=== PATIENT | female | born 1950 | race Caucasian/White ===

== ENCOUNTER 2018-08-20 16:47 | Outpatient (REF) | payer MEDICARE, BC, SELFPAY ==
[2018-08-20 21:35] LABS: Anion Gap 8.8 mmol/L (3-11); BUN 20 mg/dL (7-18); CO2 26.2 mmol/L (21.0-32.0); CREATININE 0.78 mg/dL (0.55-1.02); Calcium 8.9 mg/dL (8.5-10.1); Chloride 103 mmol/L (98-107); Cholesterol 211 mg/dL (50-200); Glucose 95 mg/dL (70-100); HDL Cholesterol 52 mg/dL (40-60); LDL CHOLESTEROL 134 mg/dL (<100); Potassium 4.4 mmol/L (3.5-5.1); Sodium 138 mmol/L (136-145); Triglyceride 165 mg/dL (30-150)
== END 2018-08-20 17:07 ==
LOC: NCHCN 16:47
PROVIDERS: PCP Internal Medicine; Visit Provider Internal Medicine
DX: I10 Essential (primary) hypertension (principal); E78.5 Hyperlipidemia, unspecified
CPT/HCPCS: 80048; 80061; 83721

== ENCOUNTER 2018-09-06 01:15 | Outpatient (CLI) | payer MEDICARE, BC, SELFPAY ==
--- NOTE | 2018-09-06 11:46 | DI.MAMMO_ITS ---
SYMPTOM/DIAGNOSIS: SCREENING, Z12.31 MAMMOGRAM: 09/06 Mammograms were interpreted according to the usual protocol including computer analysis with CAD system, tomosynthesis and C view imaging. The breasts are of moderate density with fairly symmetrical distribution of fibroglandular tissue. No dominant mass or clumped microcalcification is identified in either breast. The current examination is compared with previous examinations including November 2013 and there is increased prominence of a focal area of asymmetric density with a vaguely nodular contour projected in the lateral central portion of the left breast on CC view. Additional mammographic views of this area are requested to include CC spot compression view of the left breast. CONCLUSION: Additional mammographic views of the left breast requested as described above. Breast ultrasound may be indicated as well depending on results of additional mammographic views. Category 0, breast density category B. MQSA ASSESSMENT OF FINDINGS: Incomplete: Needs additional imaging evaluation. Category 0. Patient will receive a letter notifying them of these results. BI-RADS category B. There are scattered areas of fibroglandular density.
== END 2018-09-06 01:35 ==
PROVIDERS: PCP Internal Medicine; Visit Provider Internal Medicine
DX: Z12.31 Encounter for screening mammogram for malignant neoplasm of breast (principal); R92.8 Other abnormal and inconclusive findings on diagnostic imaging of breast
CPT/HCPCS: 77063; 77067

== ENCOUNTER 2018-09-13 01:30 | Outpatient (CLI) | payer MEDICARE, BC, SELFPAY ==
--- NOTE | 2018-09-13 13:54 | DI.MAMMO_ITS ---
SYMPTOM/DIAGNOSIS: F/U MAMMO, ASYMMETRIC DENSITY LEFT BREAST ADDITIONAL VIEWS: Additional images are interpreted according to the usual protocol including tomosynthesis and 2D imaging. CC spot compression views with tomography were performed for a questioned lateral asymmetry. No persistent abnormality is seen on the additional views performed. The findings are consistent with overlying fibroglandular tissue. IMPRESSION: Category 1, negative mammogram. Yearly screening mammography is recommended. MQSA ASSESSMENT OF FINDINGS: Incomplete: Needs additional imaging evaluation. Category 0. Patient will receive a letter notifying them of these results. BI-RADS category B. There are scattered areas of fibroglandular density.
== END 2018-09-13 01:50 ==
PROVIDERS: PCP Internal Medicine; Visit Provider Internal Medicine
DX: Z12.31 Encounter for screening mammogram for malignant neoplasm of breast (principal); R92.8 Other abnormal and inconclusive findings on diagnostic imaging of breast; N64.59 Other signs and symptoms in breast
CPT/HCPCS: 77063; 77067

== ENCOUNTER 2019-04-25 18:26 | Outpatient (REF) | payer MEDICARE, BC, SELFPAY ==
[2019-04-25 21:43] LABS: HGB 12.2 g/dL (12.0-15.5); Mean Corpuscular Hemoglobin 30.8 pg (27.0-33.0); Mean Corpuscular Volume 93.4 fL (80-95); Mean Platelet Volume 9.9 fL (8.0-11.0); Platelet Count 337 x1000/uL (130-400); RBC 3.96 m/cumm (4.00-5.20); RBC Distribution Width 13.2 % (11.7-14.6); White Blood Cell Count 6.57 k/cumm (4.4-10.8)
[2019-04-25 22:05] LABS: TSH 1.25 uIU/mL (0.358-3.74)
== END 2019-04-25 18:46 ==
LOC: NCHCN 18:26
PROVIDERS: PCP Internal Medicine; Visit Provider Registered Nurse
DX: R53.83 Other fatigue (principal)
CPT/HCPCS: 85027; 84443

== ENCOUNTER 2019-10-28 09:00 | Outpatient (CLI) | payer MEDICARE, BC, SELFPAY ==
[2019-10-28 10:40] LABS: Anion Gap 8.9 mmol/L (3-11); BUN 23 mg/dL (7-18); CO2 29.1 mmol/L (21.0-32.0); CREATININE 0.78 mg/dL (0.55-1.02); Calcium 8.9 mg/dL (8.5-10.1); Calculated LDL 136 mg/dL; Chloride 101 mmol/L (98-107); Cholesterol 217 mg/dL (<200); Glucose 108 mg/dL (74-106); HDL Cholesterol 38 mg/dL (40-60); Potassium 4.2 mmol/L (3.5-5.1); Sodium 139 mmol/L (136-145); Triglyceride 218 mg/dL (<150)
== END 2019-10-28 09:20 ==
PROVIDERS: PCP Internal Medicine; Visit Provider Internal Medicine
DX: E78.5 Hyperlipidemia, unspecified (principal); I10 Essential (primary) hypertension
CPT/HCPCS: 36415; 80048; 80061

== ENCOUNTER 2020-02-20 00:39 | Outpatient (CLI) | payer MEDICARE, BC, SELFPAY ==
--- NOTE | 2020-02-20 | DI.DEXA_ITS ---
EXAM: XR DEXA BONE DENSITY W/WO KAMILLE CLINICAL HISTORY: OTHER SPECIFIC DISORDER OF BONE DENSITY AND STRUCTURE, M85.88 TECHNIQUE: COMPARISON: DX DEXA BONE DENSITY WITH KAMILLE from 11/19/2013 FINDINGS: DEXA scan was performed according to the usual protocol. Please see the accompanying data sheets. Findings for lumbar spine scanning are T-score -2.2, prior study of November 2013 showed lumbar T-sco re -2.0. Left hip scanning shows T-score -2.1 with left femoral neck T-score -2.6. Prior study of November 28 showed left hip T-score -1.7. Left forearm scanning shows T-score -0.1, prior study of 2013 showed T-score 0. There is minimal anterior wedging of T11 and T12 vertebral bodies which is probably developmental. N o change from 2013. IMPRESSION: Findings consistent with osteoporosis according to the WHO criteria.
== END 2020-02-20 00:59 ==
PROVIDERS: PCP Internal Medicine; Visit Provider Internal Medicine
DX: M85.88 Other specified disorders of bone density and structure, other site (principal); M81.0 Age-related osteoporosis without current pathological fracture
CPT/HCPCS: 77080

== ENCOUNTER 2020-03-26 03:04 | Outpatient (CLI) | payer MEDICARE, BC, SELFPAY ==
--- NOTE | 2020-03-26 10:50 | DI.MAMMO_ITS ---
EXAM: MAMMO SCREENING CLINICAL HISTORY: SCREENING, ADULT PREVENTATIVE CARE, Z00.00 TECHNIQUE: Mammograms were interpreted according to the usual protocol including computer analysis w [employer] CAD system, tomosynthesis and C-view imaging. COMPARISON: 2011 through 2017 FINDINGS: The breasts are composed of scattered fibroglandular densities, Breast Density category B. No suspicious masses or suspicious microcalcifications are seen. No skin thickening or abnormal axillary lymph nodes are seen. Vascular calcifications are incidental ly noted. There has been no significant change from prior exams. IMPRESSION: BI-RADS Category 1 - Negative Yearly screening mammography is recommended. Breast Density Category B, scattered fibroglandular densities.
== END 2020-03-26 03:24 ==
PROVIDERS: PCP Internal Medicine; Visit Provider Internal Medicine
DX: Z12.31 Encounter for screening mammogram for malignant neoplasm of breast (principal)
CPT/HCPCS: 77063; 77067

== ENCOUNTER → 2020-05-25 14:31 | Outpatient (BNVA) | payer MEDICARE, BC, SELFPAY | PROVIDERS: PCP Internal Medicine; Referring Provider Internal Medicine; Visit Provider Surgery | DX: K21.9 Gastro-esophageal reflux disease without esophagitis (principal); Z12.11 Encounter for screening for malignant neoplasm of colon; I10 Essential (primary) hypertension | CPT/HCPCS: 99203 ==

== ENCOUNTER 2020-06-09 07:10 | Outpatient (CLI) | payer MEDICARE, BC, SELFPAY ==
[2020-06-10 12:28] LABS: COVID-19 RT-PCR Result NEGATIVE (Negative)
== END 2020-06-09 07:30 ==
PROVIDERS: PCP Internal Medicine; Visit Provider Surgery
DX: Z11.51 Encounter for screening for human papillomavirus (HPV) (principal); Z01.818 Encounter for other preprocedural examination
CPT/HCPCS: U0003

== ENCOUNTER 2020-07-03 07:22 | Outpatient (CLI) | payer MEDICARE, BC, SELFPAY ==
[2020-07-04 23:22] LABS: COVID-19 RT-PCR Result NEGATIVE (Negative)
== END 2020-07-03 07:42 ==
PROVIDERS: Surgery; PCP Internal Medicine; Visit Provider Surgery
DX: Z11.59 Encounter for screening for other viral diseases (principal); Z01.818 Encounter for other preprocedural examination
CPT/HCPCS: U0003

== ENCOUNTER 2020-07-06 07:17 | Day surgery (SDC) | payer MEDICARE, BC, SELFPAY ==
--- NOTE | 2020-07-05 08:29 | STOM_PTH ---
PATIENT: Trista Boothe LOC: [facility] U#:[id number] AGE/SX: 70/F ROOM: RE07/06/[address]: Lise Espinoza MD : 1950 BED: DIS: 07/06/2020 SPEC #: [id number] RECD: 07/06/20 12:46 STATUS: BIJAN REQ #: [id number] EVELINA: 07/05/20 08:[address]: Lise Espinoza DEPT: Surgical Specimen RECD BY: Adela Shaw ENTERED: 07/06/20 12:47 SP TYPE: STOMACH OTHR DR: Gracy Wick Tissues: 1 - STOMACH BIOPSY 2 - ESOPHAGUS BIOPSY 3 - BIOPSY BOWEL Procedures: GROSS AND MICRO LEVEL 4 IMMUNOPEROXIDASE STAIN Comments: [id number]
--- NOTE | 2020-07-06 06:44 | W.PREOPHP ---
Date of service: 07/06/20 Time of Service: 08:13 Assessment and Plan Assessment and plan (1) Encounter for screening colonoscopy: Status: Acute Assessment and plan: A\\ 70 year old female seen for a screening colonoscopy as well as GERD symptoms despite PPI. Kamrar and EGD recommended P\\ Colonoscopy and EGD under sedation Risks, benefits and complications have been reviewed. Complications include but are not limited to bleeding, pain, perforation, missed small lesion/polyp, sore throat, aspiration and adverse reaction to the medications. Questions were entertained and answered to their satisfaction and they wished to proceed. No guarantees were given or implied. (2) GERD (gastroesophageal reflux disease): Status: Chronic Qualifiers: Esophagitis presence: esophagitis presence not specified Qualified Code(s): K21.9 - Gastro-esophageal reflux disease without esophagitis History of Present Illness Narrative: Presents to discuss EGD/colonoscopy. Colonoscopy in 2010 normal. Sigmoid resection for diverticular disease in 2008. Prior diagnosis of Barretts esophagus although EGD with biopsies in 2010 and 2012 showed only reflux changes. Has acid reflux that is partially controlled with PPI but still has some nighttime regurgitation. Does have some dysphonia and has seen ENT in the past. Bladder suspension in 2015. Has occasional rectal spasm at night, helps to pass gas. No FH colon cancer. No bowel complaints. No dysphagia. Dont eat late, elevate head. Patient was seen by Dr. Godinez in the office. Patient seen today. No changes in her symptoms or her health since she was seen in May Review of Systems Cardiovascular Cardiovascular: Denies chest pain, Denies chest pain at rest, Denies irregular heart rhythm, Denies dyspnea and Denies dyspnea on exertion Respiratory Respiratory: Reports cough, Denies dyspnea and Denies dyspnea on exertion Gastrointestinal Gastrointestinal: Reports as per HPI Genitourinary Genitourinary: Denies dysuria, Reports urinary incontinence and Denies urinary urgency Endocrine Endocrine: Reports system reviewed and no additional complaints, except as documented Hematologic/Lymphatic Hematologic/Lymphatic: Denies easy bruising and Denies lymphadenopathy [facility] Medical History Allergic rhinitis Anxiety Asthma Baer's esophagus determined by biopsy Cerumen impaction Dry eye syndrome Facial rhytids (01/15/18) Fatigue GERD (gastroesophageal reflux disease) Hormone replacement therapy (HRT) Hyperlipidemia Hypertension Impaired fasting glucose Obstructive sleep apnea Osteopenia on DEXA scan. Premature ventricular contractions (PVCs) (VPCs) Per pt. states this is due to anxiety Vaginal prolapse (03/29/16) s/p laparoscopic colpopexy, posterior repair. [facility] [place]. Vitamin D deficiency Surgical History Colonoscopy - IV Sedation with EGD for Barretts esophagitis History of open sigmoidectomy laparoscopic sacral colpopexy 03/29/16 with posterior colporrhaphy. [facility] [place]. Oophrectomy, Left (~2000) Repair of umbilical hernia Vaginal hysterectomy (~2002) for uterine prolapse, with oophorectomy Family History Mother Essential hypertension Heart disease Stroke Father Blood disorder required blood transfusions Brother Diabetes Grandfather , mouth cancer Diabetes Grandmother , breast cancer No problems noted. Son CD (Crohn's disease) Daughter CD (Crohn's disease) Social History Smoking/Tobacco Use Status: Never Alcohol Intake: current Alcohol Intake frequency: a few times a month Alcohol type: wine Drug use: Never Substance use type: does not use Do you feel safe at home: Yes Do you feel safe in your relationship?: Yes Meds Home Medications and Allergies Home Medications Medication Instructions Recorded Confirmed Type estradiol 0.5 mg PO DAILY 01/31/13 07/06/20 History fluticasone propion-salmeterol 1 puff INHALATION DAILY 01/31/13 07/06/20 History [Advair Diskus] lisinopril 10 mg PO DAILY 01/31/13 07/06/20 History mometasone [Nasonex] 1 spry NS DAILY 01/31/13 07/06/20 History omeprazole 20 mg PO DAILY 01/31/13 07/06/20 History albuterol sulfate [Ventolin HFA] 2 puff INHALATION PRN PRN 07/04/15 07/06/20 History cyclosporine 0.05 % eye drops in a 1 drp OP Q12H 11/14/19 07/06/20 History dropperette multivitamin 1 tab PO DAILY 11/14/19 07/06/20 History nebulizers #1 each 11/14/19 07/02/20 History simvastatin 20 mg tablet 20 mg PO QHS 11/14/19 07/06/20 History alendronate [Fosamax] 70 mg PO QWEEK 07/06/20 07/06/20 History Allergies Allergy/AdvReac Type Severity Reaction Status Date / Time mirtazapine [From Remeron] Allergy Intermediate Verified 07/06/20 07:33 venlafaxine HCl AdvReac Severe seizure Unverified 07/06/20 07:33 [From Effexor] meperidine HCl [From Demerol] AdvReac Intermediate vomit, Unverified 07/06/20 07:33 couldn't wake up oxycodone [Oxycodone] AdvReac Intermediate gi upset Unverified 07/06/20 07:33 Exam Const General: healthy appearing and comfortable Resp Effort & Inspection: normal respiratory effort Auscultation: clear to auscultation bilaterally Cardio Rate: regular rate Rhythm: regular rhythm Heart Sounds: no click, no gallops and no murmurs
--- NOTE | 2020-07-06 06:48 | W.PM.ENDDOP ---
Date of service: 07/06/20 Time of Service: 09:13 Endoscopy Report DATE OF PROCEDURE: 07/06/20 PRE-OP DIAGNOSIS: Colon Cancer Screening and GERD PROCEDURE: 1. EGD with biopsies 2. Colonoscopy with polypectomy SURGEON: Lise Espinoza ANESTHESIA: other (General/ASA 2/Davey Garcia, RAS) ESTIMATED BLOOD LOSS: 2 PATHOLOGY: other (Gastric polyps, GE junction bx, rectal polyps x4) COMPLICATIONS: None DISPOSITION: same day INDICATIONS: Presents to discuss EGD/colonoscopy. Colonoscopy in 2010 normal. Sigmoid resection for diverticular disease in 2008. Prior diagnosis of Barretts esophagus although EGD with biopsies in 2010 and 2012 showed only reflux changes. Has acid reflux that is partially controlled with PPI but still has some nighttime regurgitation. Does have some dysphonia and has seen ENT in the past. Bladder suspension in 2015. Has occasional rectal spasm at night, helps to pass gas. No FH colon cancer. No bowel complaints. No dysphagia. Dont eat late, elevate head. PREP: Miralax/Dulcolax PROCEDURE START TIME: 08:24 PROCEDURE END TIME: 08:57 COLONOSCOPY RETRACTION TIME: 13 minutes FINDINGS: Upper- small benign gastric polyps small hiatal hernia mild inflammation of the esophagus Colonoscopy- 4 benign appearing polyps in the rectum PROCEDURE DESCRIPTION: After informed consent was obtained the patient was take to the procedure room and placed in a supine position. Monitors were applied and a time out was done. The patients name, date of , procedure type, allergies to medications and metal in their body was reviewed. A bite block was placed and the patient was sedated. Once sedated and comfortable the gastroscope was advanced through the oropharynx. There was a small lesion noted on th left side next to the tonsillar pillar and a small red lesion on the left vocal cord. The scope was advanced into the esophagus. The proximal and mid-esophagus were normal. There was normal peristalsis observed. In the distal esophagus there was mild inflammation noted. The scope was advanced into the stomach and through the pylorus into the 3rd portion of the duodenum. The duodenum was noted to be normal. The scope was retracted back into the stomach scattered benign appearing gastric fundic polyps were identified. A few were biopsied. There were no ulcers. The scope was retroflexed. The cardia and fundus were noted to be normal. There was a small hiatal hernia noted. The scope was retracted back into the esophagus and biopsies were done of the GE junction to rule out Baer's. The Z line was slightly irregular at the 3 o'clock position. The GE junction was at 32 cm. While the patient was still sedated they were placed in a left decubitous position. A rectal exam was done. External exam showed external hemorrhoids and mild prolapse circumferentially. Internal exam revealed a normal sphincter tone and no palpable masses. The scope was then introduced and retro-flexed. No internal hemorrhoids were identified. The scope was then advanced to the cecum without difficulty. The ileocecal valve and appendiceal orifice were identified. The prep was good. The scope was then slowly retracted over 13 minutes back into the rectum. The side to side descending/rectal anastamosis was identified. The scope was advanced into the blind end. No polyps or masses were noted. There were 4 benign appearing polyps in the rectum. The scope was removed and the patient was woken up and taken back to Same day surgery in stable condition. The patient tolerated the procedure well and there were no immediate complications. Follow up: depends on final pathology
--- NOTE | 2020-07-06 06:50 | W.PM.DSUDISC ---
Discharge Plan Disposition Patient Disposition: HOME Condition: Stable Discharge Details Reason For Visit: EGD/Colonoscopy Attending Provider: Lise Espinoza Primary Care Provider: Gracy Wick Home Meds and New Rx's Prescriptions: Continued simvastatin 20 mg tablet 20 mg PO QHS RF: 0 multivitamin [Daily Multi-Vitamin] Tablet 1 tab PO DAILY RF: 0 Restasis 0.05 % dropperette 1 drp OP Q12H RF: 0 (DME) Compact Compressor Nebulizer Misc See Rx Instructions .ROUTE .MEDSUPPLY Qty: 1 RF: 0 omeprazole 20 MG capsule,delayed release(DR/EC) 20 mg PO DAILY RF: 0 lisinopril 5 MG tablet 10 mg PO DAILY RF: 0 estradiol 0.5 MG tablet 0.5 mg PO DAILY RF: 0 fluticasone propion-salmeterol [Advair Diskus] 1 EACH blister with device 1 puff Inhalation DAILY RF: 0 mometasone [Nasonex] 17 GM spray,non-aerosol 1 spry NS DAILY RF: 0 albuterol sulfate [Ventolin HFA] 60 PUFF HFA aerosol inhaler 2 puff Inhalation PRN PRNRF: 0 Discontinued bisacodyl [Dulcolax (bisacodyl)] 5 mg tablet,delayed release (DR/EC) 5 mg PO ONCE Qty: 4 RF: 0 polyethylene glycol 3350 17 gram/dose powder 17 g PO ONCE Qty: 238 RF: 0 No Action alendronate [Fosamax] 70 mg Tablet 70 mg PO QWEEK RF: 0 Discharge Instructions Instructions: Colorectal Polyps (DC), Esophagitis (DC), Hiatal Hernia (DC), Hemorrhoids (DC) Additional Instructions: Findings: 1. Mild inflammation of the stomach 2. Small Hiatal hernia 3. Gastric polyps (benign) 4. benign appearing rectal polyps 5. external hemorrhoids 6. Small red lesion on your vocal cord- not sure the significance. I recommend referal to ENT (Dr. Mclean or Dr. Lira) Follow up: will depend on final pathology Please call if you develop: fevers >101.5 Nausea or Vomiting Abdominal pain that is not transient DAY SURGERY UNIT POST ENDOSCOPY INSTRUCTIONS 1. Because there will be medication in your system for the next 24 hours, you may feel a little sleepy. Your coordination will be affected. Therefore: a. Do not drive or operate dangerous equipment for 24 hours. b. Do not drink alcohol beverages for 24 hours (not even beer). c. Plan to go home and rest for the day. 2. Generally there are no restrictions on your activity after a day or so has gone by, but you may feel a bit fatigued for a few days. 3 After you arrive home you may have a light meal and return to a normal diet as you can tolerate it without feeling sick to your stomach. 4. After surgery, you may feel pain or discomfort. This should be only transient, but if it persists please contact your doctor. 5. If there are any questions regarding the findings of your procedure, please feel free to contact your doctor. 6. If you are unable to contact your doctor with a problem, contact the hospital at [phone]. 7. Continue all your regular medications unless directed otherwise. I understand the above instructions and have no questions. Signature of Patient or Responsible Adult Escort Date/Time Name of Responsible Adult Escort Signature of Nurse Date/Time Stand Alone Forms: Gino LOZANO) Activity:: Activity as Tolerated Diet:: As Tolerated Discharge Orders Discharge Orders: Discharge Order (Routine); Ordered 07/06/20 Ordered By: Lise Espinoza DS: Diagnosis Discharge Diagnosis (1) Encounter for screening colonoscopy: Status: Acute (2) GERD (gastroesophageal reflux disease): Status: Chronic
[2020-07-06 07:25] VITALS: BP 128/80; PULSE 71; RESP 14; TEMP 36.5; O2SAT 99
[2020-07-06] MEDS: Lactated Ringers 1,000 ML 80 ML IV (07:59)
[2020-07-06 09:40] VITALS: BP 112/84; PULSE 63; RESP 16; TEMP 36.4; O2SAT 98
== END 2020-07-06 10:15 | disposition home or self-care (01) ==
LOC: SUR 07:18
PROVIDERS: PCP Internal Medicine; Visit Provider Surgery
PROC: (CPT 45380; principal; 2020-07-06 08:30)
DX: Z12.11 Encounter for screening for malignant neoplasm of colon (principal); D12.8 Benign neoplasm of rectum; K62.1 Rectal polyp; K21.9 Gastro-esophageal reflux disease without esophagitis; K31.7 Polyp of stomach and duodenum; K44.9 Diaphragmatic hernia without obstruction or gangrene; K20.9 Esophagitis, unspecified; Z98.0 Intestinal bypass and anastomosis status
CPT/HCPCS: 45380; 43239; 88305; NC; 88361; J2001

== ENCOUNTER 2020-09-19 08:37 | Inpatient (IN) | payer MEDICARE, BC, SELFPAY ==
[2020-09-19] VITALS (36 sets, daily range): BP systolic 113–204; BP diastolic 69–100; PULSE 60–83; RESP 9–22; TEMP 36.2–37.2; O2SAT 94–99
--- NOTE | 2020-09-19 08:30 | RT.EKG_ITS ---
APPROVED REPORT Exam: Resting ECG Patient Location: E HR:69 bpm ECG Measurements Heart Rate 69 AXIS CO 157 P 51 QRSd 90 QRS 76 QT 417 T 60 QTc 447 Conclusion Sinus rhythm...normal P axis, V-rate 60- 99
[2020-09-19 08:49] LABS: Abs Immature Grans 0.04 10^3/uL (0.0-0.06); Absolute Basophil Count 0.03 10^3/uL (0.0-0.2); Absolute Eosinophil Count 0.16 10^3/uL (0.0-0.7); Absolute Lymphocyte Count 1.23 10^3/uL (1.2-3.4); Absolute Neutrophil Count 2.77 10^3/uL (1.2-6.7); Basophils % 0.6; Eosinophils % 3.5; HCT 41.4 % (36.0-46.0); HGB 13.7 g/dL (11.2-15.7); Immature Grans % 0.9; Lymphocytes % 26.6; MCH 30.3 pg (27.0-33.0); MCHC 33.1 % (32.0-36.0); MCV 91.6 fL (80-95); MPV 9.3 fL (8.0-11.0); Monocytes % 8.6; Neutrophils % 59.8; Nucleated RBC 0 %; Platelet Count 330 10^3/uL (130-400); RBC 4.52 10^6/uL (3.93-5.22); RDW 12.9 % (11.7-14.6); RDW-SD 42.6 fL; WBC 4.63 10^3/uL (4.4-10.8)
[2020-09-19 08:58] LABS: Prothrombin Time 9.6 sec (9.3-11.0)
[2020-09-19 09:05] LABS: ALT 33 U/L (14-59); AST 17 U/L (15-37); Albumin 4.5 g/dL (3.4-5.0); Alkaline Phosphatase 101 U/L (46-116); Anion Gap 9.7 mmol/L (3-11); BUN 18 mg/dL (7-18); Bilirubin, Total 0.5 mg/dL (0.2-1.0); CO2 25.3 mmol/L (21.0-32.0); CREATININE 0.88 mg/dL (0.55-1.02); Calcium 8.8 mg/dL (8.5-10.1); Chloride 102 mmol/L (98-107); Glucose 139 mg/dL (74-106); Magnesium 1.9 mg/dL (1.8-2.4); Potassium 3.9 mmol/L (3.5-5.1); Sodium 137 mmol/L (136-145); Total Protein 8.2 g/dL (6.4-8.2)
--- NOTE | 2020-09-19 09:06 | ED.GENADUL_ITS ---
Discharge Plan Disposition Patient Disposition: [facility] INPATIENT Condition: Improving Discharge Details Clinical Impression: Hypertensive emergency, Altered mental status Primary Care Provider: Gracy Wick ED Provider: Benito Barber Home Meds and New Rx's Prescriptions: No Action simvastatin 20 mg tablet 20 mg PO QHS RF: 0 multivitamin [Daily Multi-Vitamin] Tablet 1 tab PO DAILY RF: 0 Restasis 0.05 % dropperette 1 drp OP Q12H RF: 0 (DME) Compact Compressor Nebulizer Misc See Rx Instructions .ROUTE .MEDSUPPLY Qty: 1 RF: 0 omeprazole 20 MG capsule,delayed release(DR/EC) 20 mg PO DAILY RF: 0 lisinopril 5 MG tablet 10 mg PO DAILY RF: 0 fluticasone propion-salmeterol [Advair Diskus] 1 EACH blister with device 1 puff Inhalation DAILY RF: 0 mometasone [Nasonex] 17 GM spray,non-aerosol 1 spry NS DAILY RF: 0 albuterol sulfate [Ventolin HFA] 60 PUFF HFA aerosol inhaler 2 puff Inhalation PRN PRNRF: 0 alendronate [Fosamax] 70 mg Tablet 70 mg PO QWEEK RF: 0 Medical Decision Making 920??70-year-old female with history of hypertension, hypercholesterolemia, anxiety, question remote seizure and question remote intracranial venous abnormality, here with sudden onset of altered mental status this morning, improving but still confused. No focal neurologic deficits. Patient has no pain and specifically has had no headache or chest pain. Patient is severely hypertensive on arrival with a systolic blood pressure in the 190s -this is despite compliance with antihypertensives. Concern for potential hypertensive emergency versus consideration for seizure disorder given prior history versus other. Blood pressure slightly improved now 170 on reassessment. Patient notes symptoms are improving and she feels more lucid. Nursing notes that she has better recall and now knows what she was planning to do today. Screening ECG was obtained to review for any arrhythmia -ECG was reviewed and interpreted by me. Please see report. Sinus rhythm noted. Plan will be to obtain a CT of the head as initial study to assess for any significant intracranial abnormality. Labs to assess for renal dysfunction or electrolyte abnormality. I think arrhythmia is low likelihood but will maintain cardiac monitoring. 10:49 --labs reviewed and nondiagnostic. CT of the head was reviewed and interpreted by radiology: No evidence of acute intracranial abnormality. No evidence of acute infarction, hemorrhage, or mass. Age-related atrophy and mild microvascular disease noted. Patient was reassessed and mentation has improved. She now has better recall of the events of last night. She still has poor recall regarding events this morning. Continues to have no focal neurologic deficits. Patient was given labetalol 20 mg IV for hypertension. Blood pressure did improve. I am concerned about hypertensive emergency and feel patient would benefit from inpatient treatment for further treatment of her hypertension and cardiac monitoring today. 1057??I discussed ED presentation and course with Dr. Eastman. He will admit the patient. Care transition to Dr. Eastman. HPI General Mode of arrival: EMS . Date/Time Provider Initiated Documentation: 09/19/20 09:05 . Limitations to Documentation: altered mental status . Information obtained by: EMS . HPI Narrative: 70-year-old female with history of hypertension, hypercholesterolemia, diverticulitis, GERD, asthma, anxiety, ? remote seizure, ? venous abnormality intracranial, presents with chief complaint of altered mental status. Per the patient's , patient was altered and did not respond to external stimuli. History is limited secondary to altered mental status. History obtained from patient's who notes that this morning she was exhibiting normal mentation until around 7:30 AM when he found h er standing in the kitchen with an odd smile staring blankly. He attempted to communicate with her and she was unable to respond. He assisted her ambulation to a couch and had her sit down. She did not lose consciousness but remained unable to respond for some time and then slowly became more lucid. She did remain confused and he called EMS. Patient now states that she has poor recollection of events this morning as well as yesterday. She states that she know she worked yesterday but does not recall any specifics. She does not know what she ate last night for dinner. Patient denies associated pain. No numbness or weakness. No visual changes. No headache. Patient denies fever or cough. Related Data Home Medications Medication Instructions Recorded Confirmed fluticasone propion-salmeterol 1 puff INHALATION DAILY 01/31/13 09/19/20 [Advair Diskus] lisinopril 10 mg PO DAILY 01/31/13 09/19/20 mometasone [Nasonex] 1 spry NS DAILY 01/31/13 09/19/20 omeprazole 20 mg PO DAILY 01/31/13 09/19/20 albuterol sulfate [Ventolin HFA] 2 puff INHALATION PRN PRN 07/04/15 09/19/20 cyclosporine 0.05 % eye drops in a 1 drp OP Q12H 11/14/19 09/19/20 dropperette multivitamin 1 tab PO DAILY 11/14/19 09/19/20 nebulizers #1 each 11/14/19 07/02/20 simvastatin 20 mg tablet 20 mg PO QHS 11/14/19 09/19/20 alendronate [Fosamax] 70 mg PO QWEEK 07/06/20 09/19/20 Allergies Allergy/AdvReac Type Severity Reaction Status Date / Time mirtazapine [From Remeron] Allergy Intermediate Verified 09/19/20 08:50 venlafaxine HCl AdvReac Severe seizure Unverified 09/19/20 08:50 [From Effexor] meperidine HCl [From Demerol] AdvReac Intermediate vomit, Unverified 09/19/20 08:50 couldn't wake up oxycodone [Oxycodone] AdvReac Intermediate gi upset Unverified 09/19/20 08:50 General Stated Complaint: AMS/LOC SIXTO: 2 Review of Systems All systems reviewed & are unremarkable except as noted in HPI and below Constitutional Constitutional: Denies fever(s) ENT Ears, Nose, Mouth, and Throat: Denies vertigo and Denies dizziness Cardiovascular Cardiovascular: Denies chest pain, Denies syncope and Denies dyspnea Respiratory Respiratory: Denies dyspnea Neurologic Neurologic: Denies vertigo, Denies dizziness and Denies syncope [facility] Medical History Allergic rhinitis Anxiety Asthma Baer's esophagus determined by biopsy Cerumen impaction Dry eye syndrome Facial rhytids (01/15/18) Fatigue GERD (gastroesophageal reflux disease) Hormone replacement therapy (HRT) Hyperlipidemia Hypertension Impaired fasting glucose Obstructive sleep apnea Osteopenia on DEXA scan. Premature ventricular contractions (PVCs) (VPCs) Per pt. states this is due to anxiety Vaginal prolapse (03/29/16) s/p laparoscopic colpopexy, posterior repair[place] [facility] D deficiency Surgical History Colonoscopy - IV Sedation with EGD for Barretts esophagitis History of open sigmoidectomy laparoscopic sacral colpopexy 03/29/16 with posterior colporrhaphy. [facility]. Oophrectomy, Left (~2000) Repair of umbilical hernia Vaginal hysterectomy (~2002) for uterine prolapse, with oophorectomy Family History Mother Essential hypertension Heart disease Stroke Father Blood disorder required blood transfusions Brother Diabetes Grandfather , mouth cancer Diabetes Grandmother , breast cancer No problems noted. Son CD (Crohn's disease) Daughter CD (Crohn's disease) Social History Smoking/Tobacco Use Status: Never Smoking risk assessment performed?: Yes Alcohol Intake: current Alcohol Intake frequency: a few times a month Alcohol type: wine Drug use: Never Substance use type: does not use Do you feel safe at home: Yes Do you feel safe in your relationship?: Yes Exam Const General: cooperative and no acute distress HENMT Head: normocephalic and atraumatic Mouth: moist mucous membranes Eyes Alignment and Position: alignment normal Conjunctivae: normal conjunctivae Sclera: normal sclerae Pupils: PERRL EOM: EOM intact bilaterally Neck Neck: trachea midline and supple Resp Auscultation: clear to auscultation bilaterally, no rales, no rhonchi and no wheezes Cardio Jugular venous pressure: no JVD Rate: regular rate and not tachycardic Rhythm: regular rhythm GI Palpation: soft, not firm, no guarding, no masses, not rigid and nontender Skin General skin exam: no rashes or lesions noted Neuro General: patient alert, patient awake, tone normal and patient confused Cognition: abnormal cognition Speech: speech normal Motor: strength 5/5 throughout Sensory Exam: no sensory deficits noted Extrem General: no edema Psych Appearance: grossly normal Mental Status: mental status grossly normal Speech and Movement: speech and movement normal Course Vital Signs Vital signs: Vital Signs Temperature 36.2 C L 09/19/20 08:38 Pulse 72 09/19/20 08:38 Respiratory Rate 12 09/19/20 08:38 Blood Pressure 193/99 H 09/19/20 08:38 Pulse Oximetry 98 12/12/20 08:38 Temperature 36.2 C L 09/19/20 08:38 Temperature Source Skin 09/19/20 08:38 Pulse 72 09/19/20 08:38 Respiratory Rate 12 09/19/20 08:38 Respiratory Effort Non-Labored 09/19/20 08:49 Blood Pressure 193/99 H 09/19/20 08:38 Blood Pressure Position Supine 09/19/20 08:38 Pulse Oximetry 98 09/19/20 08:38 Oxygen Delivery Method Room Air 09/19/20 08:38 Oxygen Flow Rate 0 09/19/20 08:38 Pain Level 0 09/19/20 08:38 Lab/Test Results Lab/Test Results: Laboratory Tests Range/Units 09/19/20 09/19/20 08:16 08:16 WBC (4.4-10.8) 10^3/uL 4.63 RBC (3.93-5.22) 10^6/uL 4.52 Hgb (11.2-15.7) g/dL 13.7 Hct (36.0-46.0) % 41.4 MCV (80-95) fL 91.6 MCH (27.0-33.0) pg 30.3 MCHC (32.0-36.0) % 33.1 RDW (11.7-14.6) % 12.9 Plt Count (130-400) 10^3/uL 330 MPV (8.0-11.0) fL 9.3 Immature Gran % 0.9 Neutrophils % 59.8 Lymphocytes % 26.6 Monocytes % 8.6 Eosinophils % 3.5 Basophils % 0.6 Nucleated RBC % % 0 Absolute Neutrophils (1.2-6.7) 10^3/uL 2.77 Absolute Lymphocytes (1.2-3.4) 10^3/uL 1.23 Absolute Monocytes (0.1-0.8) 10^3/uL 0.40 Absolute Eosinophils (0.0-0.7) 10^3/uL 0.16 Absolute Basophils (0.0-0.2) 10^3/uL 0.03 PT (9.3-11.0) sec 9.6 INR (0.9-1.1) 1.0
[2020-09-19 09:07] LABS: Troponin I < 0.05 ng/mL (<0.06)
--- NOTE | 2020-09-19 09:43 | DI.CT_ITS ---
EXAM: CT HEAD WO CLINICAL HISTORY: altered mentation, HTN. TECHNIQUE: Imaging Protocol: Axial computed tomography images with coronal and sagittal reformatted images were created and reviewed COMPARISON: No exams were available for comparison FINDINGS: Ventricles and Extra axial spaces: Normal in size and morphology for the patient's age. Hemorrhage: None. Cerebral parenchyma: There are areas of decreased attenuation in the white matter most consistent wit h microvascular ischemic disease. No acute territorial infarct. No mass effect. Midline shift: None. Brainstem/Cerebellum: Normal. Calvarium: Normal. Visualized Paranasal sinuses/Mastoids: Clear. Soft Tissues: Unremarkable. IMPRESSION: No acute intracranial process. RADIATION DOSE DELIVERED: 619.82mGy.cm Total DLP DATA REPOSITORY: All CT scans at this facility are submitted to the National Radiology Data Registry (NRDR) Dose Index Registry (DIR) with the [employer] (ACR). RADIATION OPTIMIZATION: All CT scans at this facility use at least one of these dose optimization te chniques: automated exposure control; mA and/or kV adjustment per patient size (includes targeted exa ms where dose is matched to clinical indication); or iterative reconstruction.
--- NOTE | 2020-09-19 09:46 | DI.VRAD_ITS ---
PROCEDURE INFORMATION: Exam: CT Head Without Contrast Exam date and time: 09/19/2020 9:33 AM Age: 70 years old Clinical indication: Other: Altered mentation, HTN TECHNIQUE: Imaging protocol: Computed tomography of the head without contrast. Radiation optimization: All CT scans at this facility use at least one of these dose optimization techniques: automated exposure control; mA and/or kV adjustment per patient size (includes targeted exams where dose is matched to clinical indication); or iterative reconstruction. COMPARISON: No relevant prior studies available. FINDINGS: Brain: There is no acute intracranial hemorrhage. There is mild lucency in the cerebral white matter, likely microvascular disease although non-specific. Coker white differentiation is intact. There are no extra-axial fluid collections. No evidence of mass. There is no mass effect or midline shift. Cerebral ventricles: The ventricles and sulci are enlarged, consistent with age related volume loss / atrophy. No hydrocephalus. Bones/joints: No acute fracture. Paranasal sinuses: Visualized sinuses are unremarkable. No fluid levels. Mastoid air cells: No significant mastoid effusion. Vasculature: There is vascular calcification. Soft tissues: Unremarkable as visualized. IMPRESSION: 1. No evidence of acute intracranial abnormality. No evidence of acute infarction, hemorrhage, or mass. 2. Age related atrophy and mild microvascular disease. Dictated and Authenticated by: Krista Loera MD. Ordering:ALBERTO Oliver MD
--- NOTE | 2020-09-19 09:49 | NUR.NOTE ---
Nursing Note: Patient continues to recall more and more details of last PM and this AM. States she is feeling better .
[2020-09-19 09:55] LABS: Bilirubin Negative (Negative); Blood Negative (Negative); Clarity Clear (Clear); Glucose Negative (Negative); Ketones Negative (Negative); Leukocyte Esterase Negative (Negative); Nitrite Negative (Negative); Specific Gravity 1.025 (1.005-1.025); Urobilinogen 0.2 EU/dL (Up TO 0.2); pH 7.5 (5-8)
[2020-09-19 10:05] LABS: *AMPHETAMINES SCREEN URINE Negative (Negative); *BARBITURATES SCREEN URINE Negative (Negative); *BENZODIAZEPINES SCREEN URINE Negative (Negative); Cannabinoids THC Negative (Negative); Cocaine Screen,Urine Negative (Negative); METHADONE URINE SCREEN Negative (Negative); OPIATES URINE SCREEN Negative (Negative)
[2020-09-19 10:09] LABS: Tricyclic Antidepressants Negative (Negative)
[2020-09-19] MEDS: Labetalol 100 MG/20 ML VIAL 10 MG IVP (10:14)
--- NOTE | 2020-09-19 15:49 | W.PM.HP.N ---
Date of service: 09/19/20 Time of Service: 13:49 Assessment and Plan Assessment and plan (1) Hypertensive emergency: Status: Acute Assessment and plan: Unclear if her BP elevated and caused a sense of panic or vice versa. She is on lisinopril 10mg po daily at home. Increase Lisinopril to 20mg daily starting tomorrow. PRN hydralazine IV for SBP > 180. Monitor on telemetry. BP responded well to a single dose of 20mg IV labetalol. (2) Anxiety: Status: Chronic Assessment and plan: No current meds. No ongoing anxiety per pt, though she did have a sense of doom and panic on AM of admission. This may have been related to elevated BP. Monitor. (3) Asthma: Status: Chronic Assessment and plan: She prefers to remain off Advair d/t to vocal cord nodule and hoarseness that could be related to the steroid component. PRN albuterol. History of Present Illness History of Present Illness Chief Complaint: Hypertensive emergency Narrative: This is a 70 year old female with a h/o HTN, HLD, asthma, GERD, anxiety, seizure x1 episode. She presented to the ED secondary to a change in her mental status. She remembers sitting in her kitchen on the morning of admission and had a sudden onset of what felt similar to a panic attack she had experienced years ago. She voiced this to her . He then noted that she did not respond to his verbal stimuli as she stood in the kitchn with an odd smile on her face. He assisted her to the couch to sit. No LOC/fall. She gradually became more lucid but not at her baseline. EMS was then called. In the ED she had a difficult time recollecting the events of the morning and thos of the day before. Once admitted she did recall the events as stated above. She had previously been on Clonazepam for a long standing period of time but starting this past October she slowly weaned off of it. She has also stop her Advair recently d/t vocal cord nodule being observed by ENT recently. 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 Her presenting SBP was 194. She was given an IV dose of Labetalol and her SBP improved to 134. CT of head was negative for any acute findings. She denied any CP, palpitations, [place], visual changes, vertigo, N/V, diaphoreses. Review of Systems All systems reviewed & are unremarkable except as noted in HPI and below PFSH Medical History Allergic rhinitis Anxiety Asthma Baer's esophagus determined by biopsy Cerumen impaction Dry eye syndrome Facial rhytids (01/15/18) Fatigue GERD (gastroesophageal reflux disease) Hormone replacement therapy (HRT) Hyperlipidemia Hypertension Impaired fasting glucose Obstructive sleep apnea Osteopenia on DEXA scan. Premature ventricular contractions (PVCs) (VPCs) Per pt. states this is due to anxiety Vaginal prolapse (03/29/16) s/p laparoscopic colpopexy, posterior repair[place] [facility] [place] Vitamin D deficiency Surgical History Colonoscopy - IV Sedation with EGD for Barretts esophagitis History of open sigmoidectomy laparoscopic sacral colpopexy 03/29/16 with posterior colporrhaphy. [facility] [place] [place] Oophrectomy, Left (~2000) Repair of umbilical hernia Vaginal hysterectomy (~2002) for uterine prolapse, with oophorectomy Family History Mother Essential hypertension Heart disease Stroke Father Blood disorder required blood transfusions Brother Diabetes Grandfather , mouth cancer Diabetes Grandmother , breast cancer No problems noted. Son CD (Crohn's disease) Daughter CD (Crohn's disease) Social History Smoking/Tobacco Use Status: Never Smoking risk assessment performed?: Yes Alcohol Intake: current Alcohol Intake frequency: a few times a month Alcohol type: wine Drug use: Never Substance use type: does not use Do you feel safe at home: Yes Do you feel safe in your relationship?: Yes Meds Home Medications and Allergies Home Medications Medication Instructions Recorded Confirmed Type fluticasone propion-salmeterol 1 puff INHALATION DAILY 01/31/13 09/19/20 History [Advair Diskus] lisinopril 10 mg PO DAILY 01/31/13 09/19/20 History mometasone [Nasonex] 1 spry NS DAILY 01/31/13 09/19/20 History omeprazole 20 mg PO BID 01/31/13 09/19/20 History albuterol sulfate [Ventolin HFA] 2 puff INHALATION PRN PRN 07/04/15 09/19/20 History cyclosporine 0.05 % eye drops in a 1 drp OP Q12H 11/14/19 09/19/20 History dropperette multivitamin 1 tab PO DAILY 11/14/19 09/19/20 History nebulizers #1 each 11/14/19 07/02/20 History simvastatin 20 mg tablet 20 mg PO QHS 11/14/19 09/19/20 History alendronate [Fosamax] 70 mg PO QWEEK 07/06/20 09/19/20 History Allergies Allergy/AdvReac Type Severity Reaction Status Date / Time mirtazapine [From Remeron] Allergy Intermediate Verified 09/19/20 08:50 venlafaxine HCl AdvReac Severe seizure Unverified 09/19/20 08:50 [From Effexor] meperidine HCl [From Demerol] AdvReac Intermediate vomit, Unverified 09/19/20 08:50 couldn't wake up oxycodone [Oxycodone] AdvReac Intermediate gi upset Unverified 09/19/20 08:50 Exam Const General: cooperative and no acute distress Nutritional Appearance: average body habitus Orientation: alert and oriented x3 Limitations: mental status not altered [facility] Head: normocephalic and atraumatic Eyes Sclera: sclerae normal Pupils: PERRL Resp Effort & Inspection: normal respiratory effort Auscultation: clear to auscultation bilaterally Cardio Jugular venous pressure: no JVD Rate: regular rate Rhythm: regular rhythm Heart Sounds: S1 normal and S2 normal GI Palpation: soft and nontender Auscultation: normal bowel sounds Skin General skin exam: no rashes or lesions noted Neuro General: moves all extremities and no focal motor deficits Cognition: normal cognition Speech: speech normal Extrem General: no pedal edema and no calf tenderness Results Labs Result diagrams: 09/19/20 08:16 09/19/20 08:16 Labs: Laboratory Results - last 24 hr 09/19/20 09/19/20 09/19/20 08:16 08:16 08:16 WBC 4.63 RBC 4.52 Hgb 13.7 Hct 41.4 MCV 91.6 MCH 30.3 MCHC 33.1 RDW 12.9 Plt Count 330 MPV 9.3 Immature Gran % 0.9 Neutrophils % 59.8 Lymphocytes % 26.6 Monocytes % 8.6 Eosinophils % 3.5 Basophils % 0.6 Nucleated RBC % 0 Absolute Neutrophils 2.77 Absolute Lymphocytes 1.23 Absolute Monocytes 0.40 Absolute Eosinophils 0.16 Absolute Basophils 0.03 PT 9.6 INR 1.0 Sodium 137 Potassium 3.9 Chloride 102 Carbon Dioxide 25.3 Anion Gap 9.7 BUN 18 Creatinine 0.88 Estimated GFR/1.73 m2 >= 60.00 Glucose 139 H Calcium 8.8 Magnesium 1.9 Total Bilirubin 0.5 AST 17 ALT 33 Alkaline Phosphatase 101 Troponin I < 0.05 Total Protein 8.2 Albumin 4.5 Urine Color Urine Clarity Urine pH Ur Specific [place] Urine Protein Urine Ketones Urine Blood Urine Nitrite Urine Bilirubin Urine Urobilinogen Ur Leukocyte Esterase Urine Glucose Urine Opiates Screen Urine Methadone Screen Ur Barbiturates Screen Ur Tricyclics Screen Ur Amphetamines Screen U Benzodiazepines Scrn Urine Cocaine Screen Ur THC Screen 09/19/20 09/19/20 09:10 09:10 WBC RBC Hgb Hct MCV MCH MCHC RDW Plt Count MPV Immature Gran % Neutrophils % Lymphocytes % Monocytes % Eosinophils % Basophils % Nucleated RBC % Absolute Neutrophils Absolute Lymphocytes Absolute Monocytes Absolute Eosinophils Absolute Basophils PT INR Sodium Potassium Chloride Carbon Dioxide Anion Gap BUN Creatinine Estimated GFR/1.73 m2 Glucose Calcium Magnesium Total Bilirubin AST ALT Alkaline Phosphatase Troponin I Total Protein Albumin Urine Color Yellow Urine Clarity Clear Urine pH 7.5 Ur Specific [place] 1.025 Urine Protein Negative Urine Ketones Negative Urine Blood Negative Urine Nitrite Negative Urine Bilirubin Negative Urine Urobilinogen 0.2 Ur Leukocyte Esterase Negative Urine Glucose Negative Urine Opiates Screen Negative Urine Methadone Screen Negative Ur Barbiturates Screen Negative Ur Tricyclics Screen Negative Ur Amphetamines Screen Negative U Benzodiazepines Scrn Negative Urine Cocaine Screen Negative Ur THC Screen Negative Last Vital Signs Temp 36.2 C L 09/19/20 14:12 Pulse 77 09/19/20 14:12 Resp 17 09/19/20 14:12 BP 135/74 09/19/20 14:12 Pulse Ox 94 09/19/20 14:12 COVID-19 Screening Have you, or household traveled for leisure in last 14 days?: No Had IN PERSON contact w/suspected or confirmed C-19 person: No
--- NOTE | 2020-09-19 16:54 | NUR.NOTE ---
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 Mentioned this to dr Eastman, and he orders an A1c
[2020-09-19 17:16] LABS: Hemoglobin A1C 6.1 % (<5.7)
[2020-09-19] MEDS: Omeprazole 20 MG CAPCR PO (19:58)
[2020-09-19] MEDS: Normal Saline Flush 10 ML SYR IVP (19:58)
[2020-09-19] MEDS: Simvastatin 20 MG TAB PO (22:01)
[2020-09-20 01:34] LABS: COVID-19 RT-PCR UVMMC Result Negative (Negative)
[2020-09-20 01:35] VITALS: BP 118/69; PULSE 74; RESP 18; TEMP 36.7; O2SAT 97
[2020-09-20] MEDS: Acetaminophen 325 MG TAB 650 MG PO ×2 (01:38→06:46)
[2020-09-20 03:17] VITALS: BP 150/88; PULSE 78; RESP 18; TEMP 36.7; O2SAT 96
[2020-09-20 06:18] VITALS: BP 156/97; PULSE 73; RESP 16; TEMP 35.9; O2SAT 96
[2020-09-20] MEDS: Omeprazole 20 MG CAPCR PO (06:46)
[2020-09-20 07:30] VITALS: PULSE 80
[2020-09-20 07:58] VITALS: BP 133/82; PULSE 69; RESP 18; TEMP 36.7; O2SAT 96
[2020-09-20 07:58] LABS: BUN 18 mg/dL (7-18); Chloride 102 mmol/L (98-107); Glucose 121 mg/dL (74-106); Potassium 3.8 mmol/L (3.5-5.1); Sodium 137 mmol/L (136-145)
[2020-09-20] MEDS: Lisinopril 10 MG TAB 20 MG PO (08:07)
[2020-09-20] MEDS: Multivitamin TAB 1 TAB PO (08:07)
[2020-09-20 10:05] VITALS: PULSE 81
--- NOTE | 2020-09-20 10:10 | W.PM.DS.N ---
Date of service: 09/20/20 Time of Service: 10:11 DS: Diagnosis Discharge Diagnosis (1) Hypertensive emergency: Status: Acute (2) Anxiety: Status: Chronic (3) Asthma: Status: Chronic Discharge Plan Disposition Patient Disposition: HOME Condition: Good Discharge Details Reason For Visit: HYPERTENSIVE EMERGENCY, ALTERED MENTATION Admit Date/Time: 09/19/20 10:58 Admit Provider: George Eastman Attending Provider: George Eastman Primary Care Provider: Gracy Wick Hospital Course Hospital Course: This is a 70 year old female with a h/o HTN, HLD, asthma, GERD, anxiety, seizure x1 episode. She presented to the ED secondary to a change in her mental status. She remembers sitting in her kitchen on the morning of admission and had a sudden onset of what felt similar to a panic attack she had experienced years ago. She voiced this to her . He then noted that she did not respond to his verbal stimuli as she stood in the kitchn with an odd smile on her face. He assisted her to the couch to sit. No LOC/fall. She gradually became more lucid but not at her baseline. EMS was then called. In the ED she had a difficult time recollecting the events of the morning and thos of the day before. Once admitted she did recall the events as stated above. She had previously been on Clonazepam for a long standing period of time but starting this past October she slowly weaned off of it. She has also stop her Advair recently d/t vocal cord nodule being observed by ENT recently. 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 Her presenting SBP was 194. She was given an IV dose of Labetalol and her SBP improved to 134. CT of head was negative for any acute findings. She denied any CP, palpitations, [place], visual changes, vertigo, N/V, diaphoreses. Her mental status remained normal throughout the hospitalization. Her lisinopril was increased to 20mg daily. She will monitor her BP twice daily at various times of the day and take those results with her to her PCP f/u in 1-2 weeks. Home Meds and New Rx's Prescriptions: New lisinopril 20 mg tablet 20 mg PO DAILY Qty: 30 RF: 0 Continued simvastatin 20 mg tablet 20 mg PO QHS RF: 0 multivitamin [Daily Multi-Vitamin] Tablet 1 tab PO DAILY RF: 0 Restasis 0.05 % dropperette 1 drp OP Q12H RF: 0 (DME) Compact Compressor Nebulizer Misc See Rx Instructions .ROUTE .MEDSUPPLY Qty: 1 RF: 0 omeprazole 20 MG capsule,delayed release(DR/EC) 20 mg PO BID RF: 0 fluticasone propion-salmeterol [Advair Diskus] 1 EACH blister with device 1 puff Inhalation DAILY RF: 0 mometasone [Nasonex] 17 GM spray,non-aerosol 1 spry NS DAILY RF: 0 albuterol sulfate [Ventolin HFA] 60 PUFF HFA aerosol inhaler 2 puff Inhalation PRN PRNRF: 0 alendronate [Fosamax] 70 mg Tablet 70 mg PO QWEEK RF: 0 Discontinued lisinopril 5 MG tablet 10 mg PO DAILY RF: 0 Discharge Instructions Instructions: Hypertensive Crisis (GEN) Stand Alone Forms: Nursing Discharge Form Referrals: Gracy Wick [Primary Care Provider] - (Please call Monday to make a follow up appointment for 1-2 weeks.) Activity:: Activity as Tolerated Equipment/Supplies:: No Equipment Needed Diet:: Low Sodium Discharge Orders Discharge Orders: Discharge Order (Routine); Ordered 09/20/20 Ordered By: George Eastman Discharge Data Discharge Date/Time-TO BE ENTERED AT DEPARTURE: 09/20/20 11:18 DS: Summary Status at Discharge Functional status at discharge: independent ambulation Overall status at discharge: patient is back to baseline Mental Status: mental status grossly normal Speech and Movement: speech and movement normal Mood: congruent mood Affect: normal affect Exam Const General: cooperative and no acute distress Nutritional Appearance: average body habitus Eyes Sclera: sclerae normal Pupils: other (pupils equal) Resp Effort & Inspection: normal respiratory effort Auscultation: clear to auscultation bilaterally Cardio Rate: regular rate Rhythm: regular rhythm Heart Sounds: S1 normal and S2 normal Extrem General: no pedal edema and no calf tenderness Psych Appearance: grossly normal Mental Status: mental status grossly normal Speech and Movement: speech and movement normal Mood: congruent mood Affect: normal affect DS: Data Vitals/I&O Vitals and I&O: Vital Signs Temperature 36.7 C 09/20/20 07:58 Temperature Source Temporal Artery Scan 09/20/20 07:58 Pulse 69 09/20/20 07:58 Pulse Rhythm Regular 09/20/20 07:42 Pulse 68 09/19/20 10:50 Respiratory Rate 18 09/20/20 07:58 Respiratory Effort Non-Labored 09/20/20 07:42 Respiratory Depth Normal 09/20/20 07:42 Respiratory Pattern Normal 09/20/20 07:42 Blood Pressure 133/82 09/20/20 07:58 Blood Pressure Mean 93 09/19/20 10:45 Blood Pressure Position Supine 09/19/20 08:38 Pulse Oximetry 96 09/20/20 07:58 Oxygen Delivery Method Room Air 09/20/20 07:58 Oxygen Flow Rate 0 09/20/20 07:58 Pain Level 2 09/20/20 07:58 Comment 09/20/20 06:18 Intake & Output 09/19/20 09/19/20 09/20/20 11:59 23:59 11:59 Intake Total 250 / 250 500 / 500 Balance 250 / 250 500 / 500 Weight 61 kg 56.3 kg Intake: IV Oral 240 / 240 500 / 500 Other: Urine Color Yellow Urine Appearance Clear Clear Urine Odor Normal Voiding Methods Toilet Data Completed and Pending Labs on day of discharge: Labs from last 24 hours 09/20/20 09/19/20 09/19/20 06:19 11:10 09:10 Sodium 137 Potassium 3.8 Chloride 102 Carbon Dioxide 24.0 Anion Gap 11.0 BUN 18 Creatinine 0.80 Estimated GFR/1.73 m2 >= 60.00 Glucose 121 H Hemoglobin A1c Calcium 9.0 Urine Opiates Screen Negative Urine Methadone Screen Negative Ur Barbiturates Screen Negative Ur Tricyclics Screen Negative Ur Amphetamines Screen Negative U Benzodiazepines Scrn Negative Urine Cocaine Screen Negative Ur THC Screen Negative SARS-CoV-2 (PCR) Negative Nasopharyn COVID-19 PCR Not Applicable Ref Test Perform Site [facility] 09/19/20 08:16 Sodium Potassium Chloride Carbon Dioxide Anion Gap BUN Creatinine Estimated GFR/1.73 m2 Glucose Hemoglobin A1c 6.1 H Calcium Urine Opiates Screen Urine Methadone Screen Ur Barbiturates Screen Ur Tricyclics Screen Ur Amphetamines Screen U Benzodiazepines Scrn Urine Cocaine Screen Ur THC Screen SARS-CoV-2 (PCR) Nasopharyn COVID-19 PCR Ref Test Perform Site [facility] Medical History (Updated 09/25/20 @ 10:14 by Venus Pérez) Allergic rhinitis Anxiety Asthma Baer's esophagus determined by biopsy Barretts esophagus Cerumen impaction Colon cancer screening Dry eye syndrome Encounter for preventive health examination Facial rhytids (01/15/18) Fatigue GERD (gastroesophageal reflux disease) History of prediabetes Hormone replacement therapy (HRT) Hyperlipidemia Hypertension Impaired fasting glucose Lesion of vocal cord Obstructive sleep apnea Osteopenia on DEXA scan. Osteoporosis Premature ventricular contractions (PVCs) (VPCs) Per pt. states this is due to anxiety Rash, skin Vaginal prolapse (03/29/16) s/p laparoscopic colpopexy, posterior repair. [facility] [place]. Vitamin D deficiency Surgical History Colonoscopy - IV Sedation with EGD for Barretts esophagitis History of open sigmoidectomy laparoscopic sacral colpopexy 03/29/[address] [facility] [place]. Oophrectomy, Left (~2000) Repair of umbilical hernia Vaginal hysterectomy (~2002) for uterine prolapse, with oophorectomy Family History Mother Essential hypertension Heart disease Stroke Father Blood disorder required blood transfusions Brother Diabetes Grandfather , mouth cancer Diabetes Grandmother , breast cancer No problems noted. Son CD (Crohn's disease) Daughter CD (Crohn's disease) Social History Smoking/Tobacco Use Status: Never Smoking risk assessment performed?: Yes Alcohol Intake: current Alcohol Intake frequency: a few times a month Alcohol type: wine Drug use: Never Substance use type: does not use Do you feel safe at home: Yes Do you feel safe in your relationship?: Yes
== END 2020-09-20 11:18 | disposition home or self-care (01) | DRG 305 ==
LOC: ER 11:22 → MS 11:55
PROVIDERS: Admitting Provider Family Medicine; Emergency Provider Student in an Organized Health Care Education/Training Program; PCP Internal Medicine; Visit Provider Family Medicine
DX: I16.1 Hypertensive emergency (principal); F41.9 Anxiety disorder, unspecified; J45.909 Unspecified asthma, uncomplicated; E78.5 Hyperlipidemia, unspecified; K21.9 Gastro-esophageal reflux disease without esophagitis; K22.70 Barrett's esophagus without dysplasia; H04.129 Dry eye syndrome of unspecified lacrimal gland; R73.01 Impaired fasting glucose; G47.33 Obstructive sleep apnea (adult) (pediatric); E55.9 Vitamin D deficiency, unspecified; I10 Essential (primary) hypertension; I49.3 Ventricular premature depolarization
CPT/HCPCS: 36415; 36416; 80048; 80053; 80307; 82962; 93005; 96374; 99219; 99239; 99285; U0003; 70450; 81003; 83036; 83735; 84484; 85025; 85610; 93010; 99222; 99238

== ENCOUNTER 2020-09-30 01:16 | Outpatient (CLI) | payer MEDICARE, BC, SELFPAY ==
--- NOTE | 2020-09-30 | DI.MRI_ITS ---
EXAM: MR BRAIN WO CLINICAL HISTORY: TRANSIENT ALTERED MENTAL STATUS,R40.4,DECREASED RESPONSIVENESS, ? CVA TECHNIQUE: Multiplanar multisequence MRI of the brain was performed. COMPARISON: CT CT HEAD WO from 09/19/2020 FINDINGS: VENTRICLES AND EXTRA AXIAL SPACES: There is global cerebral atrophy. MIDLINE SHIFT: None. CEREBRAL PARENCHYMA: No focus of restricted diffusion to suggest acute infarct. No space-occupying le meka identified. There are areas of hyperintense signal in the white matter consistent with small ves summer ischemic disease. HEMORRHAGE: None. BRAINSTEM/CEREBELLUM: Normal. CALVARIUM: Normal. VISUALIZED PARANASAL SINUSES/MASTOIDS:Clear. [place]: Normal flow void. PITUITARY GLAND: Unremarkable. OTHER FINDINGS: None. IMPRESSION: 1. Cerebral atrophy and small vessel ischemic disease. 2. No evidence of an acute infarct or intracranial mass. DATA REPOSITORY:
== END 2020-09-30 01:36 ==
PROVIDERS: PCP Internal Medicine; Visit Provider Internal Medicine
DX: G31.89 Other specified degenerative diseases of nervous system (principal); I67.89 Other cerebrovascular disease; R40.4 Transient alteration of awareness
CPT/HCPCS: 70551

== ENCOUNTER 2020-10-26 13:44 | Emergency (ER) | payer MEDICARE, BC, SELFPAY ==
[2020-10-26] VITALS (15 sets, daily range): BP systolic 132–169; BP diastolic 75–82; PULSE 69–87; RESP 12–25; TEMP 36.4; O2SAT 93–100
--- NOTE | 2020-10-26 13:45 | RT.EKG_ITS ---
APPROVED REPORT Exam: Resting ECG Patient Location: E HR:75 bpm ECG Measurements Heart Rate 75 AXIS RI 161 P 50 QRSd 87 QRS 55 QT 401 T 56 QTc 449 Conclusion Sinus rhythm...normal P axis, V-rate 60- 99 no major change from prior, no STEMI, non-diagnostic EKG I have reviewed and interpreted ECG and agree with software generated interpretation.
--- NOTE | 2020-10-26 14:05 | DI.RAD_ITS ---
EXAM: XR CHEST 1V IN DI DEPT CLINICAL HISTORY: ams TECHNIQUE: 2D digital imaging was performed. COMPARISON: CR CHEST 2 VIEWS PA,LAT from 04/06/2016 FINDINGS: MEDIASTINUM: Normal. HEART: Normal. PULMONARY VASCULATURE: Normal. LUNGS: Clear. PLEURAL SPACE: No pleural effusion or pneumothorax. BONE:Within normal limits for the patient's age. OTHER FINDINGS:Normal. IMPRESSION: No acute pulmonary findings. DATA REPOSITORY: RADIATION DOSE DELIVERED:
[2020-10-26 14:30] LABS: Abs Immature Grans 0.03 10^3/uL (0.0-0.06); Absolute Basophil Count 0.03 10^3/uL (0.0-0.2); Absolute Eosinophil Count 0.09 10^3/uL (0.0-0.7); Absolute Lymphocyte Count 1.36 10^3/uL (1.2-3.4); Absolute Monocyte Count 0.57 10^3/uL (0.1-0.8); Absolute Neutrophil Count 4.85 10^3/uL (1.2-6.7); Basophils % 0.4; Eosinophils % 1.3; HCT 36.3 % (36.0-46.0); HGB 12.3 g/dL (11.2-15.7); Immature Grans % 0.4; Lymphocytes % 19.6; MCH 31.2 pg (27.0-33.0); MCHC 33.9 % (32.0-36.0); MCV 92.1 fL (80-95); Monocytes % 8.2; Neutrophils % 70.1; Nucleated RBC 0 %; Platelet Count 325 10^3/uL (130-400); RBC 3.94 10^6/uL (3.93-5.22); RDW 12.8 % (11.7-14.6); RDW-SD 43.3 fL; WBC 6.93 10^3/uL (4.4-10.8)
[2020-10-26 14:40] LABS: ALT 41 U/L (14-59); AST 17 U/L (15-37); Albumin 4.3 g/dL (3.4-5.0); Alkaline Phosphatase 83 U/L (46-116); Anion Gap 10.4 mmol/L (3-11); BUN 19 mg/dL (7-18); Bilirubin, Total 0.4 mg/dL (0.2-1.0); CO2 25.6 mmol/L (21.0-32.0); CREATININE 0.91 mg/dL (0.55-1.02); Calcium 9.2 mg/dL (8.5-10.1); Chloride 102 mmol/L (98-107); Glucose 103 mg/dL (74-106); Potassium 3.5 mmol/L (3.5-5.1); Sodium 138 mmol/L (136-145); Total Protein 7.7 g/dL (6.4-8.2); Troponin I < 0.05 ng/mL (<0.06)
--- NOTE | 2020-10-26 14:40 | ED.GENADUL_ITS ---
Discharge Plan Disposition Patient Disposition: HOME Discharge Details Clinical Impression: Amnesia, global, transient Primary Care Provider: Gracy Wick ED Provider: Adela Jacobson Home Meds and New Rx's Prescriptions: No Action simvastatin 20 mg tablet 20 mg PO QHS RF: 0 multivitamin [Daily Multi-Vitamin] Tablet 1 tab PO DAILY RF: 0 Restasis 0.05 % dropperette 1 drp OP Q12H RF: 0 (DME) Compact Compressor Nebulizer Misc See Rx Instructions .ROUTE .MEDSUPPLY Qty: 1 RF: 0 betamethasone dipropionate 0.05 % lotion 1 applic topical BID RF: 0 ipratropium-albuterol 0.5 mg-3 mg(2.5 mg base)/3 mL solution for nebulization 3 ml inhalation .Q4-6H PRNRF: 0 omeprazole 20 MG capsule,delayed release(DR/EC) 20 mg PO BID RF: 0 fluticasone propion-salmeterol [Advair Diskus] 1 EACH blister with device 1 puff Inhalation DAILY RF: 0 mometasone [Nasonex] 17 GM spray,non-aerosol 1 spry NS DAILY RF: 0 albuterol sulfate [Ventolin HFA] 60 PUFF HFA aerosol inhaler 2 puff Inhalation PRN PRNRF: 0 alendronate [Fosamax] 70 mg Tablet 70 mg PO QWEEK RF: 0 rosuvastatin 20 mg Tablet 20 mg PO .QHS RF: 0 lisinopril 20 mg tablet 20 mg PO DAILY RF: 0 amlodipine 5 mg tablet 2.5 mg PO .QHS RF: 0 buspirone 10 mg tablet 10 mg PO PRNRF: 0 Discharge Instructions Additional Instructions: Take a baby aspirin, 81 mg daily Please follow-up with your doctor tomorrow Return earlier should you have new or worsening symptoms, or if any recurrence of your symptoms Continue on your prescribed medications Medical Decision Making Patient has a nonfocal neurological exam She is alert, oriented, of decisional capacity, her amnesia has resolved I did order MRI of patient's brain and that she did not have any focal findings, I did evaluate her for sharp components. Brody MRI was negative her doctor Ms., radiology Chest x-ray per Dr. Mejia was also negative for acute pathology abcd2 3 Case was discussed with Dr. Heck, neurologist at [facility] she believes patient symptoms are likely related to a transient global amnesia rather than TIA or CVA She is completely at baseline her mentation is alert, oriented, of decisional capacity with a nonfocal neurological exam Her EKG and diagnostics do not show acute pathology She is instructed to start a baby aspirin recommendation of neurology and will follow up with her primary care physician tomorrow Given this threshold to return should she have new or worsening+ Differential Diagnosis Differential Diagnosis: TKA, TIA, CVA, urinary tract infection Medical Records Medical records reviewed: Yes I reviewed the patient's medical records. Lab Data Lab results reviewed: Yes I reviewed the patient's lab results. HPI This 70-year-old female with past medical history of hypertension, hyperlipidemia, MS, anxiety, asthma, metabolic syndrome. Denies prior history of CVA or TIA. Presents with some amnesia this morning. She states that she had difficulty remembering recalling numbers of 40. She denies any symptoms such as headache, dizziness, speech or sensation change, weakness. She reportedly awoke with symptoms this morning. Approximately 2 hours ago her symptoms resolved and now she has feeling anxiety about the episode occurring. States she had a similar episode several weeks ago. She was ambulatory throughout the day and is otherwise asymptomatic. Denies nausea or vomiting. Denies any vision change. Denies any recent trauma. Denies any new medication. Denies history of known diabetes. General Date/Time Provider Initiated Documentation: 10/26/20 13:45 . Related Data Home Medications Medication Instructions Recorded Confirmed fluticasone propion-salmeterol 1 puff INHALATION DAILY 01/31/13 10/26/20 [Advair Diskus] mometasone [Nasonex] 1 spry NS DAILY 01/31/13 10/26/20 omeprazole 20 mg PO BID 01/31/13 10/26/20 albuterol sulfate [Ventolin HFA] 2 puff INHALATION PRN PRN 07/04/15 10/26/20 cyclosporine 0.05 % eye drops in a 1 drp OP Q12H 11/14/19 10/26/20 dropperette multivitamin 1 tab PO DAILY 11/14/19 10/26/20 nebulizers #1 each 11/14/19 07/02/20 simvastatin 20 mg tablet 20 mg PO QHS 11/14/19 10/26/20 alendronate [Fosamax] 70 mg PO QWEEK 07/06/20 10/26/20 betamethasone dipropionate 0.05 % 1 applic TOPICAL BID 09/28/20 10/26/20 lotion ipratropium 0.5 mg-albuterol 3 mg 3 ml INHALATION .Q4-6H PRN ml 09/28/20 (2.5 mg base)/3 mL nebulization soln amlodipine 2.5 mg PO .QHS 10/26/20 10/26/20 buspirone 10 mg PO PRN 10/26/20 lisinopril 20 mg PO DAILY 10/26/20 10/26/20 rosuvastatin 20 mg PO .QHS 10/26/20 10/26/20 Allergies Allergy/AdvReac Type Severity Reaction Status Date / Time mirtazapine [From Remeron] Allergy Intermediate Verified 10/26/20 14:03 animal dander Allergy Mild Verified 10/26/20 14:03 venlafaxine HCl AdvReac Severe seizure Verified 10/26/20 14:03 [From Effexor] meperidine HCl [From Demerol] AdvReac Intermediate vomit, Verified 10/26/20 14:03 couldn't wake up oxycodone [Oxycodone] AdvReac Intermediate gi upset Verified 10/26/20 14:03 General Stated Complaint: CVA/TIA SIXTO: 2 Review of Systems Narrative: Review of systems negative x7 aside from where indicated in HPI [facility] Medical History (Updated 10/26/20 @ 16:04 by JACKIE Ibrahim) Allergic rhinitis Anxiety Asthma Baer's esophagus determined by biopsy Barretts esophagus Cerumen impaction Colon cancer screening Dry eye syndrome Encounter for preventive health examination Facial rhytids (01/15/18) Fatigue GERD (gastroesophageal reflux disease) History of prediabetes Hormone replacement therapy (HRT) Hyperlipidemia Hypertension Impaired fasting glucose Lesion of vocal cord Obstructive sleep apnea Osteopenia on DEXA scan. Osteoporosis Premature ventricular contractions (PVCs) (VPCs) Per pt. states this is due to anxiety Rash, skin Vaginal prolapse (03/29/16) s/p laparoscopic colpopexy, posterior repair. [facility] [place]. Vitamin D deficiency Surgical History Colonoscopy - IV Sedation with EGD for Barretts esophagitis History of open sigmoidectomy laparoscopic sacral colpopexy 03/29/16 with posterior colporrhaphy. [facility] [place]. Oophrectomy, Left (~2000) Repair of umbilical hernia Vaginal hysterectomy (~2002) for uterine prolapse, with oophorectomy Family History Mother Essential hypertension Heart disease Stroke Father Blood disorder required blood transfusions Brother Diabetes Grandfather , mouth cancer Diabetes Grandmother , breast cancer No problems noted. Son CD (Crohn's disease) Daughter CD (Crohn's disease) Social History Smoking/Tobacco Use Status: Never Smoking risk assessment performed?: Yes Alcohol Intake: current Alcohol Intake frequency: a few times a week Alcohol type: wine Drug use: Never Substance use type: does not use Do you feel safe at home: Yes Do you feel safe in your relationship?: Yes Exam Narrative Exam Narrative: Constitutional: Well developed HEENT: No visible signs of trauma, no palpable Tenderness Eyes: Pupils equal round reactive to light and accommodation Neck: Nontender, no visible sign of trauma Musculoskeletal: No lumbar tenderness, no thoracic tenderness, no cervical spine from this, no hip tenderness bilaterally, no left knee tenderness, left ankle tenderness, over lateral malleolus, no papular no obvious deformity, Skin : No discoloration Neuro: Alert, oriented for age Const General: cooperative, healthy appearing and no acute distress Orientation: oriented x3 Eyes Conjunctivae: conjunctivae normal Pupils: PERRL EOM: EOM intact bilaterally Neck Other: No carotid bruits Resp Effort & Inspection: normal respiratory effort Auscultation: clear to auscultation bilaterally Cardio Rate: regular rate Rhythm: regular rhythm GI Palpation: soft and nontender Skin General skin exam: no rashes or lesions noted Neuro General: patient alert, patient oriented x3 and normal light touch, pain and propioception Cognition: normal cognition Speech: speech normal Gait: normal gait Other: Negative [id number], negative heel bonilla, negative pronator drift, DTRs intact symmetrical to bilateral upper and lower extremities, strength intact upper and lower extremities bilaterally Course Vital Signs Vital signs: Vital Signs Temperature 36.4 C L 10/26/20 13:55 Pulse 87 10/26/20 13:55 Respiratory Rate 10/26/20 13:55 Blood Pressure 169/82 H 10/26/20 13:55 Pulse Oximetry 100 10/26/20 13:55 Temperature 36.4 C L 10/26/20 13:55 Pulse 87 10/26/20 13:55 Respiratory Rate 23 10/26/20 13:55 Respiratory Effort 10/26/20 13:55 Blood Pressure 169/82 H 10/26/20 13:55 Blood Pressure Position Supine 10/26/20 13:55 Pulse Oximetry 10/26/20 13:55 Pain Level 0 10/26/20 13:55 Lab/Test Results Lab/Test Results: Laboratory Tests Range/Units 10/26/20 14:15 WBC (4.4-10.8) 10^3/uL 6.93 RBC (3.93-5.22) 10^6/uL 3.94 Hgb (11.2-15.7) g/dL 12.3 Hct (36.0-46.0) % 36.3 MCV (80-95) fL 92.1 MCH (27.0-33.0) pg 31.2 MCHC (32.0-36.0) % 33.9 RDW (11.7-14.6) % 12.8 Plt Count (130-400) 10^3/uL 325 MPV (8.0-11.0) fL 9.0 Immature Gran % 0.4 Neutrophils % 70.1 Lymphocytes % 19.6 Monocytes % 8.2 Eosinophils % 1.3 Basophils % 0.4 Nucleated RBC % % 0 Absolute Neutrophils (1.2-6.7) 10^3/uL 4.85 Absolute Lymphocytes (1.2-3.4) 10^3/uL 1.36 Absolute Monocytes (0.1-0.8) 10^3/uL 0.57 Absolute Eosinophils (0.0-0.7) 10^3/uL 0.09 Absolute Basophils (0.0-0.2) 10^3/uL 0.03
--- NOTE | 2020-10-26 15:30 | DI.MRI_ITS ---
EXAM: MR BRAIN WO CLINICAL HISTORY: transiet memory loss TECHNIQUE: Multiplanar multisequence MRI of the brain was performed. COMPARISON: MR MR BRAIN WO from 09/30/2020 FINDINGS: VENTRICLES AND EXTRA AXIAL SPACES: Normal in size and morphology for the patient's age. MIDLINE SHIFT: None. CEREBRAL PARENCHYMA: No focus of restricted diffusion to suggest acute infarct. No space-occupying le meka identified. There are multiple foci of hyperintense signal on the T2 and FLAIR images in the whi te matter most consistent with chronic microvascular ischemic disease. HEMORRHAGE: None. BRAINSTEM/CEREBELLUM: Normal. CALVARIUM: Normal. VISUALIZED PARANASAL SINUSES/MASTOIDS:Clear. [place]: Normal flow void. PITUITARY GLAND: Unremarkable. OTHER FINDINGS: None. IMPRESSION: No evidence of acute infarct. Findings were discussed with the emergency department on the date of the examination. DATA REPOSITORY:
== END 2020-10-26 16:35 | disposition home or self-care (01) ==
PROVIDERS: Emergency Provider Physician Assistant; PCP Internal Medicine
DX: G45.4 Transient global amnesia (principal); G35 Multiple sclerosis; I10 Essential (primary) hypertension
CPT/HCPCS: 36415; 80053; 93005; 99285; 70551; 71045; 81003; 84484; 85025; 93010; 99284

== ENCOUNTER → 2020-11-10 13:50 | Outpatient (BNVA) | payer MEDICARE, BC, SELFPAY | PROVIDERS: PCP Internal Medicine; Referring Provider Internal Medicine; Visit Provider Psychiatry & Neurology Neurology | DX: G45.4 Transient global amnesia (principal); I16.1 Hypertensive emergency; F41.9 Anxiety disorder, unspecified; G62.9 Polyneuropathy, unspecified | CPT/HCPCS: 99215; G2212 ==

== ENCOUNTER 2020-11-19 19:36 | Outpatient (REF) | payer MEDICARE, BC, SELFPAY ==
[2020-11-19 21:52] LABS: TSH 1.17 uIU/mL (0.36-3.74); Vitamin B12 535 pg/mL (193-986)
== END 2020-11-19 19:37 | disposition home or self-care (01) ==
LOC: NCHCN 19:36
PROVIDERS: PCP Internal Medicine; Visit Provider Internal Medicine
DX: F41.9 Anxiety disorder, unspecified (principal); G62.89 Other specified polyneuropathies
CPT/HCPCS: 82607; 84443

== ENCOUNTER 2021-01-14 13:31 | Outpatient (CLI) | payer MEDICARE, BC, SELFPAY ==
--- NOTE | 2021-01-14 12:00 | DI.RAD_ITS ---
EXAM: XR HIP RT COMPLETE AP PELVIS INDICATION: right hip pain. COMPARISON: CR XR DEXA BONE DENSITY W/WO K[place] from 02/20/2020 TECHNIQUE: 2D digital imaging was performed. FINDINGS: The hip joint spaces are well maintained. Mild enthesophytes is seen at the iliac wings and greater trochanters. SI joints are unremarkable. Suture material is noted in the pelvis. IMPRESSION: No acute abnormality. DATA REPOSITORY: RADIATION DOSE DELIVERED:
== END 2021-01-14 13:32 | disposition home or self-care (01) ==
LOC: DIORS 13:32
PROVIDERS: PCP Internal Medicine; Referring Provider Internal Medicine; Visit Provider Student in an Organized Health Care Education/Training Program
DX: M25.551 Pain in right hip (principal); M70.71 Other bursitis of hip, right hip
CPT/HCPCS: 20610; 99213; 73502; J1040

== ENCOUNTER 2021-02-11 03:18 | Outpatient (CLI) | payer MEDICARE, BC, SELFPAY ==
[2021-02-11 10:22] LABS: Hemoglobin A1C 5.9 % (<5.7)
[2021-02-11 11:58] LABS: Calculated LDL 88 mg/dL (<100); Cholesterol 160 mg/dL (<200); HDL Cholesterol 53 mg/dL (40-60); Triglyceride 97 mg/dL (<150)
[2021-02-11 12:21] LABS: Ferritin 110 ng/mL (8-252)
[2021-02-11 12:23] LABS: TSH (W/Ref FT4) 0.71 uIU/mL (0.36-3.74); Vitamin B12 400 pg/mL (193-986)
== END 2021-02-11 03:19 | disposition home or self-care (01) ==
LOC: LBO 03:18
PROVIDERS: Nurse Practitioner; Psychiatry & Neurology Neurology; PCP Internal Medicine; Visit Provider Internal Medicine
DX: M25.562 Pain in left knee (principal); R73.03 Prediabetes; E78.5 Hyperlipidemia, unspecified
CPT/HCPCS: 36415; 80061; 82607; 82728; 83036; 84443

== ENCOUNTER 2021-03-21 09:31 | Emergency (ER) | payer MEDICARE, BC, SELFPAY ==
[2021-03-21 09:34] VITALS: BP 158/92; PULSE 60; RESP 20; TEMP 36.3; O2SAT 99
--- NOTE | 2021-03-21 09:48 | W.ED.GENAD ---
Discharge Plan Disposition Patient Disposition: HOME Condition: Good Discharge Details Clinical Impression: Tick bite Primary Care Provider: Gracy Wick ED Provider: Medina Silver Home Meds and New Rx's Prescriptions: New doxycycline hyclate 100 mg capsule 200 mg PO ONCE Qty: 2 RF: 0 Continued multivitamin [Daily Multi-Vitamin] Tablet 1 tab PO DAILY RF: 0 Restasis 0.05 % dropperette 1 drp OP Q12H RF: 0 (DME) Compact Compressor Nebulizer Misc See Rx Instructions .ROUTE .MEDSUPPLY Qty: 1 RF: 0 ipratropium-albuterol 0.5 mg-3 mg(2.5 mg base)/3 mL solution for nebulization 3 ml inhalation .Q4-6H PRNRF: 0 omeprazole 20 MG capsule,delayed release(DR/EC) 20 mg PO BID RF: 0 fluticasone propion-salmeterol [Advair Diskus] 1 EACH blister with device 1 puff Inhalation DAILY RF: 0 mometasone [Nasonex] 17 GM spray,non-aerosol 1 spry NS DAILY RF: 0 albuterol sulfate [Ventolin HFA] 60 PUFF HFA aerosol inhaler 2 puff Inhalation PRN PRNRF: 0 alendronate [Fosamax] 70 mg Tablet 70 mg PO QWEEK RF: 0 rosuvastatin 20 mg Tablet 20 mg PO .QHS RF: 0 lisinopril 20 mg tablet 20 mg PO DAILY RF: 0 amlodipine 5 mg tablet 2.5 mg PO .QHS RF: 0 Discharge Instructions Instructions: Tick Bite (ED) Additional Instructions: Your story sounds like you are likely bit by dog tick. Please discuss this further with your . In the event he confirms it was infected dog tick, no prophylaxis needs to be taken and this is not the type of tick that will pass along with tickborne illnesses. However, if there is concern that this was infected deer tick please take a one-time dose of doxycycline as prescribed. This prescription has been sent to your pharmacy. Please monitor area for increased redness, warmth, drainage, fever/chills. If you develop any of these or other new/worsening symptoms please seek care urgently once again. Otherwise, please follow-up with your primary care as needed. Please continue with your daily tick checks. Keep the tick card with you so you can easily identify any future bites you may have. Referrals: Gracy Wick [Primary Care Provider] - Medical Decision Making Patient is a pleasant 70 year-old female presenting today with chief complaint of tick bite. She reports that she felt she had a pimple in the left ear for the past few days but that her actually tick from the ear this morning. She states that she stayed on the past 3 to 4 days. On exam, patient does have a area of erythema to the left ear. Bite is identified. No evidence suggest abscess. Does not appear cellulitic, more consistent with a local reaction from bite. Patient and I discussed the type of tick. She believes it was a dog tick but states that her looked at it and quickly got rid of it. She will discuss the type of tick further with her . A card with the types of cake was given to the patient. In the event is unclear what type of tick it was or it is identified to be a deer tick, 200 mg Doxy x1 was sent to her pharmacy of choice. Of advised that she should take this daily if needed. We did discuss the side effects of the doxycycline. Return precautions were discussed. Advise follow-up with primary care as needed. All of her questions and concerns were addressed and she is in agreement with this plan. HPI General Mode of arrival: ambulatory. Date/Time Provider Initiated Documentation: 03/21/21 09:32. Limitations to Documentation: no limitations. Information obtained by: patient and RN notes reviewed. History of Present Illness 70 year old F presents to the emergency department with the chief complaint of tick bite left ear, described as mild, with intensity rated at 2. Quality is described as aching, and is localized to the face. Patient reports no radiation. Patient started experiencing this hour(s) (removed tick this AM, believes on for 3 days) and it has been constant. No relieving factors improve symptom(s), No exacerbating factors reported . Patient notes no other symptoms.. Patient did receive the following treatments prior to arrival, none Related Data Home Medications Medication Instructions Recorded Confirmed fluticasone propion-salmeterol 1 puff INHALATION DAILY 01/31/13 03/21/21 [Advair Diskus] mometasone [Nasonex] 1 spry NS DAILY 01/31/13 03/21/21 omeprazole 20 mg PO BID 01/31/13 03/21/21 albuterol sulfate [Ventolin HFA] 2 puff INHALATION PRN PRN 07/04/15 03/21/21 cyclosporine 0.05 % eye drops in a 1 drp OP Q12H 11/14/19 03/21/21 dropperette multivitamin 1 tab PO DAILY 11/14/19 03/21/21 nebulizers #1 each 11/14/19 11/10/20 alendronate [Fosamax] 70 mg PO QWEEK 07/06/20 03/21/21 ipratropium 0.5 mg-albuterol 3 mg 3 ml INHALATION .Q4-6H PRN ml 09/28/20 03/21/21 (2.5 mg base)/3 mL nebulization soln amlodipine 2.5 mg PO .QHS 10/26/20 03/21/21 lisinopril 20 mg PO DAILY 10/26/20 03/21/21 rosuvastatin 20 mg PO .QHS 10/26/20 03/21/21 doxycycline hyclate 200 mg PO ONCE #2 cap 03/21/21 Previous Rx's Medication Instructions Recorded doxycycline hyclate 200 mg PO ONCE #2 cap 03/21/21 Allergies Allergy/AdvReac Type Severity Reaction Status Date / Time mirtazapine [From Remeron] Allergy Intermediate Verified 03/21/21 09:37 animal dander Allergy Mild Verified 03/21/21 09:37 venlafaxine HCl AdvReac Severe seizure Verified 03/21/21 09:37 [From Effexor] meperidine HCl [From Demerol] AdvReac Intermediate vomit, Verified 03/21/21 09:37 couldn't wake up oxycodone [Oxycodone] AdvReac Intermediate gi upset Verified 03/21/21 09:37 General Stated Complaint: EarProblem SIXTO: 5 Review of Systems Constitutional Constitutional: Reports as per HPI, Denies chills and Denies fever(s) ENT Ears, Nose, Mouth, and Throat: Reports as per HPI Musculoskeletal Musculoskeletal: Reports as per HPI Integumentary/Breasts Skin/Breast: Reports as per HPI Neurologic Neurologic: Reports as per HPI, Denies sensory deficit and Denies paresthesias [facility] Medical History (Updated 03/21/21 @ 09:48 by JACKIE Arvizu) Allergic rhinitis Anxiety Asthma Barretts esophagus Dry eye syndrome Facial rhytids (01/15/18) Fatigue GERD (gastroesophageal reflux disease) Hormone replacement therapy (HRT) Hyperlipidemia Hypertension Impaired fasting glucose Ischial bursitis Ischial bursitis of right side Depo-Medrol injection: 01/14/2021 (Dr. Drummond); previous injections on 06/12/2014, 02/12/2014, 11/14/2013 (Dr. Bear) Lesion of vocal cord Osteoporosis Premature ventricular contractions (PVCs) (VPCs) Per pt. states this is due to anxiety Rash, skin Vaginal prolapse (03/29/16) s/p laparoscopic colpopexy, posterior repair. [facility]. Vitamin D deficiency Surgical History Colonoscopy - IV Sedation with EGD for Barretts esophagitis History of open sigmoidectomy laparoscopic sacral colpopexy 03/29/16 with posterior colporrhaphy. [facility] [place]. Oophrectomy, Left (~2000) Repair of umbilical hernia Vaginal hysterectomy (~2002) for uterine prolapse, with oophorectomy Family History Mother Essential hypertension Heart disease Stroke Father Blood disorder required blood transfusions Brother Diabetes Grandfather , mouth cancer Diabetes Grandmother , breast cancer No problems noted. 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 [employer] Pets and animals: Yes Pets and animals: cat(s) What is your relationship status?: Panel score (0-1 are the most socially isolated patients): 1 What type of physical activity do you participate in: walking Seatbelt use: always Do you feel safe at home: Yes Do you feel safe in your relationship?: Yes Exam Const General: cooperative, healthy appearing, comfortable, no acute distress and well developed Nutritional Appearance: average body habitus and well nourished Orientation: alert and awake [facility] Head: normal to inspection Ears: hearing grossly normal bilaterally, TM normal on the left and mastoids normal Outer ear/TM images: 1. area of erythema. Area of bite in the triangular fossa. No discharge, swelling or pain with palpation. No lymphadenopathy Face and sinus: normal facial exam Neck Neck: normal visual inspection and no lymphadenopathy Resp Effort & Inspection: normal respiratory effort, able to speak in complete sentences and no respiratory distress Cardio Rate: regular rate Rhythm: regular rhythm Neuro General: patient alert and patient awake Cognition: normal cognition Speech: speech normal Gait: normal gait Sensory Exam: no sensory deficits noted Psych Appearance: grossly normal and well kempt Mental Status: mental status grossly normal Speech and Movement: speech and movement normal Course Vital Signs Vital signs: Vital Signs Temperature 36.3 C L 03/21/21 09:34 Pulse 60 03/21/21 09:34 Respiratory Rate 20 03/21/21 09:34 Blood Pressure 158/92 H 03/21/21 09:34 Pulse Oximetry 99 03/21/21 09:34 Temperature 36.3 C L 03/21/21 09:34 Temperature Source Skin 03/21/21 09:34 Pulse 60 03/21/21 09:34 Respiratory Rate 20 03/21/21 09:34 Respiratory Effort Non-Labored 03/21/21 09:36 Blood Pressure 158/92 H 03/21/21 09:34 Blood Pressure Position Sitting 03/21/21 09:34 Pulse Oximetry 99 03/21/21 09:34 Oxygen Delivery Method Room Air 03/21/21 09:34 Oxygen Flow Rate 0 03/21/21 09:34 Pain Level 2 03/21/21 09:34
== END 2021-03-21 09:55 | disposition home or self-care (01) ==
PROVIDERS: Emergency Provider Physician Assistant; PCP Internal Medicine
DX: S00.462A Insect bite (nonvenomous) of left ear, initial encounter (principal); W57.XXXA Bitten or stung by nonvenomous insect and other nonvenomous arthropods, initial encounter
CPT/HCPCS: 99283

== ENCOUNTER 2022-03-02 18:53 | Outpatient (REF) | payer MEDICARE, BC, SELFPAY ==
[2022-03-02 21:21] LABS: Hemoglobin A1C 6.1 % (<5.7)
[2022-03-02 21:22] LABS: Anion Gap 9.8 mmol/L (3-11); BUN 16 mg/dL (7-18); CO2 26.2 mmol/L (21.0-32.0); Calcium 8.7 mg/dL (8.5-10.1); Calculated LDL 90 mg/dL (<100); Chloride 103 mmol/L (98-107); Cholesterol 194 mg/dL (<200); Estimated GFR 54.66 (mL/min/1.73m2); Glucose 105 mg/dL (74-106); HDL Cholesterol 52 mg/dL (40-60); Potassium 4.1 mmol/L (3.5-5.1); Sodium 139 mmol/L (136-145); Triglyceride 262 mg/dL (<150)
== END 2022-03-02 18:54 | disposition home or self-care (01) ==
LOC: NCHCN 18:53
PROVIDERS: PCP Internal Medicine; Visit Provider Internal Medicine
DX: E78.5 Hyperlipidemia, unspecified (principal); E55.9 Vitamin D deficiency, unspecified; R73.03 Prediabetes; M81.0 Age-related osteoporosis without current pathological fracture; I10 Essential (primary) hypertension
CPT/HCPCS: 80048; 80061; 82306; 83036

== ENCOUNTER 2022-03-12 18:04 | Observation (INO) | payer MEDICARE, BC, SELFPAY ==
[2022-03-12 18:08] VITALS: BP 141/89; PULSE 80; RESP 18; TEMP 36.9; O2SAT 99
--- OUTSIDE RECORDS SUMMARY | 2022-03-12 18:13 | XMS_ITS | Encounter Summary ---
:1950 Author Organization [facility] Address [address] [place] [address] Care Team Providers Name Role Phone Unavailable Primary Care Provider Unavailable Encounter Details Date Type Department Care Team Description 02/23/2001 Results Only [facility] - Yaron Oleary MD conversion [address] [place] [id number] Social History Tobacco Use Types Packs/Day Years Used Date Never Assessed Sex Assigned at Date Recorded Not on file documented as of this encounter Plan of Treatment Not on filedocumented as of this encounter Procedures Procedure Name Priority Date/Time Associated Diagnosis Comme nts SURGICAL PATHOLOGY Routine 02/23/2001 0:00 EDT Re sults for this procedure are i n the results section. documented in this encounter Results SURGICAL PATHOLOGY (02/23/2001 0:00 EDT) Pathology Report: SURGICAL PATHOLOGY REPORT [facility] Reports generated via electronic interface contain leobardo ginal data; LAB however they are lacking the format of the original re port. Caution should be taken when reading/interpreting unfo rmatted reports. Name: ? TRISTA CHAN ? Accession #: ? [id number] ? : ? 1950 (Age: 50) ??F ? N #: ? [id number] ? Collect Date: ? 02/23/2001 ? Location: ? [facility] ? Receive Date: ? 001 ? Provider: YARON SALDAÑA MD Copy to: GWEN RENE MD ? Final Pathologic Diagnosis: A. ?Cervix, polyp, biopsy: 1. ?Acute and c hronic cervicitis with microglandular hyperplasia and extensive squamous metaplasia, consistent with benign endocervical polyp. B. ?Endometrium, biopsy: 1. ?Secretory e ndometrium with areas of stromal overgrowth with small glands. ??See comment. 2. ?Single fragment consistent with endom etrial polyp. Comment: ? The section of specim en (B) shows areas of stromal overgrowth with small glandular elements, suggestive of control pill e ffect, but the history reports no hormones. ??This case has been revi ewed at the intradepartmental consultation conference. ??T his case has been reviewed in consultation with Dr. Kia Centeno. ??(Dr. Ivan)/riya Document reviewed and electronically signed by: Jr Perdue MD Report ??Date: 02/28/2001 15:35 By the signature above, the attending physician certif ies that he/she has personally conducted a gross and/or microscopic examin ation of the described specimens and rendered or confirmed the above diagnosi s. Specimen(s) Received: A. ?Cx polyp (#1) B. ?EMBx (#2) Clinical History: ? Perimenopausal bleeding; no hormone Gross Description: ? Received in formalin labelled Hurst and polyp are multiple fragments of pink-brown, focally red pieces of soft, mucinous tissu e which measure in aggregate 0.9 x 0.6 x 0.5 cm . The specimen is submitted in its entirety as (A). Received in formalin alejandro d Hurst and endo bx are multiple newton-brown soft tissue fragments which measu re in aggregate 3.2 x 2.4 x 0.7 cm. ??The specimen is divided and submitted entirely as (B1) t hrtrini (B3). ??(Dr. Garner-)/[facility] End of Report Specimen Performing Organization Address City/State/ZIP Code Phon e Number [facility] [address] [phone] SERVICES [facility] [address] [phone] documented in this encounter Visit Diagnoses Not on filedocumented in this encounter
--- OUTSIDE RECORDS SUMMARY | 2022-03-12 18:13 | XMS_ITS | Encounter Summary ---
:1950 Author Organization [facility] Address [address] [place] [address] Care Team Providers Name Role Phone Unavailable Primary Care Provider Unavailable Encounter Details Date Type Department Care Team Description 02/19/2002 Results Only [facility] - Yaron Oleary MD conversion [address] [place] [id number] Social History Tobacco Use Types Packs/Day Years Used Date Never Assessed Sex Assigned at Date Recorded Not on file documented as of this encounter Plan of Treatment Not on filedocumented as of this encounter Procedures Procedure Name Priority Date/Time Associated Diagnosis Comme nts CYTOPATHOLOGY Routine 02/19/2002 0:00 EDT Results for this procedure are i n the results section . documented in this encounter Results CYTOPATHOLOGY (02/19/2002 0:00 EDT) Pathology Report: CYTOPATHOLOGY REPORT [facility] Reports generated via electronic interface contain leobardo ginal data; however they are lacking the format of the original re port. Caution should be taken when reading/interpreting unfo rmatted reports. Name: ? TRISTA CHAN ? Accession #: ? [id number] : ? 1950 (Age: 51) ??F ?Collect Date: ? 02/06 Location: ? [facility] ? Receive Date : ? 02/21/2002 Provider: ?YARON SALDAÑA MD Copy to: ? Specimen/Source: ?ThinPrep Pap Test, Cervix/ Endocervix Last Menstrual Period: ? 02/11/02 Hormonal/Contraceptive Status: ? Yes ? SPECIMEN ADEQUACY ? Satisfactory for Evaluation - transformation zone component present - scant squamous epithelial component GENERAL CATEGORIZATION ? Negative for Intraepithelial Lesion or Malignan cy ? Document reviewed and electronically signed by: ? SUNDAY Lopez(ASCP) ? Report Date: ??02/25/2002 10:09 End of Report Specimen Performing Organization Address City/State/ZIP Code Phon e Number [facility] [address] [place] [address] SERVICES [facility] [address] [place] [address] documented in this encounter Visit Diagnoses Not on filedocumented in this encounter
--- OUTSIDE RECORDS SUMMARY | 2022-03-12 18:13 | XMS_ITS | Encounter Summary ---
:[address] [facility] Address [address] [place] [address] Care Team Providers Name Role Phone Unavailable Primary Care Provider Unavailable Encounter Details Date Type Department Care Team Description 03/19/2001 Results Only [facility] - Yaron Oleary MD conversion [address] [place] [id number] Social History Tobacco Use Types Packs/Day Years Used Date Never Assessed Sex Assigned at Date Recorded Not on file documented as of this encounter Plan of Treatment Not on filedocumented as of this encounter Procedures Procedure Name Priority Date/Time Associated Diagnosis Comme nts SURGICAL PATHOLOGY Routine 03/19/2001 0:00 EDT Re sults for this procedure are i n the results section. documented in this encounter Results SURGICAL PATHOLOGY (03/19/2001 0:00 EDT) Pathology Report: SURGICAL PATHOLOGY REPORT [facility] Reports generated via electronic interface contain leobardo ginal data; LAB however they are lacking the format of the original re port. Caution should be taken when reading/interpreting unfo rmatted reports. Name: ? TRISTA CHAN ? Accession #: ? [id number] ? : ? 1950 (Age: 50) ??F ? N #: ? [id number] ? Collect Date: ? 03/19/2001 ? Location: ? [facility] ? Receive Date: ? 001 ? Provider: YARON SALDAÑA MD Copy to: LALITA BLACKMON MD ? Final Pathologic Diagnosis: A. ?Endometrium, curettage: 1. ?Mid secretory endometrium with no pat hologic features. B. ?Ovary, left, oophorectomy: 1. 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 2. ?Fallopian tube with no pathologic fea tures. Document reviewed and electronically signed by: Anahy Stafford MD Report ??Date: 03/26/2001 17:15 By the signature above, the attending physician certif ies that he/she has personally conducted a gross and/or microscopic examin ation of the described specimens and rendered or confirmed the above diagnosi s. Specimen(s) Received: A. ?Endometrial curettings (#1) B. ?Left ovary sent for frozen (#2) Clinical History: ? Pelvic mass Intraoperative Interpretation: ? Ovary, left, oophorectomy: Mature teratoma, no immature elements identified, favor mature ter atoma (one technical support representative section). ?? Dr. Star Coley; 03/19/01 Gross Description: ? Received in formalin labelled Hurst and endometrial curettings are 1.0 x 0.6 x 0.2 cm of newton-red slightly mucoid hemorrhagic soft tissue fragments. The specimen is entirely submitted as (A). Received fresh labelled Marisa st and 2 left ovary is a newton-white multilobulated focally cystic ovary which weighs 20.5 grams and measures 5.0 x 2.8 x 1.1 cm. Upon sectioning, the ovary contains a moderate amount of friable hairbearing sebaceous material. The cut surfaces of the ovary are newton-white to yellow, focally nodular, focally ro cified, but with no excrescences grossly identified. Also received in the same container is a fimbri ated end segment of fallopian tube which measures 4.2 cm in length, 0.5 cm in diameter and upon sectioning, the cut surfaces are newton-whi te with a central pinpoint lumen. ??A technical support representative section of the ovary is submitted for frozen section w ith the interpretation rendered as above. ??Healthcare Consultant sections are submi tted as follows: BLOCK CORONA B1 ?Frozen section control B2-B4 ?Healthcare Consultant ovary to include th e cystic portion B5 ?Healthcare Consultant ovary to include the f ocally calcified area (submitted upon decalcification) B6 ?Healthcare Consultant fallopian tube (Wyatt Mccormick)/[facility] End of Report Specimen Performing Organization Address City/State/ZIP Code Phon e Number [facility] [address] [place] [address] SERVICES [facility] [address] [place] [address] documented in this encounter Visit Diagnoses Not on filedocumented in this encounter
--- OUTSIDE RECORDS SUMMARY | 2022-03-12 18:13 | XMS_ITS | Encounter Summary ---
:1950 Author Organization [facility] Address [address] [place] [address] Care Team Providers Name Role Phone Unavailable Primary Care Provider Unavailable Encounter Details Date Type Department Care Team Description 04/01/2008 Results Only [facility] - Yue Vargas, Chr istopher, conversion DO [address] [place], [place] [id number] [place] [phone] (Wo rk) Social History Tobacco Use Types Packs/Day Years Used Date Never Assessed Sex Assigned at Date Recorded Not on file documented as of this encounter Plan of Treatment Not on filedocumented as of this encounter Procedures Procedure Name Priority Date/Time Associated Diagnosis Comme nts SURGICAL PATHOLOGY Routine 04/01/2008 0:00 EDT Re sults for this procedure are i n the results section. documented in this encounter Results SURGICAL PATHOLOGY (04/01/2008 0:00 EDT) Pathology Report: SURGICAL PATHOLOGY REPORT [facility] Reports generated via electronic interface contain leobardo ginal data; LAB however they are lacking the format of the original re port. Caution should be taken when reading/interpreting unfo rmatted reports. Name: ? TRISTA CHAN ? Accession #: ? [id number] ? : ? 1950 (Age: 57) ??F ? Collect Date: ? 04/01/2008 ? Location: ? [facility] ? Receive Date: ? 008 ? Provider: WILFREDO VARGAS DO Copy to: GWEN BLACKMON MD ? Final Pathologic Diagnosis: ? Colon, sigmoid, partial resection: 1. ?Diverticulosis with chronic diverticu litis. 2. ? Associated chronic serositis. 3. ? Resection margins viable and without active i nflammation. Document reviewed and electronically signed by: Trista Mayo MD Report ??Date: 04/04/2008 15:46 By the signature above, the attending physician certif ies that he/she has personally conducted a gross and/or microscopic examin ation of the described specimens and rendered or confirmed the above diagnosi s. Specimen(s) Received: ? Sigmoid colon Clinical History: ? Sigmoid colon diverticula with multiple attacks diverticulitis Gross Description: ? Received in formalin labelled HurstBrinkerhoff and sigmoid colon is a 12.0 cm in length segment of colon recei sebastián previously opened with two stapled ends; the luminal circumference averages 2.5 cm. ??Newton -pink, the serosa is smooth, glistening and devoi d of exudate. ??The cut surfaces are remarkable for numerous intact diverticula which traverse the t hickened (up to 1.1 cm) wall. The diverticula are surrounded by fibrous tissue ; a discrete communication is not identified. ??The remainder of the mucosa is newton-p ink with unremarkable folds. ??Hotel General Manager sections are submitted as foll ows: BLOCK CORONA A1 ?Representat melanie sections of proximal and distal ends (inked and en face) A2-A4 ?Hotel General Manager intact diverticula (Pablo Mcnair)/mpl ?? End of Report Specimen Performing Organization Address City/State/ZIP Code Phon e Number [facility] [address] [place] [address] SERVICES [facility] [address] [place] [address] documented in this encounter Visit Diagnoses Not on filedocumented in this encounter
--- OUTSIDE RECORDS SUMMARY | 2022-03-12 18:13 | XMS_ITS | Encounter Summary ---
:1950 Author Organization [facility] Address [address] [place] [address] Care Team Providers Name Role Phone Gracy Wick Primary Care Provider Hemal Amaro MD Unavailable Encounter Details Date Type Department Care Team Description 09/19/2020 Lab Requisition [facility] Outr Resulting Lab, Pathology & Laboratory Provider [facility] [address] [place] [address] Social History Tobacco Use Types Packs/Day Years Used Date Never Assessed Sex Assigned at Date Recorded Not on file documented as of this encounter Plan of Treatment Not on filedocumented as of this encounter Procedures Procedure Name Priority Date/Time Associated Diagnosis Comme nts COVID-19 TEST [facility] Today 09/19/2020 11:10 LAB PCR EST COVID-19 TESTING Routine 09/19/2020 11:10 Results for this EST procedure are i n the results section. documented in this encounter Results COVID-19 TEST [facility] LAB PCR (09/19/2020 11:10 EST) Specimen Swab - Entire nasopharynx (body structur e) Performing Organization Address City/State/ZIP Code Phon e Number [facility] [address] [place] [address] SERVICES COVID-19 TESTING (09/19/2020 11:10 EST) COVID-19 rt-PCR Negative Negative [facility] Result Comment: [facility]ENTER [facility]ATORY This test has not been FDA c leared or approved. This test has been authorized by FDA under an EUA for use by authorized laboratories. This test has been authorized only for detection of nucleic acid fro SERVICES m 2019-nCoV, not for any oth er viruses or pathogens. This test is only authorized for the duration of the declaration that circumstances exist justifying the authorization of emergency use of in vitro d iagnostic tests for detectio n and/or diagnosis of 2019-nCoV under section 564(b)(1) of Act, 21 U.S.C ?? 360bbb-3(b) (1), unless the authorization is terminated or revoked sooner. Negative results do not prec lude 2019-nCoV infection and should not be used as the sole basis for treatment or other patient management decisions. Negative results must be combined with clinical observa tions, patient history, and epidemiological informatio n. 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
--- OUTSIDE RECORDS SUMMARY | 2022-03-12 18:13 | XMS_ITS | Encounter Summary ---
:1950 Author Organization [facility] Address [address] [place] [address] Care Team Providers Name Role Phone Unavailable Primary Care Provider Unavailable Encounter Details Date Type Department Care Team Description 04/26/2011 Results Only [facility] Alvino Guido , Laboratory Services - [address] JENNIFER KRUGER [address] [place], [place] [id number] [place] [id number] [phone] Social History Tobacco Use Types Packs/Day Years Used Date Never Assessed Sex Assigned at Date Recorded Not on file documented as of this encounter Plan of Treatment Not on filedocumented as of this encounter Procedures Procedure Name Priority Date/Time Associated Diagnosis Comme [facility] SURGICAL PATHOLOGY Routine 04/26/2011 0:00 EDT Re sults for this procedure are i n the results section. documented in this encounter Results SURGICAL PATHOLOGY (04/26/2011 0:00 EDT) Pathology Report: SURGICAL PATHOLOGY REPORT ? [facility] Reports generated via electr Convercent interface contain original data; ? LAB however they are lacking the format of the original report. ? Caution should be taken when reading/interpreting unformatted reports. ? Name: ? HURSTBRINKERHOFF , TRISTA B ? Accession #: ? [id number] ? : ? 1950 (Age: 60) ??F ? Collec t Date: ? 04/26/2011 ? Location: ? [facility] ? R eceive Date: ? 04/27/2011 ? Provider: ALVINO PRADO SON DO ? Copy to: GWEN N NEYMAR Hawkins D ? Final Pathologic Diagnosis: ? A. ?Esophagus, distal, biopsies: ? 1. ?Squamous an d columnar mucosa with acute and chronic inflammation and reactive epithelial changes. ? 2. ? No intestinal metap lasia or dysplasia identified. ? B. ?Esophagus, mid, biopsies: ? 1. ?Squamous mu cosa with no specific pathologic features. ? C. ?Esophagus, proximal, biopsies: ? 1. ?Squamous mu cosa with no specific pathologic features. ? Document reviewed and electr onically signed by: ? TRISTA ALMANZAR MD ? Report ??Date: 04/28/2011 22 :14 ? By the signature above, the attending physician certifies that he/she has ? personally conducted a gross and/or microscopic examination of the described ? specimens and rendered or co nfirmed the above diagnosis. ? Specimen(s) Received: ? A. ?Bx distal e sophagus ? B. ? Bx mid esophagus ? C. ? Bx proximal esophag us ? Clinical History: ? Hx of Baer's esoph flower ? Gross Description: ? Received in formalin labelled [place], Trista and #1 distal ? esophagus are four newton-whit e biopsies which vary in size from 0.3 x 0.2 x 0.1 ?? cm up to 0.6 x 0.3 x 0.2 cm. ??The specimens are submitted intact as (A1) and ? (A2). ? Received in formalin alejandro Trista Shultz and #2 mid esophagus are two newton-white biopsies m easuring 0.2 x 0.2 x 0.1 cm, each. ??The specimens ?? are submitted intact as (B). ? Received in formalin alejandro Trista Shultz and #3 proximal ? esophagus are three newton-whi te biopsies which vary in size from 0.1 x 0.1 x 0.1 cm up to 0.3 x 0.3 x 0.1 cm. ??The specimens are submitted intact as (C). ??(SANDEE ?? Tessitore)/vicentan ? End of Report ? Specimen Performing Organization Address City/State/ZIP Code Phon e Number [facility] [address] [place] [address] SERVICES [facility] [address] [place] [address] documented in this encounter Visit Diagnoses Not on filedocumented in this encounter
--- OUTSIDE RECORDS SUMMARY | 2022-03-12 18:13 | XMS_ITS | Encounter Summary ---
:1950 Author Organization [facility] Address [address] [place] [address] Care Team Providers Name Role Phone Unavailable Primary Care Provider Unavailable Encounter Details Date Type Department Care Team Description 02/25/2003 Results Only [facility] - Yaron Oleary MD conversion [address] [place] [phone] Social History Tobacco Use Types Packs/Day Years Used Date Never Assessed Sex Assigned at Date Recorded Not on file documented as of this encounter Plan of Treatment Not on filedocumented as of this encounter Procedures Procedure Name Priority Date/Time Associated Diagnosis Comme nts CYTOPATHOLOGY Routine 02/25/2003 0:00 EDT Results for this procedure are i n the results section . documented in this encounter Results CYTOPATHOLOGY (02/25/2003 0:00 EDT) Pathology Report: CYTOPATHOLOGY REPORT [facility] Reports generated via electronic interface contain leobardo ginal data; however they are lacking the format of the original re port. Caution should be taken when reading/interpreting unfo rmatted reports. Name: ? TRISTA CHAN ? Accession #: ? [id number] : ? 1950 (Age: 52) ??F ?Collect Date: ? 02/07 Location: ? [facility] ? Receive Date : ? 02/26/2003 Provider: ?YARON ASLDAÑA MD Copy to: ? Specimen/Source: ?ThinPrep Pap Test, Cervix/ Endocervix Last Menstrual Period: ? 02/12/03 ? SPECIMEN ADEQUACY ? Satisfactory for Evaluation - transformation zone component present GENERAL CATEGORIZATION ? Negative for Intraepithelial Lesion or Malignan cy ? Document reviewed and electronically signed by: ? SUNDAY Canales(ASCP) ? Report Date: ??03/05/2003 14:22 End of Report Specimen Performing Organization Address City/State/ZIP Code Phon e Number [facility] [address] [place] [address] SERVICES [facility] [address] [place] [address] documented in this encounter Visit Diagnoses Not on filedocumented in this encounter
--- OUTSIDE RECORDS SUMMARY | 2022-03-12 18:13 | XMS_ITS | Encounter Summary ---
:1950 Author Organization [facility] Address [address] [place] [address] Care Team Providers Name Role Phone Gracy Wick Primary Care Provider Hemal Amaro MD Unavailable Encounter Details Date Type Department Care Team Description 07/03/2020 Lab Requisition [facility] Outr Resulting Lab, Pathology & Laboratory Provider [facility] [address] [place] [address] Social History Tobacco Use Types Packs/Day Years Used Date Never Assessed Sex Assigned at Date Recorded Not on file documented as of this encounter Plan of Treatment Not on filedocumented as of this encounter Procedures Procedure Name Priority Date/Time Associated Comments Diagnosis DO NOT ORDER Today 07/03/2020 8:58 EDT Results for this STANDALONE - [facility] procedure are in COVID TEST the results section. COVID-19 TESTING Routine 07/03/2020 8:58 EDT Resu lts for this procedure are i n the results section. documented in this encounter Results DO NOT ORDER STANDALONE - BROAD COVID TEST (07/03/2020 8:58 EDT) COVID-19 rt-PCR NEGATIVE Negative [facility] Result Comment: LABORATORY 2019-novel Coronavirus (2019 -nCoV) not detected by the qRT-PCR assay. Consider testing for other respiratory viruses or re-collecting for 2019-nCoV testing. Note: Optimum timing for peak viral levels du ring infections caused by 20 19-nCoV have not been determined. Collection of multiple specimens from the same patient may be necessary to detect the virus. Limitations Positive results are indicat melanie of active infection with SARS-CoV-2 but do not rule out bacterial infection or co-infection with other viruses. The agent detected may not be the definite cause of diseas e. In addition, detection of viral RNA may not indicate the presence of infectious virus or that SARS-CoV-2 is the causative agent for clinical symptoms. Negative results do not prec lude SARS-CoV-2 infection and should not be used as the sole basis for patient management decisions. Negative results must be combined with clinical observations, patient his tory, and epidemiological in formation. False negative results may also occur if amplification inhibitors are present in the specimen or if inadequate numbers of organisms are present in the specimen. Op timum specimen types and ange ing for peak viral levels during infections caused by SARS-CoV-2 have not been fully determined. Collection of multiple specimens (types and time points) from the same patient may be necessary to detect the virus. The test was validated for u se with upper respiratory specimens obtained via nasopharyngeal or oropharyngeal swabs in VTM, UTM, M4, M5, M6, saline, and MTM media. The performance of this test has not be en established for other spe cimens. Specimens collected using other FDA recommended Specimen Collection Materials listed in the FDA COVID-19 [employer] communication (January 02, 2020) are pr ocessed with the caveat that they were not all validated for use with this test and the result must be interpreted in this context. Furthermore, a false negative results may occur if a specimen is improperly collected, transported or handled. If the virus mutates in the RT-PCR target region, SARS-CoV-2 may not be detected or may be detected less predictably. Inhibitors or other types of interference may produce a false negative result. An interference study evaluating the effect of common cold medications was not performed. This test is not FDA-cleared but its performance characteristics were established by our CLIA-certified, CAP-accredited, high complexity laboratory in accordance with CLIA regulations, College of [employer] an [employer]ologists (CAP) guidel jac (Dec 26, 2019), and FDA guidance (Dec 07, 2019). This test is only for use un sylvia the Food and Drug Administration's Emergency Use Authorization. Specimen Swab - Entire nasopharynx (body structur e) Performing Organization Address City/State/ZIP Code Phon e Number [facility] [place] [place] COVID-19 TESTING (07/03/2020 8:58 EDT) COVID-19 rt-PCR NEGATIVE Negative [facility] Result Comment: LABORATORY 2019-novel Coronavirus (2019 -nCoV) not detected by the qRT-PCR assay. Consider testing for other respiratory viruses or re-collecting for 2019-nCoV testing. Note: Optimum timing for peak viral levels du ring infections caused by 20 -nCoV have not been determined. Collection of multiple specimens from the same patient may be necessary to detect the virus. Limitations Positive results are indicat melanie of active infection with SARS-CoV-2 but do not rule out bacterial infection or co-infection with other viruses. The agent detected may not be the definite cause of diseas e. In addition, detection of viral RNA may not indicate the presence of infectious virus or that SARS-CoV-2 is the causative agent for clinical symptoms. Negative results do not prec lude SARS-CoV-2 infection and should not be used as the sole basis for patient management decisions. Negative results must be combined with clinical observations, patient his tory, and epidemiological in formation. False negative results may also occur if amplification inhibitors are present in the specimen or if inadequate numbers of organisms are present in the specimen. Op timum specimen types and ange ing for peak viral levels during infections caused by SARS-CoV-2 have not been fully determined. Collection of multiple specimens (types and time points) from the same patient may be necessary to detect the virus. The test was validated for u se with upper respiratory specimens obtained via nasopharyngeal or oropharyngeal swabs in VTM, UTM, M4, M5, M6, saline, and MTM media. The performance of this test has not be en established for other spe cimens. Specimens collected using other FDA recommended Specimen Collection Materials listed in the FDA COVID-19 [employer] communication (January 02, 2020) are pr ocessed with the caveat that they were not all validated for use with this test and the result must be interpreted in this context. Furthermore, a false negative results may occur if a specimen is improperly collected, transported or handled. If the virus mutates in the RT-PCR target region, SARS-CoV-2 may not be detected or may be detected less predictably. Inhibitors or other types of interference may produce a false negative result. An interference study evaluating the effect of common cold medications was not performed. This test is not FDA-cleared but its performance characteristics were established by our CLIA-certified, CAP-accredited, high complexity laboratory in accordance with CLIA regulations, College of [employer] an Pathologists (CAP) guidel jac (Dec 26, 2019), and FDA guidance (Dec 07, 2019). This test is only for use un sylvia the Food and Drug Administration's Emergency Use Authorization. 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
--- OUTSIDE RECORDS SUMMARY | 2022-03-12 18:13 | XMS_ITS | Encounter Summary ---
:1950 Author Organization [facility] Address [address] [place] [address] Care Team Providers Name Role Phone Gracy Wick Primary Care Provider Hemal Amaro MD Unavailable Encounter Details Date Type Department Care Team Description 07/06/2020 Lab Requisition [facility] Kranthi Espinoza for screening for malignant neoplasm of colon; Pathology & MD Dania Gastro-esophageal reflux disease without esophagitis Laboratory Medicine [id number] [place] [id number] Social History Tobacco Use Types Packs/Day Years Used Date Never Assessed Sex Assigned at Date Recorded Not on file documented as of this encounter Plan of Treatment Not on filedocumented as of this encounter Procedures Procedure Name Priority Date/Time Associated Diagnosis Comme nts SURGICAL PATHOLOGY Today 07/06/2020 8:29 EDT Encounter for R esults for this screening for procedure are in malignant neoplasm the resul ts of colon section. Gastro-esophageal reflux disease without esophagitis documented in this encounter Results SURGICAL PATHOLOGY (07/06/2020 8:29 EDT) Amendment Comment Amended to report the [facility] stains, inadvertently LABORATORY omitted in the original SERVICES report. Diagnosis remains unchanged. Final Diagnosis A. STOMACH, ANTRUM, BIOPSY: [facility] L - Fundic gland polyp [facility]ENTER LAB[facility]ATORY B. GASTROESOPHAGEAL JUNCTION, BIOPSY: [facility] - Squamocolumnar mucosa with erosive esophagitis - Negative for intestinal metaplasia C. RECTUM, BIOPSY: - One (1) tubular adenoma - Three (3) hyperplastic polyps Diagnosis Comment Immunoperoxidase stains were performed on this case to further characterize the lesion. [facility] ANTIBODY(CLONE)(BLOCK):RESULT LABORATORY Herpes 1 (10A3, Cell Charles) (B): Negative SERVICES Herpes II (polyclonal, Cell Charles) (B): Negative NOTE: One or more of the re agents used in immunoperoxidase testing in this case may not have been cleared or approved by the U.S. Food and Drug Administration (FDA). The FDA has determined that such cl earance or approval is not n ecessary. These tests are used for clinical purposes. They should not be regarded as investigational or for research. These reagents' performance characteristics have been de termined by [facility] and/or by the referring laboratory. The positive and negative controls worked appropriately. If immunoperoxidase staining has been performed on alcoh ol fixed cytology specimens, which has not been fully validated, the assays should be interpreted with caution and correlated with clinical data. This laboratory is certified under the Clinical Laborato ry Improvement Amendments of 1988 (CLIA-88) as qualified to perform high complexity clinical laboratory testing. Attestation By the signature below, [facility] dment the attending physician CENTER elec tronically certifies that they have LABORATORY sig leonardo by Stas, 1) personally conducted SERVICES Stella Corrigan MD on a gross and/or 07/23/2020 at 1233 microscopic examination Elec tronically of the described signed by Anoop harvey, specimen(s), and/or Stella Corrigan MD on personally interpreted 2019 at 1339 the results of laboratory testing of the described specimen(s), and 2) personally rendered or confirmed the above diagnosis. Clinical History Hx Baer's [facility] LABORATORY SERVICES Gross Description A. [facility] Received in formalin alejandro d with proper patient identification (initials B, P) and 1. Antrum polyp are 2 newton-brown tissue fragments (0.3 x 0.1 x 0.1 cm and 0.3 x 0.3 x 0.2 cm). Submitted in toto in A1. CENTER LABORATORY B. SERVICES Received in formalin alejandro d with proper patient identification (initials B, P) and 2. GE junction are 3 newton-white tissues (0.3 x 0.3 x 0.1 cm and 0.4 x 0.3 x 0.1 cm). Submitted in toto in B1. C. Received in formalin alejandro d with proper patient identification (initials B, P) and 3. Rectal Bxs x4 are 4 newton-brown tissues (0.2 x 0.2 x 0.1 cm to 0.3 x 0.2 x 0.1 cm). Submitted in toto in C1 and C2. LEROY MAIRA 07/06/2020 16:46 Performing Lab [facility] LABORATORY SERVICES Scanned Images [facility] LABORATORY SERVICES Specimen Tissue - Specimen from rectum (specimen) Tissue specimen (specimen) - Entire esop hago-gastric mucosal junction (body structure) Tissue specimen (specimen) - Specimen fr om rectum (specimen) Performing Organization Address City/State/ZIP Code Phon e Number [facility] [address] [place] [id number] SERVICES documented in this encounter Visit Diagnoses Diagnosis Encounter for screening for malignant ne oplasm of colon Special screening for malignant neoplasm s, colon Gastro-esophageal reflux disease without esophagitis Esophageal reflux documented in this encounter Care Teams [place] Commissioner Relationship Specialty Start Date End Date Gracy Wick PCP - General Internal Medicine - 10/09/[address] Primary Care [place], [place] [phone] Hemal Amaro MD 10/09/[address] [place], [place] [phone] documented as of this encounter
--- OUTSIDE RECORDS SUMMARY | 2022-03-12 18:13 | XMS_ITS | Encounter Summary ---
:1950 Author Organization [facility] Address [address] [place] [address] Care Team Providers Name Role Phone Unavailable Primary Care Provider Unavailable Encounter Details Date Type Department Care Team Description 09/18/2001 Results Only [facility] - Yue Vargas, Chr istopher, conversion DO [address] [place], [place] [id number] [place] [id number] (Wo rk) Social History Tobacco Use Types Packs/Day Years Used Date Never Assessed Sex Assigned at Date Recorded Not on file documented as of this encounter Plan of Treatment Not on filedocumented as of this encounter Procedures Procedure Name Priority Date/Time Associated Diagnosis Comme nts SURGICAL PATHOLOGY Routine 09/18/2001 0:00 EST Re sults for this procedure are i n the results section. documented in this encounter Results SURGICAL PATHOLOGY (09/18/2001 0:00 EST) Pathology Report: SURGICAL PATHOLOGY REPORT KIMBERLY CORNEJO Reports generated via electronic interface contain leobardo ginal data; LAB however they are lacking the format of the original re port. Caution should be taken when reading/interpreting unfo rmatted reports. Name: ? TRISTA CHAN ? Accession #: ? [id number] ? : ? 1950 (Age: 51) ??F ? Collect Date: ? 09/18/2001 ? Location: ? [facility] ? Receive Date: ? 001 ? Provider: WILFREDO VARGAS DO Copy to: LALITA BLACKMON MD ? Final Pathologic Diagnosis: A. ?Stomach, antrum, biopsies: 1. ?Mild chronic gastritis. 2. ?Daksha sta in negative for Helicobacter pylori-like microorganisms. B. ?Esophagus, distal, biopsies: 1. 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 2. ?No dysplasia identified. Document reviewed and electronically signed by: Trista Mayo MD Report ??Date: 09/22/2001 08:26 By the signature above, the attending physician certif ies that he/she has personally conducted a gross and/or microscopic examin ation of the described specimens and rendered or confirmed the above diagnosi s. Specimen(s) Received: A. ?Bx antrum B. ?Bx distal esophagus Clinical History: ? Hx epigastric pain, on Proton pump inhibitor Gross Description: ? Received in Hollande' s fixative labelled Hurst and bx antrum are two chavira-white irregular 0.3 x 0 .2 x 0.2 cm soft tissue fragment. ??The specimen is entirely submitted as (A). Received in Hollande' s fixa tive labelled Hurst and #2 bx esophagus ??distal are two newton-chavira friable 0.2 x 0.2 x 0.1 cm soft tissue fragments. ??The specimen is entirely submitted as (B). ??(Wyatt Chowdary)/lashaun ? ? End of Report Specimen Performing Organization Address City/State/ZIP Code Phon e Number [facility] [address] [place] [address] SERVICES [facility] [address] [place] [address] documented in this encounter Visit Diagnoses Not on filedocumented in this encounter
--- OUTSIDE RECORDS SUMMARY | 2022-03-12 18:13 | XMS_ITS | Clinical Summary ---
:1950 Author Organization [facility] Address [address] [place] [address] Care Team Providers Name Role Phone Gracy Wick Primary Care Provider Hemal Amaro MD Unavailable Social History Tobacco Use Types Packs/Day Years Used Date Never Assessed Sex Assigned at Date Recorded Not on file Plan of Treatment Health Maintenance Due Date Last Done Comments Fall Risk Screening 2015 Insurance Payer Benefit Plan / Subscriber ID Effective Dates Phone Addre ss Type Group MEDICARE MEDICARE A/B [id number] 2015-Presen [id number] Medicare [place] [place] [phone] [place] [id number] 2019-Presen [address] [place] [address] [place] [address] 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
--- OUTSIDE RECORDS SUMMARY | 2022-03-12 18:13 | XMS_ITS | CCD ---
:1950 Author Care Team Providers Name Role Phone LARISA MENDIETA Attending Physician Unavailable LARISA MENDIETA Rounding (Secondary) Physician Unavailab le Vital Signs Unknown or Not Available. Allergies Unknown or Not Available. Procedures Unknown or Not Available. History of Immunizations Unknown or Not Available. Problems Unknown or Not Available. Results Unknown or Not Available. Active Medications Unknown or Not Available. Medications Administered During Visit Unknown or Not Available. Encounters Encounter Diagnosis Diagnosis Code Start Date Trigger thumb, right thumb [id number] 11/25/2021 Social History Smoking Status Code Start Date End Date Never smoker [id number] Patient Decision Aids Unknown or Not Available. Discharge Instructions You were admitted to [facility] on 11/25/2021 09:50 with a principal diagnosis of Trigger thumb, right thumb You were discharged from [facility] on 11/25/2021 00:00 Should you have any questions prior to d ischarge, please contact a member of your healthcare team. If you have left the spital and have any questions, please contact your primary care physician. Chief Complaint and Reason For Visit Unknown or Not Available. Function Status Unknown or Not Available. Plan of Care Unknown or Not Available. Referral/Transition of Care Unknown or Not Available.
--- OUTSIDE RECORDS SUMMARY | 2022-03-12 18:13 | XMS_ITS | Encounter Summary ---
:1950 Author Organization [facility] Address [address] [place] [address] Care Team Providers Name Role Phone Gracy Wick Primary Care Provider Hemal Amaro MD Unavailable Encounter Details Date Type Department Care Team Description 06/09/2020 Lab Requisition [facility] Outr Resulting Lab, Pathology & Laboratory Provider [facility] [address] [place], [place] [phone] Social History Tobacco Use Types Packs/Day Years Used Date Never Assessed Sex Assigned at Date Recorded Not on file documented as of this encounter Plan of Treatment Not on filedocumented as of this encounter Procedures Procedure Name Priority Date/Time Associated Comments Diagnosis DO NOT ORDER Today 06/09/2020 11:22 Results for this STANDALONE - BROAD EDT procedure are in COVID TEST the results section. COVID-19 TESTING Routine 06/09/2020 11:22 Results for this EDT procedure are i n the results section. documented in this encounter Results DO NOT ORDER STANDALONE - BROAD COVID TEST (06/09/2020 11:22 EDT) COVID-19 rt-PCR NEGATIVE Negative [facility] [...] Organization Address City/State/ZIP Code Phon e Number [facility] [place], [place] COVID-19 TESTING (06/09/2020 11:22 EDT) COVID-19 rt-PCR NEGATIVE Negative [facility] Result Comment: LABORATORY 2019-novel Coronavirus (2019 -nCoV) [...] Administration's Emergency Use Authorization. 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
--- OUTSIDE RECORDS SUMMARY | 2022-03-12 18:13 | XMS_ITS | Encounter Summary ---
:1950 Author Organization [facility] Address [address] [place] [address] Care Team Providers Name Role Phone Unavailable Primary Care Provider Unavailable Encounter Details Date Type Department Care Team Description 11/20/2007 Results Only [facility] - Yue Vargas, Chr istopher, conversion DO [address] [place], [place] [id number] [place] [phone] (Wo rk) Social History Tobacco Use Types Packs/Day Years Used Date Never Assessed Sex Assigned at Date Recorded Not on file documented as of this encounter Plan of Treatment Not on filedocumented as of this encounter Procedures Procedure Name Priority Date/Time Associated Diagnosis Comme nts SURGICAL PATHOLOGY Routine 11/20/2007 0:00 EST Re sults for this procedure are i n the results section. documented in this encounter Results SURGICAL PATHOLOGY (11/20/2007 0:00 EST) Pathology Report: SURGICAL PATHOLOGY REPORT KIMBERLY CORNEJO Reports generated via electronic interface contain leobardo ginal data; LAB however they are lacking the format of the original re port. Caution should be taken when reading/interpreting unfo rmatted reports. Name: ? TRISTA CHAN ? Accession #: ? [id number] ? : ? 1950 (Age: 57) ??F ? Collect Date: ? 11/20/2007 ? Location: ? [facility] ? Receive Date: ? 008 ? Provider: WILFREDO VARGAS DO Copy to: GWEN BLACKMON MD ? Final Pathologic Diagnosis: A. ?Esophagus, distal, biopsy: 1. ?Squamocolum manjeet junctional mucosa with chronic inflammation, reactive epithelial changes and intestinal metaplasia (Baer' s esophagus). 2. ? No dysplasia identified. B. ?Esophagus, mid, biopsy: 1. ?Squamous mucosa with no specific path ologic features. 2. ? No intestinal metaplasia or dysplasia identif ied. Document reviewed and electronically signed by: Emily Castillo MD Report ??Date: 11/22/2007 16:40 By the signature above, the attending physician certif ies that he/she has personally conducted a gross and/or microscopic examin ation of the described specimens and rendered or confirmed the above diagnosi s. Specimen(s) Received: A. ?Distal esophagus B. ? Mid esophagus Clinical History: ? Baer's esophagus Gross Description: ? Received in Hollande' s fixative labelled HurstBrinkerhoff and bx distal esophagus are five pieces o f tissue which range from 0.3 x 0.2 x 0.2 cm to 0.1 x 0.1 x 0.1 cm with three submitted as (A1) and the re maining two as (A2). Received in Hollande's fixat melanie labelled HurstBrinkerhoff and mid esophagus are two pieces of tissue whi ch measure 0.4 x 0.2 x 0.1 cm and 0.2 x 0.2 x 0.1 cm and are submitted intact as (B). (David Hutton/[facility] End of Report Specimen Performing Organization Address City/State/ZIP Code Phon e Number [facility] [address] [place] [address] SERVICES [facility] [address] [place] [address] documented in this encounter Visit Diagnoses Not on filedocumented in this encounter
--- OUTSIDE RECORDS SUMMARY | 2022-03-12 18:13 | XMS_ITS | Encounter Summary ---
:1950 Author Organization [facility] Address [address] [place] [address] Care Team Providers Name Role Phone Hemal Amaro MD Primary Care Provider Encounter Details Date Type Department Care Team Description 06/25/2013 Results Only [facility] Alvino Vargas , Laboratory Services - [address] [place] [address] [place], [place] [address] [phone] Social History Tobacco Use Types Packs/Day Years Used Date Never Assessed Sex Assigned at Date Recorded Not on file documented as of this encounter Plan of Treatment Not on filedocumented as of this encounter Procedures Procedure Name Priority Date/Time Associated Diagnosis Comme nts SURGICAL PATHOLOGY Routine 06/25/2013 9:51 EDT Re sults for this procedure are i n the results section. documented in this encounter Results SURGICAL PATHOLOGY (06/25/2013 9:51 EDT) Pathology Report: SURGICAL PATHOLOGY REPORT KIMBERLY CORNEJO Reports generated via electronic interface contain leobardo ginal data; LAB however they are lacking the format of the original re port. Caution should be taken when reading/interpreting unfo rmatted reports. Name: ? TRISTA CHAN ? Accession #: ? [id number] ? : ? 1950 (Age: 63) ??F ? Collect Date: ? 06/25/2013 ? Location: ? [facility] ? Receive Date: ? 013 ? Provider: ALVINO VARGAS DO Copy to: KALEB FRANK SPLUNK CONSULTANT ? Final Pathologic Diagnosis: A. ESOPHAGUS, DISTAL, BIOPSY: - ??Squamocolumnar junctional mucosa with acute and ch ronic inflammation. - ??Negative for intestinal metaplasia and dysplasia. B. ESOPHAGUS, MID, BIOPSY: - ??Squamous mucosa with mild reactive epithelial armstrong ges. Document reviewed and electronically signed by: MARJ LOGAN MD Report ??Date: 06/28/2013 14:45 By the signature above, the attending physician certif ies that he/she has personally conducted a gross and/or microscopic examin ation of the described specimens and rendered or confirmed the above diagnosi s. Specimen(s) Received: A. ??Distal esophagus bxs B. ??Mid esophagus bxs Clinical History: Baer's esophagus Gross Description: A. ? Received in formalin labelled with proper pat ient identification (initials H, P) and #1 distal esophagus bxs are six light newton and white tissues (0.6 x 0.3 x 0.2 cm to 0.3 x 0.2 x 0.1 cm). Entirely submitted in A1 and A2 B. ? Received in formalin labelled with proper pat ient identification (initials H, P) and #2 mid esophagus bxs are two whi te, focally light newton tissues (0.4 x 0.1 x less than 0.1 cm and 0.2 x 0.1 x 0.1 cm). Entirely submitted in B1. Stuart Pearson 06/26/2013 01:14 PM End of Report Specimen Performing Organization Address City/State/ZIP Code Phon e Number [facility] [address] [place] [address] SERVICES [facility] [address] [place] [address] documented in this encounter Visit Diagnoses Not on filedocumented in this encounter Care Teams Equipment Monitor Phototypesetting Relationship Specialty Start Date End Date Hemal Amaro MD PCP - General 04/28/11 10/08/19 [address] [place] [address] documented as of this encounter
--- OUTSIDE RECORDS SUMMARY | 2022-03-12 18:14 | XMS_ITS | CCD ---
[...] Code Start Date Trigger thumb, right thumb [id number] 01/05/2022 Social History Smoking Status Code Start Date End Date Never smoker [id number] Patient Decision Aids Unknown or Not Available. Discharge Instructions You were admitted to [facility] on 01/05/2022 14:36 with a principal diagnosis of Bilateral trigger thumbs You were discharged from [facility] on 01/06/2022 00:00 Should you have any questions prior [...]
--- NOTE | 2022-03-12 18:45 | DI.CT_ITS ---
Exam(s) CT ABDOMEN PELVIS WO EXAM: CT ABDOMEN PELVIS WO CLINICAL HISTORY: RLQ pain. TECHNIQUE: Imaging Protocol: Axial computed tomography images with coronal and sagittal reformatted images were created and reviewed CONTRAST MATERIAL: Intravenous: none Oral: None COMPARISON: No exams were available for comparison FINDINGS: VISUALIZED LUNG BASES: No nodules nor pleural effusions evident. ABDOMEN: Is no ascites. LIVER: There are no obvious focal hepatic lesions evident of this noninfused study. GALLBLADDER/BILIARY: No obvious gallbladder pathology. CBD is not dilated. PANCREAS: No evidence of pancreatic mass nor dilatation of the pancreatic duct. SPLEEN: Spleen is not enlarged. No obvious intrasplenic lesions. ADRENALS: There are no significant adrenal masses. KIDNEYS:No cysts evident. No solid renal masses. No calculi nor hydronephrosis. . ABDOMINAL AORTA: Abdominal aorta is not enlarged. LYMPH NODES: There is no retroperitoneal nor paraaortic adenopathy. ABDOMINAL WALL: No evidence of significant anterior abdominal wall nor inguinal hernia. GI: There is no evidence of bowel obstruction, free air, nor abscess. PELVIS: LYMPH NODES: There is no intrapelvic nor inguinal adenopathy. GI: No evidence of appendicitis.No evidence of sigmoid diverticulitis. URINARY BLADDER: No calculi nor obvious masses evident REPRODUCTIVE: Unremarkable OSSEOUS: No significant osseous lesions. IMPRESSION: 1. 2. 3. RADIATION DOSE DELIVERED: 563.95mGy.cm Total DLP DATA REPOSITORY: All CT scans at this facility are submitted to the National Radiology Data Registry (NRDR) Dose Index Registry (DIR) with the [employer] (ACR). RADIATION OPTIMIZATION: All CT scans at this facility use at least one of these dose optimization te chniques: automated exposure control; mA and/or kV adjustment per patient size (includes targeted exa ms where dose is matched to clinical indication); or iterative reconstruction.
[2022-03-12 18:51] VITALS: RESP 18
--- NOTE | 2022-03-12 19:11 | ED.GENADUL_ITS ---
Discharge Plan Disposition Patient Disposition: [facility] INPATIENT Condition: Stable Discharge Details Clinical Impression: Abdominal pain in female Admit Date/Time: 03/12/22 22:48 Admit Provider: Naren Doyle Attending Provider: Naren Doyle Primary Care Provider: Gracy Wick ED Provider: Jr Dominguez Discharge Data Discharge Date/Time-TO BE ENTERED AT DEPARTURE: 03/12/22 23:59 Medical Decision Making Patient presenting to the emergency department for chief complaint of right lower abdominal pain. She states that this started this morning when she woke up and has progressively worsened throughout the day. Patient denies any injury or trauma, states no change of bowel pattern, no urinary symptoms, no flank or back pain or chest pain. Physical exam shows significant tenderness and guarding to the right lower quadrant with otherwise normal active bowel sounds, normal cardiac respiratory exam, no CVA tenderness. Patient does have significant history of diverticulitis with colon resection due to severity and has had hysterectomy and oophorectomy. We will plan on treating patient's pain, hydrating patient due to loss of appetite and fluid intake today, and performing CT imaging with oral contrast. Review of labs show a significant leukocytosis with shift, nondiagnostic CMP, and unremarkable UA. Patient reassessed and states improvement of symptoms but pain still remains. Review of CT imaging and radiologist interpretation shows partially obstructed appendix but what is visualized by radiologist is noted to be normal. There is an abnormality in the sigmoid colon with question of possible cancerous origin but difficult to determine. Radiologist recommends further investigation. I called general surgery due to patient continuing to have pain and discomfort with abnormal CT findings and left shift. After discussion of case plan of care was established to admit patient for observation status, start Zosyn, provide maintenance fluids and pain relief overnight with reassessment in the morning. Patient is in agreement with this plan of care and bridge orders were placed.. Imaging Data Radiologic Study: Radiologist's impression: IMPRESSION: 1. Abnormal asymmetric mural thickening along the lateral margin of the cecum with trace adjacent hazy fat stranding. Further evaluation is strongly recommended to exclude a primary colon cancer. An artifactual appearance created by adherent fecal material could perhaps simulate this appearance; however, a colon cancer should be definitively excluded. 2. Otherwise, no acute bowel pathology is demonstrated. 3. Small hiatal hernia Lab Data Lab results reviewed: Yes I reviewed the patient's lab results. HPI General Mode of arrival: ambulatory . Date/Time Provider Initiated Documentation: 03/12/22 18:08 . Limitations to Documentation: no limitations . Information obtained by: patient . History of Present Illness 71 year old F presents to the emergency department with the chief complaint of Abd pain, described as moderate, with intensity rated at 5. Quality is described as aching and dull, and is localized to the abdomen and right. Patient reports no radiation. Patient started experiencing this hour(s) and it has been constant. No relieving factors improve symptom(s), No exacerbating factors reported . Patient notes loss of appetite; denies chest pain, fever/chills and shortness of breath. Patient did receive the following treatments prior to ar rival, none Related Data Home Medications Medication Instructions Recorded Confirmed fluticasone 100 mcg-salmeterol 50 1 puff inhalation DAILY 01/31/13 03/12/22 mcg/dose blistr powdr for inhalation (Advair Diskus) mometasone 50 mcg/actuation nasal 1 spry NS DAILY 01/31/13 03/12/22 spray (Nasonex) omeprazole 20 mg capsule,delayed 20 mg PO BID 01/31/13 03/12/22 release albuterol sulfate 90 mcg/actuation 2 puff inhalation PRN PRN 07/04/15 03/12/22 aerosol inhaler (Ventolin HFA) cyclosporine 0.05 % eye drops in a 1 drp ophthalmic (eye) Q12H 11/14/19 03/12/22 dropperette (Restasis) multivitamin (Daily Multi-Vitamin 1 tab PO DAILY 11/14/19 03/12/22 tablet) nebulizers (Compact Compressor #1 ea 11/14/19 11/10/20 Nebulizer) alendronate 70 mg tablet (Fosamax) 70 mg PO QWEEK 07/06/20 03/12/22 ipratropium 0.5 mg-albuterol 3 mg 3 ml inhalation .Q4-6H PRN 09/28/20 03/12/22 (2.5 mg base)/3 mL nebulization soln amlodipine 5 mg tablet 2.5 mg PO .QHS 10/26/20 03/12/22 lisinopril 20 mg tablet 20 mg PO DAILY 10/26/20 03/12/22 rosuvastatin 20 mg tablet 20 mg PO .QHS 10/26/20 03/12/22 doxycycline hyclate 100 mg capsule 200 mg PO ONCE #2 caps 03/21/21 03/12/22 Previous Rx's Medication Instructions Recorded doxycycline hyclate 100 mg capsule 200 mg PO ONCE #2 caps 03/21/21 Allergies Allergy/AdvReac Type Severity Reaction Status Date / Time mirtazapine [From Remeron] Allergy Intermediate Verified 03/12/22 18:12 animal dander Allergy Mild Verified 03/12/22 18:12 venlafaxine HCl AdvReac Severe seizure Verified 03/12/22 18:12 [From Effexor] meperidine HCl [From Demerol] AdvReac Intermediate vomit, Verified 03/12/22 18:12 couldn't wake up oxycodone [Oxycodone] AdvReac Intermediate gi upset Verified 03/12/22 18:12 General Stated Complaint: GenMedical SIXTO: 3 Review of Systems Constitutional Constitutional: Denies chills, Denies fever(s) and Reports poor appetite Cardiovascular Cardiovascular: Denies chest pain and Denies dyspnea Respiratory Respiratory: Denies cough and Denies dyspnea Gastrointestinal Gastrointestinal: Reports as per HPI, Reports abdominal pain, Denies melena, Denies change in bowel habits, Denies constipation, Denies diarrhea, Reports nausea and Denies vomiting Genitourinary Genitourinary: Denies hematuria, Denies urinary incontinence, Denies urinary hesitancy and Denies urinary urgency Integumentary/Breasts Skin/Breast: Denies rash PFSH All Active Problems (Updated 03/13/22 @ 09:54 by Naren Doyle MD) Crohn's colitis (Acute) Tick bite (Acute) Abdominal pain in female (Acute) Ischial bursitis of right side (Acute) Depo-Medrol injection: 01/14/2021 (Dr. Drummond); previous injections on 06/12/2014, 02/12/2014, 11/14/2013 (Dr. Bear) Ischial bursitis (Acute) Anxiety (Chronic) Asthma (Chronic) Hypertensive emergency (Acute) Altered mental status (Acute) Hyperplastic colon polyp (Acute) Tubular adenoma of colon (Acute) Encounter for screening colonoscopy (Acute) GERD (gastroesophageal reflux disease) (Chronic) Medical History (Updated 03/13/22 @ 09:54 by Naren Doyle MD) Allergic rhinitis Barretts esophagus Dry eye syndrome Facial rhytids (01/15/18) Fatigue Hormone replacement therapy (HRT) Hyperlipidemia Hypertension Impaired fasting glucose Lesion of vocal cord Osteoporosis Premature ventricular contractions (PVCs) (VPCs) Per pt. states this is due to anxiety Rash, skin Vaginal prolapse (03/29/16) s/p laparoscopic colpopexy, posterior [place] [facility] D [place] Surgical History Colonoscopy - IV Sedation with EGD for Barretts esophagitis History of open sigmoidectomy laparoscopic sacral colpopexy 03/29/16 with posterior colporrhaphy[place] [facility] [place] Oophrectomy, Left (~2000) Repair of umbilical hernia Vaginal hysterectomy (~2002) for uterine prolapse, with oophorectomy Family History Mother Essential hypertension Heart disease Stroke Father Blood disorder required blood transfusions Brother Diabetes Grandfather , mouth cancer Diabetes Grandmother , breast cancer No problems noted. 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 [employer] Pets and animals: Yes Pets and animals: cat(s) What is your relationship status?: Panel score (0-1 are the most socially isolated patients): 1 What type of physical activity do you participate in: walking Seatbelt use: always Do you feel safe at home: Yes Do you feel safe in your relationship?: Yes Exam Const General: cooperative Orientation: alert, awake and oriented x3 Resp Effort & Inspection: normal respiratory effort and able to speak in complete sentences Auscultation: clear to auscultation bilaterally Cardio Rate: regular rate Rhythm: regular rhythm Heart Sounds: S1 normal and S2 normal GI Inspection: normal to inspection Palpation: soft, no hepatosplenomegaly, not firm, guarding in the RLQ, no masses, no pulsatile masses, not rigid, no splenomegaly and tender in the RLQ and at McBurney's point Auscultation: normal bowel sounds Back/Spine/Pelvis Back: no CVA tenderness Neuro General: patient alert, patient awake, patient oriented x3, gait normal and moves all extremities Course Vital Signs Vital signs: Vital Signs Temperature 36.9 C 03/12/22 18:08 Pulse 80 03/12/22 18:08 Respiratory Rate 18 03/12/22 18:08 Blood Pressure 141/89 H 03/12/22 18:08 Pulse Oximetry 99 03/12/22 18:08 Temperature 36.9 C 03/12/22 18:08 Temperature Source Tympanic 03/12/22 18:08 Pulse 80 03/12/22 18:08 Respiratory Rate 18 03/12/22 18:51 Respiratory Effort Non-Labored 03/12/22 18:51 Respiratory Depth Normal 03/12/22 18:51 Respiratory Pattern Normal 03/12/22 18:51 Blood Pressure 141/89 H 03/12/22 18:08 Blood Pressure Position Supine 03/12/22 18:08 Pulse Oximetry 99 03/12/22 18:08 Oxygen Delivery Method Room Air 03/12/22 18:08 Oxygen Flow Rate 0 03/12/22 18:08 Pain Level 5 03/12/22 18:08
[2022-03-12] MEDS: HYDROmorphone 2 MG/ML VIAL 0.5 MG IVP (19:14)
[2022-03-12] MEDS: Normal Saline 500 ML IV (19:14)
[2022-03-12] MEDS: Ondansetron 4 MG/2 ML VIAL IVP (19:14)
[2022-03-12 19:21] LABS: Abs Immature Grans 0.08 10^3/uL (0.0-0.06); Absolute Basophil Count 0.06 10^3/uL (0.0-0.2); Absolute Eosinophil Count 0.18 10^3/uL (0.0-0.7); Absolute Lymphocyte Count 1.05 10^3/uL (1.2-3.4); Absolute Monocyte Count 1.05 10^3/uL (0.1-0.8); Absolute Neutrophil Count 11.73 10^3/uL (1.2-6.7); Basophils % 0.4; Eosinophils % 1.3; HGB 11.7 g/dL (11.2-15.7); Immature Grans % 0.6; Lymphocytes % 7.4; MCH 30.7 pg (27.0-33.0); MCHC 33.4 % (32.0-36.0); MCV 92 fL (80-95); MPV 9.1 fL (8.0-11.0); Monocytes % 7.4; Neutrophils % 82.9; Platelet Count 332 10^3/uL (130-400); RBC 3.81 10^6/uL (3.93-5.22); RDW 12.9 % (11.7-14.6); RDW-SD 43.4 fL; WBC 14.15 10^3/uL (4.4-10.8)
[2022-03-12 19:24] LABS: Bilirubin Negative (Negative); Blood Negative (Negative); Clarity Clear (Clear); Glucose Negative (Negative); Ketones Negative (Negative); Leukocyte Esterase Negative (Negative); Nitrite Negative (Negative); Urobilinogen 0.2 EU/dL (Up TO 0.2); pH 6.5 (5-8)
[2022-03-12 19:39] LABS: ALT 34 U/L (14-59); AST 20 U/L (15-37); Albumin 4.3 g/dL (3.4-5.0); Alkaline Phosphatase 94 U/L (46-116); BUN 20 mg/dL (7-18); Bilirubin, Total 0.6 mg/dL (0.2-1.0); CREATININE 0.9 mg/dL (0.55-1.02); Calcium 8.8 mg/dL (8.5-10.1); Chloride 99 mmol/L (98-107); Glucose 97 mg/dL (74-106); Lipase 75 U/L (73-393); Magnesium 1.5 mg/dL (1.8-2.4); Potassium 3.9 mmol/L (3.5-5.1); Sodium 134 mmol/L (136-145); Total Protein 7.5 g/dL (6.4-8.2)
[2022-03-12] MEDS: Breeza Beverage 473 ML BTL PO ×2 (21:00→21:01)
[2022-03-12 21:05] VITALS: BP 132/80; PULSE 75; RESP 18; TEMP 37; O2SAT 99
--- NOTE | 2022-03-12 21:28 | DI.VRAD_ITS ---
PROCEDURE INFORMATION: Exam: CT Abdomen And Pelvis Without Contrast Exam date and time: 03/12/2022 9:00 PM Age: 71 years old Clinical indication: Abdominal pain; Generalized; Prior surgery; Surgery date: 6+ months TECHNIQUE: Imaging protocol: Computed tomography of the abdomen and pelvis without contrast. COMPARISON: CR XR HIP RT COMPLETE AP PELVIS 01/14/2021 12:11 PM FINDINGS: Lungs: Streaky atelectasis at the lung bases. Diaphragm: Small hiatal hernia. Liver: Grossly unremarkable unenhanced liver. Gallbladder and bile ducts: Normal appearing gallbladder. No calcified gallstones. No biliary dilatation. Pancreas: Grossly unremarkable unenhanced pancreas. Spleen: Calcified splenic granuloma. Adrenal glands: Normal appearing adrenal glands. Kidneys and ureters: Grossly unremarkable unenhanced kidneys. No radiopaque renal calculi or hydronephrosis. Ureters partially obscured. No obstructing ureteral stones. Stomach and bowel: Stomach largely decompressed. Duodenal diverticula incidentally noted. No small bowel dilatation to suggest obstruction. Abnormal asymmetric plaque-like mural thickening along the lateral margin of the cecum with trace adjacent hazy fat stranding, images 50-59 of series 2. Prior sigmoid resection with a distal colorectal anastomosis. No evidence of diverticulitis or colitis. Appendix: Appendix partially obscured but normal in caliber and appearance through its visualized portion. Intraperitoneal space: No gross ascites or free air. Vasculature: Normal caliber abdominal aorta. Lymph nodes: Scattered shotty mesenteric lymph nodes, nonspecific. Urinary bladder: Urinary bladder partially collapsed but grossly unremarkable, as seen. Reproductive: Prior hysterectomy. Possible small normal ovary along the right pelvic sidewall, uncertain finding. Left ovary not confidently identified, obscured if present. Correlation with surgical history recommended. Bones/joints: No acute fracture seen among the bones of the abdomen or pelvis. Moderate discogenic degeneration at T10-T11 and T11-T12. Soft tissues: Diastasis recti. Suggestion of an old ventral incision scar. IMPRESSION: 1. Abnormal asymmetric mural thickening along the lateral margin of the cecum with trace adjacent hazy fat stranding. Further evaluation is strongly recommended to exclude a primary colon cancer. An artifactual appearance created by adherent fecal material could perhaps simulate this appearance; however, a colon cancer should be definitively excluded. 2. Otherwise, no acute bowel pathology is demonstrated. 3. Small hiatal hernia. Dictated and Authenticated by: Isac Mcdonald MD. Ordering:ROXI Norris MD
[2022-03-12 23:10] LABS: Source Nasal/Nares
[2022-03-12] MEDS: PIPERACILLIN/TAZO 3.375 GM in Normal Saline 50 ML IVPB (23:14)
[2022-03-12 23:37] VITALS: BP 122/78; PULSE 88; RESP 18; O2SAT 96
--- OUTSIDE RECORDS SUMMARY | 2022-03-13 00:04 | XMS_ITS | Encounter Summary ---
:1950 Author Organization [facility] Address [address] [place] [address] Care Team Providers Name Role Phone Gracy Wick Primary Care Provider Hemal Amaro MD Unavailable Encounter Details Date Type Department Care Team Description 07/06/2020 Lab Requisition [facility] Kranthi Espinoza for screening for malignant neoplasm of colon; Pathology & MD Dania Gastro-esophageal reflux disease without esophagitis Laboratory Medicine [id number] [place] [address] [id number] Social History Tobacco Use Types Packs/Day Years [...] EDT) Amendment Comment Amended to report the [facility] stains, inadvertently LABORATORY omitted in the original SERVICES report. Diagnosis remains unchanged. Final Diagnosis A. STOMACH, ANTRUM, BIOPSY: [facility] - Fundic gland polyp CENTER LABORATORY B. GASTROESOPHAGEAL JUNCTION, BIOPSY: [facility] - Squamocolumnar mucosa with erosive esophagitis - Negative for intestinal metaplasia C. RECTUM, BIOPSY: - One (1) tubular adenoma - Three (3) hyperplastic polyps Diagnosis Comment Immunoperoxidase stains were performed on this case to further characterize the lesion. [facility] ANTIBODY(CLONE)(BLOCK):RESULT LABORATORY Herpes 1 (10A3, Cell Charles) [...] characteristics have been de termined by [facility] and/or by the referring laboratory. The positive [...] laboratory testing. Attestation By the signature below, [facility] dment the attending physician CENTER elec tronically [...] the above diagnosis. Clinical History Hx Baer's [facility] LABORATORY SERVICES Gross Description A. [facility] Received in formalin alejandro d with proper [...] C2. LEROY MAIRA 07/06/2020 16:46 Performing Lab [facility] LAB [facility] LABORATORY SERVICES Scanned Images [facility] LABORATORY SERVICES Specimen Tissue - Specimen from rectum (specimen) Tissue specimen (specimen) - Entire esop hago-gastric mucosal junction (body structure) Tissue specimen (specimen) - Specimen fr om rectum (specimen) Performing Organization Address City/State/ZIP Code Phon e Number [facility] LABORATORY [address] [place] [phone] SERVICES documented in this encounter Visit Diagnoses Diagnosis Encounter for screening for malignant ne oplasm of colon Special screening for malignant neoplasm s, colon Gastro-esophageal reflux disease without esophagitis Esophageal reflux documented in this encounter Care Teams Spa Concierge Relationship Specialty Start Date End Date Gracy Wick PCP - General Internal Medicine - 10/09/[address] Primary Care [place], [place] [id number] Hemal Amaro MD 10/09/[address] [place], [place] [phone] documented as of this encounter
--- OUTSIDE RECORDS SUMMARY | 2022-03-13 00:04 | XMS_ITS | Encounter Summary ---
:1950 Author Organization [facility] Address [address] [place] [address] Care Team Providers Name Role Phone Hemal Amaro MD Primary Care Provider Encounter Details Date Type Department Care Team Description 06/25/2013 Results Only [facility] Alvino Vargas , Laboratory Services - [address]ER [address] [place] [address] [place], [place] [address] [phone] Social History Tobacco Use Types Packs/Day Years [...] ? TRISTA CHAN ? Accession #: ? [id number] ? : ? 1950 (Age: 63) ??F ? Collect Date: ? 06/25/2013 ? Location: ? [facility] ? Receive Date: ? 013 ? Provider: ALVINO VARGAS DO Copy to: KALEB FRANK CREDIT UNION FIELD EXAMINER ? Final Pathologic Diagnosis: A. ESOPHAGUS, DISTAL, [...] Organization Address City/State/ZIP Code Phon e Number [facility] LABORATORY [address] [place] [address] SERVICES [facility] [address] [place] [address] documented in this encounter Visit Diagnoses Not on filedocumented in this encounter Care Teams Supervisor Slashing Department Relationship Specialty Start Date End Date Hemal Amaro MD PCP - General 04/28/11 10/08/19 [address] [place] [address] documented as of this encounter
--- OUTSIDE RECORDS SUMMARY | 2022-03-13 00:04 | XMS_ITS | Encounter Summary ---
:1950 Author Organization [facility] Address [address] [place] [address] Care Team Providers Name Role Phone Unavailable Primary Care Provider Unavailable Encounter Details Date Type Department Care Team Description 04/01/2008 Results Only [facility] - Yue Vargas, Chr istopher, conversion DO [address] [place], [place] [id number] [place] [phone] (Wo rk) Social History Tobacco Use Types [...] ? TRISTA CHAN ? Accession #: ? [id number] ? : ? 1950 (Age: 57) ??F [...] mucosa is newton-p ink with unremarkable folds. ??Instant Potato Processor sections are submitted as foll ows: BLOCK CORONA A1 ?Representat melanie sections of proximal and distal ends (inked and en face) A2-A4 ?Instant Potato Processor intact diverticula (Pablo Mcnair)/mpl ?? End of Report Specimen Performing Organization Address City/State/ZIP Code Phon e Number [facility] [address] [place] [address] SERVICES [facility] [address] [place] [address] documented in this encounter Visit Diagnoses Not on filedocumented in this encounter
--- OUTSIDE RECORDS SUMMARY | 2022-03-13 00:04 | XMS_ITS | Encounter Summary ---
:1950 Author Organization [facility] Address [address] [place] [address] Care Team Providers Name Role Phone Unavailable Primary Care Provider Unavailable Encounter Details Date Type Department Care Team Description 11/20/2007 Results Only [facility] - Yue Vargas, Chr istopher, conversion DO [address] [place], [place] [phone] [place] [phone] (Wo rk) Social History Tobacco Use Types [...] ? TRISTA CHAN ? Accession #: ? [id number] ? : ? 1950 (Age: 57) ??F [...] and are submitted intact as (B). (David Hutton/[facility] End of Report Specimen Performing Organization Address City/State/ZIP Code Phon e Number [facility] [address] [place] [address] SERVICES [facility] [address] [place] [address] documented in this encounter Visit Diagnoses Not on filedocumented in this encounter
--- OUTSIDE RECORDS SUMMARY | 2022-03-13 00:04 | XMS_ITS | Encounter Summary ---
:1950 Author Organization [facility] Address [address] [place] [address] Care Team Providers Name Role Phone Unavailable Primary Care Provider Unavailable Encounter Details Date Type Department Care Team Description 09/18/2001 Results Only [facility] - Yue Vargas, Chr istopher, conversion DO [address] [place], [place] [id number] [place] [address] (Wo rk) Social History Tobacco Use Types [...] ? TRISTA CHAN ? Accession #: ? [id number] ? : ? 1950 (Age: 51) ??F [...] Organization Address City/State/ZIP Code Phon e Number [facility] [address] [place] [address] SERVICES [facility] [address] [place] [address] documented in this encounter Visit Diagnoses Not on filedocumented in this encounter
--- OUTSIDE RECORDS SUMMARY | 2022-03-13 00:04 | XMS_ITS | Encounter Summary ---
:1950 Author Organization [facility] Address [address] [place] [address] Care Team Providers Name Role Phone Hemal Amaro MD Primary Care Provider Gracy Wick Primary Care Provider Hemal Amaro MD Unavailable Encounter Details Date Type Department Care Team Description 05/16/2001 Hospital Encounter [facility] - S Dee Alvarez MD [place] [address] [place], [place] [phone] Social History Tobacco Use Types Packs/Day Years Used Date Never Assessed Sex Assigned at Date Recorded Not on file documented as of this encounter Plan of Treatment Not on filedocumented as of this encounter Visit Diagnoses Not on filedocumented in this encounter Care Teams Waste Disposal Plant Operator Relationship Specialty Start Date End Date Hemal Amaro MD PCP - General 04/28/11 10/08/19 [address] [place], [place] [phone] Gracy Wick PCP - General Internal Medicine - 10/09/19 [facility] Primary [facility] [place], [place] [phone] Hemal Amaro MD 10/09/19 [address] [place] [address] documented as of this encounter
--- OUTSIDE RECORDS SUMMARY | 2022-03-13 00:04 | XMS_ITS | CCD ---
[...] Code Start Date Trigger thumb, right thumb [id number] 11/25/2021 Social History Smoking Status Code Start Date End Date Never smoker [id number] Patient Decision Aids Unknown or Not Available. Discharge Instructions You were admitted to [facility] on 11/25/2021 09:50 with a principal diagnosis of Trigger thumb, right thumb You were discharged from [facility] on 11/25/2021 00:00 Should you have any [...]
--- OUTSIDE RECORDS SUMMARY | 2022-03-13 00:04 | XMS_ITS | Encounter Summary ---
:1950 Author Organization [facility] Address [address] [place] [address] Care Team Providers Name Role Phone Unavailable Primary Care Provider Unavailable Encounter Details Date Type Department Care Team Description 03/19/2001 Results Only [facility] - Yaron Oleary MD conversion [address] [place] [id number] Social History Tobacco Use Types Packs/Day Years [...] ? TRISTA CHAN ? Accession #: ? [id number] ? : ? 1950 (Age: 50) ??F ? N #: ? [id number] ? Collect Date: ? 03/19/2001 ? Location: [...] elements identified, favor mature ter atoma (one international account representative section). ?? Dr. Star Coley; 03/19/01 [...] te with a central pinpoint lumen. ??A international account representative section of the ovary is submitted for frozen section w ith the interpretation rendered as above. ??Special Weapons Unit Officer sections are submi tted as follows: BLOCK CORONA B1 ?Frozen section control B2-B4 ?Special Weapons Unit Officer ovary to include th e cystic portion B5 ?Special Weapons Unit Officer ovary to include the f ocally calcified area (submitted upon decalcification) B6 ?Special Weapons Unit Officer fallopian tube (Wyatt Mccormick)/[facility] End of Report Specimen Performing Organization Address City/State/ZIP Code Phon e Number [facility] [address] [place] [address] SERVICES [facility] [address] [place] [address] documented in this encounter Visit Diagnoses Not on filedocumented in this encounter
--- OUTSIDE RECORDS SUMMARY | 2022-03-13 00:04 | XMS_ITS | Encounter Summary ---
:1950 Author Organization [facility] Address [address] [place] [address] Care Team Providers Name Role Phone Gracy Wick Primary Care Provider Hemal Amaro MD Unavailable Encounter Details Date Type Department Care Team Description 07/03/2020 Lab Requisition [facility] Outr Resulting Lab, Pathology & Laboratory Provider [facility] [address] [place] [address] Social History Tobacco Use Types [...] Organization Address City/State/ZIP Code Phon e Number [facility] [place], [place] COVID-19 TESTING (07/03/2020 8:58 EDT) COVID-19 rt-PCR NEGATIVE Negative [facility] Result Comment: LABORATORY 2019-novel Coronavirus (2019 [...] Emergency Use Authorization. Performing Lab [facility] LABORATORY SERVICES Specimen Swab Performing Organization Address City/State/ZIP Code Phon e Number [facility] [address] [place] [address] SERVICES [facility] [place], [place] documented in this encounter Visit Diagnoses Not on filedocumented in this encounter Care Teams Barrel Drum Cutter Relationship Specialty Start Date End Date Gracy Wick PCP - General Internal Medicine - 10/09/[address] Primary Care [place], [place] [id number] Hemal Amaro MD 10/09/[address] [place], [place] [phone] documented as of this encounter
--- OUTSIDE RECORDS SUMMARY | 2022-03-13 00:04 | XMS_ITS | Clinical Summary ---
:1950 Author Organization [facility] Address [address] [place] [address] Care Team Providers Name Role Phone Gracy [...] Addre ss Type Group MEDICARE MEDICARE A/B [id number] 2015-Presen P O [id number] [facility] [place] [address] [place] [id number] 2019-Presen [address] [place] [address] [place] [phone] Care Teams Pottery Decorator Relationship Specialty Start Date End Date Gracy Wick PCP - General Internal Medicine - 10/09/19 [address] [place] [address] Hemal Amaro MD 10/09/[address] [place] [address]
--- OUTSIDE RECORDS SUMMARY | 2022-03-13 00:04 | XMS_ITS | Encounter Summary ---
:1950 Author Organization [facility] Address [address] [place] [address] Care Team Providers Name Role Phone Gracy Wick Primary Care Provider Hemal Amaro MD Unavailable Encounter Details Date Type Department Care Team Description 06/09/2020 Lab Requisition [facility] Outr Resulting Lab, Pathology & Laboratory Provider [facility] [address] [place], [place] [phone] Social History Tobacco Use Types Packs/Day Years [...] Organization Address City/State/ZIP Code Phon e Number [facility] [address], [place] COVID-19 TESTING (06/09/2020 11:22 EDT) COVID-19 rt-PCR NEGATIVE Negative [facility] Result Comment: LABORATORY 2019-novel Coronavirus (2019 [...] Administration's Emergency Use Authorization. Performing Lab [facility] LABORATORY SERVICES Specimen Swab Performing Organization Address City/State/[facility] Code Phon e Number [facility] [address] [place] [address] SERVICES [facility] [place], [place] documented in this encounter Visit Diagnoses Not on filedocumented in this encounter Care Teams Pumper Head Relationship Specialty Start Date End Date Gracy Wick PCP - General Internal Medicine - 10/09/[address] Primary Care [place], [place] [phone] Hemal Amaro MD 10/09/[address] [place], [place] [phone] documented as of this encounter
--- OUTSIDE RECORDS SUMMARY | 2022-03-13 00:04 | XMS_ITS | Encounter Summary ---
:1950 Author Organization [facility] Address [address] [place] [address] Care Team Providers Name Role Phone Unavailable Primary Care Provider Unavailable Encounter Details Date Type Department Care Team Description 04/26/2011 Results Only [facility] Alvino Guido , Laboratory Services - [address] JENNIFER KRUGER [address] [place], [place] [id number] [place] [phone] Social History Tobacco Use Types Packs/Day Years Used Date Never Assessed Sex Assigned at Date Recorded Not on file documented as of this encounter Plan of Treatment Not on filedocumented as of this encounter Procedures Procedure Name Priority Date/Time Associated Diagnosis Comme [facility] SURGICAL PATHOLOGY Routine 04/26/2011 0:00 EDT Re sults for this procedure are i n the results section. documented in this encounter Results SURGICAL PATHOLOGY (04/26/2011 0:00 EDT) Pathology Report: SURGICAL PATHOLOGY REPORT ? [facility] Reports generated via electr SoundFocus interface contain original data; ? LAB however they are lacking the format of the original report. ? Caution should be taken when reading/interpreting unformatted reports. ? Name: ? HURSTBRINKERHOFF , TRISTA B ? Accession #: ? [id number] ? : ? 1950 (Age: 60) ??F [...] (B). ? Received in formalin alejandro Trista Shulzt and #3 proximal ? esophagus are three newton-whi te biopsies which vary in size from 0.1 x 0.1 x 0.1 cm up to 0.3 x 0.3 x 0.1 cm. ??The specimens are submitted intact as (C). ??(SANDEE ?? Tessitore)/vicentan ? End of Report ? Specimen Performing Organization Address City/State/ZIP Code Phon e Number [facility] [address] [place] [address] SERVICES [facility] [address] [place] [address] documented in this encounter Visit Diagnoses Not on filedocumented in this encounter
--- OUTSIDE RECORDS SUMMARY | 2022-03-13 00:04 | XMS_ITS | CCD ---
[...] Code Start Date Trigger thumb, right thumb [id number] 01/05/2022 Social History Smoking Status Code Start Date End Date Never smoker [id number] Patient Decision Aids Unknown or Not Available. Discharge Instructions You were admitted to [facility] on 01/05/2022 14:36 with a principal diagnosis of Bilateral trigger thumbs You were discharged from [facility] on 01/06/2022 00:00 Should you [...]
--- OUTSIDE RECORDS SUMMARY | 2022-03-13 00:04 | XMS_ITS | Encounter Summary ---
:1950 Author Organization [facility] Address [address] [place] [address] Care Team Providers Name Role Phone Unavailable Primary Care Provider Unavailable Encounter Details Date Type Department Care Team Description 02/23/2001 Results Only [facility] - Yaron Oleary MD conversion [address] [place] [phone] Social History Tobacco Use Types Packs/Day Years [...] ? TRISTA CHAN ? Accession #: ? [id number] ? : ? 1950 (Age: 50) ??F ? N #: ? [id number] ? Collect Date: ? 02/23/2001 ? Location: [...] entirely as (B1) t hrtrini (B3). ??(Dr. Garner-)/[facility] End of Report Specimen Performing Organization Address City/State/ZIP Code Phon e Number [facility] [address] [place] [phone] SERVICES [facility] [address] [place] [phone] documented in this encounter Visit Diagnoses Not on filedocumented in this encounter
--- OUTSIDE RECORDS SUMMARY | 2022-03-13 00:04 | XMS_ITS | Encounter Summary ---
:1950 Author Organization [facility] Address [address] [place] [address] Care Team Providers Name Role Phone Unavailable Primary Care Provider Unavailable Encounter Details Date Type Department Care Team Description 02/25/2003 Results Only [facility] - Yaron Oleary MD conversion [address] [place] [address] Social History Tobacco Use Types Packs/Day Years [...] ? TRISTA CHAN ? Accession #: ? [id number] : ? 1950 (Age: 52) ??F ?Collect Date: ? 02/07 Location: ? [facility] ? Receive Date : ? 02/26/2003 Provider: ?YARON SALDAÑA MD Copy to: ? [...] Organization Address City/State/ZIP Code Phon e Number [facility] [address] [place] [address] SERVICES [facility] [address] [place] [address] documented in this encounter Visit Diagnoses Not on filedocumented in this encounter
--- OUTSIDE RECORDS SUMMARY | 2022-03-13 00:04 | XMS_ITS | Encounter Summary ---
:[address] [facility] Address [address] [place] [address] Care Team Providers Name Role Phone Unavailable Primary Care Provider Unavailable Encounter Details Date Type Department Care Team Description 02/19/2002 Results Only [facility] - Yaron Oleary MD conversion [address] [place] [phone] Social History Tobacco Use Types Packs/Day Years [...] ? TRISTA CHAN ? Accession #: ? [id number] : ? 1950 (Age: 51) ??F ?Collect [...] Organization Address City/State/ZIP Code Phon e Number [facility] [address] [place] [address] SERVICES [facility] [address] [place] [address] documented in this encounter Visit Diagnoses Not on filedocumented in this encounter
--- OUTSIDE RECORDS SUMMARY | 2022-03-13 00:04 | XMS_ITS | Encounter Summary ---
:1950 Author Organization [facility] Address [address] [place] [address] Care Team Providers Name Role Phone Unavailable Primary Care Provider Unavailable Encounter Details Date Type Department Care Team Description 03/31/2003 Results Only [facility] - Yaron Oleary MD conversion [address] [place] [address] Social History Tobacco Use Types Packs/Day Years Used Date Never Assessed Sex Assigned at Date Recorded Not on file documented as of this encounter Plan of Treatment Not on filedocumented as of this encounter Procedures Procedure Name Priority Date/Time Associated Diagnosis Comme nts SURGICAL PATHOLOGY Routine 03/31/2003 0:00 EDT Re sults for this procedure are i n the results section. documented in this encounter Results SURGICAL PATHOLOGY (03/31/2003 0:00 EDT) Pathology Report: SURGICAL PATHOLOGY REPORT [facility] Reports generated via electronic interface contain leobardo ginal data; LAB however they are lacking the format of the original re port. Caution should be taken when reading/interpreting unfo rmatted reports. Name: ? TRISTA CHAN ? Accession #: ? [id number] ? : ? 1950 (Age: 52) ??F ? N #: ? [id number] ? Collect Date: ? 03/31/2003 ? Location: ? [facility] ? Receive Date: ? 003 ? Provider: YARON SALDAÑA MD Copy to: LALITA BLACKMON MD ? Final Pathologic Diagnosis: A. ?Uterus, simple hysterectomy: 1. ?Endometrium: ? - Late secretory. 2. ?Myometrium: ? - Leiomyomata, intramural (0.[address]). - Adenomyosis. 3. ?Cervix: ? - Parakeratosis. - Squamous metaplasia. - Chronic cervicitis. 4. ?Serosa: ? - No pathologic features. B. ?Ovary and f allopian tube, right, unilateral salpingo-oophorectomy: 1. ?Ovary and f allopian tube with no significant pathologic features. Document reviewed and electronically signed by: MIKA JUAREZ MD Report ??Date: 04/02/2003 15:15 By the signature above, the attending physician certif ies that he/she has personally conducted a gross and/or microscopic examin ation of the described specimens and rendered or confirmed the above diagnosi s. Specimen(s) Received: A. ?Uterus and cervix (#1) B. ?R ovary (#2) Clinical History: ? Symptomatic uterine prolapse, hx L teratoma, ma ture Gross Description: ? Received in formalin labeled Femilli and #1 uterus and cervix is a corpus uterus and cervix which weighs 110 grams f ollowing formalin fixation. ??The uterus and c ervix measure 9.5 cm fundus to cervix, 5.8 cm cornu to cornu, and 4.4 cm anterio r to posterior. ??The uterus and serosa are partially fragmented and, where intact, are wfj-sooy-njzl and sm ooth and shiny. ??The uterus is bivalved into anterior and posterior halves, revealing a newton-pink, focally hemorrhagic endometrium with an average thickn ess of 0.5 cm. ??The underlying myometrium is newton -pink and has an average thickness of 1.3 cm. ??The cervix is unremarkable. ??Serial section ing of the myometrium reveals multiple intramural leiomyomata which range in measurement from 0.2 cm in greatest dimension to 0.8 cm in greatest dimension. BLOCK CORONA A1 ?Anterior superior endomyometrium A2 ?Anterior mid endomyometrium A3 ?Anterior inferior endomyometrium A4 ?Anterior cervix, perpendicular sectio n A5 ?Posterior s uperior endomyometrium, including a myomatous nodule A6 ?Posterior mid endomyometrium includin g a myomatous nodule A7 ?Posterior inferior endomyometrium A8 ?Posterior cervix, financial representative sect ion Received in formalin labeled Shania and #2 R ovary is the product of a salpingo-oophorectomy. ??The ovary measures 3.2 x 1.5 x 1.5 cm and has a qxz-ogct-owtad, convoluted exterior surface. ??Serial sectioning reveals an unremarkable cut surface. ?? The fallopian tube measures 4.0 cm length by 0.6 cm in diameter. ??A fimbriated end is identified. ??The exterior surface is newton-chavira and smooth and shiny. ??Serial sectioning reveal s an unremarkable cut surface with a wall thickness of 0.2 cm. BLOCK CORONA B ?Representati ve section ovary and two financial representative sections of fallopian tube (Dr. Meneses)/[facility] ?? End of Report Specimen Performing Organization Address City/State/ZIP Code Phon e Number [facility] [address] [place] [address] SERVICES [facility] [address] [place] [address] documented in this encounter Visit Diagnoses Not on filedocumented in this encounter
--- OUTSIDE RECORDS SUMMARY | 2022-03-13 00:04 | XMS_ITS | Encounter Summary ---
:1950 Author Organization [facility] Address [address] [place] [address] Care Team Providers Name Role Phone Gracy Wick Primary Care Provider Hemal Amaro MD Unavailable Encounter Details Date Type Department Care Team Description 09/19/2020 Lab Requisition [facility] Outr Resulting Lab, Pathology & Laboratory Provider [facility] [address] [place] [address] Social History Tobacco Use Types Packs/Day Years Used Date Never Assessed Sex Assigned at Date Recorded Not on file documented as of this encounter Plan of Treatment Not on filedocumented as of this encounter Procedures Procedure Name Priority Date/Time Associated Diagnosis Comme nts COVID-19 TEST [facility] Today 09/19/2020 11:10 LAB PCR EST COVID-19 TESTING Routine 09/19/2020 11:10 Results for this EST procedure are i n the results section. documented in this encounter Results COVID-19 TEST [facility] LAB PCR (09/19/2020 11:10 EST) Specimen Swab - Entire nasopharynx (body structur e) Performing Organization Address City/State/ZIP Code Phon e Number [facility] [address] [place] [address] SERVICES COVID-19 TESTING (09/19/2020 11:10 EST) COVID-19 rt-PCR Negative Negative [facility] Result Comment: CENTER LABORATORY This [...] and epidemiological informatio n. Performed on the LeapSky Wireless Fusion instrument Performing Lab [place] [facility] Lab [facility] SERVICES Specimen Swab Performing Organization Address City/State/[facility] Code Phon e Number [facility] [address] [place] [address] SERVICES documented in this encounter Visit Diagnoses Not on filedocumented in this encounter Care Teams Wagon Winder Relationship Specialty Start Date End Date Gracy Wick PCP - General Internal Medicine - 10/09/[address] Primary Care [place], [place] [phone] Hemal Amaro MD 10/09/[address] [place], [place] [phone] documented as of this encounter
[2022-03-13 00:05] VITALS: BP 92/50; TEMP 36.8
[2022-03-13 00:05] LABS: COVID-19 PCR Negative (Negative)
[2022-03-13] MEDS: Albuterol HFA 8 GM 60 PUFF INH IH (00:30)
[2022-03-13] MEDS: HYDROmorphone 2 MG/ML VIAL 0.5 MG IVP (02:13)
[2022-03-13 06:31] LABS: Abs Immature Grans 0.04 10^3/uL (0.0-0.06); Absolute Basophil Count 0.04 10^3/uL (0.0-0.2); Absolute Eosinophil Count 0.26 10^3/uL (0.0-0.7); Absolute Lymphocyte Count 1.38 10^3/uL (1.2-3.4); Absolute Monocyte Count 0.87 10^3/uL (0.1-0.8); Absolute Neutrophil Count 6.68 10^3/uL (1.2-6.7); Basophils % 0.4; Eosinophils % 2.8; HGB 10.5 g/dL (11.2-15.7); Immature Grans % 0.4; Lymphocytes % 14.9; MCH 30.8 pg (27.0-33.0); MCHC 32.8 % (32.0-36.0); MCV 94 fL (80-95); MPV 8.9 fL (8.0-11.0); Monocytes % 9.4; Neutrophils % 72.1; Platelet Count 278 10^3/uL (130-400); RBC 3.41 10^6/uL (3.93-5.22); RDW 13.2 % (11.7-14.6); RDW-SD 44.9 fL; WBC 9.27 10^3/uL (4.4-10.8)
[2022-03-13] MEDS: PIPERACILLIN/TAZO 3.375 GM in Normal Saline 50 ML IVPB ×3 (08:13→23:37)
[2022-03-13 08:29] VITALS: BP 109/66; PULSE 71; RESP 18; TEMP 37; O2SAT 91
[2022-03-13 08:33] VITALS: BP 109/66; PULSE 71; RESP 18; TEMP 37; O2SAT 91
--- NOTE | 2022-03-13 08:41 | PDOC.CMIN ---
- If Service Date Differs Date of service: 03/13/22 Time of Service: 08:41 Care Management Initial Assess REASON FOR HOSPITALIZATION:: Abdominal pain PAST MEDICAL HISTORY/PAST SURGICAL HISTORY:: All Active Problems (Updated 03/12/22 @ 22:54 by Jr Dominguez NP). Tick bite (Acute). Abdominal pain in female (Acute). Ischial bursitis of right side (Acute). Depo-Medrol injection: 01/14/2021 (Dr. [place]); previous injections on 06/12/2014, 02/12/2014, 11/14/2013 (Dr. Bear). Ischial bursitis (Acute). Anxiety (Chronic). Asthma (Chronic). Hypertensive emergency (Acute). Altered mental status (Acute). Hyperplastic colon polyp (Acute). Tubular adenoma of colon (Acute). Encounter for screening colonoscopy (Acute). GERD (gastroesophageal reflux disease) (Chronic). Medical History (Updated 03/12/22 @ 22:54 by Jr Dominguez NP). Allergic rhinitis. Barretts esophagus. Dry eye syndrome. Facial rhytids (01/15/18). Fatigue. Hormone replacement therapy (HRT). Hyperlipidemia. Hypertension. Impaired fasting glucose. Lesion of vocal cord. Osteoporosis. Premature ventricular contractions (PVCs) (VPCs). Per pt. states this is due to anxiety. Rash, skin. Vaginal prolapse (03/29/16). s/p laparoscopic colpopexy, posterior repair. [facility] [place]. Vitamin D deficiency. Surgical History . Colonoscopy - IV Sedation. with EGD for Barretts esophagitis. History of open sigmoidectomy. laparoscopic sacral colpopexy. 03/29/16 with posterior colporrhaphy. [facility] [place]. Oophrectomy, Left (~2000). Repair of umbilical hernia. Vaginal hysterectomy (~2002). for uterine prolapse, with oophorectomy PREVIOUS FUNCTIONAL STATUS/SOCIAL/FAMILY SUPPORTS:: Anahy lives in [place] in a single family home with her Laron. They have 3 children and 4 grand daughters and all of them live locally except for one granddaughter who lives in [place]. 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 Anahy is independent at baseline and does not receive any community services. CURRENT FUNCTIONAL STATUS:: Anahy was sititng up in bed when CM met with her. She was in the ICU but as a Med-surg overflow patient. She was very pleasant and engaged easily in conversation. Anahy described herself as being very independent and active. She also talked about her job as a SUPERVIS[employer] and how rewarding she finds the work. ADVANCE DIRECTIVES:: none on file Has patient been provided with info about the portal/API?: Yes Did the patient sign up for the portal?: No CODE STATUS:: Full Code INSURANCE COVERAGE / FINANCIAL ISSUES:: Medicare. BC BS CURRENT HOME/COMMUNITY SERVICES/EQUIPMENT:: none PRIMARY CARE PHYSICIAN:: Gracy Fox POTENTIAL DISCHARGE NEEDS:: Follow up with PCP and plan of care PATIENT/FAMILY EDUCATION NEEDS:: review of discharge instructions, medications, limitations, activity; discuss Ask Me Three TRANSPORTATION:: via private vehicle with family PLAN:: Anahy will likley return home with no new services when medically stable. She will follow up with her community providers and plan of care and transport with family. CM will support Anahy and her discharge needs.
--- NOTE | 2022-03-13 09:44 | W.PM.HP.N ---
Date of service: 03/12/22 Time of Service: 22:00 Assessment and Plan Assessment and plan (1) Crohn's colitis: Status: Acute Assessment and plan: 71 yo woman with RLQ pain that is acute from unknown etiology. She is hemodynamically stable and her abdominal exam is concerning but localized and can be monitored for the time-being. The CT scan shows wall thickening in her cecum. This is limited by having no IV contrast. There is no free air or free fluid. The appendix does not appear inflamed, but again, limited by no IV contrast. Her WBC count has normalized and the shift is going away with IV Abx . . . subjectively, she is reporting clinical improvement over 12 hours, though some residual symptoms remain. I don't think this is appendicitis, though it certainly could be. If it is, Abx is an acceptable way to treat this. My top diagnosis considering the history and presentation and CT scan findings is that this could represent Crohn's disease for the first time. This would explain the week of mucous in the stools and also the more diffuse and broad pain in the RLQ rather than just a point. I dount this is diverticulitis on the right or appendagitis, though these are both possible. Highly unlikley to be a colon cancer with normal cecum on colonoscopy less than 2 years ago. PLAN: NPO for today and continue IV Abx. Probably advance diet tomorrow with hopeful DC tomorrow if she continues to feel better. DVT ppx Serial abdominal exams. If she worsens, we will consider diagnostic laparoscopy. If she improves, oral Abx and close-f/u repeat c-scope to possibl;y diagnose crohn's. I don't think steroids are needed at this point for presumed IBD, but could be considered if more medical therapy becomes necessary. History of Present Illness History of Present Illness Chief Complaint: RLQ abd pain Narrative: 71 yo woman notes about 1 week of bowel habit changes. Mucous noted in her stools and also with passing gas. No diarrhea, no blood, but the mucous was notable and she had never seen that before. Over the last 24 hours she has developed RLQ pain. It comes and goes in intensity but is constantly present. It has not moved at all. No vomiting. No fevers. She has never had pain like this and it has slowly worsened though today at bedside she says it is a little bit improved now. In ER her pain she says was 8 but now it is down to 5 . . . it still hurts, but definitely improved since yesterday. No weight loss, no chills or sweats. She has no family history of colon cancer. She had an EGD and a colonoscopy routinely about 1.5 years ago. Other than some small rectal polyps, nothing else is reported. There were no findings in the cecum at that time. There is no mention in the c-scope note about diverticular disease on the right side of the colon. Her surgical history is significant for BSO/KYREE, pelvic recon/lift, segmental colectomy(sigmoid) for diverticulitis. Other pertinent history is that she has TWO children who both were diagnosed with Crohn's disease in their teenage years. Their disease is controlled with medication. Her other child does not have Crohn's. FOR[facility]LY [facility], [facility] All Active Problems (Updated 03/13/22 @ 09:54 by Naren Doyle MD) Crohn's colitis (Acute) Tick bite (Acute) Abdominal pain in female (Acute) Ischial bursitis of right side (Acute) Depo-Medrol injection: 01/14/2021 (Dr. Drummond); previous injections on 06/12/2014, 02/12/2014, 11/14/2013 (Dr. Bear) Ischial bursitis (Acute) Anxiety (Chronic) Asthma (Chronic) Hypertensive emergency (Acute) Altered mental status (Acute) Hyperplastic colon polyp (Acute) Tubular adenoma of colon (Acute) Encounter for screening colonoscopy (Acute) GERD (gastroesophageal reflux disease) (Chronic) Medical History (Updated 03/13/22 @ 09:54 by Naren Doyle MD) Allergic rhinitis Barretts esophagus Dry eye syndrome Facial rhytids (01/15/18) Fatigue Hormone replacement therapy (HRT) Hyperlipidemia Hypertension Impaired fasting glucose Lesion of vocal cord Osteoporosis Premature ventricular contractions (PVCs) (VPCs) Per pt. states this is due to anxiety Rash, skin Vaginal prolapse (03/29/16) s/p laparoscopic col[place]ope[place], [place] [facility] [place] Surgical History Colonoscopy - IV Sedation with EGD for Barretts esophagitis History of open sigmoidectomy laparoscopic sacral colpopexy 03/29/16 with [place] [facility] [place], Left (~2000) Repair of umbilical hernia Vaginal hysterectomy (~2002) for uterine prolapse, with oophorectomy Family History Mother Essential hypertension Heart disease Stroke Father Blood disorder required blood transfusions Brother Diabetes Grandfather , mouth cancer Diabetes Grandmother , breast cancer No problems noted. 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 [employer] Pets and animals: Yes Pets and animals: cat(s) What is your relationship status?: Panel score (0-1 are the most socially isolated patients): 1 What type of physical activity do you participate in: walking Seatbelt use: always Do you feel safe at home: Yes Do you feel safe in your relationship?: Yes Meds Allergies and Home Medications Allergies Allergy/AdvReac Type Severity Reaction Status Date / Time mirtazapine [From Remeron] Allergy Intermediate Verified 03/12/22 18:12 animal dander Allergy Mild Verified 03/12/22 18:12 venlafaxine HCl AdvReac Severe seizure Verified 03/12/22 18:12 [From Effexor] meperidine HCl [From Demerol] AdvReac Intermediate vomit, Verified 03/12/22 18:12 couldn't wake up oxycodone [Oxycodone] AdvReac Intermediate gi upset Verified 03/12/22 18:12 Home Medications Medication Instructions Recorded Confirmed Type fluticasone 100 mcg-salmeterol 50 1 puff inhalation DAILY 01/31/13 03/12/22 History mcg/dose blistr powdr for inhalation (Advair Diskus) mometasone 50 mcg/actuation nasal 1 spry NS DAILY 01/31/13 03/12/22 History spray (Nasonex) omeprazole 20 mg capsule,delayed 20 mg PO BID 01/31/13 03/12/22 History release albuterol sulfate 90 mcg/actuation 2 puff inhalation PRN PRN 07/04/15 03/12/22 History aerosol inhaler (Ventolin HFA) cyclosporine 0.05 % eye drops in a 1 drp ophthalmic (eye) Q12H 11/14/19 03/12/22 History dropperette (Restasis) multivitamin (Daily Multi-Vitamin 1 tab PO DAILY 11/14/19 03/12/22 History tablet) nebulizers (Compact Compressor #1 ea 11/14/19 11/10/20 History Nebulizer) alendronate 70 mg tablet (Fosamax) 70 mg PO QWEEK 07/06/20 03/12/22 History ipratropium 0.5 mg-albuterol 3 mg 3 ml inhalation .Q4-6H PRN 09/28/20 03/12/22 History (2.5 mg base)/3 mL nebulization soln amlodipine 5 mg tablet 2.5 mg PO .QHS 10/26/20 03/12/22 History lisinopril 20 mg tablet 20 mg PO DAILY 10/26/20 03/12/22 History rosuvastatin 20 mg tablet 20 mg PO .QHS 10/26/20 03/12/22 History doxycycline hyclate 100 mg capsule 200 mg PO ONCE #2 caps 03/21/21 03/12/22 Rx Exam Narrative Exam Narrative: Gen: Nontoxic and interactive Vitals: WAL Neuro: AxOx3 Psych: Appropriate mood and affect Abdomen: Soft, mildly/minimally distended. RLQ is diffusely tender without a specific point. There is tap tenderness present. The other 3Qs are not tender. Results Labs Result diagrams: 03/13/22 06:00 03/12/22 18:59 Labs: Laboratory Results - last 24 hr 03/12/22 03/12/22 03/12/22 18:59 18:59 18:59 WBC 14.15 H RBC 3.81 L Hgb 11.7 Hct 35.0 L MCV 92 MCH 30.7 MCHC 33.4 RDW 12.9 Plt Count 332 MPV 9.1 Immature Gran % 0.6 Neutrophils % 82.9 Lymphocytes % 7.4 Monocytes % 7.4 Eosinophils % 1.3 Basophils % 0.4 Nucleated RBC % 0.0 Absolute Neutrophils 11.73 H Absolute Lymphocytes 1.05 L Absolute Monocytes 1.05 H Absolute Eosinophils 0.18 Absolute Basophils 0.06 Sodium 134 L Potassium 3.9 Chloride 99 Carbon Dioxide 25.0 Anion Gap 10.0 BUN 20 H Creatinine 0.9 Estimated GFR/1.73 m2 >= 60.00 Glucose 97 Calcium 8.8 Magnesium 1.5 L Total Bilirubin 0.6 AST 20 ALT 34 Alkaline Phosphatase 94 Total Protein 7.5 Albumin 4.3 Lipase 75 Urine Color Yellow Urine Clarity Clear Urine pH 6.5 Ur Specific [place] 1.020 Urine Protein Negative Urine Ketones Negative Urine Blood Negative Urine Nitrite Negative Urine Bilirubin Negative Urine Urobilinogen 0.2 Ur Leukocyte Esterase Negative Urine Glucose Negative COVID-19 Source SARS-CoV-2 (PCR) 03/12/22 03/13/22 23:08 06:00 WBC 9.27 RBC 3.41 L Hgb 10.5 L Hct 32.0 L MCV 94 MCH 30.8 MCHC 32.8 RDW 13.2 Plt Count 278 MPV 8.9 Immature Gran % 0.4 Neutrophils % 72.1 Lymphocytes % 14.9 Monocytes % 9.4 Eosinophils % 2.8 Basophils % 0.4 Nucleated RBC % 0.0 Absolute Neutrophils 6.68 Absolute Lymphocytes 1.38 Absolute Monocytes 0.87 H Absolute Eosinophils 0.26 Absolute Basophils 0.04 Sodium Potassium Chloride Carbon Dioxide Anion Gap BUN Creatinine Estimated GFR/1.73 m2 Glucose Calcium Magnesium Total Bilirubin AST ALT Alkaline Phosphatase Total Protein Albumin Lipase Urine Color Urine Clarity Urine pH Ur Specific [place] Urine Protein Urine Ketones Urine Blood Urine Nitrite Urine Bilirubin Urine Urobilinogen Ur Leukocyte Esterase Urine Glucose COVID-19 Source Nasal/Nares SARS-CoV-2 (PCR) Negative Last Vital Signs Temp 98.6 F 03/13/22 08:33 Pulse 71 03/13/22 08:33 Resp 18 03/13/22 08:33 BP 109/66 03/13/22 08:33 Pulse Ox 91 L 03/13/22 08:33
[2022-03-13 11:04] LABS: C-Reactive Protein 6.12 mg/dL (0.0-0.3)
[2022-03-13] MEDS: Acetaminophen 500 MG TAB 1000 MG PO ×3 (11:31→23:37)
[2022-03-13 11:33] LABS: Procalcitonin < 0.1 ng/mL
--- NOTE | 2022-03-13 14:13 | NUR.NOTE ---
Patient is visited by her at [facility].Nursing Note:
--- NOTE | 2022-03-13 14:14 | NUR.NOTE ---
Patient receives saba from a friend.Nursing Note:
[2022-03-13] MEDS: Docusate Sodium 100 MG CAP PO ×2 (14:26→20:56)
--- NOTE | 2022-03-13 14:33 | NUR.NOTE ---
Patient's pain is much improved. Pain level is a 2.5 more tender than painful.Nursing Note:
[2022-03-13] MEDS: Lactated Ringers 1,000 ML 100 ML IV ×2 (15:00→20:56)
[2022-03-13 15:22] VITALS: BP 121/73; RESP 16; TEMP 37; O2SAT 98
[2022-03-13 18:29] VITALS: TEMP 37.4
[2022-03-13 23:46] VITALS: BP 122/72; PULSE 66; RESP 18; TEMP 36.4; O2SAT 94
[2022-03-14] MEDS: Acetaminophen 500 MG TAB 1000 MG PO (05:57)
[2022-03-14 06:15] LABS: Abs Immature Grans 0.01 10^3/uL (0.0-0.06); Absolute Basophil Count 0.03 10^3/uL (0.0-0.2); Absolute Eosinophil Count 0.26 10^3/uL (0.0-0.7); Absolute Lymphocyte Count 0.96 10^3/uL (1.2-3.4); Absolute Monocyte Count 0.42 10^3/uL (0.1-0.8); Absolute Neutrophil Count 3.43 10^3/uL (1.2-6.7); Basophils % 0.6; Eosinophils % 5.1; HGB 10.8 g/dL (11.2-15.7); Immature Grans % 0.2; Lymphocytes % 18.8; MCHC 33.8 % (32.0-36.0); MCV 95 fL (80-95); Monocytes % 8.2; Neutrophils % 67.1; Platelet Count 280 10^3/uL (130-400); RBC 3.38 10^6/uL (3.93-5.22); RDW 13.3 % (11.7-14.6); RDW-SD 46.2 fL; WBC 5.11 10^3/uL (4.4-10.8)
[2022-03-14 06:30] LABS: Anion Gap 8.8 mmol/L (3-11); BUN 8 mg/dL (7-18); CO2 27.2 mmol/L (21.0-32.0); CREATININE 0.7 mg/dL (0.55-1.02); Calcium 8.5 mg/dL (8.5-10.1); Chloride 104 mmol/L (98-107); Glucose 113 mg/dL (74-106); Potassium 3.7 mmol/L (3.5-5.1); Sodium 140 mmol/L (136-145)
[2022-03-14 08:00] VITALS: BP 122/72; PULSE 59
[2022-03-14] MEDS: PIPERACILLIN/TAZO 3.375 GM in Normal Saline 50 ML IVPB (08:17)
--- NOTE | 2022-03-14 08:21 | W.PM.PROGNOT ---
Date of Service Date of service: 03/14/22 Time of Service: 07:21 Assessment and Plan Assessment and plan (1) Crohn's colitis: Status: Acute Assessment and plan: Patient is feeling much better today. Will continue IV antibiotics Trial clear liquid diet Encouraged ambulation as tolerated and sitting in the chair Pain is well controlled Will monitor diarrhea Discussed with patient, that follwoing D/C she will require follow up with surgical office for Colonoscopy. Subjective Subjective Interval history since last seen: Patient reports feeling much improved, she states she continues to feel tired and has some soreness but this is much better. She states she does not have much of an appetite. Exam Const General: cooperative, healthy appearing and comfortable Orientation: alert and oriented x3 GI Inspection: normal to inspection and non-distended Palpation: soft, no guarding and tender in the RLQ Objective Last Vital Signs Temp 36.4 C L 03/13/22 23:46 Pulse 66 03/13/22 23:46 Resp 18 03/13/22 23:46 BP 122/72 03/13/22 23:46 Pulse Ox 94 03/13/22 23:46 Laboratory Results - last 24 hr 03/13/22 03/13/22 03/14/22 10:25 10:25 05:58 WBC RBC Hgb Hct MCV MCH MCHC RDW Plt Count MPV Immature Gran % Neutrophils % Lymphocytes % Monocytes % Eosinophils % Basophils % Nucleated RBC % Absolute Neutrophils Absolute Lymphocytes Absolute Monocytes Absolute Eosinophils Absolute Basophils Sodium 140 Potassium 3.7 Chloride 104 Carbon Dioxide 27.2 Anion Gap 8.8 BUN 8 Creatinine 0.7 Estimated GFR/1.73 m2 >= 60.00 Glucose 113 H Calcium 8.5 C-Reactive Protein 6.12 H Procalcitonin < 0.1 03/14/22 05:58 WBC 5.11 RBC 3.38 L Hgb 10.8 L Hct 32.0 L MCV 95 MCH 32.0 MCHC 33.8 D RDW 13.3 Plt Count 280 MPV 9.0 Immature Gran % 0.2 Neutrophils % 67.1 Lymphocytes % 18.8 Monocytes % 8.2 Eosinophils % 5.1 Basophils % 0.6 Nucleated RBC % 0.0 Absolute Neutrophils 3.43 Absolute Lymphocytes 0.96 L Absolute Monocytes 0.42 Absolute Eosinophils 0.26 Absolute Basophils 0.03 Sodium Potassium Chloride Carbon Dioxide Anion Gap BUN Creatinine Estimated GFR/1.73 m2 Glucose Calcium C-Reactive Protein Procalcitonin
--- NOTE | 2022-03-14 08:50 | CMPROGNOTE_ITS ---
- If Service Date Differs Date of service: 03/14/22 Time of Service: 08:50 Care Management Progress Note S/O: Trista requires hospitalization for close monitoring, pain management and IV antibiotics. Trista is alert and oriented, and easy to engage in conversation. Pt is doing much better, her pain is well controlled and she is ambulating frequently. Anticipate, she will need an out patient colonoscopy following discharge. A: 71 year old female admitted to [facility] on 03/12/22 for Acute Crohn's colitis P: Anahy will likely return home with no new services when medically stable. She will follow up with her community providers and plan of care and transport with family. CM will support Anahy and her discharge needs.
[2022-03-14 13:01] VITALS: BP 132/70; PULSE 70; O2SAT 97
[2022-03-14 13:50] VITALS: TEMP 36.2
--- NOTE | 2022-03-14 15:39 | W.PM.DS.N ---
Date of service: 03/14/22 Time of Service: 14:39 DS: Diagnosis Discharge Diagnosis (1) Crohn's colitis: Status: Acute Discharge Plan Disposition Patient Disposition: HOME Condition: Stable Discharge Details Reason For Visit: Abdominal Pain Admit Date/Time: 03/12/22 22:48 Admit Provider: Naren Doyle Attending Provider: Naren Doyle [facility] Hospital Course: 71 y/o female whom presented to the ER with complaints of RLQ pain. CT scan showed wall thickening in her cecum. Family history is remarkable for her two daughters having Crohn's disease. She was started on IV antibiotics and had improvement in her abdominal pain. She was then started on a clear liquid diet and progressed slowly over the day, which she tolerated well. Will c/d home today, on PO antibiotics She will need to follow up with the Surgical office in 2 weeks, she will require a Colonoscopy Home Meds and New Rx's Prescriptions: New amoxicillin-pot clavulanate [Augmentin] 500-125 mg tablet 1 tab PO BID 6 Days Qty: 12 0RF Continued multivitamin [Daily Multi-Vitamin] Tablet 1 tab PO DAILY cyclosporine [Restasis] 0.05 % dropperette 1 drp OP Q12H (DME) Compact Compressor Nebulizer Misc See Rx Instructions .ROUTE .MEDSUPPLY Qty: 1 Rx Instructions: As directed ipratropium-albuterol 0.5 mg-3 mg(2.5 mg base)/3 mL solution for nebulization 3 ml inhalation .Q4-6H PRN omeprazole 20 MG capsule,delayed release(DR/EC) 20 mg PO BID fluticasone propion-salmeterol [Advair Diskus] 1 EACH blister with device 1 puff Inhalation DAILY mometasone [Nasonex] 17 GM spray,non-aerosol 1 spry NS DAILY albuterol sulfate [Ventolin HFA] 60 PUFF HFA aerosol inhaler 2 puff Inhalation PRN PRN alendronate [Fosamax] 70 mg Tablet 70 mg PO QWEEK doxycycline hyclate 100 mg capsule 200 mg PO ONCE Qty: 2 0RF rosuvastatin 20 mg Tablet 20 mg PO .QHS lisinopril 20 mg tablet 20 mg PO DAILY amlodipine 5 mg tablet 2.5 mg PO .QHS Label Comments: TAKE 1 TABLET BY MOUTH DAILY Discharge Instructions Instructions: Crohn Disease (DC), Low Fiber Diet (DC) Additional Instructions: Activity at Home after surgery: 1. As tolerated Diet, Nutrition, & wound healin. low fiber diet 2. OK to have a glass or 2 of wine Pain Medications: 1. Tylenol 650mg every 6 hours as needed For Constipation: 1. Take Milk of Magnesia or MiraLax as needed for constipation Please call our office if you develop: 1. Fevers >101.5 2. Nausea or Vomiting 3. Worsening pain 4. diarrhea or blood in the stool If after hours please call the Hospital at and ask to speak to the on-call surgeon Referrals: Lise Espinoza MD [ [facility] STAFF PHYSICIAN] - (2 weeks) Activity:: Activity as Tolerated Equipment/Supplies:: No Equipment Needed Diet:: low fiber diet Discharge Orders Discharge Orders: Discharge Order (Routine); Ordered 03/14/22 Ordered By: Lise Espinoza DS: Summary Time Spent with Patient providing and/or coordinating discharge services: Less than 30 minutes Status at Discharge Functional status at discharge: independent ambulation Overall status at discharge: patient is back to baseline Mental Status: mental status grossly normal Speech and Movement: speech and movement normal Mood: congruent mood Affect: normal affect Exam Const General: healthy appearing, comfortable and no acute distress Orientation: alert and oriented x3 HENMT Head: normocephalic and atraumatic Resp Effort & Inspection: normal respiratory effort Psych Mental Status: mental status grossly normal Speech and Movement: speech and movement normal Mood: congruent mood Affect: normal affect DS: Data Vitals/I&O Vitals and I&O: Vital Signs Temperature 36.2 C L 03/14/22 13:50 Temperature Source Temporal Artery Scan 03/14/22 13:50 Pulse 70 03/14/22 13:01 Pulse Rhythm Regular 03/14/22 09:06 Respiratory Rate 18 03/13/22 23:46 Respiratory Effort Non-Labored 03/14/22 09:06 Respiratory Depth Normal 03/14/22 09:06 Respiratory Pattern Normal 03/14/22 09:06 Blood Pressure 132/70 03/14/22 13:01 Blood Pressure Mean 84 03/14/22 13:01 Blood Pressure Position Supine 03/13/22 08:33 Pulse Oximetry 97 03/14/22 13:01 Oxygen Delivery Method Room Air 03/14/22 13:50 Oxygen Flow Rate 0 03/14/22 13:50 Pain Level 2 03/14/22 00:37 Intake & Output 03/13/22 03/14/22 03/14/22 18:59 06:59 18:59 Intake Total 1050 / 2600 550 / 2600 1780 / 1780 Output Total 1375 / 2225 850 / 2225 850 / 850 Balance -325 / 375 -300 / 375 930 / 930 Weight 57.5 kg Intake: IV 650 / 2200 550 / 2200 1050 / 1050 Oral 400 / 400 730 / 730 Output: Urine 1375 / 2225 850 / 2225 850 / 850 Other: Urine Color Yellow Yellow Pale Urine Appearance Clear Clear Clear Urine Odor Normal Normal Normal Comment mixed with stool Stool Occult Blood Negative Stool Size Small Moderate Stool Characteristics Soft Brown Voiding Methods Bedside Commode Bedside Commode Data Completed and Pending Labs on day of discharge: Labs from last 24 hours 03/14/22 03/14/22 05:58 05:58 WBC 5.11 RBC 3.38 L Hgb 10.8 L Hct 32.0 L MCV 95 MCH 32.0 MCHC 33.8 D RDW 13.3 Plt Count 280 MPV 9.0 Immature Gran % 0.2 Neutrophils % 67.1 Lymphocytes % 18.8 Monocytes % 8.2 Eosinophils % 5.1 Basophils % 0.6 Nucleated RBC % 0.0 Absolute Neutrophils 3.43 Absolute Lymphocytes 0.96 L Absolute Monocytes 0.42 Absolute Eosinophils 0.26 Absolute Basophils 0.03 Sodium 140 Potassium 3.7 Chloride 104 Carbon Dioxide 27.2 Anion Gap 8.8 BUN 8 Creatinine 0.7 Estimated GFR/1.73 m2 >= 60.00 Glucose 113 H Calcium 8.5 PFSH All Active Problems (Updated 03/13/22 @ 09:54 by Naren Doyle MD) Crohn's colitis (Acute) Tick bite (Acute) Abdominal pain in female (Acute) Ischial bursitis of right side (Acute) Depo-Medrol injection: 01/14/2021 (Dr. Drummond); previous injections on 06/12/2014, 02/12/2014, 11/14/2013 (Dr. Bear) Ischial bursitis (Acute) Anxiety (Chronic) Asthma (Chronic) Hypertensive emergency (Acute) Altered mental status (Acute) Hyperplastic colon polyp (Acute) Tubular adenoma of colon (Acute) Encounter for screening colonoscopy (Acute) GERD (gastroesophageal reflux disease) (Chronic) Medical History (Updated 03/13/22 @ 09:54 by Naren Doyle MD) Allergic rhinitis Barretts esophagus Dry eye syndrome Facial rhytids (01/15/18) Fatigue Hormone replacement therapy (HRT) Hyperlipidemia Hypertension Impaired fasting glucose Lesion of vocal cord Osteoporosis Premature ventricular contractions (PVCs) (VPCs) Per pt. states this is due to anxiety Rash, skin Vaginal prolapse (03/29/16) s/p laparoscopic colpopexy, posterior [place] [facility] [place] Surgical History Colonoscopy - IV Sedation with EGD for Barretts esophagitis History of open sigmoidectomy laparoscopic sacral colpopexy 03/29/16 with [place] [facility] [place], Left (~2000) Repair of umbilical hernia Vaginal hysterectomy (~2002) for uterine prolapse, with oophorectomy Family History Mother Essential hypertension Heart disease Stroke Father Blood disorder required blood transfusions Brother Diabetes Grandfather , mouth cancer Diabetes Grandmother , breast cancer No problems noted. 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
== END 2022-03-14 16:45 | disposition home or self-care (01) ==
LOC: ER 22:54 → ICU 03-13 00:03
PROVIDERS: Admitting Provider Student in an Organized Health Care Education/Training Program; Emergency Provider Nurse Practitioner Family; PCP Internal Medicine; Visit Provider Student in an Organized Health Care Education/Training Program
DX: K50.10 Crohn's disease of large intestine without complications (principal); M70.71 Other bursitis of hip, right hip; J45.909 Unspecified asthma, uncomplicated; F41.9 Anxiety disorder, unspecified; Z86.010 Personal history of colon polyps; K21.9 Gastro-esophageal reflux disease without esophagitis; I10 Essential (primary) hypertension; E78.5 Hyperlipidemia, unspecified; M81.0 Age-related osteoporosis without current pathological fracture; E55.9 Vitamin D deficiency, unspecified; Z98.0 Intestinal bypass and anastomosis status; Z83.79 Family history of other diseases of the digestive system; Z20.822 Contact with and (suspected) exposure to COVID-19
CPT/HCPCS: 36415; 80048; 80053; 83690; 84145; 87635; 96365; 96366; 96375; 99217; 99220; 99284; 99285; 74176; 81003; 83735; 85025; 86140; G0378; J2405; J2543; J3490

== ENCOUNTER → 2022-03-31 09:28 | Outpatient (BNVA) | payer MEDICARE, BC, SELFPAY | PROVIDERS: PCP Internal Medicine; Referring Provider Internal Medicine; Visit Provider Physical Therapy Assistant | DX: Z83.79 Family history of other diseases of the digestive system (principal); R10.9 Unspecified abdominal pain | CPT/HCPCS: 99213 ==

== ENCOUNTER → 2022-04-28 11:18 | Outpatient (BNVA) | payer MEDICARE, BC, SELFPAY | PROVIDERS: PCP Internal Medicine; Referring Provider Internal Medicine; Visit Provider Physical Therapy Assistant | DX: K21.9 Gastro-esophageal reflux disease without esophagitis (principal); Z86.010 Personal history of colon polyps | CPT/HCPCS: 99214 ==

== ENCOUNTER → 2022-05-09 12:44 | Outpatient (BNVA) | payer MEDICARE, BC, SELFPAY | PROVIDERS: PCP Internal Medicine; Referring Provider Internal Medicine; Visit Provider Physician Assistant | DX: M70.62 Trochanteric bursitis, left hip (principal) | CPT/HCPCS: 20610; J1040 ==

== ENCOUNTER 2022-05-31 02:55 | Outpatient (CLI) | payer MEDICARE, BC, SELFPAY ==
[2022-05-31 12:19] LABS: Source Nasal/Nares
[2022-05-31 15:41] LABS: COVID-19 PCR Negative (Negative)
== END 2022-05-31 02:56 | disposition home or self-care (01) ==
PROVIDERS: PCP Internal Medicine; Visit Provider Surgery
DX: Z01.818 Encounter for other preprocedural examination (principal); Z20.822 Contact with and (suspected) exposure to COVID-19
CPT/HCPCS: 87635

== ENCOUNTER 2022-06-02 06:13 | Day surgery (SDC) | payer MEDICARE, BC, SELFPAY ==
--- NOTE | 2022-06-02 05:47 | W.PM.DSUDISC ---
Discharge Plan Disposition Patient Disposition: HOME Condition: Good Discharge Details Reason For Visit: EGD and Colonoscopy Attending Provider: Juan Vasquez Primary Care Provider: Gracy Wikc Home Meds and New Rx's Prescriptions: Continued multivitamin [Daily Multi-Vitamin] Tablet 1 tab PO DAILY cyclosporine [Restasis] 0.05 % dropperette 1 drp OP Q12H (DME) Compact Compressor Nebulizer Misc See Rx Instructions .ROUTE .MEDSUPPLY Qty: 1 Rx Instructions: As directed ipratropium-albuterol 0.5 mg-3 mg(2.5 mg base)/3 mL solution for nebulization 3 ml inhalation .Q4-6H PRN omeprazole 20 MG capsule,delayed release(DR/EC) 20 mg PO BID fluticasone propion-salmeterol [Advair Diskus] 1 EACH blister with device 1 puff Inhalation DAILY mometasone [Nasonex] 17 GM spray,non-aerosol 1 spry NS DAILY albuterol sulfate [Ventolin HFA] 60 PUFF HFA aerosol inhaler 2 puff Inhalation PRN PRN alendronate [Fosamax] 70 mg Tablet 70 mg PO QWEEK rosuvastatin 20 mg Tablet 20 mg PO .QHS lisinopril 20 mg tablet 20 mg PO DAILY amlodipine 5 mg tablet 2.5 mg PO .QHS Label Comments: TAKE 1 TABLET BY MOUTH DAILY Discontinued bisacodyl [Dulcolax (bisacodyl)] 5 mg tablet,delayed release (DR/EC) 5 mg PO ONCE Qty: 4 0RF Rx Instructions: Take according to provider's instructions for colonoscopy prep. polyethylene glycol 3350 17 gram/dose powder 17 g PO ONCE Qty: 238 0RF Rx Instructions: To be taken as directed by prescriber's office for colonoscopy prep. No Action ibuprofen 400 mg Tablet 400 mg PO PRN Discharge Instructions Instructions: Upper Endoscopy (DC), Colonoscopy (DC), Colorectal Polyps (DC) Additional Instructions: 1. If tolerated, consume a soft, low fiber diet for 1-2 days. 2[address] Do not drive, drink alcohol, operate machinery, make critical decisions, or do activities that require coordination or balance for 24 hours. 3. Because air was put into your colon during the procedure, expelling air from your rectum (passing gas or farting) is normal. 4. You may not have a bowel movement for 1-3 days because of the colonoscopy prep. This is normal. 5. You may experience a sore throat for 24 to 48 hours. You may use throat lozenges or gargle with warm salt water to relieve the discomfort. 6. Because air was put into your stomach during the procedure, you may experience some belching. 7. Go directly to the emergency room if you notice any of the following: Develop chills (warm to touch), or if you have a thermometer and your temperature is above 101 Difficulty breathing or difficultly swallowing Persistent vomiting Severe abdominal pain, other than gas cramps Severe chest pain Black, tarry stools Any bleeding ? exceeding one tablespoon 8. Call your physician if the site where your intravenous was started becomes red, swollen, painful, and warm to touch. 9. Your physician has reviewed your pre-procedure medications. Please continue to take those medications as previously ordered. You will be given specific information/education regarding any changes to your medications before leaving. Referrals: Gracy Wick [Primary Care Provider] - Activity:: Activity as Tolerated Shower/Bathe:: 24 hours Diet:: As Tolerated Discharge Orders Discharge Orders: Discharge Order (Routine); Ordered 06/02/22 Ordered By: Juan Vasquez
--- NOTE | 2022-06-02 05:50 | ENDO_ITS ---
Date of service: 06/02/22 Time of Service: 08:21 Endoscopy Report DATE OF PROCEDURE: 06/02/22 PRE-OP DIAGNOSIS: GERD and colonmass on CT colonography POST-OP DIAGNOSIS: other (rectal polyp around 20 cm) PROCEDURE: EGD and diagnostic colonoscopy SURGEON: Juan Vasquez ANESTHESIA TYPE: General:No Airway ESTIMATED BLOOD LOSS: 15 PATHOLOGY: other (rectal polyp) COMPLICATIONS: None DISPOSITION: same day INDICATIONS: Trista is a 72-year-old woman with longstanding gastroesophageal reflux disease, and a distant history of Baer's esophagus. Additionally, she recently underwent CT colonography that suggested the possibility of a colon mass. PREP: Miralax/Dulcolax PROCEDURE START TIME: 07:34 PROCEDURE END TIME: 08:03 COLONOSCOPY RETRACTION TIME: 19 FINDINGS: No evidence normal-appearing GE junction around 27 cm. Colorectal polyps at 27 PROCEDURE DESCRIPTION: After the initiation of monitored anesthetic care, and with the assistance of a bite block, I advanced a standard gastroscope through the mouth past the hypopharynx and into the esophagus.? Under the direct vision of the scope, I advanced down the esophagus into the stomach.? Once I entered the stomach, I performed a brief inspection, followed by retroflexion towards the gastric cardia.? This appeared normal.? After that, I gently advanced the scope around the incisura angularis and examined the pylorus.? This also appeared normal.? Next, I advanced the scope through the pylorus into the duodenum.? The mucosa was pink and healthy appearing.? There were no abnormalities.? I was able to visualize bile draining into the duodenum through the ampulla Vater. ?Next, I began retracting the endoscope.? Again, I returned to the stomach which was carefully examined once again.? I then gently desufflated some of the stomach, and withdrew the endoscope into the distal esophagus. The GE junction was normal-appearing around 27 m. Similarly, the Z-line was located in the same position. ?Finally, I withdrew the scope along the length of the esophagus taking great care to examine the entirety of the mucosa.? I did not appreciate any abnormalities. Next, I moved the patient left lateral decubitus position, I began by performing an external anorectal exam.? Perineum and skin were normal, as was the anal verge.? There was no evidence of external hemorrhoids.? Next, I performed a digital rectal exam.? I did not appreciate any abnormal findings.? Next, I adva nced a colonoscope into the rectal vault.? I performed retroflexion.? I did not see signs of pathologic internal hemorrhoids.? Using insufflation, I then advanced the colonoscope beyond the rectal folds and into the sigmoid colon before advancing towards the cecum.? The quality of the prep was adequate.? The scope was noted to be in the cecum by identification of the ileocecal valve and appendiceal orifice.? I then began withdrawing the colonoscope using repeated irrigation as necessary for full evaluation of the colonic mucosa. ?Once the scope was withdrawn to the level of the rectum, great care was taken to examine portions of the rectal folds.?Around 20 from the anal verge I identified a single 1 cm polyp. ?It appeared flat in character. ?I was able to remove this with a cold biopsy forceps. ?I examined the site, and there was minimal bleeding. ?Once this was completed, I continued to withdraw the scope and examine the remainder of the colonic mucosa. Finally, the scope was withdrawn and the patient was brought to the same-day surgery recovery unit as the anesthetic wore off. ?The findings and instructions were shared with the patient prior to discharge.
[2022-06-02 06:31] VITALS: BP 136/78; PULSE 66; RESP 17; TEMP 37.1; O2SAT 96
--- NOTE | 2022-06-02 06:49 | W.ANESPRE ---
General Info Date of Service Date Performed: 06/02/22 Height: 5 ft 1 in Weight: 57.5 kg Body Mass Index (BMI): 23.9 Surgical Procedure: Operation Date: 06/02/22 07:35 Proposed Procedure Side Surgeon p Colonoscopy/Gastroscopy Juan Vasquez MD Meds Allergies and Home Medications Allergies Allergy/AdvReac Type Severity Reaction Status Date / Time latex Allergy Intermediate Skin Rash Verified 06/02/22 06:41 mirtazapine [From Remeron] Allergy Intermediate unknown Verified 06/02/22 06:41 animal dander Allergy Mild Verified 06/02/22 06:41 venlafaxine HCl AdvReac Severe seizure Verified 06/02/22 06:41 [From Effexor] meperidine HCl [From Demerol] AdvReac Intermediate vomit, Verified 06/02/22 06:41 couldn't wake up oxycodone [Oxycodone] AdvReac Intermediate gi upset Verified 06/02/22 06:41 Home Medication Medication Instructions Recorded fluticasone 100 mcg-salmeterol 50 1 puff inhalation DAILY 01/31/13 mcg/dose blistr powdr for inhalation (Advair Diskus) mometasone 50 mcg/actuation nasal 1 spry NS DAILY 01/31/13 spray (Nasonex) omeprazole 20 mg capsule,delayed 20 mg PO BID 01/31/13 release albuterol sulfate 90 mcg/actuation 2 puff inhalation PRN PRN 07/04/15 aerosol inhaler (Ventolin HFA) cyclosporine 0.05 % eye drops in a 1 drp ophthalmic (eye) Q12H 11/14/19 dropperette (Restasis) multivitamin (Daily Multi-Vitamin 1 tab PO DAILY 11/14/19 tablet) nebulizers (Compact Compressor #1 ea 11/14/19 Nebulizer) alendronate 70 mg tablet (Fosamax) 70 mg PO QWEEK 07/06/20 ipratropium 0.5 mg-albuterol 3 mg 3 ml inhalation .Q4-6H PRN 09/28/20 (2.5 mg base)/3 mL nebulization soln amlodipine 5 mg tablet 2.5 mg PO .QHS 10/26/20 lisinopril 20 mg tablet 20 mg PO DAILY 10/26/20 rosuvastatin 20 mg tablet 20 mg PO .QHS 10/26/20 ibuprofen 400 mg tablet 400 mg PO PRN 06/02/22 Current Visit Medications: Current Medications Generic Name Dose Route Start Last Admin Trade Name Ayaz PRN Reason Stop Dose Admin Ringer's Solution 1,000 mls @ 80 mls/hr 06/02/22 06:00 IV 07/01/22 23:59 INFUSION VIKTORIYA IV Miscellaneous Supplies 1 each 06/02/22 06:00 Iv Access IV 07/01/22 23:59 DIRECTED VIKTORIYA Sodium Chloride 0 ml 06/02/22 06:00 Normal Saline Flush 10 Ml Syr IV 07/01/22 23:59 PRN PRN Sodium Chloride 0 ml 06/02/22 06:00 Normal Saline 10 Ml Vial IJ 07/01/22 23:59 DIRECTED PRN Sterile Water 0 ml 06/02/22 06:00 Water,Injection,Sterile 10 Ml Vial IJ 07/01/22 23:59 DIRECTED PRN PFSH Active Problems Active Problems: Problem Status Onset Code Trochanteric bursitis, left hip M70.62 Barretts esophagus K22.70 Crohn's colitis K50.10 Abdominal pain in female R10.9 Asthma J45.909 Hypertensive emergency I16.1 Altered mental status R41.82 Hyperplastic colon polyp K63.5 Tubular adenoma of colon D12.6 GERD (gastroesophageal reflux disease) K21.9 Medical History Medical History Allergic rhinitis Anxiety Dry eye syndrome Encounter for screening colonoscopy Facial rhytids (01/15/18) Fatigue Hormone replacement therapy (HRT) Hyperlipidemia Hypertension Impaired fasting glucose Ischial bursitis of right side Depo-Medrol injection: 01/14/2021 (Dr. Drummond); previous injections on 06/12/2014, 02/12/2014, 11/14/2013 (Dr. Bear) Lesion of vocal cord Osteoporosis Premature ventricular contractions (PVCs) (VPCs) Per pt. states this is due to anxiety Rash, skin Tick bite Vaginal prolapse (03/29/16) s/p laparoscopic colpopexy, posterior repair. [facility] [place]. Vitamin D deficiency Surgical History Surgical History Colonoscopy - IV Sedation with EGD for Barretts esophagitis History of open sigmoidectomy laparoscopic sacral colpopexy 03/29/16 with posterior colporrhaphy. [facility] [place]. Oophrectomy, Left (~2000) Repair of umbilical hernia Vaginal hysterectomy (~2002) for uterine prolapse, with oophorectomy Tobacco Smoking/Tobacco Use Status: Never Alcohol Alcohol Intake: current Alcohol intake frequency: a few times a week Alcohol type: wine Substance Use Substance use: Never Substance use type: does not use Vital Signs and Lab Results Vital Signs Most Recent Vital Signs in EMR: Most Recent Vital Signs Temp Pulse Resp BP Pulse Ox 37.1 C 66 17 136/78 96 06/02/22 06:31 06/02/22 06:31 06/02/22 06:31 06/02/22 06:31 06/02/22 06:31 Lab Results Blood Type / Crossmatch: No Data to Display Complete Blood Count: No Data to Display Complete Metabolic Panel: No Data to Display Liver Function Panel: No Data to Display Coagulation Panel: No Data to Display Cardiac Panel: No Data to Display Arterial Blood Gas: No Data to Display Venous Blood Gas: No Data to Display Pancreas Panel: No Data to Display Thyroid Panel: No Data to Display Infectious Disease: Coronavirus (COVID-19)(PCR) Negative (Negative) 05/31/22 12:00 Coronavirus 2019 Source Nasal/Nares 05/31/22 12:00 Blood Cultures: No Data to Display Toxicology Panel: No Data to Display Anesthesia Assessment and Plan Anesthesia History Personal History: No History of Anesthesia Complications Family History: No Family History of Anesthesia Complications Exercise Tolerance Exercise Tolerance: Metabolic Equivalents>4 Pertinent Negatives Pertinent Negatives: No Symptoms of GERD (Well cont) Cardiac & Pulmonary Exam Cardiac Exam: Normal S1/S2 Heart Sounds Pulmonary Exam: Clear Bilateral Breath Sounds Implantable Cardiac Device Does patient have a Pacemaker or an ICD?: No Airway Exam Known Difficult Airway: No Mallampati Class: 2 Mouth Opening: Normal (> 3cm) Thyromental Distance: Greater than 3 cm Neck Range of Motion: Full ROM Neck Circumference: Normal Teeth Condition: Normal Dentition ASA Classification ASA Score: ASA 2 Emergency Case?: No NPO Status NPO Status: NPO Clears >2 hours, Solids >8 hours Anesthesia Plan Resuscitation Status: Full Code Anesthesia Technique: General Anesthesia Airway Planned: Natural Airway Monitors Used: Standard Monitors
[2022-06-02] MEDS: Lactated Ringers 1,000 ML 80 ML IV (06:54)
[2022-06-02 07:06] VITALS: BMI 23.9
--- NOTE | 2022-06-02 07:21 | W.PM.HP.N ---
Date of service: 06/02/22 Time of Service: 07:21 Assessment and Plan Assessment and plan (1) Barretts esophagus: Status: Acute Assessment and plan: EGD today for surveillance (2) Tubular adenoma of colon: Status: Acute Assessment and plan: repeat screening colonoscopy today History of Present Illness History of Present Illness Chief Complaint: screening colonoscopy and EGD for routine health maintenance Narrative: 71 y/o female with history of asthma, GERD, HTN? and Barretts esophagus presents in follow up and to discuss proceeding with colonoscopy pre-op. Her last screening was in 2019, which was remarkable for a tubular adenomatous polyp and 3 hyperplastic polyps. Patient under went a sigmoid rescection in 2008, for diverticular disease. She denies a family history of colon cancer. She reports that her two children (daughter and son) both have Chron's Disease. Patient was recently admitted over night for IV antibiotics following an ER visit for RLQ pain. CT scan showed wall thickening within the cecum.? She reports that she feels she is back to normal. She states she is having regular bowel movements. She denies any bloody or black tarry stools, abdominal pain, diarrhea or constipation. She denies constitutional symptoms. Denies use of marijuana or any other recreational or illegal drugs. She denies chest pain, palpitations, dyspnea or dyspnea with exertion. She denies prior history or family history of adverse reactions or complications with anesthesia. The patient denies any history of stroke, SC, bleeding or clotting disorders. patient states that in 2002 she had seziures from an allergic reaction to Remeron. She denies having any implanted metal in her body. Review of Systems Constitutional Constitutional: Reports as per HPI, Denies fatigue, Denies malaise and Denies night sweats Eyes Eyes: Denies blurry vision and Denies change in vision ENT Ears, Nose, Mouth, and Throat: Denies abnormal hearing Cardiovascular Cardiovascular: Denies chest pain and Denies dyspnea Respiratory Respiratory: Denies chest congestion, Denies cough and Denies dyspnea Gastrointestinal Gastrointestinal: Denies abdominal pain, Denies bloating, Reports heartburn and Denies diarrhea Genitourinary Genitourinary: Reports system reviewed and no additional complaints, except as documented Musculoskeletal Musculoskeletal: Denies abnormal gait and Denies back pain Neurologic Neurologic: Denies abnormal hearing, Denies abnormal gait and Denies behavioral changes Psychiatric Psychiatric: Denies behavioral changes Endocrine Endocrine: Denies fatigue Hematologic/Lymphatic Hematologic/Lymphatic: Denies easy bleeding and Denies easy bruising PFSH All Active Problems Trochanteric bursitis, left hip (Acute) Depo-Medrol injection: 05/09/2022 Barretts esophagus (Acute) Crohn's colitis (Acute) Abdominal pain in female (Acute) Asthma (Chronic) Hypertensive emergency (Acute) Altered mental status (Acute) Hyperplastic colon polyp (Acute) Tubular adenoma of colon (Acute) GERD (gastroesophageal reflux disease) (Chronic) Medical History Allergic rhinitis Anxiety Dry eye syndrome Encounter for screening colonoscopy Facial rhytids (01/15/18) Fatigue Hormone replacement therapy (HRT) Hyperlipidemia Hypertension Impaired fasting glucose Ischial bursitis of right side Depo-Medrol injection: 01/14/2021 (Dr. Drummond); previous injections on 06/12/2014, 02/12/2014, 11/14/2013 (Dr. Bear) Lesion of vocal cord Osteoporosis Premature ventricular contractions (PVCs) (VPCs) Per pt. states this is due to anxiety Rash, skin Tick bite Vaginal prolapse (03/29/16) s/p laparoscopic colpopexy, posterior repair. [facility] [place]. Vitamin D deficiency Surgical History Colonoscopy - IV Sedation with EGD for Barretts esophagitis History of open sigmoidectomy laparoscopic sacral colpopexy 03/29/16 with posterior colporrhaphy. [facility] [place]. Oophrectomy, Left (~2000) Repair of umbilical hernia Vaginal hysterectomy (~2002) for uterine prolapse, with oophorectomy Family History Mother Essential hypertension Heart disease Stroke Father Blood disorder required blood transfusions Brother Diabetes Grandfather , mouth cancer Diabetes Grandmother , breast cancer No problems noted. 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 [employer] Pets and animals: Yes Pets and animals: cat(s) What is your relationship status?: Panel score (0-1 are the most socially isolated patients): 1 What type of physical activity do you participate in: walking Seatbelt use: always Do you feel safe at home: Yes Do you feel safe in your relationship?: Yes Meds Allergies and Home Medications Allergies Allergy/AdvReac Type Severity Reaction Status Date / Time latex Allergy Intermediate Skin Rash Verified 06/02/22 06:41 mirtazapine [From Remeron] Allergy Intermediate unknown Verified 06/02/22 06:41 animal dander Allergy Mild Verified 06/02/22 06:41 venlafaxine HCl AdvReac Severe seizure Verified 06/02/22 06:41 [From Effexor] meperidine HCl [From Demerol] AdvReac Intermediate vomit, Verified 06/02/22 06:41 couldn't wake up oxycodone [Oxycodone] AdvReac Intermediate gi upset Verified 06/02/22 06:41 Home Medications Medication Instructions Recorded Confirmed Type fluticasone 100 mcg-salmeterol 50 1 puff inhalation DAILY 01/31/13 06/02/22 History mcg/dose blistr powdr for inhalation (Advair Diskus) mometasone 50 mcg/actuation nasal 1 spry NS DAILY 01/31/13 06/02/22 History spray (Nasonex) omeprazole 20 mg capsule,delayed 20 mg PO BID 01/31/13 06/02/22 History release albuterol sulfate 90 mcg/actuation 2 puff inhalation PRN PRN 07/04/15 06/02/22 History aerosol inhaler (Ventolin HFA) cyclosporine 0.05 % eye drops in a 1 drp ophthalmic (eye) Q12H 11/14/19 06/02/22 History dropperette (Restasis) multivitamin (Daily Multi-Vitamin 1 tab PO DAILY 11/14/19 06/02/22 History tablet) nebulizers (Compact Compressor #1 ea 11/14/19 06/01/22 History Nebulizer) alendronate 70 mg tablet (Fosamax) 70 mg PO QWEEK 07/06/20 06/02/22 History ipratropium 0.5 mg-albuterol 3 mg 3 ml inhalation .Q4-6H PRN 09/28/20 06/02/22 History (2.5 mg base)/3 mL nebulization soln amlodipine 5 mg tablet 2.5 mg PO .QHS 10/26/20 06/02/22 History lisinopril 20 mg tablet 20 mg PO DAILY 10/26/20 06/02/22 History rosuvastatin 20 mg tablet 20 mg PO .QHS 10/26/20 06/02/22 History ibuprofen 400 mg tablet 400 mg PO PRN 06/02/22 History Exam Const General: cooperative, healthy appearing and comfortable Orientation: awake and oriented x3 Eyes General: appearance normal, both eyes and all related structures Conjunctivae: conjunctivae normal Sclera: sclerae normal Resp Effort & Inspection: normal respiratory effort and able to speak in complete sentences Cardio Jugular venous pressure: no JVD Rate: regular rate GI Inspection: non-distended Palpation: soft, no guarding, no hernias and nontender Auscultation: normal bowel sounds Skin General skin exam: normal turgor Neuro General: patient alert, patient awake and patient oriented x3 Cognition: normal cognition Extrem Right lower extremity: no edema Left lower extremity: no edema Results Last Vital Signs Temp 98.8 F 06/02/22 06:31 Pulse 66 06/02/22 06:31 Resp 17 06/02/22 06:31 BP 136/78 06/02/22 06:31 Pulse Ox 96 06/02/22 06:31
--- NOTE | 2022-06-02 08:00 | BOWEL_PTH ---
PATIENT: Trista Boothe LOC: [facility] U#:[id number] AGE/SX: 72/F ROOM: RE06/02/[address]: Juan Vasquez MD : 1950 BED: DIS: 06/02/2022 SPEC #: [id number] RECD: 06/02/22 12:50 STATUS: BIJAN REQ #: [id number] EVELINA: 06/02/22 08:[address]: Juan Vasquez DEPT: Surgical Specimen RECD BY: Adela Shaw ENTERED: 06/02/22 12:51 SP TYPE: Bowel OTHR DR: Gracy Wick Tissues: 1 - BIOPSY BOWEL Procedures: GROSS AND MICRO LEVEL 4 Comments: [id number]
[2022-06-02 08:10] VITALS: BP 142/76; PULSE 66; RESP 16; TEMP 36.6; O2SAT 99
[2022-06-02 08:39] VITALS: BP 140/82; PULSE 63; RESP 16; TEMP 36.8; O2SAT 97
--- NOTE | 2022-06-02 15:34 | W.ANESPOSTOP ---
Postoperative Evaluation Date, Time and Location Date Performed: 06/02/22 Time Performed: 15:35 Patient Location: Day Surgery Unit Vital Signs Most Recent Imported Vital Signs: Most Recent Vital Signs Temp Pulse Resp BP Pulse Ox 36.8 C 63 16 140/82 97 06/02/22 08:39 06/02/22 08:39 06/02/22 08:39 06/02/22 08:39 06/02/22 08:39 Pain Score Most Recent Pain Score: Most Recent Pain Score Pain Level 0 06/02/22 08:39 Assessment Mental Status: Awake (Alert & Oriented to Patient Baseline) Airway and Respiratory Function: Patent airway with normal (patient baseline) respiratory exam Cardiovascular Function: Hemodynamically Stable Hydration Status: Adequately Hydrated Nausea & Vomiting: No Nausea or Vomiting Pain: Pt. Denies Any Pain Peripheral Nerve Block: Patient did not receive a nerve block
== END 2022-06-02 09:45 | disposition home or self-care (01) ==
PROVIDERS: PCP Internal Medicine; Visit Provider Surgery
PROC: (CPT 45380; principal; 2022-06-02 07:30)
DX: K22.70 Barrett's esophagus without dysplasia (principal); Z12.11 Encounter for screening for malignant neoplasm of colon; Z86.010 Personal history of colon polyps; K62.1 Rectal polyp; K21.9 Gastro-esophageal reflux disease without esophagitis
CPT/HCPCS: 45380; 43235; 88305

== ENCOUNTER → 2022-06-30 02:28 | Outpatient (CLI) | payer MEDICARE, BC, SELFPAY ==
--- NOTE | 2022-06-30 13:00 | DI.MAMMO_ITS ---
Exam(s) MAMMO SCREENING EXAM: MAMMO SCREENING CLINICAL HISTORY: SCREENING, Z12.39 TECHNIQUE: Mammograms were interpreted according to the usual protocol including computer analysis w [email or web address] CAD system, tomosynthesis and C-view imaging. COMPARISON: 2013 through 2019 FINDINGS: The breasts are composed of scattered fibroglandular densities, Breast Density category B. No suspicious masses or suspicious microcalcifications are seen. No skin thickening or abnormal axillary lymph nodes are seen. There has been no significant change from prior exams. IMPRESSION: BI-RADS Category 1, Negative mammogram Yearly screening mammography is recommended. Breast Density - Category B, scattered fibroglandular densities. A negative radiographic report should not delay biopsy if a dominant or clinically suspicious mass is present. Up to ten percent of cancers are not identified on mammography. A negative report may reinforce clinical impression. Adenosis and dense breasts may obscure an underlying neoplasm. False positive reports average 6 to 10%. Patient will receive a letter notifying them of these results.
--- NOTE | 2022-06-30 13:44 | DI.DEXA_ITS ---
Exam(s) XR DEXA BONE DENSITY W/WO [place] EXAM: XR DEXA BONE DENSITY W/WO [place]LE CLINICAL HISTORY: OSTEOPOROSIS, M81.0 TECHNIQUE: [email or web address] Horizon C densitometer analysis of left hip, lumbar spine and left forearm. COMPARISON: 2006 through 2019 FINDINGS: Lateral view of the thoracic and lumbar spine shows no evidence of compression fractures. Bone mineral density measurements of the lumbar spine correspond to a total T-score of -2.2, in the o steopenic range. This is not significantly changed from prior exams. Bone mineral density measurements of the left hip correspond to a total T-score of -2.0. The femora l neck T-score is -2.7, in the osteoporotic range. This is not significantly changed from 2020 but represents a 4.2 percent decrease compared with 2006. The left forearm bone mineral density measurements correspond to a T-score of the distal 3rd of 0.0 , not significantly changed over time.. IMPRESSION: Osteopenia of the lumbar spine. Osteoporosis of the left hip. Normal bone mineral density of the fo rearm.
== END ==
PROVIDERS: PCP Internal Medicine; Visit Provider Internal Medicine
DX: M81.0 Age-related osteoporosis without current pathological fracture (principal); Z13.820 Encounter for screening for osteoporosis; Z12.31 Encounter for screening mammogram for malignant neoplasm of breast
CPT/HCPCS: 77063; 77067; 77080

== ENCOUNTER 2022-08-23 09:40 | Emergency (ER) | payer MEDICARE, BC, SELFPAY ==
[2022-08-23 10:02] VITALS: BP 167/76; PULSE 101; RESP 18; TEMP 37.3; O2SAT 98
--- NOTE | 2022-08-23 10:21 | ED.GENADUL_ITS ---
Discharge Plan Disposition Patient Disposition: HOME Condition: Stable Discharge Details Chief Complaint: GenMedical Clinical Impression: Tick-borne disease Primary Care Provider: Gracy Wick ED Provider: Jr Dominguez Home Meds and New Rx's Prescriptions: New doxycycline hyclate 100 mg capsule 100 mg PO BID 10 Days Qty: 20 0RF Continued multivitamin [Daily Multi-Vitamin] Tablet 1 tab PO DAILY cyclosporine [Restasis] 0.05 % dropperette 1 drp OP Q12H (DME) Compact Compressor Nebulizer Misc See Rx Instructions .ROUTE .MEDSUPPLY Qty: 1 Rx Instructions: As directed ipratropium-albuterol 0.5 mg-3 mg(2.5 mg base)/3 mL solution for nebulization 3 ml inhalation .Q4-6H PRN omeprazole 20 MG capsule,delayed release(DR/EC) 20 mg PO BID fluticasone propion-salmeterol [Advair Diskus] 1 EACH blister with device 1 puff Inhalation DAILY mometasone [Nasonex] 17 GM spray,non-aerosol 1 spry NS DAILY albuterol sulfate [Ventolin HFA] 60 PUFF HFA aerosol inhaler 2 puff Inhalation PRN PRN alendronate [Fosamax] 70 mg Tablet 70 mg PO QWEEK ibuprofen 400 mg Tablet 400 mg PO Q8H PRN PRN rosuvastatin 20 mg Tablet 20 mg PO .QHS lisinopril 20 mg tablet 20 mg PO DAILY amlodipine 5 mg tablet 2.5 mg PO .QHS Label Comments: TAKE 1 TABLET BY MOUTH DAILY Discharge Instructions Instructions: Tick Bite (ED) Additional Instructions: You may continue use of [id number] medication as needed for body aches and fevers. Please stay well-hydrated and get plenty of rest. 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 Your primary care office should be contacting you for a phone follow-up and please keep your scheduled appointment for next week. If you have any further concerns or worsening of your condition please return to the emergency department for reassessment. Referrals: Gracy Wick [Primary Care Provider] - 08/29/22 (Please keep your appointment as scheduled) Discharge Data Discharge Date/Time-TO BE ENTERED AT DEPARTURE: 11/15/22 14:18 Medical Decision Making Patient presenting to the emergency department for chief complaint of not feeling well for the past 4 days. She reports that she started having some bloating and mild stomach discomfort on Monday along with fever, body aches, and some nausea. Patient denies any other cough or cold symptoms runny nose sore throat. Does state a strange smell in her nose but no full loss of taste and smell. Patient does states she has been hiking recently and also questions possible tick bite but denies any known rash, swollen joints or erythema. Physical exam shows acutely ill-appearing patient but has generalized shaking due to her stating she feels cold. HEENT pulmonary and cardiac exam is unremarkable along with exam of extremities. Patient does have acute tenderness mainly to the right side of her abdomen with her reporting more tenderness to the right lower quadrant. No CVA tenderness is noted. We will plan on checking patient's labs and performing CT imaging. Differential diagnosis to include infectious abdominal processes such as diverticulitis versus appendicitis, tickborne illness, viral illness. Will give patient fluids and acetaminophen pending results. Reviewed patient's labs that show a low white count, platelet count is low at 65, lymphocytes are also noted as well. Patient has sodium of 129, low potassium at 3.1, chloride of 94, glucose is 200, mag is 1.4, and a transaminase with AST elevated to 63, ALT of 76, and alk phos of 58. Lipase is within normal range. I am concerned given that patient has a transaminase and low platelet count of potential tickborne illness. We will still continue with CT imaging but we will plan on starting patient on doxycycline pending results. Reviewed CT imaging along with radiologist interpretation which shows no acute worrisome findings. Reassessed patient and she still states fever and chills type feeling with no improvement. Will give 15 mg of IV Toradol to see if that helps. We will also plan on touching base with patient's primary care provider for close follow up. Spoke with primary care provider's office who did state that they would be able to check in with patient over the phone in the next couple days and will have patient follow-up the following week for appointment which she already has scheduled. After discussion of diagnosis and plan of care patient has no further needs, questions, or concerns and states clear understanding to return to the emergency department for any worsening symptoms. This documentation was generated using [employer] system, please disregard any oddities of phrase or misspellings. HPI General Mode of arrival: ambulatory . Date/Time Provider Initiated Documentation: 08/23/22 09:53 . Limitations to Documentation: no limitations . Information obtained by: patient and RN notes reviewed . History of Present Illness 72 year old F presents to the emergency department with the chief complaint of fever chills body aches, described as moderate, with intensity rated at 8. Quality is described as aching (generalized ), Patient started experiencing this day(s) (4) and it has been constant. No relieving factors improve symptom(s), No exacerbating factors reported . Patient did receive the following treatments prior to arrival, NSAID Related Data Home Medications Medication Instructions Recorded Confirmed fluticasone 100 mcg-salmeterol 50 1 puff inhalation DAILY 01/31/13 08/23/22 mcg/dose blistr powdr for inhalation (Advair Diskus) mometasone 50 mcg/actuation nasal 1 spry NS DAILY 01/31/13 08/23/22 spray (Nasonex) omeprazole 20 mg capsule,delayed 20 mg PO BID 01/31/13 08/23/22 release albuterol sulfate 90 mcg/actuation 2 puff inhalation PRN PRN 07/04/15 08/23/22 aerosol inhaler (Ventolin HFA) cyclosporine 0.05 % eye drops in a 1 drp ophthalmic (eye) Q12H 11/14/19 08/23/22 dropperette (Restasis) multivitamin (Daily Multi-Vitamin 1 tab PO DAILY 11/14/19 08/23/22 tablet) nebulizers (Compact Compressor #1 ea 11/14/19 06/01/22 Nebulizer) alendronate 70 mg tablet (Fosamax) 70 mg PO QWEEK 07/06/20 08/23/22 ipratropium 0.5 mg-albuterol 3 mg 3 ml inhalation .Q4-6H PRN 09/28/20 08/23/22 (2.5 mg base)/3 mL nebulization soln amlodipine 5 mg tablet 2.5 mg PO .QHS 10/26/20 08/23/22 lisinopril 20 mg tablet 20 mg PO DAILY 10/26/20 08/23/22 rosuvastatin 20 mg tablet 20 mg PO .QHS 10/26/20 08/23/22 ibuprofen 400 mg tablet 400 mg PO Q8H PRN PRN 06/02/22 08/23/22 doxycycline hyclate 100 mg capsule 100 mg PO BID 10 days #20 caps 08/23/22 Previous Rx's Medication Instructions Recorded doxycycline hyclate 100 mg capsule 100 mg PO BID 10 days #20 caps 08/23/22 Allergies Allergy/AdvReac Type Severity Reaction Status Date / Time latex Allergy Intermediate Skin Rash Verified 08/23/22 10:05 mirtazapine [From Remeron] Allergy Intermediate unknown Verified 08/23/22 10:05 animal dander Allergy Mild Verified 08/23/22 10:05 venlafaxine HCl AdvReac Severe seizure Verified 08/23/22 10:05 [From Effexor] meperidine HCl [From Demerol] AdvReac Intermediate vomit, Verified 08/23/22 10:05 couldn't wake up oxycodone [Oxycodone] AdvReac Intermediate gi upset Verified 08/23/22 10:05 General Stated Complaint: GenMedical SIXTO: 3 Review of Systems Constitutional Constitutional: Reports chills, Reports fatigue, Reports fever(s), Reports headache(s), Reports lethargy, Reports malaise and Reports poor appetite ENT Ears, Nose, Mouth, and Throat: Reports headache(s), Denies nasal congestion and Denies sore throat Cardiovascular Cardiovascular: Denies chest pain, Denies syncope and Denies dyspnea Respiratory Respiratory: Denies cough and Denies dyspnea Gastrointestinal Gastrointestinal: Reports abdominal pain, Reports diarrhea, Reports nausea and Denies vomiting Genitourinary Genitourinary: Reports system reviewed and no additional complaints, except as documented Musculoskeletal Musculoskeletal: Reports myalgias, Reports arthralgias and Denies joint swelling Integumentary/Breasts Skin/Breast: Denies rash Neurologic Neurologic: Denies syncope, Reports headache(s), Denies localized weakness and Denies paresthesias Endocrine Endocrine: Reports fatigue Hematologic/Lymphatic Hematologic/Lymphatic: Denies lymphadenopathy Allergic/Immunologic Allergic/Immunologic: Denies urticaria PFSH All Active Problems (Updated 08/23/22 @ 13:46 by Jr Dominguez NP) Tick-borne disease (Acute) GERD (gastroesophageal reflux disease) (Chronic) Asthma (Chronic) Tubular adenoma of colon (Acute) Hyperplastic colon polyp (Acute) Hypertensive emergency (Acute) Altered mental status (Acute) Barretts esophagus (Acute) Abdominal pain in female (Acute) Crohn's colitis (Acute) Trochanteric bursitis, left hip (Acute) Depo-Medrol injection: 05/09/2022 Medical History Allergic rhinitis Anxiety Dry eye syndrome Encounter for screening colonoscopy Facial rhytids (01/15/18) Fatigue Hormone replacement therapy (HRT) Hyperlipidemia Hypertension Impaired fasting glucose Ischial bursitis of right side Depo-Medrol injection: 01/14/2021 (Dr. Drummond); previous injections on 06/12/2014, 02/12/2014, 11/14/2013 (Dr. Bear) Lesion of vocal cord Osteoporosis Premature ventricular contractions (PVCs) (VPCs) Per pt. states this is due to anxiety Rash, skin Sleep apnea Tick bite Vaginal prolapse (03/29/16) s/p laparoscopic colpopexy, [place] [facility] [place] D [place] Surgical History Colonoscopy - IV Sedation with EGD for Barretts esophagitis History of colonoscopy (~05/2022) History of open sigmoidectomy laparoscopic sacral colpopexy 03/29/16 with [place]rh[place] [facility] [place]ophrectomy, Left (~[place]) Repair of umbilical hernia Vaginal hysterectomy (~2002) for uterine prolapse, with oophorectomy Family History Mother Essential hypertension Heart disease Stroke Father Blood disorder required blood transfusions Brother Diabetes Grandfather , mouth cancer Diabetes Grandmother , breast cancer No problems noted. 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 [employer] Pets and animals: Yes Pets and animals: cat(s) What is your relationship status?: Panel score (0-1 are the most socially isolated patients): 1 What type of physical activity do you participate in: walking Seatbelt use: always Do you feel safe at home: Yes Do you feel safe in your relationship?: Yes Exam Const General: cooperative and no acute distress Orientation: alert and awake [facility] Head: normal to inspection, normocephalic and atraumatic Ears: hearing grossly normal bilaterally and TM's normal bilaterally General nose exam: external nose normal Face and sinus: no erythema Mouth: oral mucosae normal, no drooling, no muffled voice and no trismus Throat: posterior oropharynx normal Neck Neck: normal visual inspection, full ROM, no lymphadenopathy, no meningeal signs, trachea midline and supple Resp Effort & Inspection: normal respiratory effort and able to speak in complete sentences Auscultation: clear to auscultation bilaterally Cardio Rate: regular rate Rhythm: regular rhythm Heart Sounds: S1 normal, S2 normal, normal S1 and S2, no click, no gallops, no murmurs and no rubs GI Inspection: normal to inspection Palpation: soft, no hepatosplenomegaly, not firm, guarding in the RLQ, no masses, no pulsatile masses, not rigid, no splenomegaly and tender in the RLQ, in the RUQ and at McBurney's point Auscultation: normal bowel sounds Back/Spine/Pelvis Back: no CVA tenderness Skin General skin exam: no rashes or lesions noted and dry skin (warm) Neuro General: patient alert, patient awake, patient oriented x3, gait normal, moves all extremities and no focal motor deficits Cognition: normal cognition Speech: speech normal Extrem General: normal to inspection, full ROM, capillary refill normal and no joint enlargement Course Vital Signs Vital signs: Vital Signs Temperature 37.3 C 08/23/22 10:02 Pulse 101 H 08/23/22 10:02 Respiratory Rate 18 08/23/22 10:02 Blood Pressure 167/76 H 08/23/22 10:02 Pulse Oximetry 98 08/23/22 10:02 Temperature 37.3 C 08/23/22 10:02 Temperature Source Oral 08/23/22 10:02 Pulse 101 H 08/23/22 10:02 Respiratory Rate 18 08/23/22 10:02 Respiratory Effort Non-Labored 08/23/22 10:04 Blood Pressure 167/76 H 08/23/22 10:02 Blood Pressure Position Sitting 08/23/22 10:02 Pulse Oximetry 98 08/23/22 10:02 Oxygen Delivery Method Room Air 08/23/22 10:02 Oxygen Flow Rate 0 08/23/22 10:02 Pain Level 2 08/23/22 10:02 PAWSS Have you Been Recently Intoxicated or Drunk Within the Last 30 days?: No Have you Ever Experienced Previous Episodes of Alcohol Withdrawal?: No Have you ever Experienced Withdrawal Seizures?: No Have you ever Experienced Delirium Tremens(DT)s?: No Have you ever undergone Alcohol Rehabilitation Treatment (i.e, inpt ot outpatient treatment programs)?: No Have you ever Experienced Blackouts?: No Have you ever Combined Alcohol with other Downers within the last 90 days?: No Have you ever Combined Alcohol with any other Substance of Abuse during the last 90 days?: No Positive Blood Alcohol level on Presentation? [PCS.BAL]: No Evidence of Increased Autonomic Activity (i.e. HR>120, tremor, sweating, agitation, nausea)?: No Result: 0
[2022-08-23] MEDS: Normal Saline 1,000 ML 1000 ML IV (10:45)
[2022-08-23] MEDS: Ondansetron 4 MG/2 ML VIAL IVP (10:49)
[2022-08-23 11:11] LABS: HCT 35.8 % (36.0-46.0); HGB 12.2 g/dL (11.2-15.7); MCH 30.9 pg (27.0-33.0); MCHC 34.1 % (32.0-36.0); MCV 91 fL (80-95); RBC 3.95 10^6/uL (3.93-5.22); RDW 12.6 % (11.7-14.6); RDW-SD 42.3 fL; WBC 4.22 10^3/uL (4.4-10.8)
[2022-08-23 11:26] LABS: Lipase 46 U/L (73-393)
[2022-08-23 11:29] LABS: ALT 76 U/L (14-59); AST 63 U/L (15-37); Albumin 3.6 g/dL (3.4-5.0); Alkaline Phosphatase 158 U/L (46-116); Anion Gap 9.9 mmol/L (3-11); BUN 9 mg/dL (7-18); Bilirubin, Total 0.7 mg/dL (0.2-1.0); CO2 25.1 mmol/L (21.0-32.0); CREATININE 0.9 mg/dL (0.55-1.02); Calcium 8.6 mg/dL (8.5-10.1); Chloride 94 mmol/L (98-107); Estimated GFR 67.92 (mL/min/1.73m2); Glucose 200 mg/dL (74-106); Magnesium 1.4 mg/dL (1.8-2.4); Potassium 3.1 mmol/L (3.5-5.1); Sodium 129 mmol/L (136-145); Total Protein 7.4 g/dL (6.4-8.2)
[2022-08-23 11:45] LABS: COVID-19 PCR Negative (Negative); Influenza A PCR Negative (Negative); Influenza B PCR Negative (Negative); RSV PCR Negative (Negative)
[2022-08-23] MEDS: Potassium Chloride Liquid 20 MEQ PKT 40 MEQ PO (11:46)
[2022-08-23] MEDS: Magnesium Oxide 400 MG TAB PO (11:46)
[2022-08-23 11:47] LABS: Absolute Lymphocyte Count 0.17 10^3/uL (1.2-3.4); Absolute Monocyte Count 0.13 10^3/uL (0.1-0.8); Absolute Neutrophil Count 3.92 10^3/uL (1.2-6.7); Bands % 18; Platelet Count 65 10^3/uL (130-400)
[2022-08-23 11:48] LABS: Diff Comment Manual Differential; RBC Morphology Normal
[2022-08-23 11:53] LABS: Source Nasopharynx
--- NOTE | 2022-08-23 11:57 | DI.CT_ITS ---
Exam(s) CT ABDOMEN PELVIS W EXAM: CT ABDOMEN PELVIS W CLINICAL HISTORY: RLQ pain. Ovoid TECHNIQUE: Imaging Protocol: Axial computed tomography images with coronal and sagittal reformatted images were created and reviewed CONTRAST MATERIAL: Intravenous: Omnipaque 100cc Oral: None COMPARISON: CT CT ABDOMEN PELVIS WO from 03/12/2022 FINDINGS: VISUALIZED LUNG BASES: There is increasing pleural based infiltrate in the posterior basal segment of the right lower lobe. Also in the posterior basal segment of the left lower lobe. There are no pleur al effusions. The mild increased markings in the lingular segment of the left lung are again noted.. ABDOMEN: There is no ascites. Small hiatal hernia noted. LIVER: There are no focal hepatic lesions evident. GALLBLADDER/BILIARY: No obvious gallbladder pathology. CBD is not dilated. PANCREAS: No evidence of pancreatic mass nor dilatation of the pancreatic duct. SPLEEN: Spleen is not enlarged. No obvious intrasplenic lesions. Splenic and portal veins are paten t. ADRENALS: There are no significant adrenal masses. KIDNEYS:There is a cyst in the inferior pole of the right kidney measuring 2 cm x 2 cm., unchanged. N o solid renal masses. No calculi nor hydronephrosis.. ABDOMINAL AORTA: Calcified but not enlarged. LYMPH NODES:There is no retroperitoneal nor paraaortic adenopathy. ABDOMINAL WALL: Postoperative changes in the anterior abdominal wall are again noted. GI: There is no evidence of bowel obstruction, free air, nor abscess. PELVIS: GI: No evidence of appendicitis.Again noted is low partial sigmoid resection. No abnormal findings at the level of the anastomosis. No free fluid LYMPH NODES: There is no intrapelvic nor inguinal adenopathy. REPRODUCTIVE: Uterus is surgically absent. No abnormal adnexal masses. URINARY BLADDER: No calculi nor obvious masses evident OSSEOUS: No significant osseous lesions. IMPRESSION: 1. Compared to the prior CT scan of 03/12/2022 there is again noted evidence of hysterectomy and part ial sigmoid resection. 2. No evidence of appendicitis nor diverticulitis. 3. No abnormal adnexal masses. 4. Benign 2 cm cyst in the inferior pole right kidney. Requires no further workup. RADIATION DOSE DELIVERED: 609.84mGy.cm Total DLP DATA REPOSITORY: All CT scans at this facility are submitted to the National Radiology Data Registry (NRDR) Dose Index Registry (DIR) with the [employer] (ACR). RADIATION OPTIMIZATION: All CT scans at this facility use at least one of these dose optimization te chniques: automated exposure control; mA and/or kV adjustment per patient size (includes targeted exa ms where dose is matched to clinical indication); or iterative reconstruction.
[2022-08-23] MEDS: DOXYCYCLINE 100 MG in Normal Saline 100 ML IVPB (12:04)
[2022-08-23] MEDS: Normal Saline - Diluent 50 ML VIAL IV (12:09)
[2022-08-23] MEDS: Omnipaque 350 MG/ML 500 ML BTL-Imaging package 100 ML IJ (12:12)
[2022-08-23 12:43] LABS: Bilirubin Negative (Negative); Blood Trace-lysed (Negative); Clarity Clear (Clear); Glucose Negative (Negative); Ketones Trace mg/dL (Negative); Leukocyte Esterase Negative (Negative); Nitrite Negative (Negative); Specific Gravity 1.015 (1.005-1.025); Urobilinogen 0.2 EU/dL (Up TO 0.2)
[2022-08-23 12:57] LABS: Bacteria Negative HPF (Negative); C & S Indicated? No/Sq. Contamination; Casts 3-5 Coarse Granular LPF (Negative); Crystals Negative HPF (Negative); Epithelial Cells Moderate HPF (Negative); Mucus Negative (Negative); WBC 0-2 HPF (0-5)
[2022-08-23 13:28] VITALS: BP 132/66; PULSE 99; RESP 18; O2SAT 96
[2022-08-23] MEDS: Ketorolac 15 MG/ML VIAL IVP (13:37)
[2022-08-23] MEDS: Ondansetron O.D.T. 4 MG TABEF, 3 TABS/BTL PO (14:14)
[2022-08-23 14:16] VITALS: RESP 18
[2022-08-24 10:44] LABS: Lyme Ab w Rflx to Lyme Confirm Negative (Negative)
[2022-08-26 23:00] LABS: B. miyamotoi PCR Negative (Negative); Babesia divergens/MO-1 Negative (Negative); Babesia duncani Negative (Negative); Babesia microti Negative (Negative); Ehrlichia chaffeensis Negative (Negative); Ehrlichia ewingii/canis Negative (Negative); Ehrlichia muris eauclairensis Negative (Negative)
[2022-08-27 08:20] LABS: Anaplasma phagocytophilum Positive (Negative)
--- NOTE | 2022-08-27 09:36 | W.EDPROG ---
Date of service: 08/27/22 Time of Service: 09:36 Medical Decision Making Patient is positive for anaplasmosis, results were relayed to patient via the phone, patient is currently taking a 10-day course of doxycycline appropriately and feeling much better. Is following up with her primary care physician on Monday. Given return precautions and care instructions. Sign Out No Discharge Plan Disposition Patient Disposition: HOME Condition: Stable Discharge Details Chief Complaint: GenMedical Clinical Impression: Tick-borne disease Primary Care Provider: Gracy Wick ED Provider: Jr Dominguez Home Meds and New Rx's Prescriptions: New doxycycline hyclate 100 mg capsule 100 mg PO BID 10 Days Qty: 20 0RF Continued multivitamin [Daily Multi-Vitamin] Tablet 1 tab PO DAILY cyclosporine [Restasis] 0.05 % dropperette 1 drp OP Q12H (DME) Compact Compressor Nebulizer Misc See Rx Instructions .ROUTE .MEDSUPPLY Qty: 1 Rx Instructions: As directed ipratropium-albuterol 0.5 mg-3 mg(2.5 mg base)/3 mL solution for nebulization 3 ml inhalation .Q4-6H PRN omeprazole 20 MG capsule,delayed release(DR/EC) 20 mg PO BID fluticasone propion-salmeterol [Advair Diskus] 1 EACH blister with device 1 puff Inhalation DAILY mometasone [Nasonex] 17 GM spray,non-aerosol 1 spry NS DAILY albuterol sulfate [Ventolin HFA] 60 PUFF HFA aerosol inhaler 2 puff Inhalation PRN PRN alendronate [Fosamax] 70 mg Tablet 70 mg PO QWEEK ibuprofen 400 mg Tablet 400 mg PO Q8H PRN PRN rosuvastatin 20 mg Tablet 20 mg PO .QHS lisinopril 20 mg tablet 20 mg PO DAILY amlodipine 5 mg tablet 2.5 mg PO .QHS Label Comments: TAKE 1 TABLET BY MOUTH DAILY Discharge Instructions Instructions: Tick Bite (ED) Additional Instructions: You may continue use of [id number] medication as needed for body aches and fevers. Please stay well-hydrated and get plenty of rest. 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 Your primary care office should be contacting you for a phone follow-up and please keep your scheduled appointment for next week. If you have any further concerns or worsening of your condition please return to the emergency department for reassessment. Referrals: Gracy Wick [Primary Care Provider] - 08/29/22 (Please keep your appointment as scheduled) Discharge Data Discharge Date/Time-TO BE ENTERED AT DEPARTURE: 08/23/22 14:18
== END 2022-08-23 14:18 | disposition home or self-care (01) ==
PROVIDERS: Emergency Provider Nurse Practitioner Family; PCP Internal Medicine
DX: A84.9 Tick-borne viral encephalitis, unspecified (principal); E87.6 Hypokalemia; I10 Essential (primary) hypertension; E78.5 Hyperlipidemia, unspecified; R74.01 Elevation of levels of liver transaminase levels; Z20.822 Contact with and (suspected) exposure to COVID-19
CPT/HCPCS: 80053; 83690; 87637; 87798; 96361; 96365; 96375; 99284; 99285; 74177; 81003; 81015; 83735; 85025; 86618; J0131; J1885; J2405

== ENCOUNTER 2022-09-29 02:14 | Outpatient (CLI) | payer MEDICARE, BC, SELFPAY ==
[2022-09-29 09:56] LABS: Abs Immature Grans 0.04 10^3/uL (0.0-0.06); Absolute Basophil Count 0.05 10^3/uL (0.0-0.2); Absolute Eosinophil Count 0.28 10^3/uL (0.0-0.7); Absolute Lymphocyte Count 1.33 10^3/uL (1.2-3.4); Absolute Monocyte Count 0.65 10^3/uL (0.1-0.8); Absolute Neutrophil Count 3.45 10^3/uL (1.2-6.7); Basophils % 0.9; Eosinophils % 4.8; HCT 36.3 % (36.0-46.0); HGB 11.9 g/dL (11.2-15.7); Immature Grans % 0.7; Lymphocytes % 22.9; MCH 31.2 pg (27.0-33.0); MCHC 32.8 % (32.0-36.0); MCV 95 fL (80-95); MPV 8.9 fL (8.0-11.0); Monocytes % 11.2; Neutrophils % 59.5; Platelet Count 323 10^3/uL (130-400); RBC 3.82 10^6/uL (3.93-5.22); RDW 13.2 % (11.7-14.6)
[2022-09-29 10:33] LABS: ALT 40 U/L (14-59); AST 21 U/L (15-37); Alkaline Phosphatase 100 U/L (46-116); BUN 17 mg/dL (7-18); Bilirubin, Total 0.4 mg/dL (0.2-1.0); CREATININE 0.9 mg/dL (0.55-1.02); Calcium 8.8 mg/dL (8.5-10.1); Chloride 105 mmol/L (98-107); Estimated GFR 67.92 (mL/min/1.73m2); Glucose 113 mg/dL (74-106); Potassium 3.8 mmol/L (3.5-5.1); Sodium 140 mmol/L (136-145); Total Protein 7.2 g/dL (6.4-8.2)
== END 2022-09-29 02:15 | disposition home or self-care (01) ==
LOC: LBO 02:14
PROVIDERS: PCP Internal Medicine; Visit Provider Internal Medicine
DX: A79.82 Anaplasmosis [A. phagocytophilum] (principal)
CPT/HCPCS: 36415; 80053; 85025

== ENCOUNTER 2022-11-29 02:05 | Outpatient (CLI) | payer MEDICARE, BC, SELFPAY ==
[2022-11-29 13:26] LABS: Abs Immature Grans 0.04 10^3/uL (0.0-0.06); Absolute Basophil Count 0.04 10^3/uL (0.0-0.2); Absolute Eosinophil Count 0.31 10^3/uL (0.0-0.7); Absolute Lymphocyte Count 1.36 10^3/uL (1.2-3.4); Absolute Neutrophil Count 4.45 10^3/uL (1.2-6.7); Basophils % 0.6; Eosinophils % 4.6; HCT 35.8 % (36.0-46.0); HGB 11.7 g/dL (11.2-15.7); Immature Grans % 0.6; Lymphocytes % 20.3; MCH 30.2 pg (27.0-33.0); MCHC 32.7 % (32.0-36.0); MCV 93 fL (80-95); MPV 8.7 fL (8.0-11.0); Monocytes % 7.5; Neutrophils % 66.4; Platelet Count 318 10^3/uL (130-400); RBC 3.87 10^6/uL (3.93-5.22); RDW 13.2 % (11.7-14.6); RDW-SD 45.2 fL
[2022-11-29 13:36] LABS: ESR 2 mm/hr (0-30)
[2022-11-29 14:04] LABS: ALT 32 U/L (14-59); AST 16 U/L (15-37); Albumin 4.3 g/dL (3.4-5.0); Alkaline Phosphatase 91 U/L (46-116); Anion Gap 11.8 mmol/L (3-11); BUN 24 mg/dL (7-18); Bilirubin, Total 0.4 mg/dL (0.2-1.0); CO2 24.2 mmol/L (21.0-32.0); CREATININE 1.4 mg/dL (0.55-1.02); Calcium 8.7 mg/dL (8.5-10.1); Chloride 102 mmol/L (98-107); Creatine Kinase 95 U/L (26-192); Estimated GFR 39.97 (mL/min/1.73m2); FREE T4 0.95 ng/dL (0.76-1.46); Glucose 189 mg/dL (74-106); Magnesium 1.5 mg/dL (1.8-2.4); Sodium 138 mmol/L (136-145); TSH 1.51 uIU/mL (0.36-3.74); Total Protein 7.3 g/dL (6.4-8.2)
[2022-11-29 14:12] LABS: Iron 87 ug/dL (50-170); Total Iron Binding Capacity 456 ug/dL (250-450); Transferrin Sat 19 % (15-50)
[2022-11-29 14:41] LABS: Vitamin D 25 Total 28.7 ng/mL (30-100)
[2022-11-29 14:43] LABS: Ferritin 80 ng/mL (8-252); Folate 14.7 ng/mL (8.6-20.0); Vitamin B12 513 pg/mL (193-986)
[2022-11-29 22:05] LABS: Rheumatoid Factor <8.6 IU/mL (<12.0)
[2022-11-29 22:25] LABS: T3,Free 3.5 pg/mL (2.8-5.3)
[2022-11-30 12:20] LABS: Hepatitis C Ab w Rflx HCV PCR Negative (Negative)
[2022-11-30 12:33] LABS: ANA Interpretation Positive (Negative); ANA Titer Pattern 1:160 Homogeneous
== END 2022-11-29 02:06 | disposition home or self-care (01) ==
LOC: LBO 02:05
PROVIDERS: PCP Internal Medicine; Visit Provider Physical Medicine & Rehabilitation
DX: E61.1 Iron deficiency (principal); M79.10 Myalgia, unspecified site; E55.9 Vitamin D deficiency, unspecified; R53.83 Other fatigue; G47.9 Sleep disorder, unspecified; E53.8 Deficiency of other specified B group vitamins; D64.9 Anemia, unspecified; M89.9 Disorder of bone, unspecified
CPT/HCPCS: 36415; 80053; 82306; 82550; 85652; 86803; 82607; 82728; 82746; 83540; 83550; 83735; 84439; 84443; 84481; 85025; 86038; 86431

== ENCOUNTER 2023-03-27 13:52 | Outpatient (REF) | payer MEDICARE, BC, SELFPAY ==
[2023-03-27 21:48] LABS: MCH 31.1 pg (27.0-33.0); MCHC 33.3 % (32.0-36.0); MCV 93 fL (80-95); MPV 9.5 fL (8.0-11.0); Platelet Count 334 10^3/uL (130-400); RBC 3.86 10^6/uL (3.93-5.22); RDW 13.1 % (11.7-14.6); RDW-SD 44.9 fL
[2023-03-27 22:09] LABS: ALT 42 U/L (14-59); AST 24 U/L (15-37); Albumin 4.3 g/dL (3.4-5.0); Alkaline Phosphatase 83 U/L (46-116); BUN 21 mg/dL (7-18); Bilirubin, Total 0.4 mg/dL (0.2-1.0); CREATININE 1.2 mg/dL (0.55-1.02); Calcium 8.7 mg/dL (8.5-10.1); Chloride 100 mmol/L (98-107); Estimated GFR 48.09 (mL/min/1.73m2); Glucose 94 mg/dL (74-106); Sodium 135 mmol/L (136-145); TSH 1.57 uIU/mL (0.36-3.74); Total Protein 7.5 g/dL (6.4-8.2)
== END 2023-03-27 13:53 | disposition home or self-care (01) ==
LOC: NCHCN 13:52
PROVIDERS: PCP Internal Medicine; Visit Provider Internal Medicine
DX: R53.83 Other fatigue (principal); E55.9 Vitamin D deficiency, unspecified; M81.0 Age-related osteoporosis without current pathological fracture; F10.11 Alcohol abuse, in remission
CPT/HCPCS: 80053; 85027; 84443

== ENCOUNTER 2023-08-02 10:05 | Emergency (ER) | payer MEDICARE, BC, SELFPAY ==
[2023-08-02 10:16] VITALS: BP 157/67; PULSE 77; RESP 20; TEMP 36.8; O2SAT 99
[2023-08-02] MEDS: Ketorolac 30 MG/ML VIAL IM (11:18)
[2023-08-02] MEDS: Acetaminophen 325 MG TAB 650 MG PO (11:18)
--- NOTE | 2023-08-02 11:29 | ED.GENADUL_ITS ---
Discharge Plan Disposition Patient Disposition: Home Condition: Stable Discharge Details Clinical Impression: Acute pain of left shoulder Primary Care Provider: Gracy Wick ED Provider: Benito Barber Home Meds and New Rx's Prescriptions: Continued multivitamin [Daily Multi-Vitamin] Tablet 1 tab PO DAILY cyclosporine [Restasis] 0.05 % dropperette 1 drp OP Q12H (DME) Compact Compressor Nebulizer Misc See Rx Instructions .ROUTE .MEDSUPPLY Qty: 1 Rx Instructions: As directed ipratropium-albuterol 0.5 mg-3 mg(2.5 mg base)/3 mL solution for nebulization 3 ml inhalation .Q4-6H PRN omeprazole 20 MG capsule,delayed release(DR/EC) 20 mg PO BID fluticasone propion-salmeterol [Advair Diskus] 1 EACH blister with device 1 puff Inhalation DAILY mometasone [Nasonex] 17 GM spray,non-aerosol 1 spry NS DAILY albuterol sulfate [Ventolin HFA] 60 PUFF HFA aerosol inhaler 2 puff Inhalation PRN PRN alendronate [Fosamax] 70 mg Tablet 70 mg PO QWEEK ibuprofen 400 mg Tablet 400 mg PO Q8H PRN PRN rosuvastatin 20 mg Tablet 20 mg PO .QHS lisinopril 20 mg tablet 20 mg PO DAILY amlodipine 5 mg tablet 2.5 mg PO .QHS Patient Comments: TAKE 1 TABLET BY MOUTH DAILY Discharge Instructions Instructions: Shoulder Pain (ED) Additional Instructions: Use shoulder sling for the next 1 to 2 weeks. Take your shoulder out of sling and perform pendulum exercises as reviewed a couple times a day. Please take ibuprofen over the counter. Take 600mg by mouth every 6 hours as needed for pain. Please contact your primary care physician to arrange follow-up. Follow-up with orthopedics if pain does not improve as expected over the next 1 to 2 weeks. Return to the ER immediately for any worsening or new concerning symptoms. Stand Alone Forms: Work Release Referrals: [facility] [Provider Group] Gracy Wick [Primary Care Provider] - Medical Decision Making 0066 -- 73-year-old female here with severe pain in her right shoulder 5 days after injury that occurred while rotating her steering well. Patient is neurovascular intact distally. Concern for rotator cuff injury versus arthritis. Plan to treat with Toradol IM as well as acetaminophen p.o. I will place patient in sling. 1235 --patient reassessed and pain improved. Plan for discharge with outpatient follow-up. HPI General Mode of arrival: ambulatory . Date/Time Provider Initiated Documentation: 08/02/23 10:31 . Limitations to Documentation: no limitations . Information obtained by: patient . HPI Narrative: 73-year-old female presents with chief complaint of right shoulder pain. Patient notes 4 days ago she was turning the steering wheel of her car rapidly and she felt sudden onset of pain in her right shoulder. Initially her shoulder mildly sore. She notes she splinted it and rested it for a couple days. She notes that yesterday she was doing housework and thinks she exacerbated the inflammation. Pain is now severe and worse with any movement. Patient denies direct trauma to the shoulder. Related Data Home Medications Medication Instructions Recorded Confirmed fluticasone 100 mcg-salmeterol 50 1 puff inhalation DAILY 01/31/13 08/02/23 mcg/dose blistr powdr for inhalation (Advair Diskus) mometasone 50 mcg/actuation nasal 1 spry NS DAILY 01/31/13 08/02/23 spray (Nasonex) omeprazole 20 mg capsule,delayed 20 mg PO BID 01/31/13 08/02/23 release albuterol sulfate 90 mcg/actuation 2 puff inhalation PRN PRN 07/04/15 08/02/23 aerosol inhaler (Ventolin HFA) cyclosporine 0.05 % eye drops in a 1 drp ophthalmic (eye) Q12H 11/14/19 08/02/23 dropperette (Restasis) multivitamin (Daily Multi-Vitamin 1 tab PO DAILY 11/14/19 08/02/23 tablet) nebulizers (Compact Compressor #1 ea 11/14/19 06/01/22 Nebulizer) alendronate 70 mg tablet (Fosamax) 70 mg PO QWEEK 07/06/20 08/02/23 ipratropium 0.5 mg-albuterol 3 mg 3 ml inhalation .Q4-6H PRN 09/28/20 08/02/23 (2.5 mg base)/3 mL nebulization soln amlodipine 5 mg tablet 2.5 mg PO .QHS 10/26/20 08/02/23 lisinopril 20 mg tablet 20 mg PO DAILY 10/26/20 08/02/23 rosuvastatin 20 mg tablet 20 mg PO .QHS 10/26/20 08/02/23 ibuprofen 400 mg tablet 400 mg PO Q8H PRN PRN 06/02/22 08/02/23 Allergies Allergy/AdvReac Type Severity Reaction Status Date / Time latex Allergy Intermediate Skin Rash Verified 08/02/23 10:20 mirtazapine [From Remeron] Allergy Intermediate unknown Verified 08/02/23 10:20 animal dander Allergy Mild Verified 08/02/23 10:20 venlafaxine HCl AdvReac Severe seizure Verified 08/02/23 10:20 [From Effexor] meperidine HCl [From Demerol] AdvReac Intermediate vomit, Verified 08/02/23 10:20 couldn't wake up oxycodone [Oxycodone] AdvReac Intermediate gi upset Verified 08/02/23 10:20 General Stated Complaint: Orthopedic SIXTO: 4 Review of Systems Constitutional Constitutional: Denies fever(s) Musculoskeletal Musculoskeletal: Reports as per HPI PFSH All Active Problems (Updated 08/02/23 @ 12:36 by Benito Barber MD) Acute pain of left shoulder (Acute) GERD (gastroesophageal reflux disease) (Chronic) Asthma (Chronic) Tubular adenoma of colon (Acute) Hyperplastic colon polyp (Acute) Hypertensive emergency (Acute) Altered mental status (Acute) Barretts esophagus (Acute) Abdominal pain in female (Acute) Crohn's colitis (Acute) Trochanteric bursitis, left hip (Acute) Depo-Medrol injection: 05/09/2022 Medical History Sleep apnea Tick bite Ischial bursitis of right side Depo-Medrol injection: 01/14/2021 (Dr. Drummond); previous injections on 06/12/2014, 02/12/2014, 11/14/2013 (Dr. Bear) Osteoporosis Lesion of vocal cord Rash, skin Facial rhytids (01/15/18) Encounter for screening colonoscopy Hypertension Anxiety Hormone replacement therapy (HRT) Allergic rhinitis Hyperlipidemia Premature ventricular contractions (PVCs) (VPCs) Per pt. states this is due to anxiety Dry eye syndrome Vitamin D deficiency Fatigue Impaired fasting glucose Vaginal prolapse (03/29/16) s/p laparoscopic colpopexy, posterior repair. [facility] [place]. Surgical History History of colonoscopy (~05/2022) History of open sigmoidectomy laparoscopic sacral colpopexy 03/29/[address] [facility] [place]. Oophrectomy, Left (~2000) Vaginal hysterectomy (~2002) for uterine prolapse, with oophorectomy Repair of umbilical hernia Colonoscopy - IV Sedation with EGD for Barretts esophagitis Family History Mother Essential hypertension Heart disease Stroke Father Blood disorder required blood transfusions Brother Diabetes Grandfather , mouth cancer Diabetes Grandmother , breast cancer No problems noted. 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 [employer] Pets and animals: Yes Pets and animals: cat(s) What is your relationship status?: Panel score (0-1 are the most socially isolated patients): 1 What type of physical activity do you participate in: walking Seatbelt use: always Do you feel safe at home: Yes Do you feel safe in your relationship?: Yes Exam Extrem Right upper extremity: shoulder/upper arm Details: tenderness Location: other (Anterior shoulder), axillary nerve sensory function normal and abnormal ROM Details: held in an abnormal fashion Details: in ADduction; no ecchymosis and no unusual warmth Other: 2+ radial pulse, distal sensation and motor intact Course Vital Signs Vital signs: Vital Signs Temperature 36.8 C 08/02/23 10:16 Pulse 77 08/02/23 10:16 Respiratory Rate 20 08/02/23 10:16 Blood Pressure 157/67 H 08/02/23 10:16 Pulse Oximetry 99 08/02/23 10:16 Temperature 36.8 C 08/02/23 10:16 Temperature Source Oral 08/02/23 10:16 Pulse 77 08/02/23 10:16 Respiratory Rate 20 08/02/23 10:16 Respiratory Effort Normal 08/02/23 10:23 Blood Pressure 157/67 H 08/02/23 10:16 Blood Pressure Position Sitting 08/02/23 10:16 Pulse Oximetry 99 08/02/23 10:16 Oxygen Delivery Method Room Air 08/02/23 10:16 Oxygen Flow Rate 0 08/02/23 10:16 Pain Level 9 08/02/23 10:16
[2023-08-02 12:48] VITALS: BP 122/72; PULSE 72; RESP 16; O2SAT 99
== END 2023-08-02 12:49 | disposition home or self-care (01) ==
PROVIDERS: Emergency Provider Student in an Organized Health Care Education/Training Program; PCP Internal Medicine
DX: M25.511 Pain in right shoulder (principal); I10 Essential (primary) hypertension; X50.1XXA Overexertion from prolonged static or awkward postures, initial encounter; Z79.899 Other long term (current) drug therapy
CPT/HCPCS: 96372; 99284; 99283; J1885

== ENCOUNTER 2023-10-05 19:24 | Emergency (ER) | payer MEDICARE, BC, SELFPAY ==
[2023-10-05 19:31] VITALS: BP 170/93; PULSE 105; RESP 16; TEMP 37.9; O2SAT 94
--- NOTE | 2023-10-05 20:06 | ED.GENADUL_ITS ---
Discharge Plan Disposition Patient Disposition: Home Condition: Stable Discharge Details Clinical Impression: COVID-19 Primary Care Provider: Gracy Wick ED Provider: Starr Valentin Home Meds and New Rx's Prescriptions: New Paxlovid 300 mg (150 mg x 2)-100 mg Tablets,Dose Pack See Rx Instructions .ROUTE .COMPLEX Qty: 0 0RF Rx Instructions: follow package instructions, take twice daily for 5 days Continued multivitamin [Daily Multi-Vitamin] Tablet 1 tab PO DAILY cyclosporine [Restasis] 0.05 % dropperette 1 drp OP Q12H (DME) nebulizers [Compact Compressor Nebulizer] [facility] [place] See Rx Instructions .ROUTE .MEDSUPPLY Qty: 1 Rx Instructions: As directed ipratropium-albuterol 0.5 mg-3 mg(2.5 mg base)/3 mL solution for nebulization 3 ml inhalation .Q4-6H PRN omeprazole 20 MG capsule,delayed release(DR/EC) 20 mg PO BID mometasone [Nasonex] 17 GM spray,non-aerosol 1 spry NS DAILY albuterol sulfate [Ventolin HFA] 60 PUFF HFA aerosol inhaler 2 puff Inhalation PRN PRN alendronate [Fosamax] 70 mg Tablet 70 mg PO QWEEK ibuprofen 400 mg Tablet 400 mg PO Q8H PRN PRN lisinopril 20 mg tablet 20 mg PO DAILY amlodipine 5 mg tablet 2.5 mg PO .QHS Patient Comments: TAKE 1 TABLET BY MOUTH DAILY Held fluticasone propion-salmeterol [Advair Diskus] 1 EACH blister with device 1 puff Inhalation DAILY Hold Instructions: Resume on 10/12/23. until completed paxlovid rosuvastatin 20 mg Tablet 20 mg PO .QHS Hold Instructions: Resume on 10/12/23. until completed paxlovid Discharge Instructions Instructions: Viral Syndrome (ED) Additional Instructions: Your vital signs are stable and you are oxygenating in the mid 90s on room air. You can monitor your O2 sats outpatient return if sustained below 92. Take Paxlovid as prescribed even if you feel better. You should hold your Advair and your rosuvastatin until your course is completed. You can continue [id number] medication for symptom management. Return sooner for new or worsening symptoms or concerns Referrals: Gracy Wick [Primary Care Provider] - Medical Decision Making This is a 73-year-old female patient with history of asthma presents after testing positive for COVID today symptoms started last night. Vital signs are stable she is oxygenating in the mid 90s on room air. She is tolerating good fluids. Did discuss treatment with Paxlovid which she is interested in pursuing. Her medications are reviewed and she was advised to hold her Advair and rosuvastatin until course of Paxlovid completed. Will dispense Paxlovid pack as directed. She has no history of renal disease Medical Records Medical records reviewed: Yes I reviewed the patient's medical records. HPI General Mode of arrival: ambulatory . Date/Time Provider Initiated Documentation: 10/05/23 20:00 . Limitations to Documentation: no limitations . Information obtained by: patient . HPI Narrative: This is a 73-year-old female patient with past medical history significant for asthma Crohn's hypertension who presents to the emergency department after starting with cold-like symptoms last night including stuffy nose cough body aches malaise. 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 She did take a home test and was positive. She presents here for evaluation and further recommendations. She has been eating and drinking bowels and bladder functioning. She has had no chest pain or shortness of breath. Related Data Home Medications Medication Instructions Recorded Confirmed fluticasone 100 mcg-salmeterol 50 1 puff inhalation DAILY 01/31/13 10/05/23 mcg/dose blistr powdr for inhalation (Advair Diskus) mometasone 50 mcg/actuation nasal 1 spry NS DAILY 01/31/13 10/05/23 spray (Nasonex) omeprazole 20 mg capsule,delayed 20 mg PO BID 01/31/13 10/05/23 release albuterol sulfate 90 mcg/actuation 2 puff inhalation PRN PRN 07/04/15 10/05/23 aerosol inhaler (Ventolin HFA) cyclosporine 0.05 % eye drops in a 1 drp ophthalmic (eye) Q12H 11/14/19 10/05/23 dropperette (Restasis) multivitamin (Daily Multi-Vitamin 1 tab PO DAILY 11/14/19 10/05/23 tablet) nebulizers (Compact Compressor #1 ea 11/14/19 10/05/23 Nebulizer) alendronate 70 mg tablet (Fosamax) 70 mg PO QWEEK 07/06/20 10/05/23 ipratropium 0.5 mg-albuterol 3 mg 3 ml inhalation .Q4-6H PRN 09/28/20 10/05/23 (2.5 mg base)/3 mL nebulization soln amlodipine 5 mg tablet 2.5 mg PO .QHS 10/26/20 10/05/23 lisinopril 20 mg tablet 20 mg PO DAILY 10/26/20 10/05/23 rosuvastatin 20 mg tablet 20 mg PO .QHS 10/26/20 10/05/23 ibuprofen 400 mg tablet 400 mg PO Q8H PRN PRN 06/02/22 10/05/23 nirmatrelvir 300 mg (150 mg See Rx Instructions .Route 10/05/23 x2)-ritonavir 100 mg tablet,dose .COMPLEX ##0 pack (Paxlovid) Previous Rx's Medication Instructions Recorded nirmatrelvir 300 mg (150 mg See Rx Instructions .Route 10/05/23 x2)-ritonavir 100 mg tablet,dose .COMPLEX ##0 pack (Paxlovid) Allergies Allergy/AdvReac Type Severity Reaction Status Date / Time latex Allergy Intermediate Skin Rash Verified 10/05/23 19:35 mirtazapine [From Remeron] Allergy Intermediate unknown Verified 10/05/23 19:35 animal dander Allergy Mild Verified 10/05/23 19:35 venlafaxine HCl AdvReac Severe seizure Verified 10/05/23 19:35 [From Effexor] meperidine HCl [From Demerol] AdvReac Intermediate vomit, Verified 10/05/23 19:35 couldn't wake up oxycodone [Oxycodone] AdvReac Intermediate gi upset Verified 10/05/23 19:35 General Stated Complaint: RespSymp SIXTO: 3 Review of Systems All systems reviewed & are unremarkable except as noted in HPI and below PFSH All Active Problems (Updated 10/05/23 @ 20:37 by Starr Valentin NP) COVID-19 (Acute) GERD (gastroesophageal reflux disease) (Chronic) Asthma (Chronic) Tubular adenoma of colon (Acute) Hyperplastic colon polyp (Acute) Hypertensive emergency (Acute) Altered mental status (Acute) Barretts esophagus (Acute) Abdominal pain in female (Acute) Crohn's colitis (Acute) Trochanteric bursitis, left hip (Acute) Depo-Medrol injection: 05/09/2022 Medical History Sleep apnea Tick bite Ischial bursitis of right side Depo-Medrol injection: 01/14/2021 (Dr. Drummond); previous injections on 06/12/2014, 02/12/2014, 11/14/2013 (Dr. Bear) Osteoporosis Lesion of vocal cord Rash, skin Facial rhytids (01/15/18) Encounter for screening colonoscopy Hypertension Anxiety Hormone replacement therapy (HRT) Allergic rhinitis Hyperlipidemia Premature ventricular contractions (PVCs) (VPCs) Per pt. states this is due to anxiety Dry eye syndrome Vitamin D deficiency Fatigue Impaired fasting glucose Vaginal prolapse (03/29/16) s/p laparoscopic colpopexy, posterior repair. [facility] [place]. Surgical History History of colonoscopy (~05/2022) History of open sigmoidectomy laparoscopic sacral colpopexy 03/29/16 with posterior colporrhaphy. [facility] [place]. Oophrectomy, Left (~2000) Vaginal hysterectomy (~2002) for uterine prolapse, with oophorectomy Repair of umbilical hernia Colonoscopy - IV Sedation with EGD for Barretts esophagitis Family History Mother Essential hypertension Heart disease Stroke Father Blood disorder required blood transfusions Brother Diabetes Grandfather , mouth cancer Diabetes Grandmother , breast cancer No problems noted. 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 Respirations are even and unlabored diminished throughout audible upper airway expiratory wheeze no wheezing or rhonchi noted on auscultation. Cardiovascular regular rate and rhythm no murmurs abdomen benign extremities are without edema moves all extremities skin is pink warm and dry well-perfused with no rashes or lesions noted Course Vital Signs Vital signs: Vital Signs Temperature 37.9 C H 10/05/23 19:31 Pulse 105 H 10/05/23 19:31 Respiratory Rate 16 10/05/23 19:31 Blood Pressure 170/93 H 10/05/23 19:31 Pulse Oximetry 94 10/05/23 19:31 Temperature 37.9 C H 10/05/23 19:31 Temperature Source Temporal Artery Scan 10/05/23 19:31 Pulse 105 H 10/05/23 19:31 Respiratory Rate 16 10/05/23 19:31 Respiratory Effort Normal 10/05/23 19:38 Blood Pressure 170/93 H 10/05/23 19:31 Blood Pressure Position Sitting 10/05/23 19:31 Pulse Oximetry 94 10/05/23 19:31 Oxygen Delivery Method Room Air 10/05/23 19:31 Oxygen Flow Rate 0 10/05/23 19:31 Pain Level 9 10/05/23 19:31
== END 2023-10-05 21:20 | disposition home or self-care (01) ==
PROVIDERS: Emergency Provider Nurse Practitioner Acute Care; PCP Internal Medicine
DX: U07.1 COVID-19 (principal); J45.909 Unspecified asthma, uncomplicated
CPT/HCPCS: 99283

== ENCOUNTER 2023-12-07 16:13 | Emergency (ER) | payer MEDICARE, BC, SELFPAY ==
[2023-12-07 16:18] VITALS: BP 147/81; PULSE 73; RESP 16; TEMP 36.7; O2SAT 99
--- NOTE | 2023-12-07 16:22 | W.ED.GENAD ---
Discharge Plan Disposition Patient Disposition: Home Discharge Details Clinical Impression: Back pain Primary Care Provider: Gracy Wick ED Provider: Aime Harris Home Meds and New Rx's Prescriptions: Continued multivitamin [Daily Multi-Vitamin] Tablet 1 tab PO DAILY cyclosporine [Restasis] 0.05 % dropperette 1 drp OP Q12H (DME) nebulizers [Compact Compressor Nebulizer] Misc See Rx Instructions .ROUTE .MEDSUPPLY Qty: 1 Rx Instructions: As directed ipratropium-albuterol 0.5 mg-3 mg(2.5 mg base)/3 mL solution for nebulization 3 ml inhalation .Q4-6H PRN omeprazole 20 MG capsule,delayed release(DR/EC) 20 mg PO BID fluticasone propion-salmeterol [Advair Diskus] 1 EACH blister with device 1 puff Inhalation DAILY Hold Instructions: Resume on 10/12/23. until completed paxlovid mometasone [Nasonex] 17 GM spray,non-aerosol 1 spry NS DAILY albuterol sulfate [Ventolin HFA] 60 PUFF HFA aerosol inhaler 2 puff Inhalation PRN PRN alendronate [Fosamax] 70 mg Tablet 70 mg PO QWEEK ibuprofen 400 mg Tablet 400 mg PO Q8H PRN PRN rosuvastatin 20 mg Tablet 20 mg PO .QHS Hold Instructions: Resume on 10/12/23. until completed paxlovid lisinopril 20 mg tablet 20 mg PO DAILY amlodipine 5 mg tablet 2.5 mg PO .QHS Patient Comments: TAKE 1 TABLET BY MOUTH DAILY Discharge Instructions Instructions: Back Pain (ED) Additional Instructions: You were seen in the emergency department for your back pain. Your x-ray showed no sign of any fractures. No signs of any dangerous processes in your lungs. Your blood work shows no sign of a heart attack. Your kidneys are working well. For your pain please take medications as follows: 1. Take acetaminophen (Tylenol), 1,000 mg (two 500 mg tabs) every 6 hours [2. Take ibuprofen (Advil), 200 mg every 6 hours.] HPI General Date/Time Provider Initiated Documentation: 12/07/23 16:20. HPI Narrative: [facility] This is an overall very well-appearing normothermic and not tachycardic 73-year-old female with left-sided paraspinal back pain worse when taking a deep breath concerning for the possibility of PE for which patient will undergo D-dimer as she is low risk for PE. No pain out of proportion to suggest necrotizing soft tissue infection. Based on the patient's age she also could have ACS though she only has risk factors of hypertension but not diabetes nor hyperlipidemia. Based on the duration of time since her symptoms began greater than 24 hours ago will obtain a single troponin and will be reassured against ACS as her ECG is nonischemic. No rash to back to suggest zoster. In the setting of back pain I considered pathological fracture however the patient has not had any trauma and has no history of malignancy. Furthermore she had no midline back pain. She has not had any saddle anesthesia to suggest cauda equina syndrome. 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 She is not anticoagulated to suggest increased risk for spinal epidural hematoma. She denies any IV drug use and has not had any fevers so my suspicion is low for any spinal epidural abscess. She is not having any referred pain as she has a soft nontender abdomen so my suspicion is low for appendicitis. She has no history of ureterolithiasis so my suspicion is low for ureterolithiasis in the absence of any persistent flank pain. No nausea no vomiting to suggest intra-abdominal infection. No dysuria no frequency so doubt UTI. No cough nor fever so doubt pneumonia. Will reassess following labs and imaging and treat with Lidoderm patch. Patient did have a tick bite approximately 1 year ago but has no neurological complaints or deficits to suggest tertiary Lyme. No swollen joints to suggest Lyme arthritis. Will obtain ECG to assess for prolonged NC interval which could indicate Lyme carditis. Given no recent tick bites no indication for doxycycline. Patient nontoxic so my suspicion is low for anaplasmosis, [place] spotted spotted fever, and babesiosis. 5:15 PM CBC lacks anemia thrombocytopenia and leukocytosis. 5:45 PM Negative troponin. Basic metabolic panel with mild hyperglycemia but no anion gap and normal bicarbonate??not consistent with DKA. No KAREN. No acute electrolyte abnormalities. Negative D-dimer. I met with patient and explained her reassuring evaluation. I advised ED return if she developed any worsening back pain any nausea or vomiting or any chest pain. She understood her return indications and was discharged with empiric trial of expectant outpatient management. Chronic conditions affecting the care of the patient: N/A History obtained from an outside historian: N/A External record review: [facility] [place] [facility] EMR [Diagnostic interpretations performed by me: Per my independent interpretation chest x-ray shows: Per my independent interpretation EKG shows: Narrow complex normal sinus rhythm at a rate of 63. Intervals within normal limits. No ST segment abnormalities. T wave flattening in aVL. Compared to prior dated 3 years ago T wave flattening in aVL appears new. No acute injury pattern. Medications: Lidoderm acetaminophen ibuprofen Social determinants of health affecting disposition: N/A Management discussed with: N/A Treatment/interventions considered: N/A Response to therapies provided: N/A HPI This is a 73-year-old female arrived to the emergency department via private vehicle in the setting of intermittent left sided upper back pain. Patient reports that for the past several days she has had an intermittent grabbing sensation in her back. It feels improved when she presses on it. It is worse when she takes a deep breath. She reports concern that she may have chronic Lyme disease. She has received antibiotics in the past in the setting of anaplasmosis infection. She has not recently had any tick bites. She denies any trauma to her back. 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 She has not had any loss of bowel or bladder control. She denies saddle anesthesia. She denies shortness of breath and prior history of PE and DVT. She has had no rash to her back. She has no history of malignancy no recent spinal procedures. No history of ureterolithiasis. She occasionally drinks ethanol but denies routine tobacco and illicits. She denies dysuria and frequency. Exam General: Well-appearing in no acute distress speaking in complete sentences. Head: Normocephalic, atraumatic. Eye: Extraocular eye movements intact. No conjunctival injection. No scleral icterus. Ear, nose, mouth, throat: Grossly normal inspection. Normal voice, handling secretions normally. Neck: Trachea midline. Cardiovascular: Well-perfused distal extremities. Regular rate and rhythm Respiratory: Nonlabored respiration. Clear lungs bilaterally. Gastrointestinal: Nondistended abdomen.Soft nontender.No rebound. No guarding. Musculoskeletal: No edema. Moving all 4 extremities spontaneously. Back: No rash to back. No step-offs no deformities. No midline thoracic spinal tenderness. Patient does have mild left-sided paraspinal thoracic tenderness. Skin: Normal for age and race, grossly normal temperature and turgor. No acute rash. Neurologic: Alert and appropriate, no apparent acute deficits. GCS 15. Psychiatric: Mood and manner are appropriate. Grooming and personal hygiene are appropriate. Related Data Home Medications Medication Instructions Recorded Confirmed fluticasone 100 mcg-salmeterol 50 1 puff inhalation DAILY 01/31/13 12/07/23 mcg/dose blistr powdr for inhalation (Advair Diskus) mometasone 50 mcg/actuation nasal 1 spry NS DAILY 01/31/13 12/07/23 spray (Nasonex) omeprazole 20 mg capsule,delayed 20 mg PO BID 01/31/13 12/07/23 release albuterol sulfate 90 mcg/actuation 2 puff inhalation PRN PRN 07/04/15 12/07/23 aerosol inhaler (Ventolin HFA) cyclosporine 0.05 % eye drops in a 1 drp ophthalmic (eye) Q12H 11/14/19 12/07/23 dropperette (Restasis) multivitamin (Daily Multi-Vitamin 1 tab PO DAILY 11/14/19 12/07/23 tablet) nebulizers (Compact Compressor #1 ea 11/14/19 12/07/23 Nebulizer) alendronate 70 mg tablet (Fosamax) 70 mg PO QWEEK 07/06/20 12/07/23 ipratropium 0.5 mg-albuterol 3 mg 3 ml inhalation .Q4-6H PRN 09/28/20 12/07/23 (2.5 mg base)/3 mL nebulization soln amlodipine 5 mg tablet 2.5 mg PO .QHS 10/26/20 12/07/23 lisinopril 20 mg tablet 20 mg PO DAILY 10/26/20 12/07/23 rosuvastatin 20 mg tablet 20 mg PO .QHS 10/26/20 12/07/23 ibuprofen 400 mg tablet 400 mg PO Q8H PRN PRN 06/02/22 12/07/23 Allergies Allergy/AdvReac Type Severity Reaction Status Date / Time latex Allergy Intermediate Skin Rash Verified 12/07/23 16:16 mirtazapine [From Remeron] Allergy Intermediate unknown Verified 12/07/23 16:16 animal dander Allergy Mild Itching Verified 12/07/23 16:16 venlafaxine HCl AdvReac Severe seizure Verified 12/07/23 16:16 [From Effexor] meperidine HCl [From Demerol] AdvReac Intermediate vomit, Verified 12/07/23 16:16 couldn't wake up oxycodone [Oxycodone] AdvReac Intermediate gi upset Verified 12/07/23 16:16 General Stated Complaint: Chest/Rib SIXTO: 4 Course Vital Signs Vital signs: Vital Signs Temperature 36.7 C 12/07/23 16:18 Pulse 73 12/07/23 16:18 Respiratory Rate 16 12/07/23 16:18 Blood Pressure 147/81 H 12/07/23 16:18 Pulse Oximetry 99 12/07/23 16:18 Temperature 36.7 C 12/07/23 16:18 Temperature Source Temporal Artery Scan 12/07/23 16:18 Pulse 73 12/07/23 16:18 Respiratory Rate 16 12/07/23 16:18 Respiratory Effort Normal, Non-Labored 12/07/23 16:20 Blood Pressure 147/81 H 12/07/23 16:18 Blood Pressure Position Sitting 12/07/23 16:18 Pulse Oximetry 99 12/07/23 16:18 Oxygen Delivery Method Room Air 12/07/23 16:18 Oxygen Flow Rate 0 12/07/23 16:18 Pain Level 10 12/07/23 16:18 Comment 6-7/10 at rest 12/07/23 16:18 Medical Decision Making Quality:SDOH Health Related Social Needs: No Data to Display PFSH All Active Problems (Updated 12/07/23 @ 17:55 by Aime Harris MD) Back pain (Acute) COVID-19 (Acute) GERD (gastroesophageal reflux disease) (Chronic) Asthma (Chronic) Tubular adenoma of colon (Acute) Hyperplastic colon polyp (Acute) Hypertensive emergency (Acute) Altered mental status (Acute) Barretts esophagus (Acute) Abdominal pain in female (Acute) Crohn's colitis (Acute) Trochanteric bursitis, left hip (Acute) Depo-Medrol injection: 05/09/2022 Medical History Sleep apnea Tick bite Ischial bursitis of right side Depo-Medrol injection: 01/14/2021 (Dr. Prohaska); previous injections on 06/12/2014, 02/12/2014, 11/14/2013 (Dr. Bear) Osteoporosis Lesion of vocal cord Rash, skin Facial rhytids (01/15/18) Encounter for screening colonoscopy Hypertension Anxiety Hormone replacement therapy (HRT) Allergic rhinitis Hyperlipidemia Premature ventricular contractions (PVCs) (VPCs) Per pt. states this is due to anxiety Dry eye syndrome Vitamin D deficiency Fatigue Impaired fasting glucose Vaginal prolapse (03/29/16) s/p laparoscopic colpopexy, posterior repair. [facility] [place] [facility]. Surgical History History of colonoscopy (~05/2022) History of open sigmoidectomy laparoscopic sacral colpopexy 03/29/16 with posterior colporrhaphy. [facility] [place]. Oophrectomy, Left (~2000) Vaginal hysterectomy (~2002) for uterine prolapse, with oophorectomy Repair of umbilical hernia Colonoscopy - IV Sedation with EGD for Barretts esophagitis Family History Mother Essential hypertension Heart disease Stroke Father Blood disorder required blood transfusions Brother Diabetes Grandfather , mouth cancer Diabetes Grandmother , breast cancer No problems noted. 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
--- NOTE | 2023-12-07 17:00 | DI.RAD_ITS ---
Exam(s) XR CHEST 2V PA LATERAL EXAM: XR CHEST 2V PA LATERAL CLINICAL HISTORY: Back pain TECHNIQUE: 2D digital imaging was performed of the chest. Two images were obtained. PA and lateral views were obtained. COMPARISON: CR XR CHEST 1V IN DI DEPT from 10/26/2020 FINDINGS: MEDIASTINUM: Normal. HEART: Normal. PULMONARY VASCULATURE: Normal. LUNGS: Clear. PLEURAL SPACE: No pleural effusion or pneumothorax. BONE:Within normal limits for the patient's age. OTHER FINDINGS:Normal. IMPRESSION: No acute pulmonary findings. DATA REPOSITORY: RADIATION DOSE DELIVERED:
[2023-12-07 17:12] LABS: Abs Immature Grans 0.03 10^3/uL (0.0-0.06); Absolute Basophil Count 0.03 10^3/uL (0.0-0.2); Absolute Eosinophil Count 0.12 10^3/uL (0.0-0.7); Absolute Lymphocyte Count 1.13 10^3/uL (1.2-3.4); Absolute Monocyte Count 0.61 10^3/uL (0.1-0.8); Absolute Neutrophil Count 3.59 10^3/uL (1.2-6.7); Basophils % 0.5; Eosinophils % 2.2; HGB 11.7 g/dL (11.2-15.7); Immature Grans % 0.5; Lymphocytes % 20.5; MCH 30.6 pg (27.0-33.0); MCHC 33.4 % (32.0-36.0); MCV 92 fL (80-95); MPV 8.8 fL (8.0-11.0); Monocytes % 11.1; Neutrophils % 65.2; Platelet Count 285 10^3/uL (130-400); RBC 3.82 10^6/uL (3.93-5.22); RDW 13.5 % (11.7-14.6); RDW-SD 45.8 fL; WBC 5.51 10^3/uL (4.4-10.8)
[2023-12-07] MEDS: Lidocaine 5% Patch 1 PATCH TP (17:12)
--- NOTE | 2023-12-07 17:30 | RT.EKG_ITS ---
APPROVED REPORT Exam: Resting ECG Reason for Exam: back pain Patient Location: E HR:63 bpm ECG Measurements Heart Rate 63 AXIS WY 170 P 49 QRSd 87 QRS 58 QT 444 T 58 QTc 453 Conclusion Sinus rhythm...normal P axis, V-rate 60- 99 Narrow complex normal sinus rhythm at a rate of 63. Intervals within normal limits. No ST segment a bnormalities. T wave flattening in aVL. Compared to prior dated 3 years ago T wave flattening in aV L appears new. No acute injury pattern.
[2023-12-07 17:35] LABS: Anion Gap 9.2 mmol/L (3-11); BUN 18 mg/dL (7-18); CO2 25.8 mmol/L (21.0-32.0); CREATININE 0.9 mg/dL (0.55-1.02); Calcium 8.8 mg/dL (8.5-10.1); Chloride 102 mmol/L (98-107); Glucose 128 mg/dL (74-106); Potassium 4.2 mmol/L (3.5-5.1); Sodium 137 mmol/L (136-145); Troponin I < 50 ng/L (< or =60)
[2023-12-07 17:46] LABS: D-Dimer 275 ng/mlFEU (<500)
[2023-12-07] MEDS: Acetaminophen 500 MG TAB 1000 MG PO (18:13)
[2023-12-07] MEDS: Ibuprofen 200 MG TAB PO (18:14)
== END 2023-12-07 18:20 | disposition home or self-care (01) ==
PROVIDERS: Emergency Provider Emergency Medicine; PCP Internal Medicine
DX: M54.9 Dorsalgia, unspecified (principal); I10 Essential (primary) hypertension
CPT/HCPCS: 36415; 80048; 93005; 99283; 71046; 84484; 85025; 85379; 93010

== ENCOUNTER → 2023-12-13 01:07 | Outpatient (CLI) | payer MEDICARE, BC, SELFPAY ==
--- NOTE | 2023-12-13 | DI.RAD_ITS ---
Exam(s) RF BARIUM SWALLOW EXAM: RF BARIUM SWALLOW CLINICAL HISTORY: DYSPHAGIA TO SOLIDS,R13.10 TECHNIQUE: 2D and realtime digital imaging was performed. CONTRAST MATERIAL: Thick and thin barium and barium tablet were administered. COMPARISON: CR XR CHEST 2V PA LATERAL from 12/07/2023 FINDINGS: The PA chest film shows normal heart size and clear lung machuca. The lateral paleontological helper view of the neck is shows degenerative changes in the cervical spine. Esophagus: The patient swallowed barium without difficulty. No laryngeal penetration or aspiration. Noevidence for mucosal erosions. Nofold thickening. No mass is visible. Nostricture. Motility: There is a normal primary stripping wave. No tertiary contractions were noted. There is a small to moderate-sized hiatal hernia. Gastroesophageal reflux was observed during the exam. IMPRESSION: Small to moderate size hiatal hernia with gastroesophageal reflux. RADIATION DOSE DELIVERED: monica Martinez=9.09 mGy
[2023-12-13] MEDS: Barium Sulfate 98% W/W 140 ML BTL PO (09:45)
[2023-12-13] MEDS: Barium Sulfate 700 MG TAB PO (09:45)
[2023-12-13] MEDS: Barium Sulfate 60% W/V 355 ML BTL PO (09:46)
[2023-12-13] MEDS: Simethicone/Sod Bicarb/Cit Ac, 4 gram PACKET 1 PACKET PO (09:47)
== END ==
PROVIDERS: PCP Internal Medicine; Visit Provider Otolaryngology
DX: K44.9 Diaphragmatic hernia without obstruction or gangrene
CPT/HCPCS: 74221; J3490

== ENCOUNTER 2023-12-15 07:06 | Day surgery (SDC) | payer MEDICARE, BC, SELFPAY ==
[2023-12-15 07:40] VITALS: BP 144/79; PULSE 68; RESP 18; TEMP 36.7; O2SAT 98
--- NOTE | 2023-12-15 08:09 | ANES.PREOP_ITS ---
General Info Date of Service Date Performed: 12/15/23 Height: 5 ft 1 in Weight: 60.9 kg Body Mass Index (BMI): 25.3 Surgical Procedure: Operation Date: 12/15/23 09:10 Proposed Procedure Side Surgeon p Cataract Extraction with IOL Implant Right George Menchaca MD Meds Allergies and Home Medications Allergies Allergy/AdvReac Type Severity Reaction Status Date / Time mirtazapine [From Remeron] Allergy Severe Seizure Verified 12/15/23 07:35 latex Allergy Intermediate Skin Rash Verified 12/15/23 07:35 animal dander Allergy Mild Itching Verified 12/15/23 07:35 venlafaxine HCl AdvReac Severe seizure Verified 12/15/23 07:35 [From Effexor] meperidine HCl [From Demerol] AdvReac Intermediate vomit, Verified 12/15/23 07:35 couldn't wake up oxycodone [Oxycodone] AdvReac Intermediate gi upset Verified 12/15/23 07:35 Home Medication Medication Instructions Recorded fluticasone 100 mcg-salmeterol 50 1 puff inhalation DAILY 01/31/13 mcg/dose blistr powdr for inhalation (Advair Diskus) mometasone 50 mcg/actuation nasal 1 spry NS DAILY 01/31/13 spray (Nasonex) omeprazole 20 mg capsule,delayed 20 mg PO BID 01/31/13 release albuterol sulfate 90 mcg/actuation 2 puff inhalation PRN PRN 07/04/15 aerosol inhaler (Ventolin HFA) cyclosporine 0.05 % eye drops in a 1 drp ophthalmic (eye) BID 11/14/19 dropperette (Restasis) multivitamin (Daily Multi-Vitamin 1 tab PO DAILY 11/14/19 tablet) nebulizers (Compact Compressor #1 ea 11/14/19 Nebulizer) alendronate 70 mg tablet (Fosamax) 70 mg PO QWEEK 07/06/20 ipratropium 0.5 mg-albuterol 3 mg 3 ml inhalation .Q4-6H PRN 09/28/20 (2.5 mg base)/3 mL nebulization soln amlodipine 5 mg tablet 2.5 mg PO .QHS 10/26/20 lisinopril 20 mg tablet 20 mg PO DAILY 01/18/21 rosuvastatin 20 mg tablet 20 mg PO .QHS 10/26/20 ibuprofen 400 mg tablet 400 mg PO Q8H PRN PRN 06/02/22 escitalopram oxalate 20 mg tablet 20 mg PO DAILY 12/13/23 (Lexapro) methocarbamol 500 mg tablet 500 mg PO Q6H 12/13/23 Current Visit Medications: Current Medications Generic Name Dose Route Start Last Admin Trade Name Freq PRN Reason Stop Dose Admin Acetaminophen 1,000 mg 12/15/23 06:00 Acetaminophen 500 Mg Tab PO 01/14/24 05:59 Q4H PRN PRN Balanced Salt Solution 500 ml 12/15/23 06:00 Balanced Salt Soln.-Plus 500 Ml Bag OP 01/14/24 05:59 DIRECTED VIKTORIYA Miscellaneous Medication 0 ml 12/15/23 06:00 Prednisolone 1%, Moxifloxacin 0.5%, Bromfenac 0.09% 5ml Btl OD 01/14/24 05:59 DIRECTED VIKTORIYA Miscellaneous Medication 0 ml 12/15/23 06:00 12/15/23 07:57 Tropicam./Phenyleph. (1/2.5%) 10 Ml Btl OD 01/14/24 05:59 1 drp DIRECTED VIKTORIYA Administration Tetracaine HCl 0 ml 12/15/23 06:00 Tetracaine 0.5% 4 Ml Btl OD 01/14/24 05:59 DIRECTED VIKTORIYA PFSH Active Problems Active Problems: Problem Status Onset Code Nuclear age-related cataract, right eye H25.11 Back pain M54.9 COVID-19 U07.1 GERD (gastroesophageal reflux disease) K21.9 Asthma J45.909 Tubular adenoma of colon D12.6 Hyperplastic colon polyp K63.5 Hypertensive emergency I16.1 Altered mental status R41.82 Barretts esophagus K22.70 Abdominal pain in female R10.9 Crohn's colitis K50.10 Trochanteric bursitis, left hip M70.62 Medical History Medical History Bilateral hand pain History of back pain Pain, joint, shoulder, right History of psychiatric disorder Dysphonia Dysphasia Altered awareness, transient Amnesia Disorder of vocal cord Sleep apnea Tick bite Ischial bursitis of right side Depo-Medrol injection: 01/14/2021 (Dr. Drummond); previous injections on 06/12/2014, 02/12/2014, 11/14/2013 (Dr. Bear) Osteoporosis Lesion of vocal cord Rash, skin Facial rhytids (01/15/18) Encounter for screening colonoscopy Hypertension Anxiety Hormone replacement therapy (HRT) Allergic rhinitis Hyperlipidemia Premature ventricular contractions (PVCs) (VPCs) Per pt. states this is due to anxiety Dry eye syndrome Vitamin D deficiency Fatigue Impaired fasting glucose Vaginal prolapse (03/29/16) s/p laparoscopic colpopexy, posterior repair. [facility] [place]. Surgical History Surgical History History of colonoscopy (~05/2022) History of open sigmoidectomy laparoscopic sacral colpopexy 03/29/16 with posterior colporrhaphy. [facility] [place]. Oophrectomy, Left (~2000) Vaginal hysterectomy (~2002) for uterine prolapse, with oophorectomy Repair of umbilical hernia Colonoscopy - IV Sedation with EGD for Barretts esophagitis Tobacco Smoking/Tobacco Use Status: Never Alcohol Alcohol Intake: former Substance Use Substance use: Never Substance use type: does not use Vital Signs and Lab Results Vital Signs Most Recent Vital Signs in EMR: Most Recent Vital Signs Temp Pulse Resp BP Pulse Ox 36.7 C 68 18 144/79 H 98 12/15/23 07:40 12/15/23 07:40 12/15/23 07:40 12/15/23 07:40 12/15/23 07:40 Lab Results Blood Type / Crossmatch: No Data to Display Complete Blood Count: White Blood Count 5.51 10^3/uL (4.4-10.8) 12/07/23 17:05 Red Blood Count 3.82 10^6/uL (3.93-5.22) L 12/07/23 17:05 Hemoglobin 11.7 g/dL (11.2-15.7) 12/07/23 17:05 Hematocrit 35.0 % (36.0-46.0) L 12/07/23 17:05 Platelet Count 285 10^3/uL (130-400) 12/07/23 17:05 Complete Metabolic Panel: Sodium 137 mmol/L (136-145) 12/07/23 17:05 Potassium 4.2 mmol/L (3.5-5.1) 12/07/23 17:05 Chloride 102 mmol/L (98-107) 12/07/23 17:05 Carbon Dioxide 25.8 mmol/L (21.0-32.0) 12/07/23 17:05 BUN 18 mg/dL (7-18) 12/07/23 17:05 Creatinine 0.9 mg/dL (0.55-1.02) 12/07/23 17:05 Est GFR (CKD-EPI 2020) 67.50 (mL/min/1.73m2) 12/07/23 17:05 Calcium 8.8 mg/dL (8.5-10.1) 12/07/23 17:05 Glucose 128 mg/dL (74-106) H 12/07/23 17:05 Liver Function Panel: No Data to Display Coagulation Panel: D-Dimer 275 ng/mlFEU (<500) 12/07/23 17:05 Cardiac Panel: Troponin I < 50 ng/L (< or =60) 12/07/23 Arterial Blood Gas: No Data to Display Venous Blood Gas: No Data to Display Pancreas Panel: No Data to Display Thyroid Panel: No Data to Display Infectious Disease: No Data to Display Blood Cultures: No Data to Display Toxicology Panel: No Data to Display Anesthesia Assessment and Plan Anesthesia History Personal History: No History of Anesthesia Complications Family History: No Family History of Anesthesia Complications Exercise Tolerance Exercise Tolerance: Metabolic Equivalents>4 Pertinent Negatives Pertinent Negatives: No Symptoms of GERD and No Major Cardiovascular Symptoms or Complaints Cardiac & Pulmonary Exam Cardiac Exam: Normal S1/S2 Heart Sounds Pulmonary Exam: Clear Bilateral Breath Sounds Implantable Cardiac Device Does patient have a Pacemaker or an ICD?: No Airway Exam Known Difficult Airway: No Mallampati Class: 2 Mouth Opening: Normal (> 3cm) Thyromental Distance: Greater than 3 cm Neck Range of Motion: Full ROM Neck Circumference: Normal Teeth Condition: Normal Dentition ASA Classification ASA Score: ASA 3 Emergency Case?: No NPO Status NPO Status: NPO Clears >2 hours, Solids >8 hours Anesthesia Plan Resuscitation Status: Full Code Anesthesia Technique: MAC Anesthesia Airway Planned: Natural Airway Monitors Used: Standard Monitors
[2023-12-15 08:12] VITALS: BMI 25.3
--- NOTE | 2023-12-15 08:53 | W.PREOPHP ---
Assessment and Plan Assessment and plan (1) Nuclear age-related cataract, right eye: Status: Acute Assessment and plan: Assessment: Visually significant cataract of the right eye. Plan: Cataract extraction with lens implantation of the right eye. (2) Nuclear age-related cataract, left eye: Status: Acute Assessment and plan: Assessment: Visually significant cataract of the left eye. Plan: Cataract extraction with lens implantation of the left eye. History of Present Illness History of Present Illness Chief Complaint: Decreased vision both eyes Narrative: The patient is a 73-year-old lady with history of progressive decreased vision in both eyes at both distance and near. She uses [id number] reading glasses, and has difficulty reading medicine bottles. She has significant glare when driving at night and avoids it. 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 On examination she was noted to have significant bilateral nuclear cataract. The option of cataract surgery was offered to the patient and she wished to proceed. See office notes for detailed information. Review of Systems All systems reviewed & are unremarkable except as noted in HPI and below PFSH All Active Problems (Updated 12/15/23 @ 08:56 by George Menchaca MD) Nuclear age-related cataract, left eye (Acute) Nuclear age-related cataract, right eye (Acute) Back pain (Acute) COVID-19 (Acute) GERD (gastroesophageal reflux disease) (Chronic) Baer's Esophagus Asthma (Chronic) Tubular adenoma of colon (Acute) Hyperplastic colon polyp (Acute) Hypertensive emergency (Acute) Altered mental status (Acute) Barretts esophagus (Acute) Abdominal pain in female (Acute) Crohn's colitis (Acute) Trochanteric bursitis, left hip (Acute) Depo-Medrol injection: 05/09/2022 Medical History Bilateral hand pain History of back pain Pain, joint, shoulder, right History of psychiatric disorder Dysphonia Dysphasia Altered awareness, transient Amnesia Disorder of vocal cord Sleep apnea Tick bite Ischial bursitis of right side Depo-Medrol injection: 01/14/2021 (Dr. Drummond); previous injections on 06/12/2014, 02/12/2014, 11/14/2013 (Dr. Bear) Osteoporosis Lesion of vocal cord Rash, skin Facial rhytids (04/09/18) Encounter for screening colonoscopy Hypertension Anxiety Hormone replacement therapy (HRT) Allergic rhinitis Hyperlipidemia Premature ventricular contractions (PVCs) (VPCs) Per pt. states this is due to anxiety Dry eye syndrome Vitamin D deficiency Fatigue Impaired fasting glucose Vaginal prolapse (03/29/16) s/p laparoscopic colpopexy, posterior [place] [facility] [place] History History of colonoscopy (~05/2022) History of open sigmoidectomy laparoscopic sacral colpopexy 03/29/16 with posterior [place]porrhaphy[place] [facility] [place]oph[place], Left (~2000) Vaginal hysterectomy (~2002) for uterine prolapse, with oophorectomy Repair of umbilical hernia Colonoscopy - IV Sedation with EGD for Barretts esophagitis Family History Mother Essential hypertension Heart disease Stroke Father Blood disorder required blood transfusions Brother Diabetes Grandfather , mouth cancer Diabetes Grandmother , breast cancer No problems noted. 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[employer] [employer] Pets and animals: Yes Pets and animals: cat(s) What is your relationship status?: Panel score (0-1 are the most socially isolated patients): 1 What type of physical activity do you participate in: walking Seatbelt use: always Do you feel safe at home: Yes Do you feel safe in your relationship?: Yes Meds Allergies and Home Medications Allergies Allergy/AdvReac Type Severity Reaction Status Date / Time mirtazapine [From Remeron] Allergy Severe Seizure Verified 12/15/23 07:35 latex Allergy Intermediate Skin Rash Verified 12/15/23 07:35 animal dander Allergy Mild Itching Verified 12/15/23 07:35 venlafaxine HCl AdvReac Severe seizure Verified 12/15/23 07:35 [From Effexor] meperidine HCl [From Demerol] AdvReac Intermediate vomit, Verified 12/15/23 07:35 couldn't wake up oxycodone [Oxycodone] AdvReac Intermediate gi upset Verified 12/15/23 07:35 Home Medications Medication Instructions Recorded Confirmed Type fluticasone 100 mcg-salmeterol 50 1 puff inhalation DAILY 01/31/13 12/15/23 History mcg/dose blistr powdr for inhalation (Advair Diskus) mometasone 50 mcg/actuation nasal 1 spry NS DAILY 01/31/13 12/15/23 History spray (Nasonex) omeprazole 20 mg capsule,delayed 20 mg PO BID 01/31/13 12/15/23 History release albuterol sulfate 90 mcg/actuation 2 puff inhalation PRN PRN 07/04/15 12/15/23 History aerosol inhaler (Ventolin HFA) cyclosporine 0.05 % eye drops in a 1 drp ophthalmic (eye) BID 11/14/19 12/15/23 History dropperette (Restasis) multivitamin (Daily Multi-Vitamin 1 tab PO DAILY 11/14/19 12/15/23 History tablet) nebulizers (Compact Compressor #1 ea 11/14/19 12/07/23 History Nebulizer) alendronate 70 mg tablet (Fosamax) 70 mg PO QWEEK 07/06/20 12/15/23 History ipratropium 0.5 mg-albuterol 3 mg 3 ml inhalation .Q4-6H PRN 09/28/20 12/15/23 History (2.5 mg base)/3 mL nebulization soln amlodipine 5 mg tablet 2.5 mg PO .QHS 10/26/20 12/15/23 History lisinopril 20 mg tablet 20 mg PO DAILY 10/26/20 12/15/23 History rosuvastatin 20 mg tablet 20 mg PO .QHS 10/26/20 12/15/23 History ibuprofen 400 mg tablet 400 mg PO Q8H PRN PRN 06/02/22 12/15/23 History escitalopram oxalate 20 mg tablet 20 mg PO DAILY 12/13/23 12/15/23 History (Lexapro) methocarbamol 500 mg tablet 500 mg PO Q6H 12/13/23 12/15/23 History Exam Eyes Other: Most recent ocular examination reveals uncorrected visual acuity of 20/40 OD, 20/30 OS. Corrected visual acuity is 20/30 in each eye. Extract motility is normal. Intraocular pressure is 20 OD, 22 OS. Slit-lamp examination is significant for moderate bilateral nuclear cataracts with significant brunescent's. Funduscopic examination shows disc cupping of 0.55 OD, 0.60 OS. The vessels, macula, peripheral retina and vitreous are all normal. Resp Auscultation: clear to auscultation bilaterally Cardio Rate: regular rate Rhythm: regular rhythm Results Last Vital Signs Temp 36.7 C 12/15/23 07:40 Pulse 68 12/15/23 07:40 Resp 18 12/15/23 07:40 BP 144/79 H 12/15/23 07:40 Pulse Ox 98 12/15/23 07:40
[2023-12-15] MEDS: Tetracaine 0.5% 4 ML BTL OD (09:04)
[2023-12-15] MEDS: Balanced Salt Soln.-PLUS 500 ML BAG OP (09:10)
[2023-12-15] MEDS: Duovisc Viscoelastic System EACH 1 EACH (09:10)
[2023-12-15] MEDS: Povidone-Iodine Ophth 30 ML BTL (09:10)
[2023-12-15] MEDS: Lidocaine 1% Pres-Free 5 ML VIAL (09:12)
[2023-12-15 09:36] VITALS: BP 120/76; PULSE 71; RESP 16; TEMP 36.5; O2SAT 97
--- NOTE | 2023-12-15 09:36 | W.PM.DSUDISC ---
Date of service: 12/15/23 Time of Service: 09:36 Discharge Plan Disposition Patient Disposition: Home Discharge Details Attending Provider: George Menchaca Primary Care Provider: Gracy Wick Home Meds and New Rx's Prescriptions: No Action multivitamin [Daily Multi-Vitamin] Tablet 1 tab PO DAILY cyclosporine [Restasis] 0.05 % dropperette 1 drp OP BID (DME) nebulizers [Compact Compressor Nebulizer] Misc See Rx Instructions .ROUTE .MEDSUPPLY Qty: 1 Rx Instructions: As directed ipratropium-albuterol 0.5 mg-3 mg(2.5 mg base)/3 mL solution for nebulization 3 ml inhalation .Q4-6H PRN omeprazole 20 MG capsule,delayed release(DR/EC) 20 mg PO BID fluticasone propion-salmeterol [Advair Diskus] 1 EACH blister with device 1 puff Inhalation DAILY Hold Instructions: Resume on 10/12/23. until completed paxlovid mometasone [Nasonex] 17 GM spray,non-aerosol 1 spry NS DAILY albuterol sulfate [Ventolin HFA] 60 PUFF HFA aerosol inhaler 2 puff Inhalation PRN PRN alendronate [Fosamax] 70 mg Tablet 70 mg PO QWEEK ibuprofen 400 mg Tablet 400 mg PO Q8H PRN PRN rosuvastatin 20 mg Tablet 20 mg PO .QHS Hold Instructions: Resume on 10/12/23. until completed paxlovid lisinopril 20 mg tablet 20 mg PO DAILY amlodipine 5 mg tablet 2.5 mg PO .QHS Patient Comments: TAKE 1 TABLET BY MOUTH DAILY escitalopram oxalate [Lexapro] 20 mg tablet 20 mg PO DAILY Patient Comments: Take 1 tablet by mouth once a day methocarbamol 500 mg tablet 500 mg PO Q6H Rx Instructions: 1-2 tablets Q6H PRN Discharge Instructions Stand Alone Forms: DSU Post-Op Gino Hernández (DSU) Discharge Orders Discharge Orders: Discharge Order (Routine); Ordered 12/15/23 Ordered By: George Menchaca DS: Diagnosis Discharge Diagnosis (1) Nuclear age-related cataract, right eye: Status: Resolved (2) Nuclear age-related cataract, left eye: Status: Resolved
--- NOTE | 2023-12-15 09:37 | W.PM.OP ---
Date of service: 12/15/23 Time of Service: 09:37 Operative Note Operative Note DATE OF PROCEDURE: 12/15/23 PRE-OP DIAGNOSIS: Dense nuclear cataract, right eye POST-OP DIAGNOSIS: same PROCEDURE: Cataract extraction using phacoemulsification with intraocular lens implant, right eye SURGEON: George Menchaca ANESTHESIA TYPE: Local By Surgeon and MAC Refer to Anesthesia Record ESTIMATED BLOOD LOSS: 0 PATHOLOGY: none sent COMPLICATIONS: None Patient was transported to: same day Patient's condition: stable Implants: Enzo Clareon [id number] Indications: Progressive decreased vision due to cataract, right eye Procedure Description: CATARACT SURGERY OPERATIVE REPORT PREOPERATIVE DIAGNOSIS: Dense nuclear cataract, right eye POSTOPERATIVE DIAGNOSIS: Same OPERATION: Cataract extraction using phacoemulsification with posterior chamber intraocular lens implant, right eye. IOL: IOL Nurse Aide Evaluator/Model: Enzo Clareon [id number] IOL Power: + 21.5 diopters IOL Serial Number: [id number] Optic Diameter: 6.0mm Haptic/Overall Diameter: 13.0mm PHACO INFO: Enzo SweetSlapurion Vision System with OZil and Active Fluidics Cumulative Dispersed Energy (CDE): 32.3 to seconds SURGEON: George Menchaca MD, SOL ANESTHESIA: Monitored Anesthesia Care (MAC), with local sub-tenon's anesthetic infiltration COMPLICATIONS: None SPECIMENS: None INDICATIONS FOR PROCEDURE: The patient is a 73-year-old lady with history of diminished visual acuity in her right eye secondary to the development of dense nuclear cataract. She is significantly symptomatic that she desires cataract surgery and attempt to improve and maximize her vision. See office notes for detailed information. PROCEDURE: The correct surgical eye was identified and marked as the right eye and the pupil was dilated in the preoperative area using mydriatics and cycloplegics. The dilated pupil size was 6.0 mm. Oral sedation was administered in the form of an Imprimis MKO Melt (midazolam 3mg/ketamine 25mg/ondansetron 2mg). The patient was brought to the operating room where cardiopulmonary monitoring was instituted and surgical time-out was performed, confirming the correct operative eye and IOL power. Topical anesthesia was administered and ophthalmic povidone-iodine 5% was instilled into the conjunctival fornices. The arturo-ocular area was prepped with Betadine 10% solution and draped in the usual sterile fashion for intraocular surgery, including an aperture drape. A Tegaderm transparent film dressing was cut in half and used to cover the lashes and lid margins. Care was taken to sequester the lashes and lid margins under the Tegaderm dressing. A lid speculum was placed between the lids of the operative eye and the Chava-Molly operating microscope was maneuvered into position. Gopi scissors were then used to make a conjunctival buttonhole approximately 6mm posterior to the limbus in the inferonasal quadrant. Blunt dissection was carried out to expose bare sclera, and a blunt-tipped sub-tenon?s anesthesia cannula was introduced and passed posteriorly along the globe where non-preserved plain lidocaine was injected into posterior sub-Tenon?s space. A sideport knife was used to make a paracentesis port. Intraocular phenylephrine/lidocaine was injected into the anterior chamber. The anterior chamber was then filled with viscoelastic. A keratome knife was used to construct a two--plane clear corneal tunnel extending 2.0mm into clear cornea. A flap was raised on the anterior capsule and capsulorhexis forceps were used to complete a continuous curvilinear capsulorhexis of 5.0 mm. Balanced salt solution was then used to perform cortical cleaving hydrodissection and nuclear hydrodelineation until the lens could be freely rotated within the capsular bag. The lens nucleus was then disassembled and removed within the capsular bag and iris plane using phacoemulsification. The cataract was noted to be quite dense. A deep central groove was sculpted into the central nucleus, which was then rotated 180 degrees and the groove continued. The lens was cracked into 2 halves, but the center failed to crack completely due to a dense fibrotic posterior plate. Each nuclear half was then subtyped into multiple small fragments, which also remained attached at the central nuclear plate. Bit by bit the fragments were phacoemulsification and, under additional dispersive viscoelastic protection. Residual cortical material was removed using the I/A handpiece. The posterior capsule was carefully polished to remove as much residual lens epithelial cells as safely possible. The capsular bag was then inflated and the anterior chamber deepened with cohesive viscoelastic. The lens implant described above was inserted into the capsular bag using the Enzo Autonome Injector. A Kuglen hook was used to dial the IOL into position. Residual viscoelastic was then removed first from posterior to the IOL, then from the anterior chamber using the I/A handpiece. The lens implant was noted to center nicely within the capsular bag. The incisions were stromally hydrated, and the anterior chamber was reformed using BSS. Then 0.5cc of moxifloxacin 1.0mg/ml were injected into the capsular bag and anterior chamber. The incisions were checked with a Weck spear and found to be secure. Several drops of ophthalmic povidone-iodine 5% were then applied to the eye followed by two drops of combination steroid/NSAID/antibiotic solution. The drapes were removed and a clear plastic protective eye shield was placed over the eye. The patient was then returned to Same Day Surgery in stable condition.
[2023-12-15 09:59] VITALS: BP 129/78; PULSE 77; RESP 16; TEMP 36.8; O2SAT 96
--- NOTE | 2023-12-15 10:00 | W.ANESPOSTOP ---
Postoperative Evaluation Date, Time and Location Date Performed: 12/15/23 Time Performed: 09:45 Patient Location: Day Surgery Unit Vital Signs Most Recent Imported Vital Signs: Most Recent Vital Signs Temp Pulse Resp BP Pulse Ox 36.5 C 71 16 120/76 97 12/15/23 09:36 12/15/23 09:36 12/15/23 09:36 12/15/23 09:36 12/15/23 09:36 Pain Score Most Recent Pain Score: Most Recent Pain Score Pain Level 0 12/15/23 09:36 Assessment Mental Status: Awake (Alert & Oriented to Patient Baseline) Airway and Respiratory Function: Patent airway with normal (patient baseline) respiratory exam Cardiovascular Function: Hemodynamically Stable Hydration Status: Adequately Hydrated Nausea & Vomiting: No Nausea or Vomiting Pain: Pt. Denies Any Pain Peripheral Nerve Block: Patient did not receive a nerve block
== END 2023-12-15 10:28 | disposition home or self-care (01) ==
LOC: SUR 07:06
PROVIDERS: PCP Internal Medicine; Visit Provider Ophthalmology
PROC: (CPT 66984; principal; 2023-12-15 09:00)
DX: H25.11 Age-related nuclear cataract, right eye (principal); H25.12 Age-related nuclear cataract, left eye; K21.9 Gastro-esophageal reflux disease without esophagitis
CPT/HCPCS: 66984; 00123; V2632; J2003

== ENCOUNTER 2023-12-29 07:05 | Day surgery (SDC) | payer MEDICARE, BC, SELFPAY ==
[2023-12-29 07:10] VITALS: BP 169/85; PULSE 73; RESP 18; TEMP 36.6; O2SAT 98
--- NOTE | 2023-12-29 08:45 | W.ANESPRE ---
General Info Date of Service Date Performed: 12/29/23 Height: 5 ft 1 in Weight: 61.3 kg Body Mass Index (BMI): 25.5 Surgical Procedure: Operation Date: 12/29/23 09:10 Proposed Procedure Side Surgeon p Cataract Extraction with IOL Implant Left George Menchaca MD Actual Procedure Side Surgeon p Cataract Extraction with IOL Implant Left George Menchaca MD Pre-Op Diagnosis Post-Op Diagnosis CATARACT OF LEFT EYE CATARACT OF LEFT EYE Meds Allergies and Home Medications Allergies Allergy/AdvReac Type Severity Reaction Status Date / Time mirtazapine [From Remeron] Allergy Severe Seizure Verified 12/29/23 07:35 latex Allergy Intermediate Skin Rash Verified 12/29/23 07:35 animal dander Allergy Mild Itching Verified 12/29/23 07:35 venlafaxine HCl AdvReac Severe seizure Verified 12/29/23 07:35 [From Effexor] meperidine HCl [From Demerol] AdvReac Intermediate vomit, Verified 12/29/23 07:35 couldn't wake up oxycodone [Oxycodone] AdvReac Intermediate gi upset Verified 12/29/23 07:35 Home Medication Medication Instructions Recorded fluticasone 100 mcg-salmeterol 50 1 puff inhalation DAILY 01/31/13 mcg/dose blistr powdr for inhalation (Advair Diskus) mometasone 50 mcg/actuation nasal 1 spry NS DAILY 01/31/13 spray (Nasonex) omeprazole 20 mg capsule,delayed 20 mg PO BID 01/31/13 release albuterol sulfate 90 mcg/actuation 2 puff inhalation PRN PRN 07/04/15 aerosol inhaler (Ventolin HFA) cyclosporine 0.05 % eye drops in a 1 drp ophthalmic (eye) BID 11/14/19 dropperette (Restasis) multivitamin (Daily Multi-Vitamin 1 tab PO DAILY 11/14/19 tablet) nebulizers (Compact Compressor #1 ea 11/14/19 Nebulizer) alendronate 70 mg tablet (Fosamax) 70 mg PO QWEEK 07/06/20 ipratropium 0.5 mg-albuterol 3 mg 3 ml inhalation .Q4-6H PRN 09/28/20 (2.5 mg base)/3 mL nebulization soln amlodipine 5 mg tablet 2.5 mg PO .QHS 10/26/20 lisinopril 20 mg tablet 20 mg PO DAILY 10/26/20 rosuvastatin 20 mg tablet 20 mg PO .QHS 10/26/20 ibuprofen 400 mg tablet 400 mg PO Q8H PRN PRN 06/02/22 escitalopram oxalate 20 mg tablet 20 mg PO DAILY 12/13/23 (Lexapro) methocarbamol 500 mg tablet 500 mg PO Q6H 12/13/23 Current Visit Medications: Current Medications Generic Name Dose Route Start Last Admin Trade Name Freq PRN Reason Stop Dose Admin Acetaminophen 1,000 mg 12/29/23 06:00 Acetaminophen 500 Mg Tab PO 01/28/24 05:59 Q4H PRN PRN Balanced Salt Solution 500 ml 12/29/23 06:00 Balanced Salt Soln.-Plus 500 Ml Bag OP 01/28/24 05:59 DIRECTED VIKTORIYA Miscellaneous Medication 0 ml 12/29/23 06:00 Prednisolone 1%, Moxifloxacin 0.5%, Bromfenac 0.09% 5ml Btl OS 01/28/24 05:59 DIRECTED VIKTORIYA Miscellaneous Medication 0 ml 12/29/23 06:00 12/29/23 07:41 Tropicam./Phenyleph. (1/2.5%) 10 Ml Btl OS 01/28/24 05:59 1 drp DIRECTED VIKTORIYA Administration Tetracaine HCl 0 ml 12/29/23 06:00 Tetracaine 0.5% 4 Ml Btl OS 01/28/24 05:59 DIRECTED VIKTORIYA PFSH Active Problems Active Problems: Problem Status Onset Code Nuclear age-related cataract, left eye H25.12 Nuclear age-related cataract, right eye H25.11 Back pain M54.9 COVID-19 U07.1 GERD (gastroesophageal reflux disease) K21.9 Asthma J45.909 Tubular adenoma of colon D12.6 Hyperplastic colon polyp K63.5 Hypertensive emergency I16.1 Altered mental status R41.82 Barretts esophagus K22.70 Abdominal pain in female R10.9 Crohn's colitis K50.10 Trochanteric bursitis, left hip M70.62 Medical History Medical History Bilateral hand pain History of back pain Pain, joint, shoulder, right History of psychiatric disorder Dysphonia Dysphasia Altered awareness, transient Amnesia Disorder of vocal cord Sleep apnea Tick bite Ischial bursitis of right side Depo-Medrol injection: 01/14/2021 (Dr. Drummond); previous injections on 06/12/2014, 02/12/2014, 11/14/2013 (Dr. Bear) Osteoporosis Lesion of vocal cord Rash, skin Facial rhytids (01/15/18) Encounter for screening colonoscopy Hypertension Anxiety Hormone replacement therapy (HRT) Allergic rhinitis Hyperlipidemia Premature ventricular contractions (PVCs) (VPCs) Per pt. states this is due to anxiety Dry eye syndrome Vitamin D deficiency Fatigue Impaired fasting glucose Vaginal prolapse (03/29/16) s/p [place] colpopexy, [place] [facility] [place] Surgical History Hx of cataract removal with insertion of prosthetic lens History of colonoscopy (~05/2022) History of open sigmoidectomy laparoscopic sacral colpopexy 03/29/16 with [place] colporrhaphy[place] [facility] [place], Left (~[place]) Vaginal hysterectomy (~2002) for uterine prolapse, with oophorectomy Repair of umbilical hernia Colonoscopy - IV Sedation with EGD for Barretts esophagitis Tobacco Smoking/Tobacco Use Status: Never Alcohol Alcohol Intake: former Substance Use Substance use: Never Substance use type: does not use Vital Signs and Lab Results Vital Signs Most Recent Vital Signs in EMR: Most Recent Vital Signs Temp Pulse Resp BP Pulse Ox 36.6 C 73 18 169/85 H 98 12/29/23 07:10 12/29/23 07:10 12/29/23 07:10 12/29/23 07:10 12/29/23 07:10 Lab Results Blood Type / Crossmatch: No Data to Display Complete Blood Count: White Blood Count 5.51 10^3/uL (4.4-10.8) 12/07/23 17:05 Red Blood Count 3.82 10^6/uL (3.93-5.22) L 12/07/23 17:05 Hemoglobin 11.7 g/dL (11.2-15.7) 12/07/23 17:05 Hematocrit 35.0 % (36.0-46.0) L 12/07/23 17:05 Platelet Count 285 10^3/uL (130-400) 12/07/23 17:05 Complete Metabolic Panel: Sodium 137 mmol/L (136-145) 12/07/23 17:05 Potassium 4.2 mmol/L (3.5-5.1) 12/07/23 17:05 Chloride 102 mmol/L (98-107) 12/07/23 17:05 Carbon Dioxide 25.8 mmol/L (21.0-32.0) 12/07/23 17:05 BUN 18 mg/dL (7-18) 12/07/23 17:05 Creatinine 0.9 mg/dL (0.55-1.02) 12/07/23 17:05 Est GFR (CKD-EPI 2020) 67.50 (mL/min/1.73m2) 12/07/23 17:05 Calcium 8.8 mg/dL (8.5-10.1) 12/07/23 17:05 Glucose 128 mg/dL (74-106) H 12/07/23 17:05 Liver Function Panel: No Data to Display Coagulation Panel: D-Dimer 275 ng/mlFEU (<500) 12/07/23 17:05 Cardiac Panel: Troponin I < 50 ng/L (< or =60) 12/07/23 Arterial Blood Gas: No Data to Display Venous Blood Gas: No Data to Display Pancreas Panel: No Data to Display Thyroid Panel: No Data to Display Infectious Disease: No Data to Display Blood Cultures: No Data to Display Toxicology Panel: No Data to Display Anesthesia Assessment and Plan Anesthesia History Personal History: No History of Anesthesia Complications Family History: No Family History of Anesthesia Complications Exercise Tolerance Exercise Tolerance: Metabolic Equivalents>4 Cardiac & Pulmonary Exam Cardiac Exam: Normal S1/S2 Heart Sounds Pulmonary Exam: Clear Bilateral Breath Sounds Implantable Cardiac Device Does patient have a Pacemaker or an ICD?: No Airway Exam Known Difficult Airway: No Mallampati Class: 2 Mouth Opening: Normal (> 3cm) Thyromental Distance: Greater than 3 cm Neck Range of Motion: Full ROM Neck Circumference: Normal Teeth Condition: Normal Dentition ASA Classification ASA Score: ASA 3 Emergency Case?: No NPO Status NPO Status: NPO Clears >2 hours, Solids >8 hours Anesthesia Plan Resuscitation Status: Full Code Anesthesia Technique: MAC Anesthesia Airway Planned: Natural Airway Monitors Used: Standard Monitors
[2023-12-29 08:47] VITALS: BMI 25.5
[2023-12-29] MEDS: Balanced Salt Soln.-PLUS 500 ML BAG OP (08:56)
[2023-12-29] MEDS: Tetracaine 0.5% 4 ML BTL OS (08:57)
[2023-12-29] MEDS: Lidocaine 1% Pres-Free 5 ML VIAL (08:58)
[2023-12-29] MEDS: Duovisc Viscoelastic System EACH 1 EACH (08:58)
[2023-12-29] MEDS: Povidone-Iodine Ophth 30 ML BTL (08:59)
--- NOTE | 2023-12-29 09:23 | ROE_ITS ---
Date of service: 12/29/23 Time of Service: 09:23 Operative Note Operative Note PRE-OP DIAGNOSIS: Dense nuclear cataract, left eye POST-OP DIAGNOSIS: same PROCEDURE: Cataract extraction using phacoemulsification with intraocular lens implant, left eye SURGEON: George Menchaca ANESTHESIA TYPE: Local By Surgeon and MAC Refer to Anesthesia Record PATHOLOGY: none sent COMPLICATIONS: None Patient was transported to: same day Patient's condition: stable Implants: Enzo Clareon [id number] Indications: Progressive decreased vision due to cataract, left eye Procedure Description: CATARACT SURGERY OPERATIVE REPORT PREOPERATIVE DIAGNOSIS: Dense nuclear cataract, left eye POSTOPERATIVE DIAGNOSIS: Same OPERATION: Cataract extraction using phacoemulsification with posterior chamber intraocular lens implant, left eye. IOL: IOL Certified Adaptive Physical Educator/Model: Enzo Clareon [id number] IOL Power: + 21.0 diopters IOL Serial Number: [id number] Optic Diameter: 6.0mm Haptic/Overall Diameter: 13.0mm PHACO INFO: Enzo Fujian Sunner Developmenturion Vision System with OZil and Active Fluidics Cumulative Dispersed Energy (CDE): 36.63 seconds SURGEON: George Menchaca MD, SOL ANESTHESIA: Monitored Anesthesia Care (MAC), with local sub-tenon's anesthetic infiltration COMPLICATIONS: None SPECIMENS: None INDICATIONS FOR PROCEDURE: The patient is a 73-year-old lady with history of diminished visual acuity in both eyes secondary to the development of dense nuclear cataracts. She has already undergone cataract surgery in the right eye and is doing well postoperatively. She now presents for cataract surgery in the left eye. See office notes for detailed information. PROCEDURE: The correct surgical eye was identified and marked as the left eye and the pupil was dilated in the preoperative area using mydriatics and cycloplegics. The dilated pupil size was 7.0 mm. Oral sedation was administered in the form of an Imprimis MKO Melt (midazolam 3mg/ketamine 25mg/ondansetron 2mg). The patient was brought to the operating room where cardiopulmonary monitoring was instituted and surgical time-out was performed, confirming the correct operative eye and IOL power. Topical anesthesia was administered and ophthalmic povidone-iodine 5% was instilled into the conjunctival fornices. The arturo-ocular area was prepped with Betadine 10% solution and draped in the usual sterile fashion for intraocular surgery, including an aperture drape. A Tegaderm transparent film dressing was cut in half and used to cover the lashes and lid margins. Care was taken to sequester the lashes and lid margins under the Tegaderm dressing. A lid speculum was placed between the lids of the operative eye and the Enzo LuxOR Revalia operating microscope was maneuvered into position. Gopi scissors were then used to make a conjunctival buttonhole approximately 6mm posterior to the limbus in the inferonasal quadrant. Blunt dissection was carried out to expose bare sclera, and a blunt-tipped sub-tenon?s anesthesia cannula was introduced and passed posteriorly along the globe where non- preserved plain lidocaine was injected into posterior sub-Tenon?s space. A sideport knife was used to make a paracentesis port. Intraocular phenylephrine/lidocaine was injected into the anterior chamber. The anterior chamber was then filled with viscoelastic. A keratome knife was used construct a two-plane clear corneal tunnel extending 2.0mm into clear cornea. A flap was raised on the anterior capsule and capsulorhexis forceps were used to complete a continuous curvilinear capsulorhexis of 5.0 mm. Balanced salt solution was then used to perform cortical cleaving hydrodissection and nuclear hydrodelineation until the lens could be freely rotated within the capsular bag. The lens nucleus was then disassembled and removed within the capsular bag and iris plane using phacoemulsification. The nucleus was noted to be quite dense. Additional dispersive viscoelastic was injected intermittently to protect the corneal endothelium. Residual cortical material was removed using the irrigation/aspiration handpiece. The posterior capsule was carefully polished to remove as much residual lens epithelial cells as safely possible. The capsular bag was then inflated and the anterior chamber deepened with viscoelastic. The lens implant described above was inserted into the capsular bag using the Enzo Autonome Injector. A Kuglen hook was used to dial the IOL into position. Residual viscoelastic was then removed first from posterior to the IOL, then from the anterior chamber using the I/A handpiece. The lens implant was noted to center nicely within the capsular bag. The incisions were stromally hydrated, and the anterior chamber was reformed using BSS. Then 0.5cc of moxifloxacin 1.0mg/ml were injected into the capsular bag and anterior chamber. The incisions were checked with a Weck spear and found to be secure. Several drops of ophthalmic povidone-iodine 5% were then applied to the eye followed by two drops of combination steroid/NSAID/antibiotic solution. The drapes were removed and a clear plastic protective eye shield was placed over the eye. The patient was then returned to Same Day Surgery in stable condition.
--- NOTE | 2023-12-29 09:23 | W.PM.DSUDISC ---
Date of service: 12/29/23 Time of Service: 09:23 Discharge Plan Disposition Patient Disposition: Home Discharge Details Attending Provider: George Menchaca Primary Care Provider: Gracy Wick Home Meds and New Rx's Prescriptions: No Action multivitamin [Daily Multi-Vitamin] Tablet 1 tab PO DAILY cyclosporine [Restasis] 0.05 % dropperette 1 drp OP BID (DME) nebulizers [Compact Compressor Nebulizer] Misc See Rx Instructions .ROUTE .MEDSUPPLY Qty: 1 Rx Instructions: As directed ipratropium-albuterol 0.5 mg-3 mg(2.5 mg base)/3 mL solution for nebulization 3 ml inhalation .Q4-6H PRN omeprazole 20 MG capsule,delayed release(DR/EC) 20 mg PO BID fluticasone propion-salmeterol [Advair Diskus] 1 EACH blister with device 1 puff Inhalation DAILY Hold Instructions: Resume on 10/12/23. until completed paxlovid mometasone [Nasonex] 17 GM spray,non-aerosol 1 spry NS DAILY albuterol sulfate [Ventolin HFA] 60 PUFF HFA aerosol inhaler 2 puff Inhalation PRN PRN alendronate [Fosamax] 70 mg Tablet 70 mg PO QWEEK ibuprofen 400 mg Tablet 400 mg PO Q8H PRN PRN rosuvastatin 20 mg Tablet 20 mg PO .QHS Hold Instructions: Resume on 10/12/23. until completed paxlovid lisinopril 20 mg tablet 20 mg PO DAILY amlodipine 5 mg tablet 2.5 mg PO .QHS Patient Comments: TAKE 1 TABLET BY MOUTH DAILY escitalopram oxalate [Lexapro] 20 mg tablet 20 mg PO DAILY Patient Comments: Take 1 tablet by mouth once a day methocarbamol 500 mg tablet 500 mg PO Q6H Rx Instructions: 1-2 tablets Q6H PRN Discharge Instructions Stand Alone Forms: [facility] Post-Op Gino Hernández (DS[facility]) Discharge Orders Discharge Orders: Discharge Order (Routine); Ordered 12/29/23 Ordered By: George Menchaca DS: Diagnosis Discharge Diagnosis (1) Nuclear age-related cataract, left eye: Status: Resolved
[2023-12-29 09:24] VITALS: BP 128/90; PULSE 74; RESP 18; TEMP 36; O2SAT 96
--- NOTE | 2023-12-29 09:33 | W.ANESPOSTOP ---
Postoperative Evaluation Date, Time and Location Date Performed: 12/29/23 Time Performed: 09:33 Patient Location: Day Surgery Unit Vital Signs Most Recent Imported Vital Signs: Most Recent Vital Signs Temp Pulse Resp BP Pulse Ox 36.6 C 73 18 169/85 H 98 12/29/23 07:10 12/29/23 07:10 12/29/23 07:10 12/29/23 07:10 12/29/23 07:10 Assessment Mental Status: Awake (Alert & Oriented to Patient Baseline) Airway and Respiratory Function: Patent airway with normal (patient baseline) respiratory exam Cardiovascular Function: Hemodynamically Stable Hydration Status: Adequately Hydrated Nausea & Vomiting: No Nausea or Vomiting Pain: Pt. Denies Any Pain Peripheral Nerve Block: Patient did not receive a nerve block
[2023-12-29 09:57] VITALS: BP 146/80; PULSE 91; RESP 18; TEMP 36.1; O2SAT 96
== END 2023-12-29 10:02 | disposition home or self-care (01) ==
PROVIDERS: PCP Internal Medicine; Visit Provider Ophthalmology
PROC: (CPT 66984; principal; 2023-12-29 09:00)
DX: H25.12 Age-related nuclear cataract, left eye (principal); I10 Essential (primary) hypertension; G47.33 Obstructive sleep apnea (adult) (pediatric); Z98.41 Cataract extraction status, right eye
CPT/HCPCS: 66984; 00123; V2632; J2003

== ENCOUNTER 2024-03-10 12:59 | Emergency (ER) | payer MEDICARE, BC, SELFPAY ==
[2024-03-10 13:02] VITALS: BP 143/92; PULSE 88; RESP 15; TEMP 36.9; O2SAT 96
[2024-03-10] MEDS: Doxycycline Hyclate 100 MG CAP PO (13:28)
--- NOTE | 2024-03-10 13:41 | ED.GENADUL_ITS ---
Discharge Plan Disposition Patient Disposition: Home Condition: Stable Discharge Details Clinical Impression: Rash Primary Care Provider: Gracy Wick ED Provider: Lj Moreira Home Meds and New Rx's Prescriptions: New doxycycline hyclate 100 mg tablet 100 mg PO BID Qty: 28 0RF Continued multivitamin [Daily Multi-Vitamin] Tablet 1 tab PO DAILY cyclosporine [Restasis] 0.05 % dropperette 1 drp OP BID (DME) nebulizers [Compact Compressor Nebulizer] Misc See Rx Instructions .ROUTE .MEDSUPPLY Qty: 1 Rx Instructions: As directed ipratropium-albuterol 0.5 mg-3 mg(2.5 mg base)/3 mL solution for nebulization 3 ml inhalation .Q4-6H PRN omeprazole 20 MG capsule,delayed release(DR/EC) 20 mg PO BID fluticasone propion-salmeterol [Advair Diskus] 1 EACH blister with device 1 puff Inhalation DAILY Hold Instructions: Resume on 10/12/23. until completed paxlovid mometasone [Nasonex] 17 GM spray,non-aerosol 1 spry NS DAILY albuterol sulfate [Ventolin HFA] 60 PUFF HFA aerosol inhaler 2 puff Inhalation PRN PRN alendronate [Fosamax] 70 mg Tablet 70 mg PO QWEEK ibuprofen 400 mg Tablet 400 mg PO Q8H PRN PRN rosuvastatin 20 mg Tablet 20 mg PO .QHS Hold Instructions: Resume on 10/12/23. until completed paxlovid lisinopril 20 mg tablet 20 mg PO DAILY amlodipine 5 mg tablet 2.5 mg PO .QHS Patient Comments: TAKE 1 TABLET BY MOUTH DAILY escitalopram oxalate [Lexapro] 20 mg tablet 20 mg PO DAILY Patient Comments: Take 1 tablet by mouth once a day methocarbamol 500 mg tablet 500 mg PO Q6H Rx Instructions: 1-2 tablets Q6H PRN Discharge Instructions Additional Instructions: Had a tick panel drawn which the results will come back usually in 1 to 2 days. You will be called if any of them are positive. Take the doxycycline as prescribed Follow-up with your primary care provider within 1 to 2 weeks Feel more ill, or have new symptoms such as severe chest pain or difficulty breathing return to the emergency department for reevaluation HPI General Mode of arrival: ambulatory . Date/Time Provider Initiated Documentation: 03/10/24 13:06 . Limitations to Documentation: no limitations . Information obtained by: patient . History of Present Illness 73 year old F presents to the emergency department with the chief complaint of Left armpit lesion, described as moderate, Patient started experiencing this day(s) (1) and it has been constant. No relieving factors improve symptom(s), No exacerbating factors reported . Patient notes denies chest pain, fever/chills and shortness of breath. Patient did receive the following treatments prior to arrival, none Related Data Home Medications Medication Instructions Recorded Confirmed fluticasone 100 mcg-salmeterol 50 1 puff inhalation DAILY 01/31/13 12/29/23 mcg/dose blistr powdr for inhalation (Advair Diskus) mometasone 50 mcg/actuation nasal 1 spry NS DAILY 01/31/13 12/29/23 spray (Nasonex) omeprazole 20 mg capsule,delayed 20 mg PO BID 01/31/13 12/29/23 release albuterol sulfate 90 mcg/actuation 2 puff inhalation PRN PRN 07/04/15 12/29/23 aerosol inhaler (Ventolin HFA) cyclosporine 0.05 % eye drops in a 1 drp ophthalmic (eye) BID 11/14/19 12/29/23 dropperette (Restasis) multivitamin (Daily Multi-Vitamin 1 tab PO DAILY 11/14/19 12/29/23 tablet) nebulizers (Compact Compressor #1 ea 11/14/19 12/07/23 Nebulizer) alendronate 70 mg tablet (Fosamax) 70 mg PO QWEEK 07/06/20 12/29/23 ipratropium 0.5 mg-albuterol 3 mg 3 ml inhalation .Q4-6H PRN 09/28/20 12/29/23 (2.5 mg base)/3 mL nebulization soln amlodipine 5 mg tablet 2.5 mg PO .QHS 10/26/20 12/29/23 lisinopril 20 mg tablet 20 mg PO DAILY 10/26/20 12/29/23 rosuvastatin 20 mg tablet 20 mg PO .QHS 10/26/20 12/29/23 ibuprofen 400 mg tablet 400 mg PO Q8H PRN PRN 06/02/22 12/29/23 escitalopram oxalate 20 mg tablet 20 mg PO DAILY 12/13/23 12/29/23 (Lexapro) methocarbamol 500 mg tablet 500 mg PO Q6H 12/13/23 12/29/23 doxycycline hyclate 100 mg tablet 100 mg PO BID #28 tabs 03/10/24 Previous Rx's Medication Instructions Recorded doxycycline hyclate 100 mg tablet 100 mg PO BID #28 tabs 03/10/24 Allergies Allergy/AdvReac Type Severity Reaction Status Date / Time mirtazapine [From Remeron] Allergy Severe Seizure Verified 12/29/23 07:35 latex Allergy Intermediate Skin Rash Verified 12/29/23 07:35 animal dander Allergy Mild Itching Verified 12/29/23 07:35 venlafaxine HCl AdvReac Severe seizure Verified 12/29/23 07:35 [From Effexor] meperidine HCl [From Demerol] AdvReac Intermediate vomit, Verified 12/29/23 07:35 couldn't wake up oxycodone [Oxycodone] AdvReac Intermediate gi upset Verified 12/29/23 07:35 General Stated Complaint: InsectBite SIXTO: 4 Review of Systems All systems reviewed & are unremarkable except as noted in HPI and below Constitutional Constitutional: Denies chills, Denies fever(s) and Denies weakness Cardiovascular Cardiovascular: Denies chest pain and Denies dyspnea Respiratory Respiratory: Denies cough and Denies dyspnea Gastrointestinal Gastrointestinal: Denies abdominal pain, Denies nausea and Denies vomiting Musculoskeletal Musculoskeletal: Denies joint swelling Integumentary/Breasts Skin/Breast: Reports rash Neurologic Neurologic: Denies weakness Exam Const General: no acute distress Orientation: alert [facility] Head: normal to inspection Ears: external ears normal General nose exam: external nose normal Mouth: moist mucous membranes Eyes General: appearance normal, both eyes and all related structures Neck Neck: normal visual inspection Resp Effort & Inspection: normal respiratory effort and able to speak in complete sentences Cardio Rate: regular rate Skin General skin exam: erythema Neuro General: patient alert and patient oriented x3 Extrem General: normal to inspection Psych Mental Status: mental status grossly normal Course Vital Signs Vital signs: Vital Signs Temperature 36.9 C 03/10/24 13:02 Pulse 88 03/10/24 13:02 Respiratory Rate 15 03/10/24 13:02 Blood Pressure 143/92 H 03/10/24 13:02 Pulse Oximetry 96 03/10/24 13:02 Temperature 36.9 C 03/10/24 13:02 Temperature Source Temporal Artery Scan 03/10/24 13:02 Pulse 88 03/10/24 13:02 Respiratory Rate 15 03/10/24 13:02 Respiratory Effort Normal 03/10/24 13:05 Blood Pressure 143/92 H 03/10/24 13:02 Blood Pressure Position Sitting 03/10/24 13:02 Pulse Oximetry 96 03/10/24 13:02 Oxygen Delivery Method Room Air 03/10/24 13:02 Oxygen Flow Rate 0 03/10/24 13:02 Medical Decision Making 73-year-old female with a history of anaplasmosis 2 years ago, who comes in with complaints of a lesion in her left armpit and having bodyaches and malaise similar to when she had anaplasmosis. She says she did not see a tick but yesterday noticed the irritated area in her left armpit similar to when she had anaplasmosis. She denies any fevers, chest pain, difficulty breathing. She is alert and oriented x 4 on arrival speaking clearly, appears well in no distress. She has a 5 x 6 cm area of mild erythema in the left armpit, no fluctuance or palpable abscess. No joint swelling elsewhere, appears to be cellulitis, could also be erythema multiforme though there is no bull's-eye aspect of it. Will send a tick panel and started on doxycycline, advised to follow-up with her PCP and return precautions given. Given her well appearance and lack of fevers do not feel any blood work otherwise indicated I do not feel any imaging indicated. Quality:SDOH Health Related Social Needs: No Data to Display PFSH All Active Problems (Updated 03/10/24 @ 13:41 by Lj Moreira MD) Rash (Acute) COVID-19 (Acute) GERD (gastroesophageal reflux disease) (Chronic) Baer's Esophagus Asthma (Chronic) Tubular adenoma of colon (Acute) Hyperplastic colon polyp (Acute) Hypertensive emergency (Acute) Altered mental status (Acute) Barretts esophagus (Acute) Abdominal pain in female (Acute) Crohn's colitis (Acute) Trochanteric bursitis, left hip (Acute) Depo-Medrol injection: 05/09/2022 Medical History (Updated 03/10/24 @ 13:41 by Lj Moreira MD) Bilateral hand pain History of back pain Pain, joint, shoulder, right History of psychiatric disorder Dysphonia Dysphasia Altered awareness, transient Amnesia Disorder of vocal cord Sleep apnea Tick bite Ischial bursitis of right side Depo-Medrol injection: 01/14/2021 (Dr. Drummond); previous injections on 06/12/2014, 02/12/2014, 11/14/2013 (Dr. Bear) Osteoporosis Lesion of vocal cord Rash, skin Facial rhytids (01/15/18) Encounter for screening colonoscopy Hypertension Anxiety Hormone replacement therapy (HRT) Allergic rhinitis Hyperlipidemia Premature ventricular contractions (PVCs) (VPCs) Per pt. states this is due to anxiety Dry eye syndrome Vitamin D deficiency Fatigue Impaired fasting glucose Vaginal prolapse (03/29/16) s/p laparoscopic colpopexy, posterior repair. [facility]. Surgical History (Updated 12/29/23 @ 09:23 by George Menchaca MD) Hx of cataract removal with insertion of prosthetic lens History of colonoscopy (~05/2022) History of open sigmoidectomy laparoscopic sacral colpopexy 03/29/16 with posterior colporrhaphy. [facility]. Oophrectomy, Left (~2000) Vaginal hysterectomy (~2002) for uterine prolapse, with oophorectomy Repair of umbilical hernia Colonoscopy - IV Sedation with EGD for Barretts esophagitis Family History Mother Essential hypertension Heart disease Stroke Father Blood disorder required blood transfusions Brother Diabetes Grandfather , mouth cancer Diabetes Grandmother , breast cancer No problems noted. 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 [employer] Pets and animals: Yes Pets and animals: cat(s) What is your relationship status?: Panel score (0-1 are the most socially isolated patients): 1 What type of physical activity do you participate in: walking Seatbelt use: always Do you feel safe at home: Yes Do you feel safe in your relationship?: Yes PAWSS Have you Been Recently Intoxicated or Drunk Within the Last 30 days?: No Have you Ever Experienced Previous Episodes of Alcohol Withdrawal?: No Have you ever Experienced Withdrawal Seizures?: No Have you ever Experienced Delirium Tremens(DT)s?: No Have you ever undergone Alcohol Rehabilitation Treatment (i.e, inpt ot outpatient treatment programs)?: No Have you ever Experienced Blackouts?: No Have you ever Combined Alcohol with other Downers within the last 90 days?: No Have you ever Combined Alcohol with any other Substance of Abuse during the last 90 days?: No Positive Blood Alcohol level on Presentation? [PCS.BAL]: No Evidence of Increased Autonomic Activity (i.e. HR>120, tremor, sweating, agitation, nausea)?: No Result: 0
[2024-03-10 14:22] VITALS: BP 143/92; PULSE 88; RESP 15; TEMP 36.9; O2SAT 96
[2024-03-12 10:36] LABS: Lyme Ab w Rflx to Lyme Confirm Negative (Negative)
[2024-03-13 19:05] LABS: Anaplasma phagocytophilum Negative (Negative); B. miyamotoi PCR Negative (Negative); Babesia divergens/MO-1 Negative (Negative); Babesia duncani Negative (Negative); Babesia microti Negative (Negative); Ehrlichia chaffeensis Negative (Negative); Ehrlichia ewingii/canis Negative (Negative); Ehrlichia muris eauclairensis Negative (Negative)
== END 2024-03-10 14:22 | disposition home or self-care (01) ==
PROVIDERS: Emergency Provider Emergency Medicine; PCP Internal Medicine
DX: R21 Rash and other nonspecific skin eruption (principal); R52 Pain, unspecified; Z86.19 Personal history of other infectious and parasitic diseases
CPT/HCPCS: 87798; 99283; 86618

== ENCOUNTER 2024-04-01 15:14 | Outpatient (REF) | payer MEDICARE, BC, SELFPAY ==
[2024-04-01 21:59] LABS: HCT 36.5 % (36.0-46.0); HGB 12.1 g/dL (11.2-15.7); MCH 31.5 pg (27.0-33.0); MCHC 33.2 % (32.0-36.0); MCV 95 fL (80-95); MPV 10.1 fL (8.0-11.0); Platelet Count 355 10^3/uL (130-400); RBC 3.84 10^6/uL (3.93-5.22); RDW 13.1 % (11.7-14.6); RDW-SD 45.2 fL
[2024-04-01 22:10] LABS: INR 0.9 (0.9-1.1); Prothrombin Time 8.9 sec (9.1-11.1)
[2024-04-01 22:21] LABS: Hemoglobin A1C 6.9 % (<5.7)
[2024-04-01 22:36] LABS: ALT 55 U/L (14-59); AST 39 U/L (15-37); Albumin 4.2 g/dL (3.4-5.0); Alkaline Phosphatase 105 U/L (46-116); Anion Gap 11.2 mmol/L (3-11); BUN 23 mg/dL (7-18); Bilirubin, Total 0.26 mg/dL (0.2-1.0); CO2 23.8 mmol/L (21.0-32.0); CREATININE 0.9 mg/dL (0.55-1.02); Calcium 9.1 mg/dL (8.5-10.1); Chloride 103 mmol/L (98-107); Glucose 128 mg/dL (74-106); Potassium 4.3 mmol/L (3.5-5.1); Sodium 138 mmol/L (136-145); Total Protein 7.5 g/dL (6.4-8.2); Vitamin D 25 Total 15.6 ng/mL (30-100)
== END 2024-04-01 15:15 | disposition home or self-care (01) ==
LOC: NCHCN 15:14
PROVIDERS: PCP Internal Medicine; Visit Provider Internal Medicine
DX: R23.3 Spontaneous ecchymoses (principal); R73.03 Prediabetes; I10 Essential (primary) hypertension; M81.0 Age-related osteoporosis without current pathological fracture; R53.83 Other fatigue
CPT/HCPCS: 80053; 82306; 85027; 83036; 85610

== ENCOUNTER 2024-04-17 15:38 | Outpatient (REF) | payer MEDICARE, BC, SELFPAY | END 2024-04-17 15:39 | disposition home or self-care (01) | LOC: NCHCN 15:38 | PROVIDERS: PCP Internal Medicine; Visit Provider Internal Medicine | DX: E11.9 Type 2 diabetes mellitus without complications (principal) | CPT/HCPCS: 82043; 82570 ==

== ENCOUNTER 2024-05-02 16:17 | Emergency (ER) | payer MEDICARE, BC, SELFPAY ==
[2024-05-02 16:23] VITALS: BP 167/104; PULSE 95; RESP 15; TEMP 36.4; O2SAT 96
[2024-05-02 16:26] VITALS: BP 167/104; PULSE 95; RESP 15; TEMP 36.4; O2SAT 96
[2024-05-02 19:06] VITALS: BP 176/87; PULSE 96; RESP 15; TEMP 37.8; O2SAT 94
[2024-05-02 19:15] VITALS: BP 176/87; PULSE 96; RESP 15; TEMP 37.8; O2SAT 94
--- NOTE | 2024-05-02 22:54 | ED.GENADUL_ITS ---
Discharge Plan Disposition Patient Disposition: Home Discharge Details Clinical Impression: COVID-19 Primary Care Provider: Gracy Wick ED Provider: Adela Jacobson Home Meds and New Rx's Prescriptions: Continued multivitamin [Daily Multi-Vitamin] Tablet 1 tab PO DAILY cyclosporine [Restasis] 0.05 % dropperette 1 drp OP BID (DME) nebulizers [Compact Compressor Nebulizer] Misc See Rx Instructions .ROUTE .MEDSUPPLY Qty: 1 Rx Instructions: As directed ipratropium-albuterol 0.5 mg-3 mg(2.5 mg base)/3 mL solution for nebulization 3 ml inhalation .Q4-6H PRN omeprazole 20 MG capsule,delayed release(DR/EC) 20 mg PO BID fluticasone propion-salmeterol [Advair Diskus] 1 EACH blister with device 1 puff Inhalation DAILY mometasone [Nasonex] 17 GM spray,non-aerosol 1 spry NS DAILY albuterol sulfate [Ventolin HFA] 60 PUFF HFA aerosol inhaler 2 puff Inhalation PRN PRN alendronate [Fosamax] 70 mg Tablet 70 mg PO QWEEK ibuprofen 400 mg Tablet 400 mg PO Q8H PRN PRN rosuvastatin 20 mg Tablet 20 mg PO .QHS lisinopril 20 mg tablet 20 mg PO DAILY amlodipine 5 mg tablet 2.5 mg PO .QHS Patient Comments: TAKE 1 TABLET BY MOUTH DAILY escitalopram oxalate [Lexapro] 20 mg tablet 20 mg PO DAILY Patient Comments: Take 1 tablet by mouth once a day methocarbamol 500 mg tablet 500 mg PO Q6H Rx Instructions: 1-2 tablets Q6H PRN doxycycline hyclate 100 mg tablet 100 mg PO BID Qty: 28 0RF Discharge Instructions Instructions: COVID-19 ED Additional Instructions: take molnupiravir as prescribed Return with any new or worsening complaints Take Tylenol as needed for fever and pain control Referrals: Gracy Wick [Primary Care Provider] - Discharge Data Discharge Date/Time-TO BE ENTERED AT DEPARTURE: 05/02/24 19:15 HPI General Date/Time Provider Initiated Documentation: 05/02/24 16:32 . HPI Narrative: This 73-year-old female is presenting after testing COVID-positive just prior to arrival. She states she simply wants a prescription for Paxlovid. She denies any shortness of breath or any additional symptoms at this time. She then continues to tell me I have been waiting out in the waiting room for a long time and I now feel significantly worse . She denies any nausea or vomiting. She denies known sick contacts. She denies any current shortness of breath. She states she does have some shortness of breath mostly with activity. Related Data Home Medications ?Medication ?Instructions ?Recorded ?Confirmed fluticasone 100 mcg-salmeterol 50 1 puff inhalation DAILY 01/31/13 03/10/24 mcg/dose blistr powdr for inhalation (Advair Diskus) mometasone 50 mcg/actuation nasal 1 spry NS DAILY 01/31/13 03/10/24 spray (Nasonex) omeprazole 20 mg capsule,delayed 20 mg PO BID 01/31/13 03/10/24 release albuterol sulfate 90 mcg/actuation 2 puff inhalation PRN PRN 07/04/15 03/10/24 aerosol inhaler (Ventolin HFA) cyclosporine 0.05 % eye drops in a 1 drp ophthalmic (eye) BID 11/14/19 03/10/24 dropperette (Restasis) multivitamin (Daily Multi-Vitamin 1 tab PO DAILY 11/14/19 03/10/24 tablet) nebulizers (Compact Compressor #1 ea 11/14/19 03/10/24 Nebulizer) alendronate 70 mg tablet (Fosamax) 70 mg PO QWEEK 07/06/20 03/10/24 ipratropium 0.5 mg-albuterol 3 mg 3 ml inhalation .Q4-6H PRN 09/28/20 03/10/24 (2.5 mg base)/3 mL nebulization soln amlodipine 5 mg tablet 2.5 mg PO .QHS 10/26/20 03/10/24 lisinopril 20 mg tablet 20 mg PO DAILY 10/26/20 03/10/24 rosuvastatin 20 mg tablet 20 mg PO .QHS 10/26/20 03/10/24 ibuprofen 400 mg tablet 400 mg PO Q8H PRN PRN 06/02/22 03/10/24 escitalopram oxalate 20 mg tablet 20 mg PO DAILY 12/13/23 03/10/24 (Lexapro) methocarbamol 500 mg tablet 500 mg PO Q6H 12/13/23 03/10/24 doxycycline hyclate 100 mg tablet 100 mg PO BID #28 tabs 03/10/24 Previous Rx's ?Medication ?Instructions ?Recorded doxycycline hyclate 100 mg tablet 100 mg PO BID #28 tabs 03/10/24 Allergies Allergy/AdvReac Type Severity Reaction Status Date / Time mirtazapine (From Remeron) Allergy Severe Seizure Verified 12/29/23 07:35 latex Allergy Intermediate Skin Rash Verified 12/29/23 07:35 animal dander Allergy Mild Itching Verified 12/29/23 07:35 venlafaxine HCl (From AdvReac Severe seizure Verified 12/29/23 07:35 Effexor) meperidine HCl (From Demerol) AdvReac Intermediate vomit, Verified 12/29/23 07:35 couldn't wake up oxycodone (Oxycodone) AdvReac Intermediate gi upset Verified 12/29/23 07:35 General Stated Complaint: RespSymp SIXTO: 3 Exam Narrative Exam Narrative: Alert, oriented, emotionally labile, pupils equal round reactive to light and accommodation, no meningismus, lungs clear to auscultation, cardiac rate rhythm regular, alert and oriented x 4, ambulatory steady gait,no respiratory distress Course Vital Signs Vital signs: Vital Signs Temperature 36.4 C L 05/02/24 16:23 Pulse 95 H 05/02/24 16:23 Respiratory Rate 15 05/02/24 16:23 Blood Pressure 167/104 H 05/02/24 16:23 Pulse Oximetry 96 05/02/24 16:23 Temperature 37.8 C H 05/02/24 19:15 Temperature Source Temporal Artery Scan 05/02/24 19:06 Pulse 96 H 05/02/24 19:15 Respiratory Rate 15 05/02/24 19:15 Respiratory Effort Normal 05/02/24 16:26 Blood Pressure 176/87 H 05/02/24 19:15 Blood Pressure Position Sitting 05/02/24 16:26 Pulse Oximetry 94 05/02/24 19:15 Oxygen Delivery Method Room Air 05/02/24 19:06 Oxygen Flow Rate 0 05/02/24 19:06 Medical Decision Making 73-year-old female who is difficult to assess secondary to agitation about waiting for an extended period of time in the waiting room. While attempting to gain history, patient continues to tell me that she feels much worse now that she has been in the waiting room for an extended period of time . I talked about ordering imaging or testing she tells me that I just want Paxlovid . At this time patient's vitals are relatively stable and she is alert and oriented. I will give her a prescription for molnupiravir as we do not have Paxlovid at the hospital. She is encouraged to follow-up with her primary care physician. I did apologize regarding the weight at the hospital but she is aware that we have a triage process and that she was evaluated as soon as we are able to assess her. Discharged home without hypoxia with a molnupiravir prescription and encouraged to follow-up with her primary care physician Quality:SDOH Health Related Social Needs: No Data to Display PFSH All Active Problems (Updated 05/02/24 @ 18:58 by JACKIE Ibrahim) COVID-19 (Acute) COVID-19 (Acute) GERD (gastroesophageal reflux disease) (Chronic) Baer's Esophagus Asthma (Chronic) Tubular adenoma of colon (Acute) Hyperplastic colon polyp (Acute) Hypertensive emergency (Acute) Altered mental status (Acute) Barretts esophagus (Acute) Abdominal pain in female (Acute) Crohn's colitis (Acute) Trochanteric bursitis, left hip (Acute) Depo-Medrol injection: 05/09/2022 Medical History (Updated 05/02/24 @ 18:58 by JACKIE Ibrahim) Bilateral hand pain History of back pain Pain, joint, shoulder, right History of psychiatric disorder Dysphonia Dysphasia Altered awareness, transient Amnesia Disorder of vocal cord Sleep apnea Tick bite Ischial bursitis of right side Depo-Medrol injection: 01/14/2021 (Dr. Drummond); previous injections on 06/12/2014, 02/12/2014, 11/14/2013 (Dr. Bear) Osteoporosis Lesion of vocal cord Rash, skin Facial rhytids (01/15/18) Encounter for screening colonoscopy Hypertension Anxiety Hormone replacement therapy (HRT) Allergic rhinitis Hyperlipidemia Premature ventricular contractions (PVCs) (VPCs) Per pt. states this is due to anxiety Dry eye syndrome Vitamin D deficiency Fatigue Impaired fasting glucose Vaginal prolapse (03/29/16) s/p laparoscopic colpopexy, posterior repair. [facility] [place]. Surgical History (Updated 12/29/23 @ 09:23 by George Menchaca MD) Hx of cataract removal with insertion of prosthetic lens History of colonoscopy (~05/2022) History of open sigmoidectomy laparoscopic sacral colpopexy 03/29/16 with posterior colporrhaphy. [facility] [place]. Oophrectomy, Left (~2000) Vaginal hysterectomy (~2002) for uterine prolapse, with oophorectomy Repair of umbilical hernia Colonoscopy - IV Sedation with EGD for Barretts esophagitis Family History Mother Essential hypertension Heart disease Stroke Father Blood disorder required blood transfusions Brother Diabetes Grandfather , mouth cancer Diabetes Grandmother , breast cancer No problems noted. 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
== END 2024-05-02 19:15 | disposition home or self-care (01) ==
PROVIDERS: Emergency Provider Physician Assistant; PCP Internal Medicine
DX: U07.1 COVID-19 (principal); I10 Essential (primary) hypertension
CPT/HCPCS: 99283

== ENCOUNTER 2024-07-04 02:12 | Outpatient (CLI) | payer MEDICARE, BC, SELFPAY ==
--- NOTE | 2024-07-04 | DI.MAMMO_ITS ---
Exam(s) MAMMO SCREENING EXAM: MAMMO SCREENING CLINICAL HISTORY: SCREENING, Z12.39 TECHNIQUE: Bilateral full field digital CC and MLO mammographic images were obtained with 3D tomosyn thesis and utilizing computer aided detection (CAD). COMPARISON: Available for comparison. FINDINGS: Masses/Architectural Distortion: None seen. Microcalcifications: No suspicious pleomorphic-type are seen. Skin Thickening/Nipple Retraction: None. IMPRESSION: 1. No significant interval change with no specific features of malignancy noted. 2. Unless there is more urgent need, screening mammography is recommended, as per [place] [employer] guidelines. BI-RADS Category 1 - Negative Breast Density - Category B - Scattered areas of fibroglandular density Breast density category C or D implies that the patient has dense breast tissue. Dense breast tissue is very common and is not abnormal but dense breast tissue can make it harder to find cancer on a ma mmogram. Also, dense breast tissue may increase their breast cancer risk. This information about the result of the mammogram report was provided to the patient to raise their awareness. Use this report when you speak with the patient about their risks for breast cancer, which includes their family hist ory. At that time, you may recommend for more screening tests (Ultrasound or MRI) as they might be us eful based on their risk. A negative radiographic report should not delay biopsy if a dominant or clinically suspicious mass is present. Up to ten percent of cancers are not identified on mammography. A negative report may reinforce clinical impression. Adenosis and dense breasts may obscure an underlying neoplasm. False positive reports average 6 to 10%. Patient will receive a letter notifying them of these results.
--- NOTE | 2024-07-04 | DI.DEXA_ITS ---
Exam(s) XR DEXA BONE DENSITY W/WO KAMILLE EXAM: XR DEXA BONE DENSITY W/WO KAMILLE CLINICAL HISTORY: SENILE OSTEOPOROSIS, M81.0, CURRENT PATHOLOGICAL FRACTURE TECHNIQUE: COMPARISON: CR XR DEXA BONE DENSITY W/WO KAMILLE from 06/30/2022 FINDINGS: Lateral Spine Image: Unremarkable. No compression deformities identified. Left hip: Total T-Score: -1.7. This compares to -2.0 on the prior examination. Total Z-Score: 0.0 T- and Z-scores: Findings are consistent with osteopenia. There is osteoporosis in the femoral neck with a T-score of -2.5. Lumbar Spine: Total T-Score: -2.1. This compares to -2.2 on the prior examination. Total Z-Score: 0.2 T- and Z-scores: Findings are consistent with osteopenia. There is osteoporosis seen in the L1 verte bral body with a T-score of -2.5. IMPRESSION: Osteoporosis seen in the left femoral neck and the L1 vertebral body.
== END 2024-07-04 02:32 ==
LOC: DI 02:12
PROVIDERS: PCP Internal Medicine; Visit Provider Internal Medicine
DX: M81.0 Age-related osteoporosis without current pathological fracture (principal); Z12.31 Encounter for screening mammogram for malignant neoplasm of breast; Z13.820 Encounter for screening for osteoporosis
CPT/HCPCS: 77063; 77067; 77080

== ENCOUNTER 2024-08-14 10:59 | Emergency (ER) | payer MEDICARE, BC, SELFPAY ==
--- NOTE | 2024-08-14 11:00 | RT.EKG_ITS ---
APPROVED REPORT Exam: Resting ECG Reason for Exam: Chest Pain Patient Location: E HR:77 bpm ECG Measurements Heart Rate 77 AXIS ND 157 P 44 QRSd 80 QRS 59 QT 391 T 57 QTc 444 Conclusion Sinus rhythm...normal P axis, V-rate 60- 99 Physician: no stemi
[2024-08-14 11:01] VITALS: BP 138/83; PULSE 79; RESP 14; TEMP 36.6; O2SAT 97
--- NOTE | 2024-08-14 11:15 | DI.RAD_ITS ---
Exam(s) XR PORTABLE CHEST AP EXAM: XR PORTABLE CHEST AP CLINICAL HISTORY: left chest wall discomfort, eval for mass or fx TECHNIQUE: 2D digital imaging was performed of the chest. One image was obtained. An AP view was ob tained. COMPARISON: CR XR CHEST 2V PA LATERAL from 12/07/2023 FINDINGS: MEDIASTINUM: Normal. HEART: Normal. PULMONARY VASCULATURE: Normal. LUNGS: No focal consolidating infiltrates. PLEURAL SPACE: No pleural effusion or pneumothorax. BONE:Within normal limits for the patient's age. OTHER FINDINGS:Normal. IMPRESSION: No acute pulmonary findings. DATA REPOSITORY: RADIATION DOSE DELIVERED:
[2024-08-14 11:22] VITALS: RESP 18
[2024-08-14 11:43] LABS: Abs Immature Grans 0.07 10^3/uL (0.0-0.06); Absolute Basophil Count 0.06 10^3/uL (0.0-0.2); Absolute Eosinophil Count 0.26 10^3/uL (0.0-0.7); Absolute Lymphocyte Count 1.07 10^3/uL (1.2-3.4); Absolute Monocyte Count 0.62 10^3/uL (0.1-0.8); Absolute Neutrophil Count 4.54 10^3/uL (1.2-6.7); Basophils % 0.9 %; Eosinophils % 3.9 %; HCT 36.7 % (36.0-46.0); HGB 12.3 g/dL (11.2-15.7); Immature Grans % 1.1 %; Lymphocytes % 16.2 %; MCH 31.1 pg (27.0-33.0); MCHC 33.5 % (32.0-36.0); MCV 93 fL (80-95); MPV 8.5 fL (8.0-11.0); Monocytes % 9.4 %; Neutrophils % 68.5 %; Platelet Count 347 10^3/uL (130-400); RBC 3.95 10^6/uL (3.93-5.22); RDW 13.3 % (11.7-14.6); RDW-SD 45.3 fL; WBC 6.62 10^3/uL (4.4-10.8)
--- NOTE | 2024-08-14 12:19 | ED.GENADUL_ITS ---
Discharge Plan Disposition Patient Disposition: Home Condition: Good Discharge Details Clinical Impression: Chest wall discomfort Primary Care Provider: Gracy Wick ED Provider: Ej Peters Home Meds and New Rx's Prescriptions: New gabapentin [Neurontin] 300 mg capsule 300 mg PO TID Qty: 90 0RF Rx Instructions: On the first day take 1 pill, on the second day take 1 pill twice daily, on the third day and for the remainder of the prescription take 1 pill 3 times a day. No Action multivitamin [Daily Multi-Vitamin] Tablet 1 tab PO DAILY cyclosporine [Restasis] 0.05 % dropperette 1 drp OP BID (DME) nebulizers [Compact Compressor Nebulizer] Misc See Rx Instructions .ROUTE .MEDSUPPLY Qty: 1 Rx Instructions: As directed ipratropium-albuterol 0.5 mg-3 mg(2.5 mg base)/3 mL solution for nebulization 3 ml inhalation .Q4-6H PRN omeprazole 20 MG capsule,delayed release(DR/EC) 20 mg PO BID fluticasone propion-salmeterol [Advair Diskus] 1 EACH blister with device 1 puff Inhalation DAILY mometasone [Nasonex] 17 GM spray,non-aerosol 1 spry NS DAILY albuterol sulfate [Ventolin HFA] 60 PUFF HFA aerosol inhaler 2 puff Inhalation PRN PRN alendronate [Fosamax] 70 mg Tablet 70 mg PO QWEEK ibuprofen 400 mg Tablet 400 mg PO Q8H PRN PRN bupropion HCl 150 mg tablet extended release 24 hr 150 mg PO DAILY Patient Comments: TAKE ONE TABLET BY MOUTH EVERY DAY metformin 500 mg tablet 500 mg PO DAILY Patient Comments: TAKE ONE TABLET BY MOUTH EVERY DAY rosuvastatin 20 mg Tablet 20 mg PO .QHS lisinopril 20 mg tablet 20 mg PO DAILY amlodipine 5 mg tablet 2.5 mg PO .QHS Patient Comments: TAKE 1 TABLET BY MOUTH DAILY escitalopram oxalate [Lexapro] 20 mg tablet 20 mg PO DAILY Patient Comments: Take 1 tablet by mouth once a day Discharge Instructions Instructions: Chest Pain, Adult ED Additional Instructions: At this time your workup has returned and shows no significant abnormalities. There is no evidence of abnormalities in your ribs or lungs, there is no signs of blood clots or heart problems. There is a chance that there could be a nerve related issue that may be causing your symptoms. As we discussed together there may be potential for improvement of your symptoms with gabapentin. Please take this as prescribed. Please do not take this until you have spoken with your primary care provider about cutting down on your bupropion secondary to the potential seizure association risk. However you still would likely benefit from further testing and evaluation on a nonemergent outpatient basis with your primary care provider. If you notice any worsening of your symptoms, or any new symptoms such as vomiting, diarrhea, fever, chills, shortness of breath, chest pain, numbness, weakness, or fainting , please return immediately to the emergency department for reevaluation. Please follow up with your primary care provider as soon as possible for reassessment and reevaluation. As always, it was a pleasure participating in your medical care today. Referrals: Gracy Wick [Primary Care Provider] - [facility] General Date/Time Provider Initiated Documentation: 08/14/24 11:11 . HPI Narrative: 74-year-old female with a past medical history of diabetes, high cholesterol, family history of cardiac disease, who presents today for evaluation of left-sided atypical chest pain. Patient states that 2 years ago she developed anaplasmosis and was treated with doxycycline for this. In March she developed both COVID and Lyme disease, was treated for this, but since then has been persistently fatigued. Over the last 2 months she has noticed a aty pical chest sensation which she describes as an achy burning-like sensation in the left side of her chest wrapping around from the back towards the front. She denies any lesions. Symptoms are nonexertional. No significant pleuritic chest pain. She has had a mild dry cough, but no other complaints. No fever or chills. No rash. No other symptoms at this time. Related Data Home Medications ?Medication ?Instructions ?Recorded ?Confirmed fluticasone 100 mcg-salmeterol 50 1 puff inhalation DAILY 01/31/13 08/14/24 mcg/dose blistr powdr for inhalation (Advair Diskus) mometasone 50 mcg/actuation nasal 1 spry NS DAILY 01/31/13 08/14/24 spray (Nasonex) omeprazole 20 mg capsule,delayed 20 mg PO BID 01/31/13 08/14/24 release albuterol sulfate 90 mcg/actuation 2 puff inhalation PRN PRN 07/04/15 08/14/24 aerosol inhaler (Ventolin HFA) cyclosporine 0.05 % eye drops in a 1 drp ophthalmic (eye) BID 11/14/19 08/14/24 dropperette (Restasis) multivitamin (Daily Multi-Vitamin 1 tab PO DAILY 11/14/19 08/14/24 tablet) nebulizers (Compact Compressor #1 ea 11/14/19 08/14/24 Nebulizer) alendronate 70 mg tablet (Fosamax) 70 mg PO QWEEK 07/06/20 08/14/24 ipratropium 0.5 mg-albuterol 3 mg 3 ml inhalation .Q4-6H PRN 09/28/20 08/14/24 (2.5 mg base)/3 mL nebulization soln amlodipine 5 mg tablet 2.5 mg PO .QHS 10/26/20 08/14/24 lisinopril 20 mg tablet 20 mg PO DAILY 10/26/20 08/14/24 rosuvastatin 20 mg tablet 20 mg PO .QHS 10/26/20 08/14/24 ibuprofen 400 mg tablet 400 mg PO Q8H PRN PRN 06/02/22 08/14/24 escitalopram oxalate 20 mg tablet 20 mg PO DAILY 12/13/23 08/14/24 (Lexapro) bupropion HCl 150 mg 24 hr tablet, 150 mg PO DAILY 08/14/24 08/14/24 extended release gabapentin 300 mg capsule 300 mg PO TID #90 caps 08/14/24 (Neurontin) metformin 500 mg tablet 500 mg PO DAILY 08/14/24 08/14/24 Previous Rx's ?Medication ?Instructions ?Recorded gabapentin 300 mg capsule 300 mg PO TID #90 caps 08/14/24 (Neurontin) Allergies Allergy/AdvReac Type Severity Reaction Status Date / Time mirtazapine (From Remeron) Allergy Severe Seizure Verified 08/14/24 11:08 latex Allergy Intermediate Skin Rash Verified 08/14/24 11:08 animal dander Allergy Mild Itching Verified 08/14/24 11:08 venlafaxine HCl (From AdvReac Severe seizure Verified 08/14/24 11:08 Effexor) meperidine HCl (From Demerol) AdvReac Intermediate vomit, Verified 08/14/24 11:08 couldn't wake up oxycodone (Oxycodone) AdvReac Intermediate gi upset Verified 08/14/24 11:08 General Stated Complaint: GenMedical SIXTO: 3 Review of Systems All systems reviewed & are unremarkable except as noted in HPI and below Exam Narrative Exam Narrative: 1.Const: Well-nourished, Well-developed, appearing stated age 2.Eyes: PERRL, no conjunctival injection, and symmetrical lids. 3.ENT: Atraumatic external nose and ears. Moist MM. Neck: Symmetric, trachea midline, No thyromegaly. 4.CVS: +S1/S2, Peripheral pulses 2+ and equal in all extremities. Brisk capillary refill in all extremities. 5.RESP: Unlabored respiratory effort. Clear to auscultation bilaterally. No wheezes rales or rhonchi 6.GI: Soft, Nontender/Nondistended, No hepatosplenomegaly. No guarding or rebound. 7.MSK: Normocephalic/Atraumatic, Extremities w/o deformity or ttp No cyanosis or clubbing, Normal movement of all extremities 8.Skin: Warm, Dry. No rashes or lesions. No evidence of shingles. No abnormalities on palpation of the left lateral ribs. Minimal reproducibility of achiness on palpation though. 9.Neuro: financial management II-XII grossly intact. Sensation grossly intact, no focal neurologic deficits. 10.Psych: (AAO) x3. Appropriate mood and affect Course Vital Signs Vital signs: Vital Signs Temperature 36.6 C 08/14/24 11:01 Pulse 79 08/14/24 11:01 Respiratory Rate 14 08/14/24 11:01 Blood Pressure 138/83 08/14/24 11:01 Pulse Oximetry 97 08/14/24 11:01 Temperature 36.6 C 08/14/24 11:01 Temperature Source Oral 08/14/24 11:01 Pulse 79 08/14/24 11:01 Respiratory Rate 18 08/14/24 11:22 Respiratory Effort Normal 08/14/24 11:22 Respiratory Depth Normal 08/14/24 11:22 Respiratory Pattern Normal 08/14/24 11:22 Blood Pressure 138/83 08/14/24 11:01 Blood Pressure Position Sitting 08/14/24 11:01 Pulse Oximetry 97 08/14/24 11:01 Oxygen Delivery Method Room Air 08/14/24 11:01 Oxygen Flow Rate 0 08/14/24 11:01 Pain Level 0 08/14/24 11:01 Comment Will not give a number for pain. 08/14/24 11:01 Lab/Test Results Lab/Test Results: Laboratory Tests Range/Units 08/14/24 11:35 WBC (4.4-10.8) 10^3/uL 6.62 RBC (3.93-5.22) 10^6/uL 3.95 Hgb (11.2-15.7) g/dL 12.3 Hct (36.0-46.0) % 36.7 MCV (80-95) fL 93 MCH (27.0-33.0) pg 31.1 MCHC (32.0-36.0) % 33.5 RDW (11.7-14.6) % 13.3 Plt Count (130-400) 10^3/uL 347 MPV (8.0-11.0) fL 8.5 Immature Gran % % 1.1 Neutrophils % % 68.5 Lymphocytes % % 16.2 Monocytes % % 9.4 Eosinophils % % 3.9 Basophils % % 0.9 Nucleated RBC % (0.0-0.3) % 0.0 Absolute Neutrophils (1.2-6.7) 10^3/uL 4.54 Absolute Lymphocytes (1.2-3.4) 10^3/uL 1.07 L Absolute Monocytes (0.1-0.8) 10^3/uL 0.62 Absolute Eosinophils (0.0-0.7) 10^3/uL 0.26 Absolute Basophils (0.0-0.2) 10^3/uL 0.06 Medical Decision Making 74-year-old female with a past medical history of diabetes, high cholesterol, family history of cardiac disease, who presents today for evaluation of left-sided atypical chest pain. Patient states that 2 years ago she developed anaplasmosis and was treated with doxycycline for this. In March she developed both COVID and Lyme disease, was treated for this, but since then has been persistently fatigued. Over the last 2 months she has noticed a atypical chest sensation which she describes as an achy burning-like sensation in the left side of her chest wrapping around from the back towards the front. She denies any lesions. Symptoms are nonexertional. No significant pleuritic chest pain. She has had a mild dry cough, but no other complaints. No fever or chills. No rash. No other symptoms at this time. Exam demonstrates a well-appearing female, no rash, no signs of shingles, minimal reproducibility of achiness on palpation of the left lateral ribs. Lung sounds are clear. Patient otherwise looks notably clinically well. Differential includes intercostal nerve discomfort, less likely cardiac etiology, less likely PE. Will get a chest x-ray evaluate for concerning etiologies, monitor closely and reassess. EKG demonstrates no evidence of significant abnormality at this time. 2 PM Laboratory workup has returned, CBC unremarkable, D-dimer normal. Electrolytes normal, renal function normal, serial troponins are normal, thyroid function normal. EKG stable. Chest x-ray negative for acute process. Symptoms inconsistent with PE dissection ACS. No rash to suggest shingles. Differential includes neuralgia on peripheral nerve/subcostal nerve, mild postviral cutaneous irritation, intercostal muscle spasm, or other nonacute life-threatening etiology. Patient did discuss therapy for this. I did give the option of gabapentin, but discussed with her how there is an increased risk of potential seizures with her other medications specifically the bupropion. My recommendations to the patient was that she not take any gabapentin until she talks with her primary care provider about cutting down on the bupropion prior to gabapentin use. Patient understands. I have extensively reviewed the treatment plan and discharge instructions with the patient. I have addressed all patient concerns at this time. The patient was made aware of what symptoms to m onitor for that would warrant a return to the emergency department. Discussed the plan with the patient, they demonstrate verbal understanding and agreement with our assessment and plan at this time. The documentation in this chart was dictated using [employer] dictation software. Please excuse any dictation errors. FINDINGS: MEDIASTINUM: Normal. HEART: Normal. PULMONARY VASCULATURE: Normal. LUNGS: No focal consolidating infiltrates. PLEURAL SPACE: No pleural effusion or pneumothorax. BONE:Within normal limits for the patient's age. OTHER FINDINGS:Normal. IMPRESSION: No acute pulmonary findings. Quality:SDOH Health Related Social Needs: No Data to Display PFSH All Active Problems (Updated 08/14/24 @ 13:53 by Ej Peters DO) Chest wall discomfort (Acute) COVID-19 (Acute) COVID-19 (Acute) GERD (gastroesophageal reflux disease) (Chronic) Baer's Esophagus Asthma (Chronic) Tubular adenoma of colon (Acute) Hyperplastic colon polyp (Acute) Hypertensive emergency (Acute) Altered mental status (Acute) Barretts esophagus (Acute) Abdominal pain in female (Acute) Crohn's colitis (Acute) Trochanteric bursitis, left hip (Acute) Depo-Medrol injection: 05/09/2022 Medical History Bilateral hand pain History of back pain Pain, joint, shoulder, right History of psychiatric disorder Dysphonia Dysphasia Altered awareness, transient Amnesia Disorder of vocal cord Sleep apnea Tick bite Ischial bursitis of right side Depo-Medrol injection: 01/14/2021 (Dr. Drummond); previous injections on 06/12/2014, 02/12/2014, 11/14/2013 (Dr. Bear) Osteoporosis Lesion of vocal cord Rash, skin Facial rhytids (01/15/18) Encounter for screening colonoscopy Hypertension Anxiety Hormone replacement therapy (HRT) Allergic rhinitis Hyperlipidemia Premature ventricular contractions (PVCs) (VPCs) Per pt. states this is due to anxiety Dry eye syndrome Vitamin D deficiency Fatigue Impaired fasting glucose Vaginal prolapse (03/29/16) s/p laparoscopic colpopexy, posterior repair. [facility] [place]. Surgical History Hx of cataract removal with insertion of prosthetic lens History of colonoscopy (~05/2022) History of open sigmoidectomy laparoscopic sacral colpopexy 03/29/16 with posterior colporrhaphy. [facility] [place]. Oophrectomy, Left (~2000) Vaginal hysterectomy (~2002) for uterine prolapse, with oophorectomy Repair of umbilical hernia Colonoscopy - IV Sedation with EGD for Barretts esophagitis Family History Mother Essential hypertension Heart disease Stroke Father Blood disorder required blood transfusions Brother Diabetes Grandfather , mouth cancer Diabetes Grandmother , breast cancer No problems noted. 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
[2024-08-14 12:22] LABS: D-Dimer 241 ng/mlFEU (<500)
[2024-08-14 12:29] LABS: ALT 38 U/L (14-59); AST 23 U/L (15-37); Albumin 4.3 g/dL (3.4-5.0); Alkaline Phosphatase 115 U/L (46-116); Anion Gap 9.8 mmol/L (3-11); BUN 20 mg/dL (7-18); Bilirubin, Total 0.37 mg/dL (0.2-1.0); CO2 25.2 mmol/L (21.0-32.0); Chloride 104 mmol/L (98-107); Estimated GFR 59.12 (mL/min/1.73m2); Glucose 132 mg/dL (74-106); Lipase 40 U/L (16-77); Potassium 3.9 mmol/L (3.5-5.1); Sodium 139 mmol/L (136-145); TSH (W/Ref FT4) 2.56 uIU/mL (0.36-3.74); Total Protein 7.9 g/dL (6.4-8.2); Troponin I 6 ng/L (<or=51)
[2024-08-14 12:46] VITALS: BP 141/70; PULSE 82; RESP 18; TEMP 36.6; O2SAT 97
[2024-08-14 13:12] LABS: Troponin I 7 ng/L (<or=51)
[2024-08-14 14:07] VITALS: BP 133/77; PULSE 75; RESP 16; TEMP 36.8; O2SAT 99
== END 2024-08-14 14:08 | disposition home or self-care (01) ==
PROVIDERS: Emergency Provider Student in an Organized Health Care Education/Training Program; PCP Internal Medicine
DX: R07.89 Other chest pain (principal); I10 Essential (primary) hypertension; E78.5 Hyperlipidemia, unspecified; E11.9 Type 2 diabetes mellitus without complications; E78.00 Pure hypercholesterolemia, unspecified; Z79.84 Long term (current) use of oral hypoglycemic drugs
CPT/HCPCS: 36415; 80053; 83690; 93005; 99285; 71045; 84443; 84484; 85025; 85379; 93010; 99284

== ENCOUNTER 2024-09-24 01:33 | Outpatient (CLI) | payer MEDICARE, BC, SELFPAY ==
--- NOTE | 2024-09-24 | DI.US_ITS ---
Exam(s) US AXILLA LT EXAM: US AXILLA LT CLINICAL HISTORY: Lump of axillary tail of lt breast, N63.32; M79.622; R22.32, L03.122 TECHNIQUE: Ultrasound left axilla performed using standard protocol. COMPARISON: No exams were available for comparison FINDINGS: No solid or cystic masses, hypoechoic foci, areas of abnormal shadowing, or areas of skin thickening. There are 2 sonographically benign-appearing lymph nodes present. The larger measures 1.7 x 1.0 x 1 .0 cm. The smaller measures 0.7 x 0.5 x 0.7 cm. IMPRESSION: No sonographically suspicious finding. DATA REPOSITORY:
== END 2024-09-24 01:53 ==
LOC: DI 01:33
PROVIDERS: PCP Internal Medicine; Visit Provider Nurse Practitioner Family
DX: N63.32 Unspecified lump in axillary tail of the left breast (principal)
CPT/HCPCS: 76642

== ENCOUNTER → 2025-02-10 13:53 | Outpatient (BNVA) | payer MEDICARE, BC, SELFPAY | PROVIDERS: PCP Internal Medicine; Referring Provider Internal Medicine; Visit Provider Student in an Organized Health Care Education/Training Program | DX: K21.9 Gastro-esophageal reflux disease without esophagitis (principal) | CPT/HCPCS: 99214 ==

== ENCOUNTER 2025-02-19 07:33 | Day surgery (SDC) | payer MEDICARE, BC, SELFPAY ==
[2025-02-19 07:40] VITALS: BP 137/92; PULSE 79; RESP 20; TEMP 36.8; O2SAT 94
[2025-02-19] MEDS: Lactated Ringers 1,000 ML 80 ML IV (08:05)
[2025-02-19 08:21] VITALS: BMI 25.9
--- NOTE | 2025-02-19 08:21 | ANES.PREOP_ITS ---
General Info Date of Service Date Performed: 02/19/25 Height: 5 ft 1 in Weight: 62.199 kg Body Mass Index (BMI): 25.9 Surgical Procedure: Operation Date: 02/19/25 08:50 Proposed Procedure Side Surgeon p Gastroscopy Naren Doyle MD Meds Allergies and Home Medications Allergies Allergy/AdvReac Type Severity Reaction Status Date / Time mirtazapine (From Remeron) Allergy Severe Seizure Verified 02/19/25 07:49 latex Allergy Intermediate Skin Rash Verified 02/19/25 07:49 animal dander Allergy Mild Itching Verified 02/19/25 07:49 venlafaxine HCl (From AdvReac Severe seizure Verified 02/19/25 07:49 Effexor) meperidine HCl (From Demerol) AdvReac Intermediate vomit, Verified 02/19/25 07:49 couldn't wake up oxycodone (Oxycodone) AdvReac Intermediate gi upset Verified 02/19/25 07:49 Home Medication ?Medication ?Instructions ?Recorded fluticasone 100 mcg-salmeterol 50 1 puff inhalation DAILY 01/31/13 mcg/dose blistr powdr for inhalation (Advair Diskus) mometasone 50 mcg/actuation nasal 1 spry NS DAILY 01/31/13 spray (Nasonex) albuterol sulfate 90 mcg/actuation 2 puff inhalation PRN PRN 07/04/15 aerosol inhaler (Ventolin HFA) multivitamin (Daily Multi-Vitamin 1 tab PO DAILY 11/14/19 tablet) nebulizers (Compact Compressor #1 ea 11/14/19 Nebulizer) ipratropium 0.5 mg-albuterol 3 mg 3 ml inhalation .Q4-6H PRN 09/28/20 (2.5 mg base)/3 mL nebulization soln lisinopril 20 mg tablet 20 mg PO DAILY 10/26/20 rosuvastatin 20 mg tablet 20 mg PO .QHS 10/26/20 ibuprofen 400 mg tablet 400 mg PO Q8H PRN PRN 06/02/22 alendronate 70 mg tablet (Fosamax) 70 mg PO QWEEK 01/22/25 amlodipine 10 mg tablet 10 mg PO HS 01/22/25 fluoxetine 20 mg capsule 20 mg PO DAILY 01/22/25 omeprazole 40 mg capsule,delayed 40 mg PO BID 01/22/25 release gabapentin 300 mg capsule 300 mg PO BID 02/18/25 (Neurontin) Current Visit Medications: Current Medications Generic Name Dose Route Start Last Admin Trade Name Ayaz PRN Reason Stop Dose Admin Ringer's Solution 1,000 mls @ 80 mls/hr 02/19/25 06:00 02/19/25 08:05 IV 02/19/25 23:59 80 mls/hr INFUSION VIKTORIYA Administration IV Miscellaneous Supplies 1 each 02/19/25 06:00 Iv Access IV 02/19/25 23:59 DIRECTED VIKTORIYA Sodium Chloride 0 ml 02/19/25 06:00 Normal Saline Flush 10 Ml Syr IV 02/19/25 23:59 PRN PRN Sodium Chloride 0 ml 02/19/25 06:00 Normal Saline 10 Ml Vial IJ 02/19/25 23:59 DIRECTED PRN Sterile Water 0 ml 02/19/25 06:00 Water,Injection,Sterile 10 Ml Vial IJ 02/19/25 23:59 DIRECTED PRN PFSH Active Problems Active Problems: Problem Status Onset Code Hiatal hernia Chronic K44.9 Type 2 diabetes mellitus Acute E11.9 Depressive disorder Chronic F32.A Gastroesophageal reflux disease without esophagitis Acute K21.9 COVID-19 Acute U07.1 Nuclear age-related cataract, left eye Resolved H25.12 Nuclear age-related cataract, right eye Resolved H25.11 COVID-19 Acute U07.1 GERD (gastroesophageal reflux disease) Chronic K21.9 Asthma Chronic J45.909 Tubular adenoma of colon Acute D12.6 Hyperplastic colon polyp Acute K63.5 Hypertensive emergency Acute I16.1 Altered mental status Acute R41.82 Barretts esophagus Acute K22.70 Abdominal pain in female Acute R10.9 Crohn's colitis Acute K50.10 Trochanteric bursitis, left hip Acute M70.62 Medical History Medical History Back pain Pain in axilla Bilateral hand pain History of back pain Pain, joint, shoulder, right History of psychiatric disorder Dysphonia Dysphasia Altered awareness, transient Amnesia Disorder of vocal cord Sleep apnea Tick bite Ischial bursitis of right side Depo-Medrol injection: 01/14/2021 (Dr. Drummond); previous injections on 06/12/2014, 02/12/2014, 11/14/2013 (Dr. Bear) Osteoporosis Lesion of vocal cord Rash, skin Facial rhytids (01/15/18) Encounter for screening colonoscopy Hypertension Anxiety Hormone replacement therapy (HRT) Allergic rhinitis Hyperlipidemia Premature ventricular contractions (PVCs) (VPCs) Per pt. states this is due to anxiety Dry eye syndrome Vitamin D deficiency Fatigue Impaired fasting glucose Vaginal prolapse (03/29/16) s/p laparoscopic colpopexy, [place] [facility] [place] Surgical History Hx of cataract removal with insertion of prosthetic lens History of colonoscopy (~05/2022) History of open sigmoidectomy laparoscopic sacral colpopexy 03/29/16 with [place]rhaphy[place] [facility] [place]oph[place], Left (~2000) Vaginal hysterectomy (~2002) for uterine prolapse, with oophorectomy Repair of umbilical hernia Colonoscopy - IV Sedation with EGD for Barretts esophagitis Tobacco Smoking/Tobacco Use Status: Never Alcohol Alcohol Intake: former Substance Use Substance use: Never Substance use type: does not use Vital Signs and Lab Results Vital Signs Most Recent Vital Signs in EMR: Most Recent Vital Signs Temp Pulse Resp BP Pulse Ox 36.8 C 79 20 137/92 H 94 02/19/25 07:40 02/19/25 07:40 02/19/25 07:40 02/19/25 07:40 02/19/25 07:40 Lab Results Blood Type / Crossmatch: No Data to Display Complete Blood Count: No Data to Display Complete Metabolic Panel: No Data to Display Liver Function Panel: No Data to Display Coagulation Panel: No Data to Display Cardiac Panel: No Data to Display Arterial Blood Gas: No Data to Display Venous Blood Gas: No Data to Display Pancreas Panel: No Data to Display Thyroid Panel: No Data to Display Infectious Disease: No Data to Display Blood Cultures: No Data to Display Toxicology Panel: No Data to Display Anesthesia Assessment and Plan Anesthesia History Personal History: No History of Anesthesia Complications Family History: No Family History of Anesthesia Complications Exercise Tolerance Exercise Tolerance: Metabolic Equivalents>4 Pertinent Negatives Pertinent Negatives: No History of CVA/TIA Cardiac & Pulmonary Exam Cardiac Exam: Normal S1/S2 Heart Sounds Pulmonary Exam: Clear Bilateral Breath Sounds Implantable Cardiac Device Does patient have a Pacemaker or an ICD?: No Airway Exam Known Difficult Airway: No Mallampati Class: 4 Mouth Opening: Normal (> 3cm) Thyromental Distance: Greater than 3 cm Neck Range of Motion: Full ROM Neck Circumference: Normal Teeth Condition: Normal Dentition ASA Classification ASA Score: ASA 3 Emergency Case?: No NPO Status NPO Status: NPO Clears >2 hours, Solids >8 hours Anesthesia Plan Resuscitation Status: Full Code Anesthesia Technique: General Anesthesia Airway Planned: Natural Airway Monitors Used: Standard Monitors
--- NOTE | 2025-02-19 08:50 | W.PM.ENDDOP ---
Date of service: 02/19/25 Time of Service: 08:50 Endoscopy Report PROCEDURE DESCRIPTION: PROCEDURES PERFORMED: 1. 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 Repeat endoscopy indicated for these reasons. FINDINGS: D2/D3 = normal D1/bulb = normal - no ulcers or inflammation Pylorus = normal Antrum = normal appearance, no ulcers, cold forceps biopsies were taken to rule out H. pylori routinely Body = multiple polyps all over Fundus = severe polyposis. Significant portion of fundus herniating up into the chest. Soren's ulcers/inflammation visibly present on the mucosa where it rubs/was over the hiatal opening Cardia = grossly normal with clear, visible inflammation on the fundus mucosa that herniates over the hiatal ridges(Soren's ulcers). Hiatus = Hill grade 4 hiatal defect with herniating fundus. Type III paraesophageal hernia. Distal esophagus = despite the large hernia, no visible inflammation at the esophagus (presumably because of high?doses of PPI). Cold forceps biopsies were taken routinely. Mid esophagus = normal Proximal esophagus/hypopharynx/vocal cords = normal SURVEILLANCE-INTERVAL/FOLLOW-UP: Must stop PPI therapy. Will need to consider paraesophageal hernia repair. Specimens: Yes EBL: Minimal COMPLICATIONS: None Procedure in detail: The patient gave written consent and was in agreement with the indications, the potential risks as well as the benefits of the procedure. The patient was taken to the endoscopy suite and laid on their left side. Anesthesia was given which was tolerated well. We performed a timeout and we are in agreement I started the procedure. A well-lubricated endoscope was gently and carefully advanced down the esophagus, into the stomach the scope was and through the pylorus into the duodenum. The scope was then slowly withdrawn with the above-noted findings/interventions. The patient tolerated the procedure well and was taken back to day surgery in stable condition.
--- NOTE | 2025-02-19 08:51 | W.PM.DSUDISC ---
Date of service: 02/19/25 Discharge Plan Disposition Patient Disposition: Home Condition: Good Discharge Details Attending Provider: Naren Doyle Primary Care Provider: Gracy Wick Home Meds and New Rx's Prescriptions: No Action multivitamin [Daily Multi-Vitamin] Tablet 1 tab PO DAILY (DME) nebulizers [Compact Compressor Nebulizer] Misc See Rx Instructions .ROUTE .MEDSUPPLY Qty: 1 Rx Instructions: As directed ipratropium-albuterol 0.5 mg-3 mg(2.5 mg base)/3 mL solution for nebulization 3 ml inhalation .Q4-6H PRN fluoxetine 20 mg capsule 20 mg PO DAILY alendronate [Fosamax] 70 mg tablet 70 mg PO QWEEK amlodipine 10 mg tablet 10 mg PO HS omeprazole 40 mg capsule,delayed release(DR/EC) 40 mg PO BID fluticasone propion-salmeterol [Advair Diskus] 1 EACH blister with device 1 puff Inhalation DAILY mometasone [Nasonex] 17 GM spray,non-aerosol 1 spry NS DAILY albuterol sulfate [Ventolin HFA] 60 PUFF HFA aerosol inhaler 2 puff Inhalation PRN PRN ibuprofen 400 mg Tablet 400 mg PO Q8H PRN PRN gabapentin [Neurontin] 300 mg capsule 300 mg PO BID Rx Instructions: On the first day take 1 pill, on the second day take 1 pill twice daily, on the third day and for the remainder of the prescription take 1 pill 3 times a day. 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 This is causing all of your acid reflux and stomach issues. Unfortunately, you also have severe stomach polyps. (Gastric polyposis) this condition is a side effect of taking chronic, high?dose PPI medications and you should stop taking those immediately as we already discussed in the office. There are alternative anti-acid medications that can be considered, but further PPI therapy is contraindicated because it carries significant risk in the long-term. While you have many different symptoms from various different problems, the stomach and esophagus and reflux problems can probably all be fixed by repairing the hernia. There are multiple reasons to fix these types of hernias when they are found and I suspect you will be very happy with the outcome of the minimally invasive hiatal hernia repair and antireflux surgery. The biggest benefit in your particular case would be antireflux management WITHOUT having to take any more medication. Call and schedule an optional follow-up in the surgery office if you wish to discuss further. If you need antiacid medication for your symptoms in the meantime, you should call your PCP and discuss further with them about non-? PPI alternatives. Stand Alone Forms: Anesthesia Discharge Inst., DSU Post EGD Instructions, Gino Lutz (DSU) Activity:: Activity as Tolerated Diet:: As Tolerated Discharge Orders Discharge Orders: Discharge Order (Routine); Ordered 02/19/25 Ordered By: Naren Doyle
--- NOTE | 2025-02-19 09:20 | STOM_PTH ---
PATIENT: Trista Boothe LOC: [facility] U#:[id number] AGE/SX: 74/F ROOM: RE02/19/[address]: Naren Doyle : 1950 BED: DIS: 02/19/2025 SPEC #: [id number] RECD: 02/19/25 13:10 STATUS: BIJAN REMonica #: [id number] EVELINA: 02/19/25 09:[address]: Naren Doyle DEPT: Surgical Specimen RECD BY: Adela Shaw ENTERED: 02/19/25 13:11 SP TYPE: STOMACH OTHR DR: Gracy Wick Tissues: 1 - STOMACH BIOPSY 2 - STOMACH BIOPSY 3 - STOMACH BIOPSY 4 - ESOPHAGUS BIOPSY Procedures: GROSS AND MICRO LEVEL 4 Comments: [id number]
[2025-02-19 09:32] VITALS: BP 116/71; PULSE 91; RESP 20; TEMP 36.6; O2SAT 93
--- NOTE | 2025-02-19 09:44 | W.ANESPOSTOP ---
Postoperative Evaluation Date, Time and Location Date Performed: 02/19/25 Time Performed: 09:44 Patient Location: Day Surgery Unit Vital Signs Most Recent Imported Vital Signs: Most Recent Vital Signs Temp Pulse Resp BP Pulse Ox 36.6 C 91 H 20 116/71 93 02/19/25 09:32 02/19/25 09:32 02/19/25 09:32 02/19/25 09:32 02/19/25 09:32 Pain Score Most Recent Pain Score: Most Recent Pain Score Pain Level 0 02/19/25 09:32 Assessment Mental Status: Awake (Alert & Oriented to Patient Baseline) Airway and Respiratory Function: Patent airway with normal (patient baseline) respiratory exam Cardiovascular Function: Hemodynamically Stable Hydration Status: Adequately Hydrated Nausea & Vomiting: No Nausea or Vomiting Pain: Pt. Denies Any Pain Peripheral Nerve Block: Patient did not receive a nerve block
[2025-02-19 09:58] VITALS: BP 135/77; PULSE 80; RESP 20; TEMP 36.7; O2SAT 96
--- NOTE | 2025-02-20 14:12 | PDOC.ANES ---
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 I called Anahy to followup on this complaint. Reports small flap of skin on left side of tongue. Unable to isolate, reports it is annoying. Discussed need to suction multiple times, discussed placement of scope, uncertain of origin of trauma. Asked her to let us know if it worsens, or has signs and symptoms of infection. Reports constipation and hip pain post bowel movement as well, I did discuss that propofol is not particularly known for causing constipation. Did leave time for her to discuss additional questions. She will follow up with us if necessarry or it worsens. I will close the loop with Dr. Doyle.
== END 2025-02-19 11:05 | disposition home or self-care (01) ==
LOC: SUR 07:34
PROVIDERS: PCP Internal Medicine; Visit Provider Student in an Organized Health Care Education/Training Program
PROC: 0DJ68ZZ Inspection of Stomach, Via Natural or Artificial Opening Endoscopic (ICD-10-PCS; CPT 43235; principal; 2025-02-19 08:45)
DX: K25.9 Gastric ulcer, unspecified as acute or chronic, without hemorrhage or perforation (principal); K44.9 Diaphragmatic hernia without obstruction or gangrene; K31.9 Disease of stomach and duodenum, unspecified; K31.7 Polyp of stomach and duodenum
CPT/HCPCS: 43239; 88305; J2704

== ENCOUNTER 2025-03-05 13:26 | Outpatient (REF) | payer MEDICARE, BC, SELFPAY ==
[2025-03-05 21:48] LABS: COMMENT (LAB VIEW ONLY) 41.42 mg/dL; Microalb ug/mg Crea 18.6 ug/mg Cr
== END 2025-03-05 13:27 | disposition home or self-care (01) ==
LOC: NCHCN 13:26
PROVIDERS: PCP Internal Medicine; Visit Provider Internal Medicine
DX: E11.9 Type 2 diabetes mellitus without complications (principal)
CPT/HCPCS: 82043; 82570

== ENCOUNTER → 2025-03-11 11:20 | Outpatient (BNVA) | payer MEDICARE, BC, SELFPAY | PROVIDERS: PCP Internal Medicine; Referring Provider Internal Medicine; Visit Provider Student in an Organized Health Care Education/Training Program | DX: K44.9 Diaphragmatic hernia without obstruction or gangrene (principal) | CPT/HCPCS: 99215; G2212 ==

== ENCOUNTER 2025-03-24 00:05 | Outpatient (CLI) | payer MEDICARE, BC, SELFPAY ==
--- NOTE | 2025-03-24 07:15 | DI.RAD_ITS ---
Exam(s) RF BARIUM SWALLOW EXAM: RF BARIUM SWALLOW CLINICAL HISTORY: Preop, paraesophageal hernia,k44.9 TECHNIQUE: 2D and realtime digital imaging was performed. CONTRAST MATERIAL: Oral barium contrast was administered. COMPARISON: CR RF BARIUM SWALLOW from 12/13/2023 FINDINGS: CHEST X-RAY: The heart and pulmonary vasculature are within normal limits. There are no focal consolidating infiltrates. No pleural effusion or pneumothorax is present. The bones are within normal limits for the patient's age. ESOPHAGRAM: The esophagus is patent with no evidence for erosions, fold thickening, strictures, or masses. With regards to the motility, there is a normal primary stripping wave. No tertiary contractions were noted. Note is made of a moderate size sliding hiatal hernia. No evidence of gastroesophageal reflux. IMPRESSION: Moderate-sized sliding hiatal hernia. RADIATION DOSE DELIVERED: monica Martinez=18.7 mGy
--- NOTE | 2025-03-24 08:45 | DI.CT_ITS ---
Exam(s) CT CHEST WO EXAM: CT CHEST WO CLINICAL HISTORY: Pre-op,paraesophageal hernia,k44.9. TECHNIQUE: Imaging protocol: Axial computed tomography images were obtained and coronal and sagittal reformatted images were created and reviewed. Lung Computer Aided Detection (CAD) was utilized. COMPARISON: CT CT ABDOMEN PELVIS W from 08/23/2022 CR XR PORTABLE CHEST AP from 08/14/2024 FINDINGS: Tracheobronchial tree: Patent where visualized. No bronchiectasis is present. Pulmonary parenchyma: No consolidation or dominant measurable mass. There are areas of parenchymal scarring in the lungs bilaterally. Mediastinum and Saumya: No dominant adenopathy or fluid collection. The esophagus is unremarkable.There may be a small hiatal hernia. Thyroid gland: There is a 0.8 cm hypodense nodule in the right lobe of the thyroid gland. No follow-up is recommended. Pleura: No effusion or pneumothorax. Heart: The heart is not dilated. Three vessel coronary artery calcification is present. No pericardial effusion. Calcification of the mitral annulus is present. Aorta: Thoracic aorta non-dilated. Atherosclerotic calcification is present. Upper abdomen: There is decreased attenuation of the liver consistent with fatty infiltration. Lymph nodes: Within normal limits. Soft tissues: Unremarkable. Bones:Within normal limits for the patient's age. There are old bilateral rib fracture deformities. IMPRESSION: 1. Question of a small hiatal hernia. 2. No acute pulmonary process. 3. Fatty infiltration of the liver. RADIATION DOSE DELIVERED: 162.31mGy.cm Total DLP 162.31mGy.cm Total DLP DATA REPOSITORY: All CT scans at this facility are submitted to the National Radiology Data Registry (NRDR) Dose Index Registry (DIR) with the [employer] (ACR). RADIATION OPTIMIZATION: All CT scans at this facility use at least one of these dose optimization techniques: automated exposure control; mA and/or kV adjustment per patient size (includes targeted exams where dose is matched to clinical indication); or iterative reconstruction.
[2025-03-24] MEDS: Simethicone/Sod Bicarb/Cit Ac, 4 gram PACKET 1 PACKET PO (14:58)
[2025-03-24] MEDS: Barium Sulfate 98% W/W 140 ML BTL PO (14:59)
[2025-03-24] MEDS: Barium Sulfate 60% W/V 355 ML BTL 250 ML PO (14:59)
== END 2025-03-24 00:25 ==
LOC: DI 00:05
PROVIDERS: PCP Internal Medicine; Visit Provider Student in an Organized Health Care Education/Training Program
DX: K44.9 Diaphragmatic hernia without obstruction or gangrene (principal)
CPT/HCPCS: 71250; 74221; J3490

== ENCOUNTER 2025-04-25 11:57 | Observation (INO) | payer MEDICARE, BC, SELFPAY ==
--- NOTE | 2025-04-24 21:27 | W.SURGCON ---
Date of service: 04/25/25 Time of Service: 07:30 Assessment and Plan Assessment and plan (1) Paraesophageal hernia: Status: Acute Assessment and plan: 74-year-old woman with a symptomatic paraesophageal hernia. Plan: Laparoscopic paraesophageal hernia repair. Because of the severity of her acid reflux and that it breaks through both her PPI historically and currently on H2 ivania, I will perform a Milana fundoplication. History of Present Illness Narrative: Trista is here for her paraesophageal hernia repair. No significant changes clinically. Her acid reflux is a little bit worse than it has been since she is now off of PPI and on a H2 ivania. She has no new questions or concerns about her upcoming procedure. PFS All Active Problems Paraesophageal hernia (Acute) Hiatal hernia (Chronic) Type 2 diabetes mellitus (Acute) Depressive disorder (Chronic) Gastroesophageal reflux disease without esophagitis (Acute) COVID-19 (Acute) COVID-19 (Acute) GERD (gastroesophageal reflux disease) (Chronic) Baer's Esophagus Asthma (Chronic) Tubular adenoma of colon (Acute) Hyperplastic colon polyp (Acute) Hypertensive emergency (Acute) Altered mental status (Acute) Barretts esophagus (Acute) Abdominal pain in female (Acute) Crohn's colitis (Acute) Trochanteric bursitis, left hip (Acute) Depo-Medrol injection: 05/09/2022 Medical History Back pain Pain in axilla Bilateral hand pain History of back pain Pain, joint, shoulder, right History of psychiatric disorder Dysphonia Dysphasia Altered awareness, transient Amnesia Disorder of vocal cord Sleep apnea Tick bite Ischial bursitis of right side Depo-Medrol injection: 01/14/2021 (Dr. Drummond); previous injections on 06/12/2014, 02/12/2014, 11/14/2013 (Dr. Bear) Osteoporosis Lesion of vocal cord Rash, skin Facial rhytids (01/15/18) Encounter for screening colonoscopy Hypertension Anxiety Hormone replacement therapy (HRT) Allergic rhinitis Hyperlipidemia Premature ventricular contractions (PVCs) (VPCs) Per pt. states this is due to anxiety Dry eye syndrome Vitamin D deficiency Fatigue Impaired fasting glucose Vaginal prolapse (03/29/16) s/p laparoscopic colpopexy, posterior repair. [facility] [place]. Surgical History History of esophagogastroduodenoscopy (EGD) (~02/17/25) Hx of cataract removal with insertion of prosthetic lens History of colonoscopy (~05/2022) History of open sigmoidectomy laparoscopic sacral colpopexy 03/29/16 with posterior colporrhaphy. [facility] [place]. Oophrectomy, Left (~2000) Vaginal hysterectomy (~2002) for uterine prolapse, with oophorectomy Repair of umbilical hernia Colonoscopy - IV Sedation with EGD for Barretts esophagitis Family History Mother Essential hypertension Heart disease Stroke Father Blood disorder required blood transfusions Brother Diabetes Grandfather , mouth cancer Diabetes Grandmother , breast cancer No problems noted. 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 Good insight and understanding into condition. Chest: Non-labored breathing, no wheezing, no visible shortness of breath. Heart: Regular
[2025-04-25] VITALS (42 sets, daily range): BP systolic 96–151; BP diastolic 51–87; PULSE 71–99; RESP 11–25; TEMP 36.4–37.2; O2SAT 92–99; BMI 25.0
[2025-04-25] MEDS: Heparin 5,000 UNITS/ML VIAL 5000 UNITS SC ×2 (06:52→18:28)
[2025-04-25] MEDS: Celecoxib 200 MG CAP PO (06:58)
[2025-04-25] MEDS: Gabapentin 300 MG CAP PO (06:58)
[2025-04-25] MEDS: Lactated Ringers 1,000 ML 80 ML IV ×2 (07:00→11:00)
--- NOTE | 2025-04-25 07:23 | W.ANESPRE ---
General Info Date of Service Date Performed: 04/25/25 Height: 5 ft 1 in Weight: 60.2 kg Body Mass Index (BMI): 25.0 Surgical Procedure: Operation Date: 04/25/25 07:30 Proposed Procedure Side Surgeon p Hernia Paraesophageal Laparoscopic Naren Doyle MD Actual Procedure Side Surgeon p Hernia Paraesophageal Laparoscopic Not Applicable Naren Doyle MD Pre-Op Diagnosis Post-Op Diagnosis Paraesophageal hernia Meds Allergies and Home Medications Allergies Allergy/AdvReac Type Severity Reaction Status Date / Time mirtazapine (From Remeron) Allergy Severe Seizure Verified 04/25/25 06:27 latex Allergy Intermediate Skin Rash Verified 04/25/25 06:27 animal dander Allergy Mild Itching Verified 04/25/25 06:27 venlafaxine HCl (From AdvReac Severe seizure Verified 04/25/25 06:27 Effexor) meperidine HCl (From Demerol) AdvReac Intermediate vomit, Verified 04/25/25 06:27 couldn't wake up oxycodone (Oxycodone) AdvReac Intermediate gi upset Verified 04/25/25 06:27 Home Medication ?Medication ?Instructions ?Recorded fluticasone 100 mcg-salmeterol 50 1 puff inhalation DAILY 01/31/13 mcg/dose blistr powdr for inhalation (Advair Diskus) albuterol sulfate 90 mcg/actuation 2 puff inhalation PRN PRN 07/04/15 aerosol inhaler (Ventolin HFA) multivitamin (Daily Multi-Vitamin 1 tab PO DAILY 11/14/19 tablet) nebulizers (Compact Compressor #1 ea 11/14/19 Nebulizer) ipratropium 0.5 mg-albuterol 3 mg 3 ml inhalation .Q4-6H PRN 09/28/20 (2.5 mg base)/3 mL nebulization soln lisinopril 20 mg tablet 20 mg PO DAILY 10/26/20 rosuvastatin 20 mg tablet 20 mg PO .QHS 10/26/20 ibuprofen 400 mg tablet 400 mg PO Q8H PRN PRN 06/02/22 amlodipine 10 mg tablet 10 mg PO HS 01/22/25 fluoxetine 20 mg capsule 20 mg PO DAILY 01/22/25 famotidine 20 mg tablet 20 mg PO BID 03/11/25 Current Visit Medications: Current Medications Generic Name Dose Route Start Last Admin Trade Name Freq PRN Reason Stop Dose Admin Heparin Sodium (Porcine) 5,000 units 04/25/25 06:00 04/25/25 06:52 Heparin 5,000 Units/Ml Vial SC 04/25/25 16:00 5,000 units PREOP VIKTORIYA Administration Ringer's Solution 1,000 mls @ 80 mls/hr 04/25/25 06:00 IV 04/25/25 23:59 INFUSION [facility] IV Miscellaneous Supplies 1 each 04/25/25 06:00 Iv Access IV 04/25/25 23:59 DIRECTED VIKTORIYA Sodium Chloride 0 ml 04/25/25 06:00 Normal Saline Flush 10 Ml Syr IV 04/25/25 23:59 PRN PRN Sodium Chloride 0 ml 04/25/25 06:00 Normal Saline 10 Ml Vial IJ 04/25/25 23:59 DIRECTED PRN Sterile Water 0 ml 04/25/25 06:00 Water,Injection,Sterile 10 Ml Vial IJ 04/25/25 23:59 DIRECTED PRN PFSH Active Problems Active Problems: Problem Status Onset Code Paraesophageal hernia Acute K44.9 Hiatal hernia Chronic K44.9 Type 2 diabetes mellitus Acute E11.9 Depressive disorder Chronic F32.A Gastroesophageal reflux disease without esophagitis Acute K21.9 COVID-19 Acute U07.1 Nuclear age-related cataract, left eye Resolved H25.12 Nuclear age-related cataract, right eye Resolved H25.11 COVID-19 Acute U07.1 GERD (gastroesophageal reflux disease) Chronic K21.9 Asthma Chronic J45.909 Tubular adenoma of colon Acute D12.6 Hyperplastic colon polyp Acute K63.5 Hypertensive emergency Acute I16.1 Altered mental status Acute R41.82 Barretts esophagus Acute K22.70 Abdominal pain in female Acute R10.9 Crohn's colitis Acute K50.10 Trochanteric bursitis, left hip Acute M70.62 Medical History Medical History Back pain Pain in axilla Bilateral hand pain History of back pain Pain, joint, shoulder, right History of psychiatric disorder Dysphonia Dysphasia Altered awareness, transient Amnesia Disorder of vocal cord Sleep apnea Tick bite Ischial bursitis of right side Depo-Medrol injection: 01/14/2021 (Dr. Drummond); previous injections on 06/12/2014, 02/12/2014, 11/14/2013 (Dr. Bear) Osteoporosis Lesion of vocal cord Rash, skin Facial rhytids (01/15/18) Encounter for screening colonoscopy Hypertension Anxiety Hormone replacement therapy (HRT) Allergic rhinitis Hyperlipidemia Premature ventricular contractions (PVCs) (VPCs) Per pt. states this is due to anxiety Dry eye syndrome Vitamin D deficiency Fatigue Impaired fasting glucose Vaginal prolapse (03/29/16) s/p laparoscopic colpopexy, posterior repair. [facility] [place] Surgical History Surgical History History of esophagogastroduodenoscopy (EGD) (~02/17/25) Hx of cataract removal with insertion of prosthetic lens History of colonoscopy (~05/2022) History of open sigmoidectomy laparoscopic sacral colpopexy 03/29/[address] [facility] [place] Oophrectomy, Left (~2000) Vaginal hysterectomy (~2002) for uterine prolapse, with oophorectomy Repair of umbilical hernia Colonoscopy - IV Sedation with EGD for Barretts esophagitis Tobacco Smoking/Tobacco Use Status: Never Passive smoking exposure: No Alcohol Alcohol Intake: former Substance Use Substance use: Never Substance use type: does not use Vital Signs and Lab Results Vital Signs Most Recent Vital Signs in EMR: Most Recent Vital Signs Temp Pulse Resp BP Pulse Ox 36.8 C 71 18 125/83 97 04/25/25 06:15 04/25/25 06:15 04/25/25 06:15 04/25/25 06:15 04/25/25 06:15 Imaging and Studies Imaging and Studies Study information below may be from another EMR and interpreted by another provider. Please see original notes in EMR for more complete details. EKG Summary: aug 2024 Conclusion Sinus rhythm...normal P axis, V-rate 60- 99 Physician: no stemi Echocardiogram Summary: april 2013 STUDY INDICATIONS: PVC's. FINDINGS: LEFT VENTRICLE/LVEF: Normal size and function. Normal regional wall motion. LVEF 65%. RIGHT VENTRICLE: Normal size and function. AORTIC VALVE: Trileaflet, opens well without regurgitation. MITRAL VALVE: Anatomically normal, trace regurgitation. TRICUSPID VALVE: Trace regurgitation. RSV/PA/RIGHT ATRIAL PRESSURE: RSV pressure 32 mmHg. PULMONIC VALVE: Normal. ATRIA: Normal biatrial size. DIASTOLIC INDICES: Normal. GREAT VESSELS: Normal. PERICARDIUM: No effusion. SUMMARY: Normal cardiac anatomy and function. Estimated LVEF 65%. Anesthesia Assessment and Plan Anesthesia History Personal History: No History of Anesthesia Complications Family History: No Family History of Anesthesia Complications Exercise Tolerance Exercise Tolerance: Metabolic Equivalents>4 Pertinent Negatives Pertinent Negatives: No Major Cardiovascular Symptoms or Complaints, No Major Pulmonary Symptoms or Complaints and No History of CVA/TIA Cardiac & Pulmonary Exam Cardiac Exam: Normal S1/S2 Heart Sounds Pulmonary Exam: Clear Bilateral Breath Sounds Implantable Cardiac Device Does patient have a Pacemaker or an ICD?: No Airway Exam Known Difficult Airway: No Mallampati Class: 3 Mouth Opening: Narrow (< 3cm) Thyromental Distance: Greater than 3 cm Neck Range of Motion: Full ROM Neck Circumference: Normal Teeth Condition: Normal Dentition ASA Classification ASA Score: ASA 2 Emergency Case?: No NPO Status NPO Status: NPO Clears >2 hours, Solids >8 hours Anesthesia Plan Resuscitation Status: Full Code Anesthesia Technique: General Anesthesia Airway Planned: Endotracheal Tube Pain Management: Surgeon and patient request nerve block Monitors Used: Standard Monitors Preoperative Comments:: Discussed hx of SZ- pt reports one SZ with medication about 2001 and nothing since then.
--- NOTE | 2025-04-25 08:28 | ANES.NERVE_ITS ---
Nerve Block Single Injection Procedure Date and Time Date Performed: 04/25/25 Procedure Start: 07:45 Location Where Procedure Performed Procedure Location: Operating Room Procedure Stop: 08:03 Reason Performed: Postoperative Analgesia Requesting Provider: Naren Doyle Timeout Performed Timeout Performed: Yes Monitoring Used ECG, Blood Pressure, SpO2 and See EMR for corresponding vital signs Sterility Sterility: Hand Hygiene, Surgical Cap, Surgical Mask, Sterile Gloves and Ch lorhexidine Sedation Given During Procedure Sedation Given (Indicate Dose Given): Versed IV Dose:: 1mg Patient Mental Status Patient Mental Status: Sedate with meaningful communication Nerve Block 1st Nerve Block: Laterality: Bilateral Block Type: Erector Spinae (Upper) Ultrasound Image Saved?: Yes Needle / Catheter Used: 100mm SonoPlex II Local Anesthetic Bolus (Indicate Dose Given): Lidocaine used for local infiltration of skin, Injected in 3-5ml increments after negative blood aspiration, Half of Total block solution given into each side, Bupivacaine 0.25% Dose:: 40mL and Exparel Dose:: 20mL Additives (Indicate Dose Given): None Ultrasound: Sterile probe cover and gel used Nerve Stimulator: Supplement to Ultrasound use and No twitch or parasthesia noted < 0.5 mA Paresthesia: None Procedure Tolerated: No Complications and Patient tolerated well Procedure Outcome: Successful Performed By: Poly Whitlock Supervised By: Davey Fierro
[2025-04-25] MEDS: Bupivacaine 0.25% Pres-Free 10 ML VIAL (11:30)
--- NOTE | 2025-04-25 12:07 | ROE_ITS ---
Operative Note Operative Note Refer to Anesthesia Record Procedure Description: Procedures: 1. Laparoscopic paraesophageal hernia repair with Phasix ST mesh 2. Laparoscopic Milana fundoplication Preoperative Diagnosis: symptomatic type 3 paraesophageal hernia Postoperative Diagnosis: Same Surgeon: Beto Doyle Second Surgeon: Raiza Babcock MD Second Surgeon Attestation: Dr. Babcock was needed to assist the procedure as a second surgeon since no other qualified marketing administrative assistant was available. Anesthesia: General Anesthesiologist: Roger Indication: Symptomatic type 3 paraesophageal hernia. Findings: A moderate-size type 3 paraesophageal hernia was present and repaired with suture repair primarily at the leslie and then buttressed with a Phasix ST mesh. A 360 degree Milana fundoplication was performed over a 56 kyrgyz bougie. Complications: None Estimated Blood Loss: 50cc Specimens removed: None Grafts or implants: Phasix ST mesh Procedure in detail: Written consent was obtained from the patient who was in agreement the risks, the benefits and indications for the procedure. The patient was taken to the operating suite and laid supine on the operating table with arms outstretched. General anesthesia was administered which was tolerated very well. Anesthesia performed an ultrasound-guided local block. We placed her in lithotomy. Next we prepped and draped the abdomen in sterile fashion. A timeout was performed. When we were all in agreement we began the procedure. Just to the left of the bellybutton a small stab incision was made and a 5 mm Optiview trocar was used to enter into the abdomen under direct visualization. Four-quadrant diagnostic laparoscopy was performed and was grossly within normal limits. The liver was inspected and did not appear cirrhotic. 3 more trochars were placed across the abdomen under visualization. The 12 mm working port was placed in the mid clavicular line on the left side. A Lavon liver retractor was used to retract the liver anteriorly and was placed in the epigastric location through a 5 mm defect. The patient was placed in steep reverse Trendelenburg and we had good visualization of the hiatus. The short segment of short gastrics which were tightly adhered against the spleen were taken down with the LigaSure effectively releasing the stomach fundus away from spleen and off of the diaphragm and leslie edges. Going superior from there, I then found the left leslie of the diaphragm and incised the peritoneum overlying it from posterior circumferentially up to the anterior portion of the esophagus. The anterior(left) vagus nerve was visualized against the esophagus. I then turned my attention to opening pars flaccida and took down the attachments leading up to the right leslie which was easily identified and again peritoneum was opened over top of this. I then ensured that all the peritoneum edges on the posterior aspect were divided(no hernia sac remaining). The posterior(right) vagus nerve was also easily identified and was bluntly and gently swept away from the dissection planes by keeping it close to the esophagus. I was able to circumferentially clear the esophagus at the level of the hiatus and passed a [place] drain around this for retraction leading into the mediastinal dissection. Next, a combination of blunt dissection as well as dissection with the LigaSure was performed to mobilize the esophagus within the mediastinum taking care to dissect very high into the mediastinum to facilitate excellent mobilization. This was achieved and we had complete mobilization without any significant difficulty. Satisfied with circumferential dissection within the mediastinum and the mobilization of the esophagus, I verified that I had about 3 cm of esophagus intra-abdominal. Further, this stayed intra-abdominal without any retraction or tension. At this point I closed the left and right crura primarily using an Endo Stitch with interrupted sutures. This facilitated a nice closure that did not have any tension and I ensured that it was not too tight around the esophagus. Next I fixated the Phasix ST mesh (that I had pre-cut to size on the back table) in place with a single suture on each side of it through the left and right crura individually and a stitch through the crural closure in the center. At this point anesthesia advanced a 56 Nicar[place]uan bougie gently down the esophagus while we watched with the laparoscope. The crural closure was not too tight. I was able to grab the fundus of the stomach and bring it around behind the esophagus without any tension or difficulty. I had excellent mobilization and I was able to get the fundus completely wrapped around the esophagus and GE junction over top of the 56 [place]araguan bougie and no tension was noted. I then used 2-0 silk sutures and sutured about 2cm of fundus to fundus, thus completing the 360 degree wrap around the esophagus. I ensured that it was loose and floppy and not tight. I placed the superior stitch partial-thickness through the esophagus to prevent the wrap from moving up or down at the GE junction. Hemostasis was excellent. The wrap lay very nicely and had no tension anywhere. All the needles were removed. The Lavon retractor was removed. Hemostasis was again verified to be excellent. The 12 mm port site was closed with 0 Vicryl using a Vicente Matthew. All trochars were removed under visualization and the pneumoperitoneum was evacuated. I closed the skin with running Monocryl and placed skin glue over top of the wounds. The sponge, instrument and sharps counts were correct x3 at the end of the procedure. The patient tolerated the procedure well and was taken to the PACU in hemodynamically stable condition. Date of Procedure: 04/25/25
--- NOTE | 2025-04-25 12:27 | W.ANESPOSTOP ---
Postoperative Evaluation Date, Time and Location Date Performed: 04/25/25 Time Performed: 13:00 Patient Location: PACU Vital Signs Most Recent Imported Vital Signs: Most Recent Vital Signs Temp Pulse Resp BP Pulse Ox 36.8 C 71 18 125/83 97 04/25/25 06:15 04/25/25 06:15 04/25/25 06:15 04/25/25 06:15 04/25/25 06:15 Assessment Mental Status: Awake (Alert & Oriented to Patient Baseline) Airway and Respiratory Function: Patent airway with normal (patient baseline) respiratory exam Cardiovascular Function: Hemodynamically Stable Hydration Status: Adequately Hydrated Nausea & Vomiting: No Nausea or Vomiting Pain: Pain is tolerable per patient Peripheral Nerve Block: Regional nerve block not resolved at time of post operative discharge Postoperative Comments:: Removed scop patch in PACU
[2025-04-25] MEDS: Droperidol 5 MG/2 ML VIAL 0.625 MG IVP (12:30)
[2025-04-25] MEDS: ACETAMINOPHEN 1,000 MG/100 ML BAG 400 MG IVPB ×2 (13:32→18:27)
[2025-04-25] MEDS: Ketorolac 15 MG/ML VIAL IVP ×2 (13:33→21:07)
--- NOTE | 2025-04-25 17:47 | W.PM.DS.N ---
Date of service: 04/26/25 Time of Service: 17:00 DS: Diagnosis Discharge Diagnosis (1) Paraesophageal hernia: Status: Resolved Discharge Plan Disposition Patient Disposition: Home Condition: Improving Discharge Details Admit Date/Time: 04/25/25 11:57 Admit Provider: Naren Doyle Attending Provider: Naren Doyle [facility] Hospital Course: Patient presented for an elective laparoscopic paraesophageal hernia repair. The procedure went well. Routinely she was kept postop for observation. She was seen on the morning of postoperative day [address] Babcock and was doing well and tolerating a liquid diet with no dysphagia. She was continuining to have significant shoulder and lower chest discomfort causing some anxiety. She did receive a dose of Ativan overnight which allowed her to relax and sleep for a few hours. By morning she was able to ambulate independently, urinate, pass flatus, and even had a bowel movement. She was discharged home with her family. Home Meds and New Rx's Prescriptions: New tramadol 50 mg tablet 50 mg PO Q6H PRNQty: 7 0RF No Action famotidine 20 mg tablet 20 mg PO BID multivitamin [Daily Multi-Vitamin] Tablet 1 tab PO DAILY (DME) nebulizers [Compact Compressor Nebulizer] Misc See Rx Instructions .ROUTE .MEDSUPPLY Qty: 1 Rx Instructions: As directed ipratropium-albuterol 0.5 mg-3 mg(2.5 mg base)/3 mL solution for nebulization 3 ml inhalation .Q4-6H PRN fluoxetine 20 mg capsule 20 mg PO DAILY amlodipine 10 mg tablet 10 mg PO HS fluticasone propion-salmeterol [Advair Diskus] 1 EACH blister with device 1 puff Inhalation DAILY albuterol sulfate [Ventolin HFA] 60 PUFF HFA aerosol inhaler 2 puff Inhalation PRN PRN ibuprofen 400 mg Tablet 400 mg PO Q8H PRN PRN rosuvastatin 20 mg Tablet 20 mg PO .QHS lisinopril 20 mg tablet 20 mg PO DAILY Discharge Instructions Additional Instructions: Incisions: - Some bruising, swelling, pain and soreness is expected around the incisions. - Keep incisions clean and dry. It is okay to shower, but no tub bathing/swimming for one week. Pat-dry the incisions when drying. The glue will fall off in 5-7 days. Call MD for worsening pain, worsening swelling, worsening redness, pus, bleeding or fever>101. Today: - Do not attempt to drive a vehicle or operate power equipment of any kind for at least 24 hours after discharge from the hospital. - Do not consume alcoholic beverages or other mood-altering drugs. - Avoid strenuous activity. - Call and schedule a followup appointment to be seen in 2-3 weeks from today. Diet: - Stay hydrated. - Some difficulty swallowing can occur, but will eventually go away. - Stay on a GI SOFT/pur?ed consistency diet until seen at followup. Do not eat regular consistency foods since it may get stuck. - Eat and drink small quantities Medications: - You can stop your anti-acid medication (famotidine). You may experience some rebound heartburn/reflux for the next few days. - Otherwise resume all home medications. Activity: - Light activity and work without any strenuous activity and no heavy lifting until seen at followup. - No pulling, pushing, or lifting anything of significance until cleared at follow-up Pain: - Take Tylenol on a schedule, 1000mg every 6 hours, for the next 2 days. Alternate with ibuprofen in between as needed for moderate to severe pain. - Use ice as needed. - Try to avoid taking narcotics as much as you can. For mild irritation at needle site where your iv was removed: ? Apply warm, moist pack to area for 20 minutes four times a day for 2-3 days. ? Call physician if persistent redness, increasing redness or fever and/or drainage at needle site occurs. If you have any problems, concerns or questions after surgery, do not hesitate to contact your physician's office or the Emergency Room if needed. For emergencies, call 911. l Stand Alone Forms: Nursing Discharge Form Referrals: Naren Doyle MD [ [facility] STAFF PHYSICIAN, Surgery] Referral Note: Please call the office on Monday to set up your hospital follow up. Activity:: Activity as Tolerated Equipment/Supplies:: No Equipment Needed Diet:: pureed Discharge Orders Discharge Orders: Discharge Order (Routine); Ordered 04/26/25 Ordered By: Raiza Babcock [facility] Discharge Data Discharge Date/Time-TO BE ENTERED AT DEPARTURE: 04/26/25 14:19 DS: Summary Time Spent with Patient providing and/or coordinating discharge services: Less than 30 minutes Status at Discharge Functional status at discharge: independent ambulation Overall status at discharge: patient is progressing back to baseline Mental Status: mental status grossly normal Speech and Movement: speech and movement normal Mood: congruent mood Affect: normal affect Exam Psych Mental Status: mental status grossly normal Speech and Movement: speech and movement normal Mood: congruent mood Affect: normal affect DS: Data Vitals/I&O Vitals and I&O: Vital Signs Temperature 99.0 F 04/25/25 15:53 Temperature Source Temporal Artery Scan 04/25/25 15:53 Pulse 92 H 04/25/25 13:56 Pulse Rhythm Regular 04/25/25 14:38 Pulse 89 04/25/25 13:11 Respiratory Rate 17 04/25/25 15:53 Respiratory Effort Normal, Non-Labored 04/25/25 14:38 Respiratory Depth Normal 04/25/25 14:38 Respiratory Pattern Normal 04/25/25 14:38 Blood Pressure 136/83 04/25/25 15:53 Blood Pressure Mean 100 04/25/25 15:53 Pulse Oximetry 94 04/25/25 15:53 Respiratory End-tidal CO2 36 04/25/25 13:11 Oxygen Delivery Method Room Air 04/25/25 15:53 Oxygen Flow Rate 0 04/25/25 15:53 Pain Level 9 04/25/25 15:53 Comment PT ARRIVED IN PACU. 04/25/25 12:02 Intake & Output 04/24/25 04/25/25 04/25/25 23:59 11:59 23:59 Intake Total 1000 / 1450 450 / 1450 Output Total 50 / 1200 1150 / 1200 Balance 950 / 250 -700 / 250 Weight 132 lb 11.492 oz Intake: IV 1000 / 1350 350 / 1350 Oral 100 / 100 Output: Urine 1150 / 1150 Estimated Blood Loss 50 / 50 Other: Urine Color Pale Yellow Urine Appearance Clear Urine Odor None Comment pt voided moderate amount into bed light. Emesis Description None PFSH All Active Problems (Updated 04/26/25 @ 00:01 by KWESI CHILDRESS) Hiatal hernia (Chronic) Type 2 diabetes mellitus (Acute) Depressive disorder (Chronic) Gastroesophageal reflux disease without esophagitis (Acute) COVID-19 (Acute) COVID-19 (Acute) GERD (gastroesophageal reflux disease) (Chronic) Baer's Esophagus Asthma (Chronic) Tubular adenoma of colon (Acute) Hyperplastic colon polyp (Acute) Hypertensive emergency (Acute) Altered mental status (Acute) Barretts esophagus (Acute) Abdominal pain in female (Acute) Crohn's colitis (Acute) Trochanteric bursitis, left hip (Acute) Depo-Medrol injection: 05/09/2022 Medical History (Updated 04/26/25 @ 00:01 by KWESI CHILDRESS) Back pain Pain in axilla Bilateral hand pain History of back pain Pain, joint, shoulder, right History of psychiatric disorder Dysphonia Dysphasia Altered awareness, transient Amnesia Disorder of vocal cord Sleep apnea Tick bite Ischial bursitis of right side Depo-Medrol injection: 01/14/2021 (Dr. Drummond); previous injections on 06/12/2014, 02/12/2014, 11/14/2013 (Dr. Bear) Osteoporosis Lesion of vocal cord Rash, skin Facial rhytids (01/15/18) Encounter for screening colonoscopy Hypertension Anxiety Hormone replacement therapy (HRT) Allergic rhinitis Hyperlipidemia Premature ventricular contractions (PVCs) (VPCs) Per pt. states this is due to anxiety Dry eye syndrome Vitamin D deficiency Fatigue Impaired fasting glucose Vaginal prolapse (03/29/16) s/p laparoscopic colpopexy, posterior repair. [facility] [place] Surgical History (Updated 04/26/25 @ 00:01 by KWESI CHILDRESS) History of Milana fundoplication (~04/2025) History of esophagogastroduodenoscopy (EGD) (~02/17/25) Hx of cataract removal with insertion of prosthetic lens History of colonoscopy (~05/2022) History of open sigmoidectomy laparoscopic sacral colpopexy 03/29/16 with posterior colporrhaphy. [facility] [place] Oophrectomy, Left (~2000) Vaginal hysterectomy (~2002) for uterine prolapse, with oophorectomy Repair of umbilical hernia Colonoscopy - IV Sedation with EGD for Barretts esophagitis Family History Mother Essential hypertension Heart disease Stroke Father Blood disorder required blood transfusions Brother Diabetes Grandfather , mouth cancer Diabetes Grandmother , breast cancer No problems noted. 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
[2025-04-25] MEDS: Normal Saline Flush 10 ML SYR IV (21:06)
[2025-04-26] MEDS: ACETAMINOPHEN 1,000 MG/100 ML BAG 400 MG IVPB ×2 (00:44→10:15)
[2025-04-26] MEDS: Heparin 5,000 UNITS/ML VIAL 5000 UNITS SC (00:44)
[2025-04-26] MEDS: LORazepam 20 MG/10 ML VIAL IVP (01:24)
[2025-04-26 01:42] VITALS: BP 146/91; PULSE 85; RESP 16; TEMP 36.4; O2SAT 92
[2025-04-26] MEDS: Ketorolac 15 MG/ML VIAL IVP (06:20)
[2025-04-26 07:13] VITALS: BP 148/86; PULSE 92; RESP 16; TEMP 36.9; O2SAT 95
[2025-04-26] MEDS: traMADol 50 MG TAB PO (10:45)
[2025-04-26] MEDS: Lisinopril 20 MG TAB PO (10:45)
--- NOTE | 2025-04-26 12:32 | DSE_ITS ---
Date of service: 04/26/25 Time of Service: 12:35 DS: Diagnosis Discharge Diagnosis (1) Paraesophageal hernia: Status: Resolved Discharge Plan Disposition Patient Disposition: Home Condition: Improving Discharge Details Admit Date/Time: 04/25/25 11:57 Admit Provider: Naren Doyle Attending Provider: Naren Doyle Primary Care Provider: Gracy Wick [place] Hospital Course Hospital Course: Patient presented for an elective laparoscopic paraesophageal hernia repair. The procedure went well. Routinely she was kept postop for observation and on the morning of postoperative day 1 was doing well, tolerating a liquid diet with no dysphagia. She was having significant shoulder and lower chest discomfort causing some anxiety. She did receive a dose of Ativan overnight which allowed her to relax and sleep for a few hours. By morning she was able to ambulate independently, urinate, pass flatus, and even had a bowel movement. She was discharged home with her family. Home Meds and New Rx's Prescriptions: New tramadol 50 mg tablet 50 mg PO Q6H PRNQty: 7 0RF No Action famotidine 20 mg tablet 20 mg PO BID multivitamin [Daily Multi-Vitamin] Tablet 1 tab PO DAILY (DME) nebulizers [Compact Compressor Nebulizer] Misc See Rx Instructions .ROUTE .MEDSUPPLY Qty: 1 Rx Instructions: As directed ipratropium-albuterol 0.5 mg-3 mg(2.5 mg base)/3 mL solution for nebulization 3 ml inhalation .Q4-6H PRN fluoxetine 20 mg capsule 20 mg PO DAILY amlodipine 10 mg tablet 10 mg PO HS fluticasone propion-salmeterol [Advair Diskus] 1 EACH blister with device 1 puff Inhalation DAILY albuterol sulfate [Ventolin HFA] 60 PUFF HFA aerosol inhaler 2 puff Inhalation PRN PRN ibuprofen 400 mg Tablet 400 mg PO Q8H PRN PRN rosuvastatin 20 mg Tablet 20 mg PO .QHS lisinopril 20 mg tablet 20 mg PO DAILY Discharge Instructions Additional Instructions: Incisions: - Some bruising, swelling, pain and soreness is expected around the incisions. - Keep incisions clean and dry. It is okay to shower, but no tub bathing/swimming for one week. Pat-dry the incisions when drying. The glue will fall off in 5-7 days. Call MD for worsening pain, worsening swelling, worsening redness, pus, bleeding or fever>101. Today: - Do not attempt to drive a vehicle or operate power equipment of any kind for at least 24 hours after discharge from the hospital. - Do not consume alcoholic beverages or other mood-altering drugs. - Avoid strenuous activity. - Call and schedule a followup appointment to be seen in 2-3 weeks from today. Diet: - Stay hydrated. - Some difficulty swallowing can occur, but will eventually go away. - Stay on a GI SOFT/pur?ed consistency diet until seen at followup. Do not eat regular consistency foods since it may get stuck. - Eat and drink small quantities Medications: - You can stop your anti-acid medication (famotidine). You may experience some rebound heartburn/reflux for the next few days. - Otherwise resume all home medications. Activity: - Light activity and work without any strenuous activity and no heavy lifting until seen at followup. - No pulling, pushing, or lifting anything of significance until cleared at follow-up Pain: - Take Tylenol on a schedule, 1000mg every 6 hours, for the next 2 days. Alternate with ibuprofen in between as needed for moderate to severe pain. - Use ice as needed. - Try to avoid taking narcotics as much as you can. For mild irritation at needle site where your iv was removed: ? Apply warm, moist pack to area for 20 minutes four times a day for 2-3 days. ? Call physician if persistent redness, increasing redness or fever and/or drainage at needle site occurs. If you have any problems, concerns or questions after surgery, do not hesitate to contact your physician's office or the Emergency Room if needed. For emergencies, call 911. l Activity:: Activity as Tolerated Equipment/Supplies:: No Equipment Needed Diet:: pureed DS: Summary Time Spent with Patient providing and/or coordinating discharge services: Greater than 30 minutes Status at Discharge Functional status at discharge: independent ambulation Overall status at discharge: patient is progressing back to baseline Mental Status: mental status grossly normal Speech and Movement: speech and movement normal Mood: congruent mood Affect: normal affect Exam Psych Mental Status: mental status grossly normal Speech and Movement: speech and movement normal Mood: congruent mood Affect: normal affect DS: Data Vitals/I&O Vitals and I&O: Vital Signs Temperature 36.9 C 04/26/25 07:13 Temperature Source Temporal Artery Scan 04/26/25 07:13 Pulse 92 H 04/26/25 07:13 Pulse Rhythm Regular 04/25/25 14:38 Pulse 89 04/25/25 13:11 Respiratory Rate 16 04/26/25 07:13 Respiratory Effort Normal, Non-Labored 04/25/25 14:38 Respiratory Depth Normal 04/25/25 14:38 Respiratory Pattern Normal 04/25/25 14:38 Blood Pressure 148/86 H 04/26/25 07:13 Blood Pressure Mean 106 04/26/25 07:13 Pulse Oximetry 95 04/26/25 07:13 Respiratory End-tidal CO2 36 04/25/25 13:11 Oxygen Delivery Method Room Air 04/26/25 07:13 Oxygen Flow Rate 0 04/26/25 07:13 Pain Level 7 04/26/25 10:45 Comment PT ARRIVED IN PACU. 04/25/25 12:02 Intake & Output 04/25/25 04/26/25 04/26/25 23:59 11:59 23:59 Intake Total 560 / 1560 100 / 100 Output Total 2150 / 0 2049 Balance -1590 / -640 -1950 / -1950 Intake: IV 460 / 1460 100 / 100 Oral 100 / 100 Output: Urine 2149 / 0 2049 Other: Urine Color Yellow Yellow Urine Appearance Clear Clear Urine Odor Normal Normal Comment pt voided moderate amount into bed light. Stool Size Small Stool Characteristics Soft Emesis Description None PFSH All Active Problems (Updated 04/26/25 @ 00:01 by combionic) Hiatal hernia (Chronic) Type 2 diabetes mellitus (Acute) Depressive disorder (Chronic) Gastroesophageal reflux disease without esophagitis (Acute) COVID-19 (Acute) COVID-19 (Acute) GERD (gastroesophageal reflux disease) (Chronic) Baer's Esophagus Asthma (Chronic) Tubular adenoma of colon (Acute) Hyperplastic colon polyp (Acute) Hypertensive emergency (Acute) Altered mental status (Acute) Barretts esophagus (Acute) Abdominal pain in female (Acute) Crohn's colitis (Acute) Trochanteric bursitis, left hip (Acute) Depo-Medrol injection: 05/09/2022 Medical History (Updated 04/26/25 @ 00:01 by combionic) Back pain Pain in axilla Bilateral hand pain History of back pain Pain, joint, shoulder, right History of psychiatric disorder Dysphonia Dysphasia Altered awareness, transient Amnesia Disorder of vocal cord Sleep apnea Tick bite Ischial bursitis of right side Depo-Medrol injection: 01/14/2021 (Dr. Drummond); previous injections on 06/12/2014, 02/12/2014, 11/14/2013 (Dr. Bear) Osteoporosis Lesion of vocal cord Rash, skin Facial rhytids (01/15/18) Encounter for screening colonoscopy Hypertension Anxiety Hormone replacement therapy (HRT) Allergic rhinitis Hyperlipidemia Premature ventricular contractions (PVCs) (VPCs) Per pt. states this is due to anxiety Dry eye syndrome Vitamin D deficiency Fatigue Impaired fasting glucose Vaginal prolapse (03/29/16) s/p laparoscopic colpopexy, posterior repair[place] [facility] [place] Surgical History (Updated 04/26/25 @ 00:01 by KWESI CHILDRESS) History of Milana fundoplication (~04/2025) History of esophagogastroduodenoscopy (EGD) (~02/17/25) Hx of cataract removal with insertion of prosthetic lens History of colonoscopy (~05/2022) History of open sigmoidectomy laparoscopic sacral colpopexy 03/29/16 with posterior colporrhaphy. [facility] [place] Oophrectomy, Left (~2000) Vaginal hysterectomy (~2002) for uterine prolapse, with oophorectomy Repair of umbilical hernia Colonoscopy - IV Sedation with EGD for Barretts esophagitis Family History Mother Essential hypertension Heart disease Stroke Father Blood disorder required blood transfusions Brother Diabetes Grandfather , mouth cancer Diabetes Grandmother , breast cancer No problems noted. 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 [employer] Pets and animals: Yes Pets and animals: cat(s) What is your relationship status?: Panel score (0-1 are the most socially isolated patients): 1 What type of physical activity do you participate in: walking Seatbelt use: always Do you feel safe at home: Yes Do you feel safe in your relationship?: Yes Time Spent with Patient Time Spent with Patient: <45 minutes Time was spent: preparing to see the patient(eg.review tests), obtaining and/or reviewing separately otained hiistory, ordering medications,tests, procedures and counseling the patient
--- NOTE | 2025-04-26 13:53 | PDOC.CMDIS ---
Date of service: 04/26/25 Time of Service: 13:53 LACE Index Scoring Tool Questions: Length of Stay (in days): 1 Was the patient admitted via the E.D.?: No Comorbidities: Diabetes w/o Complication E.D. Visits: 0 Answers: Total Score: 2 Risk of Readmission: Low Risk Care Management Discharge Plan Reason for Hospitalization: Paraesophageal hernia Discharge Plan: Trista will be discharged home today. She will follow up with her community providers, surgical team, and plan of care. She will transport via private vehicle by her . Patient/Family Education Needs: Review discharge instructions, activity, limitations and plan of care. Discuss Ask Me Three.
== END 2025-04-26 14:19 | disposition home or self-care (01) ==
LOC: MS 13:20
PROVIDERS: Admitting Provider Student in an Organized Health Care Education/Training Program; PCP Internal Medicine; Responsible Provider Student in an Organized Health Care Education/Training Program; Visit Provider Student in an Organized Health Care Education/Training Program
PROC: 0BUT4JZ Supplement Diaphragm with Synthetic Substitute, Percutaneous Endoscopic Approach (ICD-10-PCS; CPT 43282; principal; 2025-04-25 07:30)
DX: K44.9 Diaphragmatic hernia without obstruction or gangrene (principal); E11.9 Type 2 diabetes mellitus without complications; F32.A Depression, unspecified; K21.9 Gastro-esophageal reflux disease without esophagitis; J45.909 Unspecified asthma, uncomplicated; M70.62 Trochanteric bursitis, left hip; Z79.899 Other long term (current) drug therapy; K50.10 Crohn's disease of large intestine without complications; E78.5 Hyperlipidemia, unspecified; I10 Essential (primary) hypertension; K22.70 Barrett's esophagus without dysplasia
CPT/HCPCS: 43282; 64450; 76942; 96365; 96366; 96372; 96375; 96376; C1781; G0378; J0131; J0665; J0666; J1100; J1644; J1790; J1885; J2003; J2060; J2250; J2371; J2469; J2598; J2704; J3475

== ENCOUNTER 2025-05-02 12:11 | Emergency (ER) | payer MEDICARE, BC, SELFPAY ==
[2025-05-02 12:18] VITALS: BP 125/76; PULSE 92; RESP 16; TEMP 36.8; O2SAT 98
--- NOTE | 2025-05-02 12:30 | DI.RAD_ITS ---
Exam(s) XR CHEST 2V PA LATERAL EXAM: XR CHEST 2V PA LATERAL CLINICAL HISTORY: ?pneumonia TECHNIQUE: 2D digital imaging was performed. Two views. COMPARISON: CR,RF RF BARIUM SWALLOW from 03/24/2025 FINDINGS: HEART: Normal size. Aorta: Not dilated. PULMONARY VASCULATURE: Normal. MEDIASTINUM: Unremarkable. LUNGS: Increased density seen in posteromedial left lung base could represent area consolidation. PLEURAL SPACE: No pleural effusion or pneumothorax. BONE:Unremarkable for age. SOFT TISSUES: Unremarkable. IMPRESSION: Findings suspicious for consolidation at the medial posterior left lower lobe. DATA REPOSITORY: RADIATION DOSE DELIVERED:
--- NOTE | 2025-05-02 12:34 | W.ED.GENAD ---
Discharge Plan Disposition Patient Disposition: Home Condition: Stable Discharge Details Clinical Impression: Pneumonia Primary Care Provider: Gracy Wick ED Provider: Lj Moreira Home Meds and New Rx's Prescriptions: New azithromycin [Zithromax Z-Ashok] 250 mg tablet See Rx Instructions .ROUTE .COMPLEX Qty: 6 0RF Rx Instructions: For 250 mg dose pack: take 500 mg today (day 1), then 250 mg for 4 days (days 2-5) amoxicillin-pot clavulanate 875-125 mg tablet 1 tab PO BID Qty: 14 0RF Continued famotidine 20 mg tablet 20 mg PO BID multivitamin [Daily Multi-Vitamin] Tablet 1 tab PO DAILY (DME) nebulizers [Compact Compressor Nebulizer] Misc See Rx Instructions .ROUTE .MEDSUPPLY Qty: 1 Rx Instructions: As directed ipratropium-albuterol 0.5 mg-3 mg(2.5 mg base)/3 mL solution for nebulization 3 ml inhalation .Q4-6H PRN fluoxetine 20 mg capsule 20 mg PO DAILY amlodipine 10 mg tablet 10 mg PO HS fluticasone propion-salmeterol [Advair Diskus] 1 EACH blister with device 1 puff Inhalation DAILY albuterol sulfate [Ventolin HFA] 60 PUFF HFA aerosol inhaler 2 puff Inhalation PRN PRN ibuprofen 400 mg Tablet 400 mg PO Q8H PRN PRN tramadol 50 mg tablet 50 mg PO Q6H PRNQty: 7 0RF rosuvastatin 20 mg Tablet 20 mg PO .QHS lisinopril 20 mg tablet 20 mg PO DAILY Vevye 0.1 % drops 1 drp OPHTHALMIC (EYE) BID Patient Comments: Apply 1 drop into both eyes twice a day Discharge Instructions Additional Instructions: You are being treated for pneumonia or lung infection. Take the antibiotics as prescribed. If you are not improving within a week follow-up with your primary care provider. If you feel significantly more ill or have new symptoms such as persistent vomiting return to the emergency department for reevaluation HPI General Mode of arrival: ambulatory. Date/Time Provider Initiated Documentation: 05/02/25 12:12. Limitations to Documentation: no limitations. Information obtained by: patient. History of Present Illness 74 year old F presents to the emergency department with the chief complaint of chills, described as moderate, Patient started experiencing this week(s) (1) and it has been constant. No relieving factors improve symptom(s), No exacerbating factors reported . Patient notes no other symptoms.. Patient did receive the following treatments prior to arrival, none Related Data Home Medications ?Medication ?Instructions ?Recorded ?Confirmed fluticasone 100 mcg-salmeterol 50 1 puff inhalation DAILY 01/31/13 05/02/25 mcg/dose blistr powdr for inhalation (Advair Diskus) albuterol sulfate 90 mcg/actuation 2 puff inhalation PRN PRN 07/04/15 05/02/25 aerosol inhaler (Ventolin HFA) multivitamin (Daily Multi-Vitamin 1 tab PO DAILY 11/14/19 05/02/25 tablet) nebulizers (Compact Compressor #1 ea 11/14/19 05/02/25 Nebulizer) ipratropium 0.5 mg-albuterol 3 mg 3 ml inhalation .Q4-6H PRN 09/28/20 05/02/25 (2.5 mg base)/3 mL nebulization soln lisinopril 20 mg tablet 20 mg PO DAILY 10/26/20 05/02/25 rosuvastatin 20 mg tablet 20 mg PO .QHS 10/26/20 05/02/25 ibuprofen 400 mg tablet 400 mg PO Q8H PRN PRN 06/02/22 05/02/25 amlodipine 10 mg tablet 10 mg PO HS 01/22/25 05/02/25 fluoxetine 20 mg capsule 20 mg PO DAILY 01/22/25 05/02/25 famotidine 20 mg tablet 20 mg PO BID 03/11/25 05/02/25 tramadol 50 mg tablet 50 mg PO Q6H PRN #7 tabs 04/26/25 05/02/25 amoxicillin 875 mg-potassium 1 tab PO BID #14 tabs 05/02/25 clavulanate 125 mg tablet azithromycin 250 mg tablet See Rx Instructions PO .COMPLEX #6 05/02/25 (Zithromax Z-Ashok) tabs cyclosporine 0.1 % eye drops 1 drp ophthalmic (eye) BID 05/02/25 05/02/25 (Vevye) Previous Rx's ?Medication ?Instructions ?Recorded tramadol 50 mg tablet 50 mg PO Q6H PRN #7 tabs 04/26/25 amoxicillin 875 mg-potassium 1 tab PO BID #14 tabs 05/02/25 clavulanate 125 mg tablet azithromycin 250 mg tablet See Rx Instructions PO .COMPLEX #6 05/02/25 (Zithromax Z-Ashok) tabs Allergies Allergy/AdvReac Type Severity Reaction Status Date / Time mirtazapine (From Remeron) Allergy Severe Seizure Verified 05/02/25 12:23 latex Allergy Intermediate Skin Rash Verified 05/02/25 12:23 animal dander Allergy Mild Itching Verified 05/02/25 12:23 venlafaxine HCl (From AdvReac Severe seizure Verified 05/02/25 12:23 Effexor) meperidine HCl (From Demerol) AdvReac Intermediate vomit, Verified 05/02/25 12:23 couldn't wake up oxycodone (Oxycodone) AdvReac Intermediate gi upset Verified 05/02/25 12:23 General Stated Complaint: GenMedical SIXTO: 3 Review of Systems All systems reviewed & are unremarkable except as noted in HPI and below Constitutional Constitutional: Reports chills and Denies fever(s) Cardiovascular Cardiovascular: Denies chest pain and Denies dyspnea Respiratory Respiratory: Denies cough and Denies dyspnea Gastrointestinal Gastrointestinal: Denies abdominal pain and Denies vomiting Exam Const General: no acute distress Orientation: alert HENHI Head: normal to inspection Ears: external ears normal General nose exam: external nose normal Mouth: moist mucous membranes Eyes General: appearance normal, both eyes and all related structures Neck Neck: normal visual inspection Resp Effort & Inspection: normal respiratory effort and able to speak in complete sentences Cardio Rate: regular rate GI Palpation: soft and nontender Skin General skin exam: no rashes or lesions noted Neuro General: patient alert and patient oriented x3 Extrem General: normal to inspection Psych Mental Status: mental status grossly normal Course Vital Signs Vital signs: Vital Signs Temperature 36.8 C 05/02/25 12:18 Pulse 92 H 05/02/25 12:18 Respiratory Rate 16 05/02/25 12:18 Blood Pressure 125/76 05/02/25 12:18 Pulse Oximetry 98 05/02/25 12:18 Temperature 36.8 C 05/02/25 12:18 Temperature Source Oral 05/02/25 12:18 Pulse 92 H 05/02/25 12:18 Respiratory Rate 16 05/02/25 12:18 Blood Pressure 125/76 05/02/25 12:18 Blood Pressure Position Sitting 05/02/25 12:18 Pulse Oximetry 98 05/02/25 12:18 Oxygen Delivery Method Room Air 05/02/25 12:18 Oxygen Flow Rate 0 05/02/25 12:18 Medical Decision Making 74-year-old female who underwent an uncomplicated Milana fundoplication a week ago comes in stating that since the procedure she has been having episodes where she has chills and bodyaches. Denies any documented high fevers, no abdominal pain or vomiting. Denies any chest pain or back pain. No rashes. She is well-appearing speaking full sentences in no distress. Her abdomen is soft and not tender. There is no rashes. Unclear etiology for her intermittent chills. Will check a CBC and CMP and procalcitonin and a chest x-ray though my suspicion for pneumonia is low. Given lack of abdominal tenderness I doubt entities such as perforated bowel or abscess do not feel imaging of abdomen pelvis is indicated. Patient stable, x-ray shows left sided pneumonia. Has a mild leukocytosis, LFTs are mildly elevated but feel this could be related to the ICU COVID but could and/or her recent surgery. She has definitely no abdominal tenderness on exam. Discussed results with her and she feels well enough for outpatient management which I feel is reasonable. She will follow-up with her PCP if not proving and return precautions given Differential Diagnosis Differential Diagnosis: Viral illness, pneumonia Medical Records Medical records reviewed: Yes I reviewed the patient's medical records. Lab Data Lab results reviewed: Yes I reviewed the patient's lab results. PFSH All Active Problems (Updated 05/02/25 @ 14:05 by Lj Moreira MD) Pneumonia (Acute) Hiatal hernia (Chronic) Type 2 diabetes mellitus (Acute) Depressive disorder (Chronic) Gastroesophageal reflux disease without esophagitis (Acute) COVID-19 (Acute) COVID-19 (Acute) GERD (gastroesophageal reflux disease) (Chronic) Baer's Esophagus Asthma (Chronic) Tubular adenoma of colon (Acute) Hyperplastic colon polyp (Acute) Hypertensive emergency (Acute) Altered mental status (Acute) Barretts esophagus (Acute) Abdominal pain in female (Acute) Crohn's colitis (Acute) Trochanteric bursitis, left hip (Acute) Depo-Medrol injection: 05/09/2022 Medical History (Updated 05/02/25 @ 14:05 by Lj Moreira MD) Back pain Pain in axilla Bilateral hand pain History of back pain Pain, joint, shoulder, right History of psychiatric disorder Dysphonia Dysphasia Altered awareness, transient Amnesia Disorder of vocal cord Sleep apnea Tick bite Ischial bursitis of right side Depo-Medrol injection: 01/14/2021 (Dr. Drummond); previous injections on 06/12/2014, 02/12/2014, 11/14/2013 (Dr. Bear) Osteoporosis Lesion of vocal cord Rash, skin Facial rhytids (01/15/18) Encounter for screening colonoscopy Hypertension Anxiety Hormone replacement therapy (HRT) Allergic rhinitis Hyperlipidemia Premature ventricular contractions (PVCs) (VPCs) Per pt. states this is due to anxiety Dry eye syndrome Vitamin D deficiency Fatigue Impaired fasting glucose Vaginal prolapse (03/29/16) s/p laparoscopic colpopexy, posterior repair. [facility] [place] Surgical History (Updated 04/26/25 @ 00:01 by KWESI CHILDRESS) History of Milana fundoplication (~04/2025) History of esophagogastroduodenoscopy (EGD) (~02/17/25) Hx of cataract removal with insertion of prosthetic lens History of colonoscopy (~05/2022) History of open sigmoidectomy laparoscopic sacral colpopexy 03/29/16 with posterior colporrhaphy. [facility] [place] Oophrectomy, Left (~2000) Vaginal hysterectomy (~2002) for uterine prolapse, with oophorectomy Repair of umbilical hernia Colonoscopy - IV Sedation with EGD for Barretts esophagitis Family History Mother Essential hypertension Heart disease Stroke Father Blood disorder required blood transfusions Brother Diabetes Grandfather , mouth cancer Diabetes Grandmother , breast cancer No problems noted. 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
[2025-05-02 12:56] LABS: Abs Immature Grans 0.34 10^3/uL (0.0-0.06); HCT 33.5 % (36.0-46.0); HGB 11.0 g/dL (11.2-15.7); Immature Grans % 2.4 %; MCH 30.4 pg (27.0-33.0); MCHC 32.8 % (32.0-36.0); MCV 93 fL (80-95); MPV 8.9 fL (8.0-11.0); Platelet Count 505 10^3/uL (130-400); RBC 3.62 10^6/uL (3.93-5.22); RDW 13.2 % (11.7-14.6); RDW-SD 45.2 fL; WBC 13.94 10^3/uL (4.4-10.8)
[2025-05-02 13:19] LABS: COVID-19 PCR Negative (Negative); RSV PCR Negative (Negative)
[2025-05-02 13:27] LABS: ALT 247 U/L (14-59); AST 125 U/L (15-37); Albumin 3.1 g/dL (3.4-5.0); Alkaline Phosphatase 426 U/L (46-116); Anion Gap 10.4 mmol/L (3-11); BUN 14 mg/dL (7-18); Bilirubin, Total 0.6 mg/dL (0.2-1.0); CO2 26.6 mmol/L (21.0-32.0); Calcium 9.1 mg/dL (8.5-10.1); Chloride 98 mmol/L (98-107); Estimated GFR 77.27 (mL/min/1.73m2); Glucose 120 mg/dL (74-106); Potassium 3.5 mmol/L (3.5-5.1); Sodium 135 mmol/L (136-145); Total Protein 7.7 g/dL (6.4-8.2)
[2025-05-02 13:35] LABS: Procalcitonin 0.17 ng/mL
[2025-05-02 13:38] LABS: Glucose Negative (Negative)
[2025-05-02] MEDS: cefTRIAXone 2 GM/50 ML BAG IVPB (13:43)
[2025-05-02 13:45] LABS: Magnesium 1.9 mg/dL (1.8-2.4)
[2025-05-02 13:46] LABS: C & S Indicated? No; RBC 0-2 HPF (0-2); WBC 0-2 HPF (0-5)
[2025-05-02 13:51] VITALS: BP 157/82; PULSE 80; O2SAT 98
[2025-05-02] MEDS: Acetaminophen 325 MG TAB 650 MG PO (14:29)
[2025-05-02 14:35] VITALS: BP 149/83; PULSE 90; RESP 18; O2SAT 99
== END 2025-05-02 14:36 | disposition home or self-care (01) ==
PROVIDERS: Emergency Provider Emergency Medicine; PCP Internal Medicine
DX: J18.9 Pneumonia, unspecified organism (principal); I10 Essential (primary) hypertension; E78.5 Hyperlipidemia, unspecified; E11.9 Type 2 diabetes mellitus without complications; Z79.84 Long term (current) use of oral hypoglycemic drugs; Z79.899 Other long term (current) drug therapy
CPT/HCPCS: 80053; 84145; 87637; 96374; 99284; 71046; 81003; 81015; 83735; 85025; 99283; J0696

== ENCOUNTER 2025-05-19 13:42 | Outpatient (CLI) | payer MEDICARE, BC, SELFPAY ==
[2025-05-19 13:28] LABS: Abs Immature Grans 0.04 10^3/uL (0.0-0.06); HCT 33.3 % (36.0-46.0); HGB 10.9 g/dL (11.2-15.7); Immature Grans % 0.7 %; MCH 30.1 pg (27.0-33.0); MCHC 32.7 % (32.0-36.0); MCV 92 fL (80-95); MPV 9.0 fL (8.0-11.0); Platelet Count 476 10^3/uL (130-400); RBC 3.62 10^6/uL (3.93-5.22); RDW 13.2 % (11.7-14.6); RDW-SD 43.8 fL; WBC 5.80 10^3/uL (4.4-10.8)
[2025-05-19 13:52] LABS: ALT 45 U/L (14-59); AST 20 U/L (15-37); Albumin 3.7 g/dL (3.4-5.0); Alkaline Phosphatase 163 U/L (46-116); Anion Gap 9.7 mmol/L (3-11); BUN 21 mg/dL (7-18); Bilirubin, Total 0.4 mg/dL (0.2-1.0); CO2 26.3 mmol/L (21.0-32.0); Calcium 8.9 mg/dL (8.5-10.1); Chloride 102 mmol/L (98-107); Estimated GFR 76.79 (mL/min/1.73m2); Glucose 113 mg/dL (74-106); Potassium 4.2 mmol/L (3.5-5.1); Sodium 138 mmol/L (136-145); Total Protein 7.2 g/dL (6.4-8.2)
== END 2025-05-19 13:43 | disposition home or self-care (01) ==
LOC: LBO 13:53
PROVIDERS: PCP Internal Medicine; Visit Provider Internal Medicine
DX: J18.9 Pneumonia, unspecified organism (principal)
CPT/HCPCS: 36415; 80053; 82306; 85025

== ENCOUNTER → 2025-05-26 07:52 | Outpatient (BNVA) | payer MEDICARE, BC, SELFPAY | PROVIDERS: Referring Provider Internal Medicine; Visit Provider Student in an Organized Health Care Education/Training Program | DX: Z09 Encounter for follow-up examination after completed treatment for conditions other than malignant neoplasm (principal); K44.9 Diaphragmatic hernia without obstruction or gangrene | CPT/HCPCS: 99024 ==

== ENCOUNTER 2025-07-21 15:12 | Outpatient (REF) | payer MEDICARE, BC, SELFPAY ==
[2025-07-21 21:27] LABS: HCT 35.3 % (36.0-46.0); HGB 11.9 g/dL (11.2-15.7); MCH 31.6 pg (27.0-33.0); MCHC 33.7 % (32.0-36.0); MCV 94 fL (80-95); MPV 9.9 fL (8.0-11.0); Platelet Count 406 10^3/uL (130-400); RBC 3.76 10^6/uL (3.93-5.22); RDW 13.7 % (11.7-14.6); RDW-SD 47.2 fL; WBC 6.69 10^3/uL (4.4-10.8)
[2025-07-21 22:16] LABS: Vitamin D 25 Total 25 ng/mL (30-100)
== END 2025-07-21 15:13 | disposition home or self-care (01) ==
LOC: NCHCN 15:12
PROVIDERS: PCP Internal Medicine; Visit Provider Internal Medicine
DX: E55.9 Vitamin D deficiency, unspecified (principal); D64.9 Anemia, unspecified
CPT/HCPCS: 82306; 85027

== ENCOUNTER 2025-08-17 07:34 | Emergency (ER) | payer MEDICARE, BC, SELFPAY ==
[2025-08-17] VITALS (33 sets, daily range): BP systolic 112–177; BP diastolic 64–126; PULSE 64–82; RESP 9–26; TEMP 36.9; O2SAT 95–99
--- NOTE | 2025-08-17 07:30 | RT.EKG_ITS ---
APPROVED REPORT Exam: Resting ECG Reason for Exam: chest pain Patient Location: E HR:69 bpm ECG Measurements Heart Rate 69 AXIS GA 153 P 64 QRSd 80 QRS 62 QT 428 T 54 QTc 457 Conclusion Sinus rhythm...normal P axis, V-rate 60- 99 No STEMI
--- NOTE | 2025-08-17 07:45 | DI.RAD_ITS ---
Exam(s) XR CHEST 2V PA LATERAL EXAM: XR CHEST 2V PA LATERAL CLINICAL HISTORY: cough TECHNIQUE: 2D digital imaging was performed of the chest. Two images were obtained. PA and lateral views were obtained. COMPARISON: CR XR PORTABLE CHEST AP from 08/14/2024 CR XR CHEST 2V PA LATERAL from 05/02/2025 FINDINGS: MEDIASTINUM: Normal. HEART: Normal. PULMONARY VASCULATURE: Normal. LUNGS: Clear. PLEURAL SPACE: No pleural effusion or pneumothorax. BONE:Within normal limits for the patient's age. OTHER FINDINGS:Normal. IMPRESSION: No acute pulmonary findings. DATA REPOSITORY: RADIATION DOSE DELIVERED:
--- NOTE | 2025-08-17 07:51 | ED.GENADUL_ITS ---
Discharge Plan Disposition Patient Disposition: Home Discharge Details Clinical Impression: Chest pressure, Acute viral syndrome, Asthma exacerbation Primary Care Provider: Gracy Wick ED Provider: Panda Stone Home Meds and New Rx's Prescriptions: No Action ferrous sulfate [FeroSul] 325 mg (65 mg iron) tablet 325 mg PO DAILY multivitamin [Daily Multi-Vitamin] Tablet 1 tab PO DAILY (DME) nebulizers [Compact Compressor Nebulizer] Misc See Rx Instructions .ROUTE .MEDSUPPLY Qty: 1 Rx Instructions: As directed ipratropium-albuterol 0.5 mg-3 mg(2.5 mg base)/3 mL solution for nebulization 3 ml inhalation .Q4-6H PRN fluoxetine 20 mg capsule 20 mg PO DAILY amlodipine 10 mg tablet 10 mg PO HS fluticasone propion-salmeterol [Advair Diskus] 100-50 mcg/dose blister with device 1 ea Inhalation DAILY PRN albuterol sulfate [Ventolin HFA] 60 PUFF HFA aerosol inhaler 2 puff Inhalation PRN PRN ibuprofen 400 mg Tablet 400 mg PO Q8H PRN PRN rosuvastatin 20 mg Tablet 20 mg PO .QHS lisinopril 20 mg tablet 20 mg PO DAILY Vevye 0.1 % drops 1 drp OPHTHALMIC (EYE) BID Patient Comments: Apply 1 drop into both eyes twice a day Discharge Instructions Instructions: Cough, runny nose, and the common cold, Chest Pain, Adult ED Additional Instructions: Please follow-up with your primary care provider regarding your visit to the emergency department today. Be sure to discuss results of all test performed here today to include radiology, and laboratory testing as well as results for any pending cultures. Should your symptoms worsen, or if you develop new concerning symptoms, please return immediately emergency department for further evaluation. Stand Alone Forms: Portal Information HPI General Date/Time Provider Initiated Documentation: 08/17/25 07:43 . HPI Narrative: MDM/Narrative: 75-year-old female past med history of asthma presenting for chest congestion cough and chest pressure. Vital signs within normal limits. Physical exam with notable expiratory wheezing bilaterally. Given patient's medical comorbidities and advanced age, will consider ACS/PE will assess with EKG, chest x-ray, labs including D-dimer and troponin. Will also consider pneumonia, pneumothorax. Doubt CHF given lack of peripheral swelling and worsening dyspnea on exertion. Suspect however patient is likely suffering from a postviral bronchitis. ED course: Patient remained hemodynamically stable during Emergency Department evaluation. Chest x-ray without evidence of acute infiltrates, D-dimer negative, troponin negative x 2, CBC without significant abnormality same as CMP. Will plan to discharge patient home. Clinical impression: Acute viral syndrome Asthma exacerbation Chest pressure Disposition: Home HPI: 75-year-old female with past medical history of diabetes, asthma, hypertension, presenting for 2 days of chest pressure with associated coughing, and shortness of breath. Patient notes symptoms were preceded by nasal and nasal congestion and cough which is subsequently descended into her chest now complaining of chest congestion. Describes the pressure sensation as if an elephant was sitting on her chest. Denies any associated leg swelling or leg pain. ROS: Negative besides as mentioned above Exam: Gen: A&O NAD HEENT: NCAT, EOMI, not icteric. External ears normal. No rhinorrhea. Moist mucous membranes. Neck: Supple, full range of motion, no observable masses, No meningeal sign. Lungs: No Respiratory distress. Expiratory wheezing bilaterally. CV: RRR, no edema. Abdomen: Soft, nondistended, No rebound tenderness. MSK: No joint swelling, no redness. Skin: No rashes, petechiae, lesions. Normal color per patient. Neuro: Normal Gait, Grossly intact. Psych: Appropriate for situation. Rhythm: NSR Rate: 69 [place]: Normal axis Intervals: Normal intervals Other findings: No acute ST segment or T wave changes to suggest acute ischemia. Labs: Laboratory Tests Range/Units 08/17/25 08/17/25 08/17/25 07:46 08:08 09:08 WBC (4.4-10.8) 10^3/uL 7.04 RBC (3.93-5.22) 10^6/uL 3.83 L Hgb (11.2-15.7) g/dL 11.6 Hct (36.0-46.0) % 34.8 L MCV (80-95) fL 91 MCH (27.0-33.0) pg 30.3 MCHC (32.0-36.0) % 33.3 RDW (11.7-14.6) % 13.0 Plt Count (130-400) 10^3/uL 397 MPV (8.0-11.0) fL 8.8 Immature Gran % % 0.4 Neutrophils % % 73.0 Lymphocytes % % 15.9 Monocytes % % 7.7 Eosinophils % % 2.1 Basophils % % 0.9 Nucleated RBC % (0.0-0.3) % 0.0 Absolute Neutrophils (1.2-6.7) 10^3/uL 5.14 Absolute Lymphocytes (1.2-3.4) 10^3/uL 1.12 L Absolute Monocytes (0.1-0.8) 10^3/uL 0.54 Absolute Eosinophils (0.0-0.7) 10^3/uL 0.15 Absolute Basophils (0.0-0.2) 10^3/uL 0.06 D-Dimer (<500) ng/mlFEU 386 VBG Lactate (<or=2.0) mmol/L 1.2 Sodium (136-145) mmol/L 137 Potassium (3.5-5.1) mmol/L 3.9 Chloride (98-107) mmol/L 99 Carbon Dioxide (21.0-32.0) mmol/L 25.6 Anion Gap (3-11) mmol/L 12.4 H BUN (7-18) mg/dL 15 Creatinine (0.55-1.02) mg/dL 0.8 Est GFR (CKD-EPI 2020) (mL/min/1.73m2) 76.79 Glucose (74-106) mg/dL 114 H Calcium (8.5-10.1) mg/dL 9.3 Magnesium (1.8-2.4) mg/dL 1.7 L Total Bilirubin (0.2-1.0) mg/dL 0.4 AST (15-37) U/L 23 ALT (14-59) U/L 43 Alkaline Phosphatase (46-116) U/L 109 Troponin I (<or=51) ng/L 6 Total Protein (6.4-8.2) g/dL 7.3 Albumin (3.4-5.0) g/dL 3.8 Urine Color (Yellow) Yellow Urine Clarity (Clear) Clear Urine pH (5-8) 8.0 Ur Specific [place] (1.005-1.025) 1.015 Urine Protein (Neg-Trace) mg/dL Negative Urine Ketones (Negative) mg/dL Negative Urine Blood (Negative) Negative Urine Nitrite (Negative) Negative Urine Bilirubin (Negative) Negative Urine Urobilinogen (Up to 0.2) mg/dL 0.2 Ur Leukocyte Esterase (Negative) Negative Urine Glucose (Negative) mg/dL Negative COVID-19 Source Nasopharynx SARS-CoV-2 (PCR) (Negative) Negative Influenza Type A (PCR) (Negative) Negative Influenza Type B (PCR) (Negative) Negative RSV (PCR) (Negative) Negative Range/Units 08/17/25 09:38 WBC (4.4-10.8) 10^3/uL RBC (3.93-5.22) 10^6/uL Hgb (11.2-15.7) g/dL Hct (36.0-46.0) % MCV (80-95) fL MCH (27.0-33.0) pg MCHC (32.0-36.0) % RDW (11.7-14.6) % Plt Count (130-400) 10^3/uL MPV (8.0-11.0) fL Immature Gran % % Neutrophils % % Lymphocytes % % Monocytes % % Eosinophils % % Basophils % % Nucleated RBC % (0.0-0.3) % Absolute Neutrophils (1.2-6.7) 10^3/uL Absolute Lymphocytes (1.2-3.4) 10^3/uL Absolute Monocytes (0.1-0.8) 10^3/uL Absolute Eosinophils (0.0-0.7) 10^3/uL Absolute Basophils (0.0-0.2) 10^3/uL D-Dimer (<500) ng/mlFEU VBG Lactate (<or=2.0) mmol/L Sodium (136-145) mmol/L Potassium (3.5-5.1) mmol/L Chloride (98-107) mmol/L Carbon Dioxide (21.0-32.0) mmol/L Anion Gap (3-11) mmol/L BUN (7-18) mg/dL Creatinine (0.55-1.02) mg/dL Est GFR (CKD-EPI 2020) (mL/min/1.73m2) Glucose (74-106) mg/dL Calcium (8.5-10.1) mg/dL Magnesium (1.8-2.4) mg/dL Total Bilirubin (0.2-1.0) mg/dL AST (15-37) U/L ALT (14-59) U/L Alkaline Phosphatase (46-116) U/L Troponin I (<or=51) ng/L 7 Total Protein (6.4-8.2) g/dL Albumin (3.4-5.0) g/dL Urine Color (Yellow) Urine Clarity (Clear) Urine pH (5-8) Ur Specific [place] (1.005-1.025) Urine Protein (Neg-Trace) mg/dL Urine Ketones (Negative) mg/dL Urine Blood (Negative) Urine Nitrite (Negative) Urine Bilirubin (Negative) Urine Urobilinogen (Up to 0.2) mg/dL Ur Leukocyte Esterase (Negative) Urine Glucose (Negative) mg/dL COVID-19 Source SARS-CoV-2 (PCR) (Negative) Influenza Type A (PCR) (Negative) Influenza Type B (PCR) (Negative) RSV (PCR) (Negative) Radiology: Exam(s) XR CHEST 2V PA LATERAL EXAM: XR CHEST 2V PA LATERAL CLINICAL HISTORY: cough TECHNIQUE: 2D digital imaging was performed of the chest. Two images were obtained. PA and lateral views were obtained. COMPARISON: CR XR PORTABLE CHEST AP from 08/14/2024 CR XR CHEST 2V PA LATERAL from 05/02/2025 FINDINGS: MEDIASTINUM: Normal. HEART: Normal. PULMONARY VASCULATURE: Normal. LUNGS: Clear. PLEURAL SPACE: No pleural effusion or pneumothorax. BONE:Within normal limits for the patient's age. OTHER FINDINGS:Normal. IMPRESSION: No acute pulmonary findings. Related Data Home Medications Medication Instructions Recorded Confirmed albuterol sulfate 90 mcg/actuation 2 puff inhalation P RN PRN 07/04/15 08/17/25 aerosol inhaler (Ventolin HFA) multivitamin (Daily Multi-Vitamin 1 tab PO DAILY 11/1408/17/25 tablet) nebulizers (Compact Compressor #1 ea 11/14/19 08/17/25 Nebulizer) ipratropium 0.5 mg-albuterol 3 mg 3 ml inhalation .Q4- 6H PRN 09/28/20 08/17/25 (2.5 mg base)/3 mL nebulization soln lisinopril 20 mg tablet 20 mg PO DAILY 10/26/2007/03 rosuvastatin 20 mg tablet 20 mg PO .QHS 10/26/2008/17 ibuprofen 400 mg tablet 400 mg PO Q8H PRN PRN 08/17/25 amlodipine 10 mg tablet 10 mg PO HS 01/22/25 5 fluoxetine 20 mg capsule 20 mg PO DAILY 01/22/2507/03 cyclosporine 0.1 % eye drops 1 drp ophthalmic (eye) BI D 05/02/25 08/17/25 (Vevye) ferrous sulfate 325 mg (65 mg 325 mg PO DAILY 05/26/25 08/17/25 iron) tablet (FeroSul) fluticasone 100 mcg-salmeterol 50 1 ea inhalation HEIDY Y PRN 05/26/25 08/17/25 mcg/dose blistr powdr for inhalation (Advair Diskus) Allergies Allergy/AdvReac Type Severity Reaction Status Date / Time mirtazapine (From Remeron) Allergy Severe Seizure Verified 08/17/25 07:41 latex Allergy Intermediate Skin Rash Verified 08/17/25 07:41 animal dander Allergy Mild Itching Verified 08/17/25 07:41 venlafaxine HCl (From AdvReac Severe seizure Verified 08/17/25 07:41 Effexor) meperidine HCl (From Demerol) AdvReac Intermediate vomit, Verified 08/17/25 07:41 couldn't wake up oxycodone (Oxycodone) AdvReac Intermediate gi upset Verified 08/17/25 07:41 General Stated Complaint: RespSymp SIXTO: 3 Course Vital Signs Vital signs: Vital Signs Temperature 36.9 C 08/17/25 07:36 Pulse 76 08/17/25 07:36 Respiratory Rate 13 08/17/25 07:36 Blood Pressure 162/80 H 08/17/25 07:36 Pulse Oximetry 97 08/17/25 07:36 Temperature 36.9 C 08/17/25 07:36 Temperature Source Oral 08/17/25 07:36 Pulse 70 08/17/25 07:46 Pulse 70 08/17/25 07:46 Respiratory Rate 12 08/17/25 07:46 Blood Pressure 155/79 H 08/17/25 07:46 Blood Pressure Mean 102 08/17/25 07:46 Blood Pressure Position Supine 08/17/25 07:36 Pulse Oximetry 98 08/17/25 07:46 Oxygen Delivery Method Room Air 08/17/25 07:36 Oxygen Flow Rate 0 08/17/25 07:36 PFSH All Active Problems (Updated 08/17/25 @ 10:52 by Panda Stone MD) Asthma exacerbation (Acute) Acute viral syndrome (Acute) Chest pressure (Acute) Hiatal hernia (Chronic) Type 2 diabetes mellitus (Acute) Depressive disorder (Chronic) Gastroesophageal reflux disease without esophagitis (Acute) COVID-19 (Acute) COVID-19 (Acute) GERD (gastroesophageal reflux disease) (Chronic) Baer's Esophagus Asthma (Chronic) Tubular adenoma of colon (Acute) Hyperplastic colon polyp (Acute) Hypertensive emergency (Acute) Altered mental status (Acute) Barretts esophagus (Acute) Abdominal pain in female (Acute) Crohn's colitis (Acute) Trochanteric bursitis, left hip (Acute) Depo-Medrol injection: 05/09/2022 Medical History (Updated 08/17/25 @ 10:52 by Panda Stone MD) Back pain Pain in axilla Bilateral hand pain History of back pain Pain, joint, shoulder, right History of psychiatric disorder Dysphonia Dysphasia Altered awareness, transient Amnesia Disorder of vocal cord Sleep apnea Tick bite Ischial bursitis of right side Depo-Medrol injection: 01/14/2021 (Dr. Drummond); previous injections on 06/12/2014, 02/12/2014, 11/14/2013 (Dr. Bear) Osteoporosis Lesion of vocal cord Rash, skin Facial rhytids (01/15/18) Encounter for screening colonoscopy Hypertension Anxiety Hormone replacement therapy (HRT) Allergic rhinitis Hyperlipidemia Premature ventricular contractions (PVCs) (VPCs) Per pt. states this is due to anxiety Dry eye syndrome Vitamin D deficiency Fatigue Impaired fasting glucose Vaginal prolapse (03/29/16) s/p [place] colpopexy, [place] [facility] [place] [facility] [place] History (Updated 04/26/25 @ 00:01 by KWESI CHILDRESS) History of Milana fundoplication (~04/2025) History of esophagogastroduodenoscopy (EGD) (~02/17/25) Hx of cataract removal with insertion of prosthetic lens History of colonoscopy (~05/2022) History of open sigmoidectomy laparoscopic sacral colpopexy 03/29/16 with posterior colporrhaphy[place] [facility] [place] Oophrectomy[place] Left (~2000) Vaginal hysterectomy (~2002) for uterine prolapse, with oophorectomy Repair of umbilical hernia Colonoscopy - IV Sedation with EGD for Barretts esophagitis Family History Mother Essential hypertension Heart disease Stroke Father Blood disorder required blood transfusions Brother Diabetes Grandfather , mouth cancer Diabetes Grandmother , breast cancer No problems noted. 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
[2025-08-17 08:18] LABS: Abs Immature Grans 0.03 10^3/uL (0.0-0.06); HCT 34.8 % (36.0-46.0); HGB 11.6 g/dL (11.2-15.7); Immature Grans % 0.4 %; MCH 30.3 pg (27.0-33.0); MCHC 33.3 % (32.0-36.0); MCV 91 fL (80-95); MPV 8.8 fL (8.0-11.0); Platelet Count 397 10^3/uL (130-400); RBC 3.83 10^6/uL (3.93-5.22); RDW 13.0 % (11.7-14.6); RDW-SD 43.2 fL; WBC 7.04 10^3/uL (4.4-10.8)
[2025-08-17] MEDS: Dexamethasone 10 MG/ML VIAL IVP (08:24)
[2025-08-17] MEDS: Albuterol/Ipratropium 3 ML UPD VIAL UPD (08:25)
[2025-08-17 08:41] LABS: Magnesium 1.7 mg/dL (1.8-2.4)
[2025-08-17 08:43] LABS: D-Dimer 386 ng/mlFEU (<500)
[2025-08-17 08:44] LABS: ALT 43 U/L (14-59); AST 23 U/L (15-37); Albumin 3.8 g/dL (3.4-5.0); Alkaline Phosphatase 109 U/L (46-116); Anion Gap 12.4 mmol/L (3-11); BUN 15 mg/dL (7-18); Bilirubin, Total 0.4 mg/dL (0.2-1.0); CO2 25.6 mmol/L (21.0-32.0); Calcium 9.3 mg/dL (8.5-10.1); Chloride 99 mmol/L (98-107); Glucose 114 mg/dL (74-106); Potassium 3.9 mmol/L (3.5-5.1); Sodium 137 mmol/L (136-145); Total Protein 7.3 g/dL (6.4-8.2); Troponin I 6 ng/L (<or=51)
[2025-08-17 09:34] LABS: Glucose Negative (Negative)
[2025-08-17 09:51] LABS: COVID-19 PCR Negative (Negative); RSV PCR Negative (Negative)
[2025-08-17 10:02] LABS: Troponin I 7 ng/L (<or=51)
== END 2025-08-17 10:55 | disposition home or self-care (01) ==
PROVIDERS: Emergency Provider General Practice; PCP Internal Medicine
DX: J45.901 Unspecified asthma with (acute) exacerbation (principal); R07.89 Other chest pain; B34.9 Viral infection, unspecified
CPT/HCPCS: 99284 ×2; 96374; 94640; 36415; 80053; 87637; 93005; 71046; 81003; 83605; 83735; 84484; 85025; 85379; 93010; J1100; J7620